=== PATIENT | female | born 1970 | race Caucasian/White ===

== ENCOUNTER 2016-10-14 19:53 | Observation (INO) | payer MEDICARE, OTHER ==
[2016-10-14] MEDS ORDERED: SODIUM CHLORIDE 0.9% 1,000 ML IV STA (20:05)
--- NOTE | 2016-10-14 20:06 | ED ---
General Adult HPI - General Chief complaint: Chest Pain Stated complaint: SOB/Chest Pain Time Seen by Provider: 10/14/16 19:59 Source: patient, family, RN notes reviewed, old records reviewed Mode of arrival: wheelchair Limitations: no limitations - History of Present Illness Initial comments: This is a 38-year-old female to the ER for evaluation. Patient presents for evaluation regarding chest pain. Left-sided chest pain with sharp chest pain. She has had this pain before and been evaluated without consequence. Denies fevers, no cough or congestion, no significant shortness of breath. Patient does have history of sarcoidosis. No history of heart disease. No recent fevers cough or congestion - Related Data Home Medications Medication Instructions Recorded Confirmed Ergocalciferol [Vitamin D2 50,000 unit PO TU 04/20/15 10/14/16 (DRISDOL)] Cyclobenzaprine [Flexeril] 10 mg PO HS PRN 12/21/15 10/14/16 Gabapentin [Neurontin] 300 mg PO BID PRN 12/21/15 10/14/16 Allergies Allergy/AdvReac Type Severity Reaction Status Date / Time meperidine HCl [From Demerol] Allergy Rash/Hives/ Verified 10/14/16 20:55 Swelling naproxen sodium [From Aleve] Allergy Rash/Hives/ Verified 10/14/16 20:55 Swelling Review of Systems ROS Statement: Those systems with pertinent positive or pertinent negative responses have been documented in the HPI. ROS Other: All systems not noted in ROS Statement are negative. Past Medical History Additional Past Medical History / Comment(s): VOICE BOX, LEFT LUNG NODULE, CHRONS, SARCODOSIS History of Any Multi-Drug Resistant Organisms: None Reported Past Surgical History: Hysterectomy, Joint Replacement, Orthopedic Surgery Additional Past Surgical History / Comment(s): LEFT LUNG NODULE REMOVAL, Past Anesthesia/Blood Transfusion Reactions: No Reported Reaction Past Psychological History: No Psychological Hx Reported Smoking Status: Never smoker Past Alcohol Use History: None Reported Past Drug Use History: None Reported General Exam Limitations: no limitations General appearance: alert, in no apparent distress Head exam: Present: atraumatic, normocephalic, normal inspection Eye exam: Present: normal appearance, PERRL, EOMI. Absent: scleral icterus, conjunctival injection, periorbital swelling ENT exam: Present: normal exam, mucous membranes moist Neck exam: Present: normal inspection. Absent: tenderness, meningismus, lymphadenopathy Respiratory exam: Present: normal lung sounds bilaterally. Absent: respiratory distress, wheezes, rales, rhonchi, stridor Cardiovascular Exam: Present: regular rate, normal rhythm, normal heart sounds. Absent: systolic murmur, diastolic murmur, rubs, gallop, clicks GI/Abdominal exam: Present: soft, normal bowel sounds. Absent: distended, tenderness, guarding, rebound, rigid Extremities exam: Present: normal inspection, full ROM, normal capillary refill. Absent: tenderness, pedal edema, joint swelling, calf tenderness Back exam: Present: normal inspection Neurological exam: Present: alert, oriented X3, CN II-XII intact Psychiatric exam: Present: normal affect, normal mood Skin exam: Present: warm, dry, intact, normal color. Absent: rash Course Vital Signs 10/14/16 10/14/16 10/14/16 19:57 20:12 21:47 Temperature 97.2 F L 97.0 F L Pulse Rate 84 86 70 Respiratory 18 18 16 Rate Blood Pressure 177/78 167/81 160/76 O2 Sat by Pulse 99 97 98 Oximetry - Reevaluation(s) Reevaluation #1: 10/14/16 22:28 No significant improvement in pain medication and pain control with pain medication EKG Findings - EKG Comments: EKG Findings:: EKG shows normal sinus rhythm rate of 73, WV 1:30, QRS 86, QTC 423 Medical Decision Making - Medical Decision Making 38 female any chest pain, nonspecific chest patient be admitted for cardiac observation, telemetry serial troponins and EKG - Lab Data Result diagrams: 10/14/16 20:20 10/14/16 20:20 Lab Results 10/14/16 10/14/16 10/14/16 Range/Units 20:20 20:20 20:20 WBC 9.6 (3.8-10.6) k/uL RBC 4.68 (3.80-5.40) m/uL Hgb 13.3 (11.4-16.0) gm/dL Hct 38.5 (34.0-46.0) % MCV 82.1 (80.0-100.0) fL MCH 28.4 (25.0-35.0) pg MCHC 34.5 (31.0-37.0) g/dL RDW 13.1 (11.5-15.5) % Plt Count 333 (150-450) k/uL Neutrophils % 64 % Lymphocytes % 27 % Monocytes % 5 % Eosinophils % 2 % Basophils % 0 % Neutrophils # 6.2 (1.3-7.7) k/uL Lymphocytes # 2.5 (1.0-4.8) k/uL Monocytes # 0.5 (0-1.0) k/uL Eosinophils # 0.2 (0-0.7) k/uL Basophils # 0.0 (0-0.2) k/uL PT (9.0-12.0) sec INR (<1.2) APTT (22.0-30.0) sec D-Dimer (<0.60) mg/L FEU Sodium 138 (137-145) mmol/L Potassium 4.0 (3.5-5.1) mmol/L Chloride 105 (98-107) mmol/L Carbon Dioxide 22 (22-30) mmol/L Anion Gap 11 mmol/L BUN 11 (7-17) mg/dL Creatinine 0.65 (0.52-1.04) mg/dL Est GFR (MDRD) Af Amer >60 (>60 ml/min/1.73 sqM) Est GFR (MDRD) Non-Af >60 (>60 ml/min/1.73 sqM) Glucose 84 (74-99) mg/dL Calcium 9.1 (8.4-10.2) mg/dL Magnesium 1.9 (1.6-2.3) mg/dL Total Bilirubin 0.6 (0.2-1.3) mg/dL AST 35 (14-36) U/L ALT 43 (9-52) U/L Alkaline Phosphatase 105 (38-126) U/L Total Creatine Kinase 32 (30-135) U/L CK-MB (CK-2) 0.3 (0.0-2.4) ng/mL CK-MB (CK-2) Rel Index 0.9 Troponin I <0.012 (0.000-0.034) ng/mL Total Protein 7.1 (6.3-8.2) g/dL Albumin 4.3 (3.5-5.0) g/dL Lipase 171 (23-300) U/L // Range/Units 20:20 WBC (3.8-10.6) k/uL RBC (3.80-5.40) m/uL Hgb (11.4-16.0) gm/dL Hct (34.0-46.0) % MCV (80.0-100.0) fL MCH (25.0-35.0) pg MCHC (31.0-37.0) g/dL RDW (11.5-15.5) % Plt Count (150-450) k/uL Neutrophils % % Lymphocytes % % Monocytes % % Eosinophils % % Basophils % % Neutrophils # (1.3-7.7) k/uL Lymphocytes # (1.0-4.8) k/uL Monocytes # (0-1.0) k/uL Eosinophils # (0-0.7) k/uL Basophils # (0-0.2) k/uL PT 10.1 (9.0-12.0) sec INR 1.0 (<1.2) APTT 25.2 (22.0-30.0) sec D-Dimer 0.32 (<0.60) mg/L FEU Sodium (137-145) mmol/L Potassium (3.5-5.1) mmol/L Chloride (98-107) mmol/L Carbon Dioxide (22-30) mmol/L Anion Gap mmol/L BUN (7-17) mg/dL Creatinine (0.52-1.04) mg/dL Est GFR (MDRD) Af Amer (>60 ml/min/1.73 sqM) Est GFR (MDRD) Non-Af (>60 ml/min/1.73 sqM) Glucose (74-99) mg/dL Calcium (8.4-10.2) mg/dL Magnesium (1.6-2.3) mg/dL Total Bilirubin (0.2-1.3) mg/dL AST (14-36) U/L ALT (9-52) U/L Alkaline Phosphatase (38-126) U/L Total Creatine Kinase (30-135) U/L CK-MB (CK-2) (0.0-2.4) ng/mL CK-MB (CK-2) Rel Index Troponin I (0.000-0.034) ng/mL Total Protein (6.3-8.2) g/dL Albumin (3.5-5.0) g/dL Lipase (23-300) U/L - Radiology Data Radiology results: report reviewed (Chest x-ray and CT chest negative for acute disease), image reviewed Critical Care Time Critical Care Time: Yes Total Critical Care Time: 31 Disposition Clinical Impression: Chest pain Disposition: ADMITTED IP TO THIS [facility] Condition: Undetermined Instructions: Chest Pain (ED) Referrals: Lamar Howard MD [Primary Care Provider] - 1-2 days
[2016-10-14] MEDS ORDERED: MORPHINE SULFATE 4 MG/ML SYRINGE IVP STA ×2 (20:11→21:10)
[2016-10-14] MEDS ORDERED: ONDANSETRON 4 MG/2 ML VIAL IVP STA (20:17)
[2016-10-14 20:29] LABS: Basophils % (A) 0 %; CH 27.5; CHCM 33.7; Eosinophils # (A) 0.2 k/uL (0-0.7); Eosinophils % (A) 2 %; HCT 38.5 % (34.0-46.0); HDW 2.53; HGB 13.3 gm/dL (11.4-16.0); Luc # (Auto) 0.15; Luc % (Auto) 2; Lymphocytes # (A) 2.5 k/uL (1.0-4.8); Lymphocytes % (A) 27 %; MCH 28.4 pg (25.0-35.0); MCHC 34.5 g/dL (31.0-37.0); MCV 82.1 fL (80.0-100.0); Monocytes # (A) 0.5 k/uL (0-1.0); Monocytes % (A) 5 %; Neutrophils # (A) 6.2 k/uL (1.3-7.7); Neutrophils % (A) 64 %; RBC 4.68 m/uL (3.80-5.40); RDW 13.1 % (11.5-15.5); WBC 9.6 k/uL (3.8-10.6); WBC (Perox) 9.75
[2016-10-14 20:42] LABS: ALT 43 U/L (9-52); AST 35 U/L (14-36); Alkaline Phosphatase 105 U/L (38-126); Anion Gap 11 mmol/L; Blood Urea Nitrogen 11 mg/dL (7-17); Calcium 9.1 mg/dL (8.4-10.2); Carbon Dioxide 22 mmol/L (22-30); Chloride 105 mmol/L (98-107); Glucose 84 mg/dL (74-99); Magnesium 1.9 mg/dL (1.6-2.3); Non-African American GFR(MDRD) >60 (>60 ml/min/1.73 sqM); Sodium 138 mmol/L (137-145); Total Bilirubin 0.6 mg/dL (0.2-1.3); Total Protein 7.1 g/dL (6.3-8.2)
[2016-10-14 20:43] LABS: Partial Thromboplastin Time 25.2 sec (22.0-30.0)
[2016-10-14 20:50] LABS: Creatine Kinase 32 U/L (30-135); Prothrombin Time 10.1 sec (9.0-12.0)
--- NOTE | 2016-10-14 20:51 | XR ---
EXAMINATION TYPE: XR chest 2V DATE OF EXAM: 10/14/2016 COMPARISON: Chest x-ray December 21, 2015 HISTORY: Chest pain and shortness of breath. TECHNIQUE: Frontal and lateral views of the chest are obtained. FINDINGS: There is no focal air space opacity, pleural effusion, or pneumothorax seen. The cardiac silhouette size is within normal limits. Metallic anchor rotator cuff surgery left humeral head is re demonstrated.. IMPRESSION: No acute cardiopulmonary process. No significant change from prior.
[2016-10-14 21:03] LABS: Creatine Kinase MB 0.3 ng/mL (0.0-2.4); Troponin I <0.012 ng/mL (0.000-0.034)
[2016-10-14] MEDS ORDERED: methylPREDNISolone SOD SUCCI 125 MG/2 ML VIAL IV STA (21:10)
[2016-10-14] MEDS ORDERED: RX INFO: IV CONTRAST WAS GIVEN 1 EACH MISC MISCELLANE PRN (21:11)
--- NOTE | 2016-10-14 22:11 | CT ---
EXAMINATION TYPE: CT angio chest DATE OF EXAM: 10/14/2016 COMPARISON: CTA chest April 26, 2015. HISTORY: Substernal chest pain that radiates to left arm with shortness of breath. CT DLP: 279.60 mGycm. Automated Exposure Control for Dose Reduction was Utilized. CONTRAST: CTA scan of the thorax is performed with IV Contrast, patient injected with 66 mL of Omnipaque 350, p ulmonary embolism protocol. MIP Images are created on CT scanner and reviewed. FINDINGS: LUNGS: The lungs are predominantly clear, there is no concerning parenchymal mass or nodule identifie d. There is minimal linear scarring in the left lower lobe redemonstrated. There is no pleural effus ion or pneumothorax seen. The tracheobronchial tree is patent. MEDIASTINUM: There is satisfactory enhancement of the pulmonary artery and its branches, there is no CT evidence for pulmonary embolism. There are no greater than 1 cm hilar or mediastinal lymph nodes. No cardiomegaly or pericardial effusion is seen. OTHER: Some multilevel spurring in the thoracic spine is present. A small splenule in splenic hilum i s redemonstrated. Cholecystectomy clips are noted on current study. IMPRESSION: No CTA evidence for pulmonary embolism. No suspicious acute pulmonary process is seen.
[2016-10-14] MEDS ORDERED: ASPIRIN 81 MG CHEW PO STA (22:26)
[2016-10-14] MEDS ORDERED: NITROGLYCERIN SL TABS 0.4 MG TAB SUBLINGUAL PRN (22:26)
[2016-10-14] MEDS ORDERED: HEPARIN SODIUM,PORCINE 5,000 UNIT/ML 1 ML VIAL IV ONE (22:26)
[2016-10-14] MEDS ORDERED: HEPARIN SODIUM,PORCINE 5,000 UNIT/ML 1 ML VIAL IV PRN (22:26)
[2016-10-14] MEDS ORDERED: HEPARIN SODIUM,PORCINE/D5W PMX 25,000 UNIT in DEXTROSE/WATER 1 500ML.BAG IV SCH (22:30)
[2016-10-14 23:35] VITALS: BMI 29.9
[2016-10-14] MEDS: MORPHINE SULFATE 4 MG/ML SYRINGE IV PRN (23:40)
[2016-10-15] MEDS: MORPHINE SULFATE 4 MG/ML SYRINGE IV PRN (02:04)
[2016-10-15 03:08] LABS: Mean Platelet Volume 6.5
[2016-10-15 03:22] LABS: Cholesterol 190 mg/dL (<200); HDL Cholesterol 72 mg/dL (40-60)
[2016-10-15 03:27] LABS: Creatine Kinase 26 U/L (30-135)
[2016-10-15 03:41] LABS: Creatine Kinase MB 0.4 ng/mL (0.0-2.4); Troponin I <0.012 ng/mL (0.000-0.034)
[2016-10-15] MEDS ORDERED: ATORVASTATIN 80 MG TAB PO SCH (09:00)
[2016-10-15] MEDS ORDERED: ASPIRIN 325 MG TAB PO SCH (09:00)
--- NOTE | 2016-10-15 09:20 | P.CRDCN ---
History of Present Illness Consult date: 10/15/16 History of present illness: This is a 46-year-old female with history of sarcoidosis who was admitted through the emergency room with complaints of chest pain and shortness of breath. Patient also has a history of intermittent palpitations. Patient had previous admissions and had an echo on the stress echo done in March 2015 which were negative for ischemia. She claims that chest pain is more so when she lays back. She also comes the chest pain increases on deep breathing. Her EKG so far are negative for ischemia. Cardiac enzymes are negative. D-dimer is within normal limits. Chest x-ray did not reveal any acute pathology. Patient is being scheduled for a surface echo and also stress echocardiogram. If the test are negative patient could be discharged home. Past Medical History Additional Past Medical History / Comment(s): VOICE BOX put in, Multiple LEFT LUNG NODULE, CHRONS, SARCODOSIS, vocal cords were paralized History of Any Multi-Drug Resistant Organisms: None Reported Past Surgical History: Hysterectomy, Joint Replacement, Orthopedic Surgery Additional Past Surgical History / Comment(s): LEFT LUNG NODULE REMOVAL, Past Anesthesia/Blood Transfusion Reactions: No Reported Reaction Smoking Status: Never smoker - Past Family History Mother Family Medical History: Diabetes Mellitus Father History Unknown: Yes Medications and Allergies Home Medications Medication Instructions Recorded Confirmed Type Ergocalciferol [Vitamin D2 50,000 unit PO TU 04/20/15 10/14/16 History (DRISDOL)] Cyclobenzaprine [Flexeril] 10 mg PO HS PRN 12/21/15 10/14/16 History Gabapentin [Neurontin] 300 mg PO BID PRN 12/21/15 10/14/16 History Allergies Allergy/AdvReac Type Severity Reaction Status Date / Time meperidine HCl [From Demerol] Allergy Rash/Hives/ Verified 10/14/16 23:20 Swelling naproxen sodium [From Aleve] Allergy Rash/Hives/ Verified 10/14/16 23:20 Swelling Physical Exam Vitals: Vital Signs Temp Pulse Pulse Resp BP BP Pulse Ox 10/15/16 08:00 97.6 F 66 18 118/64 98 10/15/16 07:57 98 10/15/16 04:00 97.8 F 69 18 128/69 97 10/15/16 00:00 18 10/14/16 23:37 97.7 F 66 18 147/86 98 10/14/16 22:51 98.3 F 18 L 66 H 156/74 98 10/14/16 21:47 70 16 160/76 98 10/14/16 20:12 97.0 F L 86 18 167/81 97 10/14/16 19:57 97.2 F L 84 18 177/78 99 Intake and Output 10/14/16 10/15/16 10/15/16 22:59 06:59 14:59 Other: Voiding Method Toilet # Voids 1 1 Weight 79.379 kg 79.3 kg GENERAL EXAM: Patient is alert and oriented and doesn't appear to be in any acute distress HEENT: Normocephalic. Normal reaction of pupils, equal size, normal range of extraocular motion. No erythema or exudates in the throat. NECK: No masses, no nuchal rigidity. CHEST: No chest wall deformity. LUNGS: Accept default HEART: S1 and S2 normal with no audible mumurs or gallops. Regular rhythm, femorals equal on both sides.. ABDOMEN: No hepatosplenomegaly, normal bowel sounds, no guarding or rigidity. SKIN: No rashes CENTRAL NERVOUS SYSTEM: No focal deficits. EXTREMITIES: No cyanosis, clubbing or edema. Results 10/15/16 02:41 10/14/16 20:20 Cardiac Enzymes 10/14/16 10/14/16 10/15/16 Range/Units 20:20 20:20 02:41 AST 35 (14-36) U/L CK-MB (CK-2) 0.3 0.4 (0.0-2.4) ng/mL Troponin I <0.012 <0.012 (0.000-0.034) ng/mL Coagulation 10/14/16 10/15/16 Range/Units 20:20 04:22 PT 10.1 (9.0-12.0) sec APTT 25.2 31.7 H (22.0-30.0) sec Lipids 10/15/16 Range/Units 02:41 Triglycerides 44 (<150) mg/dL Cholesterol 190 (<200) mg/dL HDL Cholesterol 72 H (40-60) mg/dL CBC 10/14/16 10/15/16 Range/Units 20:20 02:41 WBC 9.6 (3.8-10.6) k/uL RBC 4.68 (3.80-5.40) m/uL Hgb 13.3 (11.4-16.0) gm/dL Hct 38.5 (34.0-46.0) % Plt Count 333 290 (150-450) k/uL Comprehensive Metabolic Panel 10/14/16 Range/Units 20:20 Sodium 138 (137-145) mmol/L Potassium 4.0 (3.5-5.1) mmol/L Chloride 105 (98-107) mmol/L Carbon Dioxide 22 (22-30) mmol/L BUN 11 (7-17) mg/dL Creatinine 0.65 (0.52-1.04) mg/dL Glucose 84 (74-99) mg/dL Calcium 9.1 (8.4-10.2) mg/dL AST 35 (14-36) U/L ALT 43 (9-52) U/L Alkaline Phosphatase 105 (38-126) U/L Total Protein 7.1 (6.3-8.2) g/dL Albumin 4.3 (3.5-5.0) g/dL Current Medications Generic Name Dose Route Start Last Admin Trade Name Freq PRN Reason Stop Dose Admin Aspirin 325 mg 10/15/16 09:00 Aspirin PO DAILY [facility] Atorvastatin Calcium 80 mg 10/15/16 09:00 Lipitor PO DAILY [facility] Heparin Sodium (Porcine) 0 unit 10/14/16 22:26 Heparin IV Q6HR PRN Low PTT Protocol Heparin Sodium/Dextrose 25,000 500 mls @ 19.05 mls/hr 10/14/16 22:30 22:42 unit/ IV Solution IV 12 units/kg/hr .Q24H HENRY 19.05 mls/hr Protocol Administration 12 UNITS/KG/HR Miscellaneous Information 1 each 10/14/16 21:11 Rx Info: Iv Contrast Was Given MISCELLANE 10/16/16 21:11 DAILY PRN Per Protocol Morphine Sulfate 4 mg 10/14/16 22:26 10/15/16 02:04 Morphine Sulfate (Inj) IV 4 mg Q5M PRN Administration Chest Pain Nitroglycerin 0.4 mg 10/14/16 22:26 Nitrostat SUBLINGUAL Q5M PRN Chest Pain Intake and Output 10/14/16 10/15/16 10/15/16 22:59 06:59 14:59 Other: Voiding Method Toilet # Voids 1 1 Weight 79.379 kg 79.3 kg 10/15/16 02:41 10/14/16 20:20 EKG Interpretations (text) Sinus rhythm Assessment and Plan (1) History of sarcoidosis Status: Acute Plan: Her chest pains appear to be atypical. Cardiac enzymes and EKGs are negative. Patient is being scheduled for echo. If echocardiogram is normal, we'll proceed with stress echocardiogram. The stress echo is negative patient could be discharged home.
[2016-10-15 10:28] LABS: Creatine Kinase 24 U/L (30-135)
[2016-10-15 10:40] LABS: Creatine Kinase MB 0.3 ng/mL (0.0-2.4); Troponin I <0.012 ng/mL (0.000-0.034)
--- NOTE | 2016-10-15 15:30 | P.HPIM ---
History of Present Illness H&P Date: 10/15/16 Chief Complaint: Chest pain HISTORY AND PHYSICAL AND DISCHARGE SUMMARY: This is a 46-year-old female patient of Dr. Alvarez who is switching physicians and will be seen Dr. Howard tomorrow for her first appointment. She has a past medical history of Crohn's, sarcoidosis, vocal cords per dialysis status post repair. She gives history that she has had problems with palpitations and chest pain for a long period of time and his had a case monitor 2 episodes and a 30 day event monitor. She states it often happens when she lays down and she feels her heart racing. She then has chest pain with left arm involvement and shortness of breath. She denies any choking. She denies any lightheadedness or dizziness. She does state that her vision becomes blurry when she has chest pain. She states she had an episode where she passed out in March and broke both arms and all leg. She has followed with the neurologist and was not found to have any seizure disorder. Patient has been placed on the observation unit and cardiology consult placed. Patient underwent echocardiogram and stress echocardiogram. Patient has been seen in consultation by cardiology with normal EKG and normal cardiac enzymes. Echocardiogram revealed EF 55-60%, mild mitral regurgitation, trace tricuspid regurgitation. Stress echocardiogram was normal and patient was discharged home in stable condition. Patient has been instructed to stop caffeine intake as she does state that she drinks 2-3 24 ounce coffees per day plus a can of pop. Recommend the patient have outpatient tilt table test done. Review of Systems All systems: negative Constitutional: Denies chills, Denies fever Eyes: denies blurred vision, denies pain Ears, nose, mouth and throat: Denies headache, Denies sore throat Cardiovascular: Reports chest pain, Reports palpitations, Denies lightheadedness , Denies shortness of breath, Denies syncope Respiratory: Denies cough Gastrointestinal: Denies abdominal pain, Denies diarrhea, Denies nausea, Denies vomiting Genitourinary: Denies dysuria, Denies hematuria Musculoskeletal: Denies myalgias Integumentary: Denies pruritus, Denies rash Neurological: Denies numbness, Denies weakness Psychiatric: Denies anxiety, Denies depression Endocrine: Denies fatigue, Denies weight change Past Medical History Additional Past Medical History / Comment(s): Vocal cord paralysis after biopsy status post repair, Multiple LEFT LUNG NODULE, Crohn's disease, SARCODOSIS History of Any Multi-Drug Resistant Organisms: None Reported Past Surgical History: Hysterectomy, Joint Replacement, Orthopedic Surgery Additional Past Surgical History / Comment(s): Repair of vocal cord paralysis, right total knee arthroscopically, left rotator cuff repair, left knee open surgery, LEFT LUNG NODULE REMOVAL, Past Anesthesia/Blood Transfusion Reactions: No Reported Reaction Smoking Status: Never smoker Additional Past Alcohol Use History / Comment(s): Patient is a lifelong nonsmoker. She does use marijuana. She uses alcohol occasionally on the weekends. - Past Family History Mother Family Medical History: Diabetes Mellitus Additional Family Medical History / Comment(s): Mother is alive at age 69 with history of diabetes. Father History Unknown: Yes Additional Family Medical History / Comment(s): Patient does not have any contact with her father and does not know any of his medical history. Brother(s) Additional Family Medical History / Comment(s): Patient has 1 brother but does not know his medical history. Patient does not have any sisters. Patient has 2 sons ages 24 and 26 with no major medical problems. Medications and Allergies Home Medications Medication Instructions Recorded Confirmed Type Ergocalciferol [Vitamin D2 50,000 unit PO TU 04/20/15 10/14/16 History (LEXII)] Cyclobenzaprine [Flexeril] 10 mg PO HS PRN 12/21/15 10/14/16 History Gabapentin [Neurontin] 300 mg PO BID PRN 12/21/15 10/14/16 History Allergies Allergy/AdvReac Type Severity Reaction Status Date / Time meperidine HCl [From Demerol] Allergy Rash/Hives/ Verified 10/14/16 23:20 Swelling naproxen sodium [From Aleve] Allergy Rash/Hives/ Verified 10/14/16 23:20 Swelling Physical Exam Vitals: Vital Signs Temp Pulse Pulse Resp BP BP Pulse Ox 10/15/16 12:00 97.5 F L 67 16 120/58 98 10/15/16 08:00 97.6 F 66 18 118/64 98 10/15/16 07:57 98 10/15/16 04:00 97.8 F 69 18 128/69 97 10/15/16 00:00 18 10/14/16 23:37 97.7 F 66 18 147/86 98 10/14/16 22:51 98.3 F 18 L 66 H 156/74 98 10/14/16 21:47 70 16 160/76 98 10/14/16 20:12 97.0 F L 86 18 167/81 97 10/14/16 19:57 97.2 F L 84 18 177/78 99 Intake and Output 10/14/16 10/15/16 10/15/16 22:59 06:59 14:59 Other: Voiding Method Toilet # Voids 1 1 Weight 79.379 kg 79.3 kg Gen: This is a 46-year-old female. She is resting in bed and appears to be in no acute distress. HEENT: Head is atraumatic, normocephalic. Pupils equal, round. Sclerae is anicteric. NECK: Supple. No JVD. No lymphadenopathy. No thyromegaly. LUNGS: Clear to auscultation. No wheezes or rhonchi. No intercostal retractions. HEART: Regular rate and rhythm. No murmur. ABDOMEN: Soft. Bowel sounds are present. No masses. No tenderness. EXTREMITIES: No pedal edema. No calf tenderness. NEUROLOGICAL: Patient is awake, alert and oriented x3. Cranial nerves 2 through 12 are grossly intact. Results CBC & Chem 7: 10/15/16 02:41 10/14/16 20:20 Labs: Abnormal Lab Results - Last 24 Hours (Table) 10/15/16 10/15/16 10/15/16 Range/Units 02:41 02:41 04:22 APTT 31.7 H (22.0-30.0) sec Total Creatine Kinase 26 L (30-135) U/L LDL Cholesterol, Calc 109 H (0-99) mg/dL HDL Cholesterol 72 H (40-60) mg/dL 10/15/16 10/15/16 Range/Units 09:06 09:06 APTT 34.7 H (22.0-30.0) sec Total Creatine Kinase 24 L (30-135) U/L LDL Cholesterol, Calc (0-99) mg/dL HDL Cholesterol (40-60) mg/dL Thrombosis Risk Factor Assmnt - DVT/VTE Prophylaxis DVT/VTE Prophylaxis: Pharmacologic Prophylaxis ordered - Choose All That Apply Each Factor Represents 1 point: Age 41-60 years Thrombosis Risk Factor Assessment Total Risk Factor Score: 1 Thrombosis Risk Factor Assessment Level: Low Risk Assessment and Plan Plan: 1. Chest pain with palpitations and shortness of breath with blurry vision. Echocardiogram and stress test have been ordered and results are as above. Discussed with patient need to stop caffeine. Chest pain and palpitations may be due to autonomic dysfunction, anxiety, caffeine intake. 2. Sarcoidosis, stable. 3. Crohn's, stable. Patient placed on the observation unit. Discharge plan: Return home Impression and plan of care have been directed as dictated by the signing physician. Mellissa Reagan nurse practitioner acting as scribe for signing physician. CC: Dr Lamar Howard
[2016-10-15 16:23] VITALS: BP 118/56; PULSE 73; RESP 18; TEMP 98.3
--- NOTE | 2016-10-16 10:09 | ECHOF ---
Referral Reason: MEASUREMENTS -------- HEIGHT: 162.6 cm WEIGHT: 78.9 kg BP: 118/64 RVIDd: 2.5 cm (< 3.3) IVSd: 0.8 cm (0.6 - 1.1) LVIDd: 5.0 cm (3.9 - 5.3) LVPWd: 0.9 cm (0.6 - 1.1) IVSs: 1.4 cm LVIDs: 3.2 cm LVPWs: 1.4 cm LAESV Index (A-L): 42.82 ml/m Ao Diam: 3.5 cm (2.0 - 3.7) AV Cusp: 2.3 cm (1.5 - 2.6) LA Diam: 2.9 cm (2.7 - 3.8) MV EXCURSION: 18.872 mm (> 18.000) MV EF SLOPE: 96 mm/s (70 - 150) EPSS: 0.5 cm MV E Agapito: 0.98 m/s MV DecT: 279 ms MV A Agapito: 0.83 m/s MV E/A Ratio: 1.18 RAP: 5.00 mmHg RVSP: 22.66 mmHg FINDINGS -------- Sinus rhythm. This was a technically adequate study. Overall left ventricular systolic function is normal with, an EF between 55 - 60 %. The right ventricle is normal in size and function. LA is severely dilated >40 ml/m2 The right atrium is normal in size. The aortic valve is trileaflet, and appears structurally normal. No aortic stenosis or regurgitation. The mitral valve leaflets are mildly thickened. There is trace to mild mitral regurgitation. Trace tricuspid regurgitation present. There is no evidence of pulmonary hypertension. The right ventricular systolic pressure, as measured by Doppler, is 22.66mmHg. The pulmonic valve is normal. The aortic root size is normal. Normal inferior vena cava with normal inspiratory collapse consistent with estimated right atrial pressure of 5 mmHg. The pericardium is normal. There is no pericardial effusion. CONCLUSIONS -------- 1. Sinus rhythm. 2. The right ventricular systolic pressure, as measured by Doppler, is 22.66mmHg. 3. The pulmonic valve is normal. 4. The aortic root size is normal. 5. There is no pericardial effusion. 6. This was a technically adequate study. 7. Overall left ventricular systolic function is normal with, an EF between 55 - 60 %. 8. LA is severely dilated >40 ml/m2 9. The aortic valve is trileaflet, and appears structurally normal. No aortic stenosis or regurgitation. 10. The mitral valve leaflets are mildly thickened. 11. There is trace to mild mitral regurgitation. 12. Trace tricuspid regurgitation present. 13. There is no evidence of pulmonary hypertension. CONTROLS DESIGN ENGINEER: Nadir Murray RDCS
--- NOTE | 2016-10-17 14:04 | ECHOS ---
Referral Reason:cp MEASUREMENTS -------- HEIGHT: 163.0 cm WEIGHT: 78.9 kg BP: 137/96 WallScoring: string WallScoring: string WallScoring: string FINDINGS -------- Utilizing the standard Clarence protocol the patient was exercised for 9 minutes, 30 seconds, achieving a maximum heart rate of 161 , which is 93 % of predicted maximal heart rate. There was physiologic heart rate and blood pressure response to exercise. Max Heart Rate: 161 % of Max Predicted Heart Rate: 93 Rest Heart Rate: 61 Rest BP: 137/96 Max BP: 192/108 Mets Achieved: 11.1 The test was stopped because of fatigue. The test was stopped because the target heart rate was achieved. Sinus rhythm. In response to stress, the ECG showed no ST-T wave changes (see exercise report for details). There were normal blood pressure and heart rate responses to stress. LV size, wall thickness and systolic function are normal, with an EF of 60%. Echo images were acquired at peak stress which demonstrated appropriate augmentation of all left ventricular segments. CONCLUSIONS -------- 1. Sinus rhythm. 2. In response to stress, the ECG showed no ST-T wave changes (see exercise report for details). 3. There were normal blood pressure and heart rate responses to stress. 4. LV size, wall thickness and systolic function are normal, with an EF of 60%. 5. Echo images were acquired at peak stress which demonstrated appropriate augmentation of all left ventricular segments. 6. XXX functional exercise capacity. No ECG or 2D echocardiographic evidence of inducible ischemia to achieved workload. VEHICLE INSPECTOR: Therese Duke RDCS
--- NOTE | 2016-10-17 14:07 | EST ---
Referral Reason:cp MEASUREMENTS -------- HEIGHT: 163.0 cm WEIGHT: 78.9 kg BP: 137/96 FINDINGS -------- Utilizing the standard Clarence protocol the patient was exercised for 9 minutes, 30 seconds, achieving a maximum heart rate of 161 , which is 93 % of predicted maximal heart rate. There was physiologic heart rate and blood pressure response to exercise. Max Heart Rate: 161 % of Max Predicted Heart Rate: 93 Rest Heart Rate: 61 Rest BP: 137/96 Max BP: 192/108 Mets Achieved: 11.1 The test was stopped because of fatigue. The test was stopped because the target heart rate was achieved. Sinus rhythm. In response to stress, the ECG showed no ST-T wave changes (see exercise report for details). There were normal blood pressure and heart rate responses to stress. LV size, wall thickness and systolic function are normal, with an EF of 60%. Echo images were acquired at peak stress which demonstrated appropriate augmentation of all left ventricular segments. CONCLUSIONS -------- 1. Sinus rhythm. 2. In response to stress, the ECG showed no ST-T wave changes (see exercise report for details). 3. There were normal blood pressure and heart rate responses to stress. 4. LV size, wall thickness and systolic function are normal, with an EF of 60%. 5. Echo images were acquired at peak stress which demonstrated appropriate augmentation of all left ventricular segments. 6. XXX functional exercise capacity. No ECG or 2D echocardiographic evidence of inducible ischemia to achieved workload. ELECTRIC ORGAN ASSEMBLER AND CHECKER: Therese Duke RDCS MTDNabeel
== END 2016-10-15 16:28 | disposition home or self-care (01) ==
LOC: EC 19:53 → 3OBS 22:28
PROVIDERS: ADMIT Internal Medicine; ATTEND Internal Medicine
DX: R07.89 Other chest pain (principal); R06.02 Shortness of breath; R00.2 Palpitations; D86.9 Sarcoidosis, unspecified; K50.90 Crohn's disease, unspecified, without complications; Z88.8 Allergy status to other drugs, medicaments and biological substances; Z83.3 Family history of diabetes mellitus
CPT/HCPCS: 96375 ×4; 96376 ×5; 96361 ×4; 96365; 96366 ×2; 99291; 36415; 94760; 93005; 93017; 93306; 93350; 85379; 80061; 80053; 82550 ×2; 82553 ×2; 83690; 83735; 84484 ×2; 85025; 85049; 85610; 85730 ×2; 71020; 71275; G0378 ×2; J2270 ×2; J1644 ×2; J2930; Q9967; J2405

== ENCOUNTER 2016-10-23 19:39 | Observation (INO) | payer MEDICARE, OTHER ==
--- NOTE | 2016-10-23 19:54 | ED ---
General Adult HPI - General Stated complaint: Chest Pain Time Seen by Provider: 10/23/16 19:44 Source: RN notes reviewed, old records reviewed - History of Present Illness Initial comments: This is a 38-year-old female to the F reverse chest pain, patient is recent hospital admission for chest pain. No significant cardiac risk factors. Patient did take nitro for chest pain which did not help. Patient's pain continues here in the emergency room. She does feel mildly anxious mildly short of breath. No fevers. No cough or congestion. Again she has had a recent hospitalization where she states she did have a stress test and she believes it went well but unknown of other events. - Related Data Home Medications Medication Instructions Recorded Confirmed Ergocalciferol [Vitamin D2 50,000 unit PO TU 04/20/15 10/14/16 (DRISDOL)] Cyclobenzaprine [Flexeril] 10 mg PO HS PRN 12/21/15 10/14/16 Gabapentin [Neurontin] 300 mg PO BID PRN 12/21/15 10/14/16 Allergies Allergy/AdvReac Type Severity Reaction Status Date / Time Influenza Virus Vaccines Allergy Swelling Verified 10/23/16 20:20 meperidine HCl [From Demerol] Allergy Rash/Hives/ Verified 10/23/16 19:58 Swelling naproxen sodium [From Aleve] Allergy Rash/Hives/ Verified 10/23/16 19:58 Swelling pneumococcal vaccine Allergy Swelling Verified 10/23/16 20:20 Review of Systems ROS Statement: Those systems with pertinent positive or pertinent negative responses have been documented in the HPI. ROS Other: All systems not noted in ROS Statement are negative. Past Medical History Additional Past Medical History / Comment(s): Vocal cord paralysis after biopsy status post repair, Multiple LEFT LUNG NODULE, Crohn's disease, SARCODOSIS History of Any Multi-Drug Resistant Organisms: None Reported Past Surgical History: Hysterectomy, Joint Replacement, Orthopedic Surgery Additional Past Surgical History / Comment(s): Repair of vocal cord paralysis, right total knee arthroscopically, left rotator cuff repair, left knee open surgery, LEFT LUNG NODULE REMOVAL, Past Anesthesia/Blood Transfusion Reactions: No Reported Reaction Smoking Status: Never smoker Additional Past Alcohol Use History / Comment(s): Patient is a lifelong nonsmoker. She does use marijuana. She uses alcohol occasionally on the weekends. - Past Family History Mother Family Medical History: Diabetes Mellitus Additional Family Medical History / Comment(s): Mother is alive at age 69 with history of diabetes. Father History Unknown: Yes Additional Family Medical History / Comment(s): Patient does not have any contact with her father and does not know any of his medical history. Brother(s) Additional Family Medical History / Comment(s): Patient has 1 brother but does not know his medical history. Patient does not have any sisters. Patient has 2 sons ages 24 and 26 with no major medical problems. General Exam General appearance: alert, in no apparent distress, anxious Head exam: Present: atraumatic, normocephalic, normal inspection Eye exam: Present: normal appearance, PERRL, EOMI. Absent: scleral icterus, conjunctival injection, periorbital swelling ENT exam: Present: normal exam, mucous membranes moist Neck exam: Present: normal inspection. Absent: tenderness, meningismus, lymphadenopathy Respiratory exam: Present: normal lung sounds bilaterally. Absent: respiratory distress, wheezes, rales, rhonchi, stridor Cardiovascular Exam: Present: regular rate, normal rhythm, normal heart sounds. Absent: systolic murmur, diastolic murmur, rubs, gallop, clicks GI/Abdominal exam: Present: soft, normal bowel sounds. Absent: distended, tenderness, guarding, rebound, rigid Extremities exam: Present: normal inspection, full ROM, normal capillary refill. Absent: tenderness, pedal edema, joint swelling, calf tenderness Back exam: Present: normal inspection Neurological exam: Present: alert, oriented X3, CN II-XII intact Psychiatric exam: Present: normal affect, normal mood Skin exam: Present: warm, dry, intact, normal color. Absent: rash Course Vital Signs 10/23/16 19:40 Temperature 98.9 F Pulse Rate 67 Respiratory 18 Rate Blood Pressure 155/83 O2 Sat by Pulse 99 Oximetry - Reevaluation(s) Reevaluation #1: 10/23/16 20:24 Patient's prior ER visit and hospital stay are reviewed. Including stress test , CTA EKG Findings - EKG Comments: EKG Findings:: EKG shows normal sinus rhythm rate of 70, OR 142, QRS 76, QTC 425 Medical Decision Making - Medical Decision Making 38 female here for evaluation of chest heaviness and shortness of breath. Patient will be admitted for cardiac observation, - Radiology Data Radiology results: report reviewed (Chest x-ray negative for acute disease), image reviewed Critical Care Time Critical Care Time: Yes Total Critical Care Time: 31 Disposition Clinical Impression: Chest pain Disposition: ADMITTED IP TO THIS HOSP Condition: Fair Instructions: Chest Pain (ED) Referrals: Lamar Howard MD [Primary Care Provider] - 1-2 days
[2016-10-23] MEDS ORDERED: HEPARIN SODIUM,PORCINE 5,000 UNIT/ML 1 ML VIAL IV PRN (20:08)
[2016-10-23] MEDS ORDERED: MORPHINE SULFATE 4 MG/ML SYRINGE IV STA (20:08)
[2016-10-23] MEDS ORDERED: HEPARIN SODIUM,PORCINE 5,000 UNIT/ML 1 ML VIAL IV ONE (20:08)
[2016-10-23] MEDS ORDERED: NITROGLYCERIN SL TABS 0.4 MG TAB SUBLINGUAL PRN (20:08)
[2016-10-23] MEDS ORDERED: ASPIRIN 81 MG CHEW PO STA (20:08)
[2016-10-23] MEDS ORDERED: SODIUM CHLORIDE 0.9% 1,000 ML IV STA (20:08)
[2016-10-23] MEDS ORDERED: MORPHINE SULFATE 4 MG/ML SYRINGE IV PRN (20:08)
[2016-10-23] MEDS ORDERED: IPRATROPIUM-ALBUTEROL 3 ML NEB INHALATION PRN (20:10)
[2016-10-23] MEDS ORDERED: LORazepam 2 MG/ML SYRINGE IV PRN (20:10)
[2016-10-23] MEDS ORDERED: LORazepam 2 MG/ML SYRINGE IV STA (20:10)
[2016-10-23] MEDS ORDERED: HEPARIN SODIUM,PORCINE/D5W PMX 25,000 UNIT in DEXTROSE/WATER 1 500ML.BAG IV SCH (20:15)
[2016-10-23 20:26] LABS: Basophils % (A) 0 %; CH 28.2; CHCM 33.6; Eosinophils # (A) 0.2 k/uL (0-0.7); Eosinophils % (A) 3 %; HCT 38.7 % (34.0-46.0); HDW 2.41; HGB 12.6 gm/dL (11.4-16.0); Luc # (Auto) 0.16; Luc % (Auto) 2; Lymphocytes # (A) 2.3 k/uL (1.0-4.8); Lymphocytes % (A) 24 %; MCH 27.5 pg (25.0-35.0); MCHC 32.6 g/dL (31.0-37.0); MCV 84.3 fL (80.0-100.0); Mean Platelet Volume 7.3; Monocytes # (A) 0.6 k/uL (0-1.0); Monocytes % (A) 7 %; Neutrophils # (A) 6.2 k/uL (1.3-7.7); Neutrophils % (A) 65 %; RBC 4.59 m/uL (3.80-5.40); RDW 13.8 % (11.5-15.5); WBC 9.5 k/uL (3.8-10.6); WBC (Perox) 9.79
--- NOTE | 2016-10-23 20:30 | XR ---
EXAMINATION TYPE: XR chest 2V DATE OF EXAM: 10/23/2016 COMPARISON: 10/14/2016 HISTORY: Chest pain TECHNIQUE: Frontal and lateral views of the chest are obtained. FINDINGS: Heart and mediastinum are normal. Lungs are clear. Diaphragm is normal. There are chest le ads. Bony thorax appears normal. IMPRESSION: Normal chest. No change.
[2016-10-23 20:33] LABS: INR 0.9 (<1.2); Prothrombin Time 9.7 sec (9.0-12.0)
[2016-10-23 20:35] LABS: ALT 44 U/L (9-52); AST 37 U/L (14-36); Alkaline Phosphatase 98 U/L (38-126); Anion Gap 11 mmol/L; Blood Urea Nitrogen 14 mg/dL (7-17); Calcium 9.4 mg/dL (8.4-10.2); Carbon Dioxide 23 mmol/L (22-30); Chloride 103 mmol/L (98-107); Glucose 109 mg/dL (74-99); Magnesium 1.8 mg/dL (1.6-2.3); Non-African American GFR(MDRD) >60 (>60 ml/min/1.73 sqM); Sodium 137 mmol/L (137-145); Total Bilirubin 0.9 mg/dL (0.2-1.3)
[2016-10-23 20:44] LABS: Creatine Kinase 31 U/L (30-135)
[2016-10-23 20:58] LABS: Creatine Kinase MB 0.4 ng/mL (0.0-2.4); Troponin I <0.012 ng/mL (0.000-0.034)
[2016-10-23] MEDS: ONDANSETRON 4 MG/2 ML VIAL IVP PRN (21:54)
[2016-10-24 02:19] LABS: Mean Platelet Volume 7.1
[2016-10-24 02:49] LABS: Cholesterol 174 mg/dL (<200); Creatine Kinase 22 U/L (30-135); HDL Cholesterol 55 mg/dL (40-60)
[2016-10-24 03:02] LABS: Creatine Kinase MB 0.4 ng/mL (0.0-2.4); Troponin I <0.012 ng/mL (0.000-0.034)
[2016-10-24] MEDS: ONDANSETRON 4 MG/2 ML VIAL IVP PRN (06:24)
[2016-10-24] MEDS ORDERED: NITROGLYCERIN SL TABS 0.4 MG TAB SUBLINGUAL PRN ×2 (10:41→11:08)
[2016-10-24] MEDS ORDERED: GABAPENTIN 300 MG CAP PO PRN (10:41)
[2016-10-24] MEDS ORDERED: CYCLOBENZAPRINE 10 MG TAB PO PRN (10:41)
[2016-10-24] MEDS ORDERED: ALPRAZolam 0.5 MG TAB PO PRN (11:08)
[2016-10-24] MEDS ORDERED: SODIUM CHLORIDE 0.9% 1,000 ML in EMPTY BAG 1 BAG IV ONE (11:08)
[2016-10-24] MEDS ORDERED: ALPRAZolam 0.25 MG TAB PO PRN (11:08)
[2016-10-24] MEDS ORDERED: ATORVASTATIN 80 MG TAB PO STA (11:11)
[2016-10-24] MEDS ORDERED: ASPIRIN 325 MG TAB PO STA (11:11)
[2016-10-24] MEDS: IBUPROFEN 600 MG TAB PO SCH ×3 (11:48→20:51)
[2016-10-24] MEDS: ASPIRIN 325 MG TAB PO SCH (11:48)
--- NOTE | 2016-10-24 13:26 | P.HPIM ---
History of Present Illness H&P Date: 10/24/16 Chief Complaint: Chest pain This is a 46-year-old female patient of Dr. Howard with a past medical history of Crohn's diagnosed in 2004 not on medication, sarcoidosis diagnosed in 2010, vocal cords paralysis status post repair. She gives history that she has had problems with palpitations and chest pain for a long period of time and his had a shingle carrier 2 episodes and a 30 day event monitor. She states it often happens when she lays down and she feels her heart racing. She then has chest pain with left arm involvement and shortness of breath. She denies any choking. She denies any lightheadedness or dizziness. She does state that her vision becomes blurry when she has chest pain. She states she had an episode where she passed out in March and "broke both arms and legs." She has followed with the neurologist and was not found to have any seizure disorder. She presented in September with chest pain symptoms and was placed on the observation unit. Patient has been seen in consultation by cardiology with normal EKG and normal cardiac enzymes. Echocardiogram revealed EF 55-60%, mild mitral regurgitation, trace tricuspid regurgitation. Stress echocardiogram was normal and patient was discharged home in stable condition. Patient has been instructed to stop caffeine intake as she does state that she drinks 2-3 24 ounce coffees per day plus a can of pop. Recommend the patient have outpatient tilt table test done. Patient states she had another episode of chest pain was a little worse than last one. She states she was sitting on the porch when it happened and she went inside and laid down to get out of the sun but only got worse when she laid down. She states she went back outside but she took nitroglycerin 2 with no relief but then developed blurry vision, nausea, dizziness and states she has been nauseated ever since. She denies any chest wall tenderness in any injury to her chest wall. Since her visit in September she did follow-up with Dr. Howard and was sent to retail sales assistant, Dr. Finch. She also states her left arm and fingers were tingling. She denies any family history of coronary artery disease. Review of Systems All systems: negative Constitutional: Denies chills, Denies fever Eyes: denies blurred vision, denies pain Ears, nose, mouth and throat: Denies headache, Denies sore throat Cardiovascular: Reports as per HPI, Reports chest pain, Reports lightheadedness , Denies shortness of breath Respiratory: Denies cough Gastrointestinal: Denies abdominal pain, Denies diarrhea, Denies nausea, Denies vomiting Genitourinary: Denies dysuria, Denies hematuria Musculoskeletal: Denies myalgias Integumentary: Denies pruritus, Denies rash Neurological: Denies numbness, Denies weakness Psychiatric: Denies anxiety, Denies depression Endocrine: Denies fatigue, Denies weight change Past Medical History Past Medical History: Chest Pain / Angina Additional Past Medical History / Comment(s): Vocal cord paralysis after biopsy status post repair, Multiple LEFT LUNG NODULE, Crohn's disease, SARCODOSIS History of Any Multi-Drug Resistant Organisms: None Reported Past Surgical History: Hysterectomy, Joint Replacement, Orthopedic Surgery Additional Past Surgical History / Comment(s): Repair of vocal cord paralysis, right total knee arthroscopically, left rotator cuff repair, left knee open surgery, LEFT LUNG NODULE REMOVAL, Past Anesthesia/Blood Transfusion Reactions: No Reported Reaction Smoking Status: Never smoker - Past Family History Mother Family Medical History: Diabetes Mellitus Additional Family Medical History / Comment(s): Mother is alive at age 69 with history of diabetes. Father History Unknown: Yes Additional Family Medical History / Comment(s): Patient does not have any contact with her father and does not know any of his medical history. Brother(s) Additional Family Medical History / Comment(s): Patient has 1 brother but does not know his medical history. Patient does not have any sisters. Patient has 2 sons ages 24 and 26 with no major medical problems. Medications and Allergies Home Medications Medication Instructions Recorded Confirmed Type Ergocalciferol [Vitamin D2 50,000 unit PO 04/20/15 10/23/16 History (DRISDOL)] Cyclobenzaprine [Flexeril] 10 mg PO HS PRN 12/21/15 10/23/16 History Gabapentin [Neurontin] 300 mg PO BID PRN 12/21/15 10/23/16 History Aspirin EC [Ecotrin Low Dose] 81 mg PO DAILY 10/23/16 10/23/16 History Nitroglycerin Sl Tabs [Nitrostat] 0.4 mg SUBLINGUAL Q5M PRN 10/23/16 10/23/16 History Allergies Allergy/AdvReac Type Severity Reaction Status Date / Time Influenza Virus Vaccines Allergy Swelling Verified 10/23/16 21:44 meperidine HCl [From Demerol] Allergy Rash/Hives/ Verified 10/23/16 21:44 Swelling naproxen sodium [From Aleve] Allergy Rash/Hives/ Verified 10/23/16 21:44 Swelling pneumococcal vaccine Allergy Swelling Verified 10/23/16 21:44 Physical Exam Vitals: Vital Signs Temp Pulse Pulse Resp BP BP Pulse Ox 10/24/16 07:25 98 F 59 L 16 97/61 100 10/24/16 04:00 18 10/24/16 03:23 97.9 F 65 18 120/60 99 10/23/16 23:16 77 18 127/75 100 10/23/16 22:00 18 10/23/16 21:35 97.6 F 76 18 141/77 97 10/23/16 20:56 78 18 151/74 99 10/23/16 20:35 88 18 140/68 100 10/23/16 20:30 74 18 157/77 100 10/23/16 19:40 98.9 F 67 18 155/83 99 Intake and Output 10/23/16 10/24/16 10/24/16 22:59 06:59 14:59 Intake Total 1334.944 Balance 1334.944 Intake: IV 1020 Heparin Sodium,Porcine/ 120 D5w Pmx 25,000 unit In Dextrose/Water 1 500ml. bag @ 12 UNITS/KG/HR 17. 96 mls/hr IV .Q24H [facility] Rx #:[id number] Sodium Chloride 0.9% 1, 900 000 ml @ 100 mls/hr IV . Q10H [facility] Rx#:[id number] Intake, IV Titration 114.944 Amount Heparin Sodium,Porcine/ 114.944 D5w Pmx 25,000 unit In Dextrose/Water 1 500ml. bag @ 12 UNITS/KG/HR 17. 96 mls/hr IV .Q24H [facility] Rx #:[id number] Oral 200 Other: Voiding Method Toilet Toilet # Voids 2 Weight 82.2 kg Gen: This is a 46-year-old female. She is resting in bed and appears to be in no acute distress. HEENT: Head is atraumatic, normocephalic. Pupils equal, round. Sclerae is anicteric. NECK: Supple. No JVD. No lymphadenopathy. No thyromegaly. LUNGS: Clear to auscultation. No wheezes or rhonchi. No intercostal retractions. HEART: Regular rate and rhythm. No murmur. ABDOMEN: Soft. Bowel sounds are present. No masses. No tenderness. EXTREMITIES: No pedal edema. No calf tenderness. NEUROLOGICAL: Patient is awake, alert and oriented x3. Cranial nerves 2 through 12 are grossly intact. Results CBC & Chem 7: 10/24/16 02:04 10/23/16 20:13 Labs: Abnormal Lab Results - Last 24 Hours (Table) 10/23/16 10/24/16 10/24/16 Range/Units 20:13 02:04 02:04 APTT (22.0-30.0) sec Glucose 109 H (74-99) mg/dL AST 37 H (14-36) U/L Total Creatine Kinase 22 L (30-135) U/L LDL Cholesterol, Calc 102 H (0-99) mg/dL 10/24/16 10/24/16 Range/Units 02:04 08:50 APTT 38.5 H 61.1 H (22.0-30.0) sec Glucose (74-99) mg/dL AST (14-36) U/L Total Creatine Kinase (30-135) U/L LDL Cholesterol, Calc (0-99) mg/dL Thrombosis Risk Factor Assmnt - DVT/VTE Prophylaxis DVT/VTE Prophylaxis: Pharmacologic Prophylaxis ordered - Choose All That Apply Any of the Below Risk Factors Present?: Yes Each Factor Represents 1 point: Age 41-60 years, Obesity (BMI >25) Other Risk Factors: No Other congenital or acquired thrombophilia - If yes, enter type in comment: No Thrombosis Risk Factor Assessment Total Risk Factor Score: 2 Thrombosis Risk Factor Assessment Level: Low Risk Assessment and Plan Plan: 1. Chest pain with palpitations and shortness of breath with blurry vision. Echocardiogram and stress test recently done were normal. Patient is scheduled for heart catheterization tomorrow. Discussed with patient need to stop caffeine. 2. Sarcoidosis, stable. 3. Crohn's, stable. Patient placed on the observation unit. Discharge plan: Return home Impression and plan of care have been directed as dictated by the signing physician. Mellissa Reagan nurse practitioner acting as scribe for signing physician. CC: Dr Lamar Howard
[2016-10-25] MEDS: ASPIRIN 325 MG TAB PO SCH (05:23)
[2016-10-25] MEDS ORDERED: SODIUM CHLORIDE 0.9% 500 ML IV ONE (07:22)
[2016-10-25] MEDS ORDERED: fentaNYL (PF) 50 MCG/ML 2 ML AMP ONE (07:24)
[2016-10-25] MEDS ORDERED: MIDAZOLAM 2 MG/2 ML VIAL ONE (07:32)
[2016-10-25] MEDS ORDERED: fentaNYL (PF) 50 MCG/ML 2 ML AMP IVP ONE (07:32)
[2016-10-25] MEDS ORDERED: LIDOCAINE 2% INJ 20 MG/ML SQ ONE (07:35)
[2016-10-25] MEDS ORDERED: MIDAZOLAM 2 MG/2 ML VIAL IVP ONE (07:35)
[2016-10-25] MEDS ORDERED: IOHEXOL 350 MG/ML 100 ML BOTTLE INJ ONE (07:47)
[2016-10-25] MEDS ORDERED: RX INFO: IV CONTRAST WAS GIVEN 1 EACH MISC MISCELLANE PRN (07:54)
[2016-10-25] MEDS ORDERED: SODIUM CHLORIDE 0.9% 1,000 ML IV SCH (08:00)
--- NOTE | 2016-10-25 08:18 | CC ---
CARDIAC CATHETERIZATION REPORT INDICATION: Unstable angina. PROCEDURE NOTE: After obtaining informed consent, left heart catheterization and coronary angiogram are performed via the right femoral artery using standard Viky catheters. The patient tolerated the procedure well without any obvious immediate complications. A femoral angiogram was performed and Angio-Seal will be deployed for hemostasis. Patient received moderate conscious sedation. Total sedation time was 17 minutes. FINDINGS: 1. HEMODYNAMICS: Left ventricular end-diastolic pressure is 14 to 16 mm. There is no significant gradient across the aortic valve. 2. LEFT VENTRICULOGRAM: Left ventriculogram was not performed. 3. ANGIOGRAPHIC DATA: LEFT MAIN CORONARY ARTERY: Left main coronary artery is a normal size vessel and is free of stenosis. Divides into left anterior descending coronary artery and circumflex coronary artery. LAD and its branches and circumflex coronary artery and its branches are free of significant stenosis. Circ is a codominant system. Right coronary artery is a large dominant vessel and is free of significant stenosis. Patient has a short left main stenosis and catheter was engaging the circ more selectively. CONCLUSIONS: 1. Normal coronary arteries. 2. Patient's chest discomfort is probably noncardiac in origin and her management is going to be in the form of risk factor modification. Thank you for allowing us to participate in the care of this pleasant lady. SOURAV
[2016-10-25 08:37] VITALS: RESP 16; TEMP 97.9
[2016-10-25 11:50] VITALS: BP 104/68; PULSE 68
[2016-10-29] MEDS ORDERED: ERGOCALCIFEROL 50,000 UNIT CAP PO SCH (09:00)
--- NOTE | 2016-10-29 12:28 | DS ---
ADMISSION DIAGNOSES: 1. Atypical chest pain. 2. Anxiety. DISCHARGE DIAGNOSIS: Atypical chest pain, likely musculoskeletal in nature. PROCEDURE: Cardiac catheterization. HISTORY OF PRESENT ILLNESS: This 46-year-old female who presented to the hospital with recurrent chest pain. Patient 2 weeks ago had similar presentation , which stress test was negative. The patient insists this time that she would like cardiac component to be ruled out and Cardiology performed cardiac catheterization, which showed normal finding. The patient advised to follow up with Cardiology outpatient and prescribe Motrin 600 four times daily for her musculoskeletal pain. The patient was discharged in stable condition to follow up with her primary care physician in one week. SOURAV
== END 2016-10-25 14:16 | disposition home or self-care (01) ==
LOC: EC 19:39 → 3OBS 20:08
PROVIDERS: ADMIT Internal Medicine Geriatric Medicine; ATTEND Internal Medicine Geriatric Medicine
DX: R07.89 Other chest pain (principal); F41.9 Anxiety disorder, unspecified; K50.90 Crohn's disease, unspecified, without complications; R00.2 Palpitations; H53.8 Other visual disturbances; R42 Dizziness and giddiness; I08.1 Rheumatic disorders of both mitral and tricuspid valves; R20.2 Paresthesia of skin; D86.9 Sarcoidosis, unspecified; Z79.899 Other long term (current) drug therapy; Z88.6 Allergy status to analgesic agent; Z88.5 Allergy status to narcotic agent; Z88.7 Allergy status to serum and vaccine; Z79.82 Long term (current) use of aspirin
CPT/HCPCS: 99152; 96361 ×2; 96366 ×2; 96375 ×2; 96376 ×2; 96368; 96365; 36415; 93005; 93458; 80061; 80053; 82550 ×2; 82553 ×2; 83690; 83735; 84484 ×2; 85025; 85049 ×2; 85610; 85730 ×2; 71020; G0378 ×3; C1760; C1894; C1769; J2001; J2250; J2060; J2270 ×2; J1644 ×3; Q9967; J2405 ×2; J3010; 99291

== ENCOUNTER → 2016-11-16 | Outpatient (CLI) | payer MEDICARE, OTHER ==
--- NOTE | 2016-11-17 12:38 | PE ---
EXAMINATION TYPE: PET CT fusion skull to thigh DATE OF EXAM: 11/16/2016 COMPARISON: 10/14/2016 CTA chest Prior PET/CT: 08/11/2010. No more recent imaging is available at this loca tion. HISTORY: Left lung cancer TECHNIQUE: Following the intravenous administration of 14.3 mCi of F-18 FDG, whole body images are p erformed from the skull base to the midthigh. Images are reviewed on the computer in the coronal, ax ial, and sagittal planes. Reconstructed rotating images are created on independent workstation and r eviewed on the computer. A localization and attenuation correction CT is performed in conjunction w ith the PET scan. DLP: 14.2 mGycm SCAN: Subsequent Blood glucose: 85 mg/dL Average Mediastinum SUV: 1.5 Average Liver SUV: 2.2 FINDINGS: NECK: Suspicious uptake is not identified. There is some uptake within submental hypoglossal muscles . Uptake within the mandible appears to be related to periodontal disease THORAX: No abnormal uptake. Streak opacity at the left diaphragm is again identified. This has an SUV value of 0.6 and is likely benign, possibly atelectasis or scarring. Previous subcarinal uptake is n ot readily apparent on the current examination. There is a calcified lymph node in this region. Extre deepak subtle uptake measuring 2 may be present in the subcarinal region. PET image 67. Additionally, v sushma subtle left infrahilar uptake is not entirely excluded, PET image 66 with an SUV value 1.9. These areas previously measured SUV values of 7.6 and 4.6 respectively. ABDOMEN: No abnormal uptake PELVIS: No abnormal uptake OSSEOUS STRUCTURES: No abnormal uptake LOCALIZATION CT: The ascending thoracic aorta at the level of the main pulmonary artery is 3.2 cm. Th e main pulmonary artery at the bifurcation is 2.7 cm. Couple of small left axillary lymph nodes are p resent. COMPARISON: Findings are stable from 10/14/2016 CTA chest. Previous hypermetabolic activity within the subcarinal region in the left infrahilar region are not evident on the current examination. IMPRESSION: 1. No suspicious uptake to suggest neoplastic process. Follow-up chest CT in 3-6 months can be perfor med to confirm stability. This should be confirmed as stable over the course of 2 years. 2. Previous abnormal uptake reported in 2010 is not present on the current examination. Extremely sub tle uptake in the inflammatory range is present in these locations.
== END | disposition home or self-care (01) ==
LOC: RADPETMAIN 13:29
PROVIDERS: ATTEND Internal Medicine
DX: R91.1 Solitary pulmonary nodule (principal); R94.2 Abnormal results of pulmonary function studies
CPT/HCPCS: 78815; A9552

== ENCOUNTER → 2017-04-17 | Outpatient (CLI) | payer MEDICARE, OTHER ==
--- NOTE | 2017-04-18 15:24 | XR ---
Lumbosacral spine HISTORY: Back pain with sciatica 5 views of the lumbosacral spine No comparisons There is a dextroscoliosis centered at the mid lumbar spine. Surgical clips are present in the right upper quadrant. There is no spondylolysis or spondylolisthesis. Multilevel spondylosis is present. Lo ss of disc height present at L5-S1. Sclerosis present in the posterior elements at this level. IMPRESSION: Degenerative disc disease and facet arthropathy, mild spinal curvature.
== END | disposition home or self-care (01) ==
LOC: RADXRMAIN 16:29
PROVIDERS: ATTEND Internal Medicine
DX: M51.36 Other intervertebral disc degeneration, lumbar region (principal); M46.86 Other specified inflammatory spondylopathies, lumbar region; M43.9 Deforming dorsopathy, unspecified
CPT/HCPCS: 72110

== ENCOUNTER 2017-07-15 14:08 | Emergency (ER) | payer MEDICARE, OTHER ==
[2017-07-15] MEDS ORDERED: SODIUM CHLORIDE 0.9% 1,000 ML IV STA (14:15)
[2017-07-15 14:16] VITALS: TEMP 98
--- NOTE | 2017-07-15 14:26 | ED ---
General Adult HPI - General Chief complaint: Chest Pain Stated complaint: Chest Pain Time Seen by Provider: 07/15/17 14:15 Source: patient, EMS, RN notes reviewed, old records reviewed Mode of arrival: EMS Limitations: no limitations - History of Present Illness Initial comments: This is a 47-year-old female pain feels similar. Again patient denies any cough congestion fever, no travel history. Patient did have chest pain started last night, no recent travel history. No fevers no cough no congestion. Patient denies any recent change in medications. No shortness of breath. - Related Data Home Medications Medication Instructions Recorded Confirmed Aspirin EC [Ecotrin Low Dose] 81 mg PO DAILY 10/23/16 07/15/17 Nitroglycerin Sl Tabs [Nitrostat] 0.4 mg SUBLINGUAL Q5M PRN 10/23/16 07/15/17 Cholecalciferol (Vitamin D3) 2,000 unit PO DAILY 07/15/17 07/15/17 [Vitamin D3] Allergies Allergy/AdvReac Type Severity Reaction Status Date / Time Influenza Virus Vaccines Allergy Swelling Verified 07/15/17 14:34 meperidine HCl [From Demerol] Allergy Rash/Hives/ Verified 07/15/17 14:34 Swelling naproxen sodium [From Aleve] Allergy Rash/Hives/ Verified 07/15/17 14:34 Swelling pneumococcal vaccine Allergy Swelling Verified 07/15/17 14:34 red dye Allergy Unknown Verified 07/15/17 14:34 Review of Systems ROS Statement: Those systems with pertinent positive or pertinent negative responses have been documented in the HPI. ROS Other: All systems not noted in ROS Statement are negative. Past Medical History Past Medical History: Chest Pain / Angina Additional Past Medical History / Comment(s): Vocal cord paralysis after biopsy status post repair, Multiple LEFT LUNG NODULE, Crohn's disease, SARCODOSIS History of Any Multi-Drug Resistant Organisms: None Reported Past Surgical History: Hysterectomy, Joint Replacement, Orthopedic Surgery Additional Past Surgical History / Comment(s): Repair of vocal cord paralysis, right total knee arthroscopically, left rotator cuff repair, left knee open surgery, LEFT LUNG NODULE REMOVAL, Past Anesthesia/Blood Transfusion Reactions: No Reported Reaction Past Psychological History: No Psychological Hx Reported Smoking Status: Never smoker Past Alcohol Use History: Occasional Past Drug Use History: Marijuana - Past Family History Mother Family Medical History: Diabetes Mellitus Additional Family Medical History / Comment(s): Mother is alive at age 69 with history of diabetes. Father History Unknown: Yes Additional Family Medical History / Comment(s): Patient does not have any contact with her father and does not know any of his medical history. Brother(s) Additional Family Medical History / Comment(s): Patient has 1 brother but does not know his medical history. Patient does not have any sisters. Patient has 2 sons ages 24 and 26 with no major medical problems. General Exam Limitations: no limitations General appearance: alert, in no apparent distress Head exam: Present: atraumatic, normocephalic, normal inspection Eye exam: Present: normal appearance, PERRL, EOMI. Absent: scleral icterus, conjunctival injection, periorbital swelling ENT exam: Present: normal exam, mucous membranes moist Neck exam: Present: normal inspection. Absent: tenderness, meningismus, lymphadenopathy Respiratory exam: Present: normal lung sounds bilaterally. Absent: respiratory distress, wheezes, rales, rhonchi, stridor Cardiovascular Exam: Present: regular rate, normal rhythm, normal heart sounds. Absent: systolic murmur, diastolic murmur, rubs, gallop, clicks GI/Abdominal exam: Present: soft, normal bowel sounds. Absent: distended, tenderness, guarding, rebound, rigid Extremities exam: Present: normal inspection, full ROM, normal capillary refill. Absent: tenderness, pedal edema, joint swelling, calf tenderness Back exam: Present: normal inspection Neurological exam: Present: alert, oriented X3, CN II-XII intact Psychiatric exam: Present: normal affect, normal mood Skin exam: Present: warm, dry, intact, normal color. Absent: rash Course Vital Signs 07/15/17 07/15/17 14:13 14:33 Temperature 98 F Pulse Rate 78 72 Respiratory 16 20 Rate Blood Pressure 150/84 152/87 O2 Sat by Pulse 98 100 Oximetry - Reevaluation(s) Reevaluation #1: 07/15/17 14:25 Medical record is reviewed including recent cardiac catheterization report showing normal coronary arteries EKG Findings - EKG Comments: EKG Findings:: EKG shows sinus rhythm rate of 70, DE 144, QRS 84, QTC 434 Medical Decision Making - Medical Decision Making 47 female the ER for evaluation, positive chest pain history of chest pain history of normal heart catheterization with normal coronary arteries, normal EKG and troponin at this time. Patient to be discharged home - Lab Data Result diagrams: 07/15/17 14:18 07/15/17 14:18 Lab Results 07/15/17 07/15/17 07/15/17 Range/Units 14:18 14:18 14:18 WBC 6.2 (3.8-10.6) k/uL RBC 4.34 (3.80-5.40) m/uL Hgb 12.4 (11.4-16.0) gm/dL Hct 35.8 (34.0-46.0) % MCV 82.5 (80.0-100.0) fL MCH 28.6 (25.0-35.0) pg MCHC 34.7 (31.0-37.0) g/dL RDW 13.0 (11.5-15.5) % Plt Count 285 (150-450) k/uL Neutrophils % 67 % Lymphocytes % 23 % Monocytes % 6 % Eosinophils % 2 % Basophils % 0 % Neutrophils # 4.1 (1.3-7.7) k/uL Lymphocytes # 1.4 (1.0-4.8) k/uL Monocytes # 0.4 (0-1.0) k/uL Eosinophils # 0.1 (0-0.7) k/uL Basophils # 0.0 (0-0.2) k/uL PT (9.0-12.0) sec INR (<1.2) APTT (22.0-30.0) sec Sodium 143 (137-145) mmol/L Potassium 3.9 (3.5-5.1) mmol/L Chloride 103 (98-107) mmol/L Carbon Dioxide 28 (22-30) mmol/L Anion Gap 12 mmol/L BUN 11 (7-17) mg/dL Creatinine 0.50 L (0.52-1.04) mg/dL Est GFR (CKD-EPI)AfAm >90 (>60 ml/min/1.73 sqM) Est GFR (CKD-EPI)NonAf >90 (>60 ml/min/1.73 sqM) Glucose 89 (74-99) mg/dL Calcium 9.5 (8.4-10.2) mg/dL Magnesium 1.9 (1.6-2.3) mg/dL Total Bilirubin 0.9 (0.2-1.3) mg/dL AST 30 (14-36) U/L ALT 56 H (9-52) U/L Alkaline Phosphatase 100 (38-126) U/L Total Creatine Kinase <20 L (30-135) U/L CK-MB (CK-2) <0.2 (0.0-2.4) ng/mL CK-MB (CK-2) Rel Index Troponin I <0.012 (0.000-0.034) ng/mL Total Protein 6.7 (6.3-8.2) g/dL Albumin 4.1 (3.5-5.0) g/dL Lipase 98 (23-300) U/L 07/15/17 Range/Units 14:18 WBC (3.8-10.6) k/uL RBC (3.80-5.40) m/uL Hgb (11.4-16.0) gm/dL Hct (34.0-46.0) % MCV (80.0-100.0) fL MCH (25.0-35.0) pg MCHC (31.0-37.0) g/dL RDW (11.5-15.5) % Plt Count (150-450) k/uL Neutrophils % % Lymphocytes % % Monocytes % % Eosinophils % % Basophils % % Neutrophils # (1.3-7.7) k/uL Lymphocytes # (1.0-4.8) k/uL Monocytes # (0-1.0) k/uL Eosinophils # (0-0.7) k/uL Basophils # (0-0.2) k/uL PT 9.5 (9.0-12.0) sec INR 1.0 (<1.2) APTT 24.0 (22.0-30.0) sec Sodium (137-145) mmol/L Potassium (3.5-5.1) mmol/L Chloride (98-107) mmol/L Carbon Dioxide (22-30) mmol/L Anion Gap mmol/L BUN (7-17) mg/dL Creatinine (0.52-1.04) mg/dL Est GFR (CKD-EPI)AfAm (>60 ml/min/1.73 sqM) Est GFR (CKD-EPI)NonAf (>60 ml/min/1.73 sqM) Glucose (74-99) mg/dL Calcium (8.4-10.2) mg/dL Magnesium (1.6-2.3) mg/dL Total Bilirubin (0.2-1.3) mg/dL AST (14-36) U/L ALT (9-52) U/L Alkaline Phosphatase (38-126) U/L Total Creatine Kinase (30-135) U/L CK-MB (CK-2) (0.0-2.4) ng/mL CK-MB (CK-2) Rel Index Troponin I (0.000-0.034) ng/mL Total Protein (6.3-8.2) g/dL Albumin (3.5-5.0) g/dL Lipase (23-300) U/L - Radiology Data Radiology results: report reviewed (Chest x-rays negative for acute disease), image reviewed Disposition Clinical Impression: Chest pain, Atypical chest pain Disposition: HOME SELF-CARE Condition: Good Instructions: Chest Pain (ED) Is patient prescribed a controlled substance at d/c from ED?: No Referrals: Lamar Howard MD [Primary Care Provider] - 1-2 days
[2017-07-15 14:37] VITALS: BP 152/87; PULSE 72; RESP 20
[2017-07-15 14:41] LABS: Basophils % (A) 0 %; Eosinophils # (A) 0.1 k/uL (0-0.7); Eosinophils % (A) 2 %; HCT 35.8 % (34.0-46.0); HGB 12.4 gm/dL (11.4-16.0); Lymphocytes # (A) 1.4 k/uL (1.0-4.8); Lymphocytes % (A) 23 %; MCH 28.6 pg (25.0-35.0); MCHC 34.7 g/dL (31.0-37.0); MCV 82.5 fL (80.0-100.0); Mean Platelet Volume 6.8; Monocytes # (A) 0.4 k/uL (0-1.0); Monocytes % (A) 6 %; Neutrophils # (A) 4.1 k/uL (1.3-7.7); Neutrophils % (A) 67 %; Platelet Count 285 k/uL (150-450); RBC 4.34 m/uL (3.80-5.40); WBC 6.2 k/uL (3.8-10.6)
--- NOTE | 2017-07-15 14:53 | XR ---
EXAMINATION TYPE: XR chest 2V DATE OF EXAM: 07/15/2017 COMPARISON: 07/15/2016 TECHNIQUE: PA and lateral views submitted. HISTORY: Chest pain FINDINGS: The lungs are clear and there is no pneumothorax, pleural effusion, or focal pneumonia. Previous elmore rgery involving the left shoulder and calcific tendinosis of the right shoulder suspected. Hypertroph ic and degenerative change of the spine. Surgical clips in the abdomen. IMPRESSION: 1. No acute process.
[2017-07-15 14:55] LABS: ALT 56 U/L (9-52); AST 30 U/L (14-36); Albumin 4.1 g/dL (3.5-5.0); Alkaline Phosphatase 100 U/L (38-126); Anion Gap 12 mmol/L; Blood Urea Nitrogen 11 mg/dL (7-17); Calcium 9.5 mg/dL (8.4-10.2); Carbon Dioxide 28 mmol/L (22-30); Chloride 103 mmol/L (98-107); Glucose 89 mg/dL (74-99); Lipase 98 U/L (23-300); Magnesium 1.9 mg/dL (1.6-2.3); Potassium 3.9 mmol/L (3.5-5.1); Prothrombin Time 9.5 sec (9.0-12.0); Sodium 143 mmol/L (137-145); Total Bilirubin 0.9 mg/dL (0.2-1.3); Total Protein 6.7 g/dL (6.3-8.2)
[2017-07-15 15:12] LABS: Creatine Kinase <20 U/L (30-135)
[2017-07-15 15:25] LABS: Creatine Kinase MB <0.2 ng/mL (0.0-2.4); Troponin I <0.012 ng/mL (0.000-0.034)
== END 2017-07-15 16:12 | disposition home or self-care (01) ==
LOC: EC 14:08
DX: R07.89 Other chest pain (principal); Z79.82 Long term (current) use of aspirin; Z79.899 Other long term (current) drug therapy; Z88.5 Allergy status to narcotic agent; Z88.6 Allergy status to analgesic agent; Z88.7 Allergy status to serum and vaccine; Z91.048 Other nonmedicinal substance allergy status
CPT/HCPCS: 36415; 71046; 80053; 82550; 82553; 83690; 83735; 84484; 85025; 85610; 85730; 93005; 96360; 99285

== ENCOUNTER → 2017-08-21 | Outpatient (CLI) | payer MEDICARE, OTHER ==
[2017-08-21 10:17] LABS: Basophils % (A) 0 %; Eosinophils # (A) 0.2 k/uL (0-0.7); Eosinophils % (A) 2 %; HCT 37.7 % (34.0-46.0); HGB 12.4 gm/dL (11.4-16.0); Lymphocytes # (A) 1.8 k/uL (1.0-4.8); Lymphocytes % (A) 24 %; MCH 27.2 pg (25.0-35.0); MCV 82.6 fL (80.0-100.0); Mean Platelet Volume 6.4; Monocytes # (A) 0.5 k/uL (0-1.0); Monocytes % (A) 6 %; Neutrophils # (A) 4.9 k/uL (1.3-7.7); Neutrophils % (A) 66 %; Platelet Count 280 k/uL (150-450); RBC 4.56 m/uL (3.80-5.40); RDW 13.5 % (11.5-15.5); WBC 7.4 k/uL (3.8-10.6)
[2017-08-21 10:25] LABS: ALT 38 U/L (9-52); AST 24 U/L (14-36); Albumin 4.1 g/dL (3.5-5.0); Alkaline Phosphatase 76 U/L (38-126); Anion Gap 11 mmol/L; Blood Urea Nitrogen 12 mg/dL (7-17); Calcium 9.1 mg/dL (8.4-10.2); Carbon Dioxide 26 mmol/L (22-30); Chloride 103 mmol/L (98-107); Cholesterol 180 mg/dL (<200); Glucose 89 mg/dL (74-99); HDL Cholesterol 58 mg/dL (40-60); LDL Cholesterol,Calculated 110 mg/dL (0-99); Sodium 140 mmol/L (137-145); Total Bilirubin 0.6 mg/dL (0.2-1.3); Total Protein 6.7 g/dL (6.3-8.2); Triglycerides 58 mg/dL (<150)
== END | disposition home or self-care (01) ==
LOC: LABWHC1 09:17
DX: Z00.00 Encounter for general adult medical examination without abnormal findings (principal)
CPT/HCPCS: 36415; 80053; 80061; 82306; 84443; 85025

== ENCOUNTER → 2018-08-31 | Outpatient (CLI) | payer MEDICARE, OTHER ==
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
== END | disposition home or self-care (01) ==
LOC: RADMRIMAIN 20:31
PROVIDERS: ATTEND Internal Medicine
DX: G31.9 Degenerative disease of nervous system, unspecified (principal); R90.89 Other abnormal findings on diagnostic imaging of central nervous system; G43.001 Migraine without aura, not intractable, with status migrainosus
CPT/HCPCS: 70553; A9585

== ENCOUNTER 2019-10-12 09:44 | Emergency (ER) | payer MEDICARE, OTHER ==
[2019-10-12 09:50] VITALS: PULSE 60
--- NOTE | 2019-10-12 10:24 | ED ---
General Adult HPI - General Chief complaint: Shortness of Breath Stated complaint: SOB,headach, sore throat Time Seen by Provider: 10/12/19 10:02 Source: patient Mode of arrival: ambulatory Limitations: no limitations - History of Present Illness Initial comments: 49-year-old female presenting today for chief complaint of cough congestion dyspnea on exertion, sore throat and headache. Patient states the past 2 days she has had cough congestion decreased taste and appetite. She states that she feels short of breath when walking more than usual. Patient states she does have history of sarcoidosis and recently finished a Medrol Dosepak she denies chronic steroid use patient denies any chest pain or pain with deep inspiration denies any leg swelling denies any difficulty lying flat sleeping at night. Patient states she does have a sore throat and a mild headache and body aches. She denies any severe headaches had an onset of headache weakness sensation deficits speech or visual changes. Patient denies any neck stiffness or back pain. Patient has no additional complaints. Patient admits to a known exposure to a + covid patient 2.5 weeks ago and 3 days ago. Patient mother has similar symptoms. Patient concerned that she has covid. Patient appears well on arrival no acute distress. - Related Data Home Medications Medication Instructions Recorded Confirmed Aspirin EC [Ecotrin Low Dose] 81 mg PO DAILY 10/23/16 10/12/19 Nitroglycerin Sl Tabs [Nitrostat] 0.4 mg SUBLINGUAL Q5M PRN 10/23/16 10/12/19 Albuterol Sulfate [Ventolin HFA] 1 - 2 puff INHALATION RT-Q6H PRN 10/12/19 10/12/19 Amitriptyline HCl [Elavil] 25 mg PO HS 10/12/19 10/12/19 Carvedilol [Coreg] 12.5 mg PO BID 10/12/19 10/12/19 Dicyclomine [Bentyl] 10 mg PO QID PRN 10/12/19 10/12/19 Omeprazole 20 mg PO DAILY 10/12/19 10/12/19 Oxybutynin Chloride [Ditropan] 5 mg PO DAILY 10/12/19 10/12/19 Previous Rx's Medication Instructions Recorded Azithromycin [Zithromax Z-pack] 0 mg PO DIRECTED #6 tab 10/12/19 Allergies Allergy/AdvReac Type Severity Reaction Status Date / Time Influenza Virus Vaccines Allergy Swelling Verified 10/12/19 10:39 meperidine HCl [From Demerol] Allergy Rash/Hives/ Verified 10/12/19 10:39 Swelling naproxen sodium [From Aleve] Allergy Rash/Hives/ Verified 10/12/19 10:39 Swelling pneumococcal vaccine Allergy Swelling Verified 10/12/19 10:39 red dye Allergy Unknown Verified 10/12/19 10:39 Review of Systems ROS Statement: Those systems with pertinent positive or pertinent negative responses have been documented in the HPI. ROS Other: All systems not noted in ROS Statement are negative. Past Medical History Past Medical History: Chest Pain / Angina Additional Past Medical History / Comment(s): Vocal cord paralysis after biopsy status post repair, Multiple LEFT LUNG NODULE, Crohn's disease, SARCODOSIS History of Any Multi-Drug Resistant Organisms: None Reported Past Surgical History: Hysterectomy, Joint Replacement, Orthopedic Surgery Additional Past Surgical History / Comment(s): Repair of vocal cord paralysis, right total knee arthroscopically, left rotator cuff repair, left knee open surgery, LEFT LUNG NODULE REMOVAL, Past Anesthesia/Blood Transfusion Reactions: No Reported Reaction Past Psychological History: No Psychological Hx Reported Smoking Status: Never smoker Past Alcohol Use History: Occasional Past Drug Use History: Marijuana - Past Family History Mother Family Medical History: Diabetes Mellitus Additional Family Medical History / Comment(s): Mother is alive at age 69 with history of diabetes. Father History Unknown: Yes Additional Family Medical History / Comment(s): Patient does not have any contact with her father and does not know any of his medical history. Brother(s) Additional Family Medical History / Comment(s): Patient has 1 brother but does not know his medical history. Patient does not have any sisters. Patient has 2 sons ages 24 and 26 with no major medical problems. General Exam - General Exam Comments Initial Comments: General: The patient is awake and alert, in no distress, and does not appear acutely ill. Eye: Pupils are equal, round and reactive to light, extra-ocular movements are intact. No nystagmus. There is normal conjunctiva bilaterally. No signs of icterus. Ears, nose, mouth and throat: There are moist mucous membranes and no oral lesions. Neck: The neck is supple, there is no tenderness or JVD. Cardiovascular: There is a regular rate and rhythm. No murmur, rub or gallop is appreciated. Respiratory: Lungs are clear to auscultation, respirations are non-labored, breath sounds are equal. No wheezes, stridor, rales, or rhonchi. Gastrointestinal: Soft, non-distended, non-tender abdomen without masses or organomegaly noted. There is no rebound or guarding present. Musculoskeletal: Normal ROM, no tenderness. Strength 5/5. Sensation intact. Pulses equal bilaterally 2+. Neurological: A&O x 3. CN II-XII intact grossly, There are no obvious motor or sensory deficits. Coordination appears grossly intact. Speech is normal. Skin: Skin is warm and dry and no rashes or lesions are noted. no calf pain no LE edema or swelling. Psychiatric: Cooperative, appropriate mood & affect, normal judgment. Limitations: no limitations Course Vital Signs 10/12/19 10/12/19 10/12/19 09:46 10:14 10:44 Temperature 98.1 F 97.6 F Pulse Rate 60 60 Respiratory 16 20 14 Rate Blood Pressure 125/73 119/64 O2 Sat by Pulse 99 98 Oximetry Medical Decision Making - Medical Decision Making Lungs clear. CXR clear. Obvious URI symptoms. Covid exposure. VS within acceptable limits. No hypoxia. No signs of respiratory distress. Patient will be discharged with azithromycin and PCP f/u. Patient agreeable to care plan aware of return for worsening SOB. patient discharged appearing well after discussing case with Dr. Valenzuela who is agreeable to thsi care plan. Disposition Clinical Impression: URI (upper respiratory infection) Disposition: HOME SELF-CARE Condition: Good Instructions (If sedation given, give patient instructions): Acute Bronchitis (ED) Additional Instructions: Please use medication as discussed. Please follow-up with family doctor in the next 2 days. Please return to emergency room if the symptoms increase or worsen or for any other concerns. Prescriptions: Azithromycin [Zithromax Z-pack] 0 mg PO DIRECTED #6 tab Is patient prescribed a controlled substance at d/c from ED?: No Referrals: Hung Amaro MD [Primary Care Provider] - 1-2 days Time of Disposition: 10:42
--- NOTE | 2019-10-12 10:40 | XR ---
EXAMINATION TYPE: XR chest 2V DATE OF EXAM: 10/12/2019 COMPARISON: Chest radiograph 07/15/2017 HISTORY: Cough, shortness of breath, COVID-19 exposure TECHNIQUE: Frontal and lateral views of the chest are obtained. FINDINGS: Cardiac loop recorder overlying the heart. There is no focal air space opacity, pleural ef fusion, or pneumothorax seen. 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 The cardiac silhouette size is within normal limits. Surgical screw of the left humeral head. The osseous structures are intact. IMPRESSION: No acute cardiopulmonary process.
[2019-10-12 10:51] VITALS: BP 119/64; RESP 14; TEMP 97.6
== END 2019-10-12 10:44 | disposition home or self-care (01) ==
LOC: EC 09:44
DX: J06.9 Acute upper respiratory infection, unspecified (principal); Z20.828 Contact with and (suspected) exposure to other viral communicable diseases; Z79.82 Long term (current) use of aspirin; Z79.02 Long term (current) use of antithrombotics/antiplatelets; Z79.899 Other long term (current) drug therapy; Z88.7 Allergy status to serum and vaccine; Z88.5 Allergy status to narcotic agent; Z88.6 Allergy status to analgesic agent; Z91.048 Other nonmedicinal substance allergy status
CPT/HCPCS: 71046; 99285; U0003

== ENCOUNTER 2019-10-13 13:15 | Emergency (ER) | payer MEDICARE, OTHER ==
[2019-10-13 13:29] VITALS: BP 121/83; PULSE 61; RESP 16; TEMP 97.8
[2019-10-13] MEDS ORDERED: ONDANSETRON ODT 4 MG TAB PO STA (14:09)
[2019-10-13] MEDS ORDERED: ACETAMINOPHEN TAB 500 MG TAB PO STA (14:09)
[2019-10-13] MEDS ORDERED: DIPHENOX-ATROP STARTER PACK 8 TAB BTL PO STA (14:09)
[2019-10-13] MEDS ORDERED: ONDANSETRON 4 MG ODT STARTER PACK 2 TAB BTL PO STA (14:13)
--- NOTE | 2019-10-13 14:13 | ED ---
General Adult HPI - General Chief complaint: Recheck/Abnormal Lab/Rx Stated complaint: Headache Time Seen by Provider: 10/13/19 13:15 Source: patient, RN notes reviewed, old records reviewed Mode of arrival: ambulatory Limitations: no limitations - History of Present Illness Initial comments: This a 49-year-old female who presents emergency department stating that she was here yesterday for some diarrhea and runny nose per patient states this morning she started getting a slight headache which she considers mild. Patient states she also had some nausea earlier vomited times one. Patient states she still little bit nauseous currently and she says the diarrhea has calmed down today but she still had 3 bouts of our today. Patient denies eating dehydrated. She states she's been able to tolerate some fluids. Patient denies chest pain difficulty breathing or shortness of breath. Patient denies any abdominal pain. Patient denies any dysuria hematuria urinary frequency. - Related Data Home Medications Medication Instructions Recorded Confirmed Aspirin EC [Ecotrin Low Dose] 81 mg PO DAILY 10/23/16 10/12/19 Nitroglycerin Sl Tabs [Nitrostat] 0.4 mg SUBLINGUAL Q5M PRN 10/23/16 10/12/19 Albuterol Sulfate [Ventolin HFA] 1 - 2 puff INHALATION RT-Q6H PRN 10/12/19 10/12/19 Amitriptyline HCl [Elavil] 25 mg PO HS 10/12/19 10/12/19 Carvedilol [Coreg] 12.5 mg PO BID 10/12/19 10/12/19 Dicyclomine [Bentyl] 10 mg PO QID PRN 10/12/19 10/12/19 Omeprazole 20 mg PO DAILY 10/12/19 10/12/19 Oxybutynin Chloride [Ditropan] 5 mg PO DAILY 10/12/19 10/12/19 Previous Rx's Medication Instructions Recorded Azithromycin [Zithromax Z-pack] 0 mg PO DIRECTED #6 tab 10/12/19 Allergies Allergy/AdvReac Type Severity Reaction Status Date / Time Influenza Virus Vaccines Allergy Swelling Verified 10/12/19 10:39 meperidine HCl [From Demerol] Allergy Rash/Hives/ Verified 10/12/19 10:39 Swelling naproxen sodium [From Aleve] Allergy Rash/Hives/ Verified 10/12/19 10:39 Swelling pneumococcal vaccine Allergy Swelling Verified 10/12/19 10:39 red dye Allergy Unknown Verified 10/12/19 10:39 Review of Systems ROS Statement: Those systems with pertinent positive or pertinent negative responses have been documented in the HPI. ROS Other: All systems not noted in ROS Statement are negative. Past Medical History Past Medical History: Chest Pain / Angina Additional Past Medical History / Comment(s): Vocal cord paralysis after biopsy status post repair, Multiple LEFT LUNG NODULE, Crohn's disease, SARCODOSIS History of Any Multi-Drug Resistant Organisms: None Reported Past Surgical History: Hysterectomy, Joint Replacement, Orthopedic Surgery Additional Past Surgical History / Comment(s): Repair of vocal cord paralysis, right total knee arthroscopically, left rotator cuff repair, left knee open surgery, LEFT LUNG NODULE REMOVAL, Past Anesthesia/Blood Transfusion Reactions: No Reported Reaction Past Psychological History: No Psychological Hx Reported Smoking Status: Never smoker Past Alcohol Use History: Occasional Past Drug Use History: Marijuana - Past Family History Mother Family Medical History: Diabetes Mellitus Additional Family Medical History / Comment(s): Mother is alive at age 69 with history of diabetes. Father History Unknown: Yes Additional Family Medical History / Comment(s): Patient does not have any contact with her father and does not know any of his medical history. Brother(s) Additional Family Medical History / Comment(s): Patient has 1 brother but does not know his medical history. Patient does not have any sisters. Patient has 2 sons ages 24 and 26 with no major medical problems. General Exam - General Exam Comments Initial Comments: GENERAL: Patient is well-developed and well-nourished. Patient is nontoxic and well- hydrated and is in mild distress. ENT: Neck is soft and supple. No significant lymphadenopathy is noted. Oropharynx is clear. Moist mucous membranes. Neck has full range of motion without eliciting any pain. EYES: The sclera were anicteric and conjunctiva were pink and moist. Extraocular movements were intact and pupils were equal round and reactive to light. Eyelids were unremarkable. PULMONARY: Unlabored respirations. Good breath sounds bilaterally. No audible rales rhonchi or wheezing was noted. CARDIOVASCULAR: There is a regular rate and rhythm without any murmurs gallops or rubs. ABDOMEN: Soft and nontender with normal bowel sounds. SKIN: Skin is clear with no lesions or rashes and otherwise unremarkable. NEUROLOGIC: Patient is alert and oriented x3. Cranial nerves II through XII are grossly intact. Motor and sensory are also intact. Normal speech, volume and content. Symmetrical smile. MUSCULOSKELETAL: Normal extremities with adequate strength and full range of motion. LYMPHATICS: No significant lymphadenopathy is noted PSYCHIATRIC: Normal psychiatric evaluation. Limitations: no limitations Course Vital Signs 10/13/19 13:27 Temperature 97.8 F Pulse Rate 61 Respiratory 16 Rate Blood Pressure 121/83 O2 Sat by Pulse 100 Oximetry Disposition Clinical Impression: Acute vomiting Disposition: HOME SELF-CARE Instructions (If sedation given, give patient instructions): Acute Nausea and Vomiting (ED) Is patient prescribed a controlled substance at d/c from ED?: No Referrals: Hung Amaro MD [Primary Care Provider] - 1-2 days Time of Disposition: 19:20
== END 2019-10-13 14:38 | disposition home or self-care (01) ==
LOC: EC 13:15
DX: R11.2 Nausea with vomiting, unspecified (principal); R51 Headache; Z96.9 Presence of functional implant, unspecified; Z79.82 Long term (current) use of aspirin; Z79.899 Other long term (current) drug therapy; Z88.7 Allergy status to serum and vaccine; Z88.5 Allergy status to narcotic agent; Z88.6 Allergy status to analgesic agent; Z91.048 Other nonmedicinal substance allergy status
CPT/HCPCS: 99284; S0119

== ENCOUNTER → 2019-10-21 | Outpatient (CLI) | payer MEDICARE, OTHER ==
[2019-10-21 15:39] LABS: Total Eosinophil Count 30 #EOS/uL (150-300)
[2019-10-21 19:09] LABS: T4, Free (Free Thyroxine) 1.2 ng/dL (0.80-1.80)
[2019-10-21 19:56] LABS: Erythrocyte Sedimentation Rate 6 mm/Hr (0-30)
[2019-10-22 07:21] LABS: Anti-Smith Ab Interp NEGATIVE (NEGATIVE); DNA Double-Stranded NEGATIVE (NEGATIVE)
== END | disposition home or self-care (01) ==
LOC: LABWHC1 14:15
PROVIDERS: ATTEND Internal Medicine Critical Care Medicine
DX: R06.00 Dyspnea, unspecified (principal)
CPT/HCPCS: 36415; 82164; 82550; 82785; 84439; 84443; 85008; 85652; 86038; 86225; 86235; 86431

== ENCOUNTER 2019-11-22 15:24 | Observation (INO) | payer MEDICARE, OTHER ==
[2019-11-22] MEDS ORDERED: ASPIRIN 81 MG PO STA (15:51)
[2019-11-22] MEDS ORDERED: NITROGLYCERIN SL TABS 0.4 MG TAB SUBLINGUAL STA ×3 (15:51)
--- NOTE | 2019-11-22 15:53 | ED ---
General Adult HPI - General Chief complaint: Chest Pain Stated complaint: chest pain Time Seen by Provider: 11/22/19 15:35 Source: patient, RN notes reviewed Mode of arrival: ambulatory Limitations: no limitations - History of Present Illness Initial comments: Patient is a pleasant 49-year-old female presenting to the emergency Department with complaints of chest discomfort. Onset of symptoms was early this morning. Symptoms have progressively worsened since that time. Patient does have history of previous chest discomfort however not as long lasting or severe. Patient states discomfort feels like pressure or tightness with some radiation towards the left arm and back. No diaphoresis. Patient does have mild nausea and dyspnea. Symptoms do not worsen with position changes or exertion. - Related Data Home Medications Medication Instructions Recorded Confirmed Aspirin EC [Ecotrin Low Dose] 81 mg PO DAILY 10/23/16 10/12/19 Nitroglycerin Sl Tabs [Nitrostat] 0.4 mg SUBLINGUAL Q5M PRN 10/23/16 10/12/19 Albuterol Sulfate [Ventolin HFA] 1 - 2 puff INHALATION RT-Q6H PRN 10/12/19 10/12/19 Amitriptyline HCl [Elavil] 25 mg PO HS 10/12/19 10/12/19 Carvedilol [Coreg] 12.5 mg PO BID 10/12/19 10/12/19 Dicyclomine [Bentyl] 10 mg PO QID PRN 10/12/19 10/12/19 Omeprazole 20 mg PO DAILY 10/12/19 10/12/19 Oxybutynin Chloride [Ditropan] 5 mg PO DAILY 10/12/19 10/12/19 Previous Rx's Medication Instructions Recorded Azithromycin [Zithromax Z-pack] 0 mg PO DIRECTED #6 tab 10/12/19 Allergies Allergy/AdvReac Type Severity Reaction Status Date / Time Influenza Virus Vaccines Allergy Swelling Verified 10/12/19 10:39 meperidine HCl [From Demerol] Allergy Rash/Hives/ Verified 10/12/19 10:39 Swelling naproxen sodium [From Aleve] Allergy Rash/Hives/ Verified 10/12/19 10:39 Swelling pneumococcal vaccine Allergy Swelling Verified 10/12/19 10:39 red dye Allergy Unknown Verified 10/12/19 10:39 Review of Systems ROS Statement: Those systems with pertinent positive or pertinent negative responses have been documented in the HPI. ROS Other: All systems not noted in ROS Statement are negative. Constitutional: Denies: fever Eyes: Denies: eye pain ENT: Denies: ear pain Respiratory: Denies: cough Cardiovascular: Reports: chest pain Endocrine: Denies: fatigue Gastrointestinal: Reports: nausea. Denies: as per HPI Genitourinary: Denies: dysuria Musculoskeletal: Denies: back pain Skin: Denies: rash Neurological: Denies: weakness Past Medical History Past Medical History: Chest Pain / Angina Additional Past Medical History / Comment(s): Vocal cord paralysis after biopsy status post repair, Multiple LEFT LUNG NODULE, Crohn's disease, SARCODOSIS History of Any Multi-Drug Resistant Organisms: None Reported Past Surgical History: Hysterectomy, Joint Replacement, Orthopedic Surgery Additional Past Surgical History / Comment(s): Repair of vocal cord paralysis, right total knee arthroscopically, left rotator cuff repair, left knee open surgery, LEFT LUNG NODULE REMOVAL, Past Anesthesia/Blood Transfusion Reactions: No Reported Reaction Past Psychological History: No Psychological Hx Reported Smoking Status: Never smoker Past Alcohol Use History: Occasional Past Drug Use History: Marijuana - Past Family History Mother Family Medical History: Diabetes Mellitus Additional Family Medical History / Comment(s): Mother is alive at age 69 with history of diabetes. Father History Unknown: Yes Additional Family Medical History / Comment(s): Patient does not have any contact with her father and does not know any of his medical history. Brother(s) Additional Family Medical History / Comment(s): Patient has 1 brother but does not know his medical history. Patient does not have any sisters. Patient has 2 sons ages 24 and 26 with no major medical problems. General Exam Limitations: no limitations General appearance: alert, in no apparent distress Head exam: Present: normocephalic Eye exam: Present: normal appearance Neck exam: Present: normal inspection Respiratory exam: Present: normal lung sounds bilaterally. Absent: chest wall tenderness Cardiovascular Exam: Present: regular rate, normal rhythm Expanded Peripheral pulses: 2+: Radial (R), Radial (L), Dorsalis Pedis (R), Dorsalis Pedis (L) GI/Abdominal exam: Present: soft. Absent: distended, tenderness Extremities exam: Present: normal inspection. Absent: pedal edema, calf tenderness Back exam: Present: normal inspection Neurological exam: Present: alert Psychiatric exam: Present: normal affect, normal mood Skin exam: Present: normal color Course Vital Signs 11/22/19 11/22/19 11/22/19 15:25 15:39 16:02 Temperature 97.9 F Pulse Rate 75 76 Pulse Rate [ 73 Subacute Nurse ] Respiratory 16 16 Rate Blood Pressure 134/86 118/84 O2 Sat by Pulse 98 98 Oximetry 11/22/19 16:25 Temperature Pulse Rate 64 Pulse Rate [ Subacute Nurse ] Respiratory 16 Rate Blood Pressure 127/81 O2 Sat by Pulse 99 Oximetry EKG Findings - EKG Comments: EKG Findings:: Normal sinus rhythm 61. ME 144. QRS 84. QT 406. QTc 408. Normal axis. Normal QRS. No acute ST change. Medical Decision Making - Medical Decision Making Patient reevaluated and improved following 3 nitroglycerin. Discomfort has improved to 5/10. Patient updated on results and plan. Case was discussed in detail with Dr. Sebastian, covering for Dr. Amaro, who will admit. - Lab Data Result diagrams: 11/22/19 15:54 11/22/19 15:54 Lab Results 11/22/19 11/22/19 11/22/19 Range/Units 15:54 15:54 15:54 WBC 10.0 (3.8-10.6) k/uL RBC 4.73 (3.80-5.40) m/uL Hgb 13.0 (11.4-16.0) gm/dL Hct 40.0 (34.0-46.0) % MCV 84.5 (80.0-100.0) fL MCH 27.4 (25.0-35.0) pg MCHC 32.4 (31.0-37.0) g/dL RDW 14.0 (11.5-15.5) % Plt Count 247 (150-450) k/uL Neutrophils % 80 % Lymphocytes % 14 % Monocytes % 4 % Eosinophils % 1 % Basophils % 0 % Neutrophils # 8.0 H (1.3-7.7) k/uL Lymphocytes # 1.4 (1.0-4.8) k/uL Monocytes # 0.4 (0-1.0) k/uL Eosinophils # 0.1 (0-0.7) k/uL Basophils # 0.0 (0-0.2) k/uL PT 9.5 (9.0-12.0) sec INR 0.9 (<1.2) APTT 22.7 (22.0-30.0) sec D-Dimer <0.17 (<0.60) mg/L FEU Sodium 136 L (137-145) mmol/L Potassium 4.6 (3.5-5.1) mmol/L Chloride 104 (98-107) mmol/L Carbon Dioxide 25 (22-30) mmol/L Anion Gap 7 mmol/L BUN 13 (7-17) mg/dL Creatinine 0.50 L (0.52-1.04) mg/dL Est GFR (CKD-EPI)AfAm >90 (>60 ml/min/1.73 sqM) Est GFR (CKD-EPI)NonAf >90 (>60 ml/min/1.73 sqM) Glucose 98 (74-99) mg/dL Calcium 9.6 (8.4-10.2) mg/dL Magnesium 2.0 (1.6-2.3) mg/dL Total Bilirubin 0.8 (0.2-1.3) mg/dL AST 27 (14-36) U/L ALT 35 H (4-34) U/L Alkaline Phosphatase 74 (38-126) U/L Troponin I (0.000-0.034) ng/mL Total Protein 6.9 (6.3-8.2) g/dL Albumin 4.4 (3.5-5.0) g/dL 11/22/19 Range/Units 15:54 WBC (3.8-10.6) k/uL RBC (3.80-5.40) m/uL Hgb (11.4-16.0) gm/dL Hct (34.0-46.0) % MCV (80.0-100.0) fL MCH (25.0-35.0) pg MCHC (31.0-37.0) g/dL RDW (11.5-15.5) % Plt Count (150-450) k/uL Neutrophils % % Lymphocytes % % Monocytes % % Eosinophils % % Basophils % % Neutrophils # (1.3-7.7) k/uL Lymphocytes # (1.0-4.8) k/uL Monocytes # (0-1.0) k/uL Eosinophils # (0-0.7) k/uL Basophils # (0-0.2) k/uL PT (9.0-12.0) sec INR (<1.2) APTT (22.0-30.0) sec D-Dimer (<0.60) mg/L FEU Sodium (137-145) mmol/L Potassium (3.5-5.1) mmol/L Chloride (98-107) mmol/L Carbon Dioxide (22-30) mmol/L Anion Gap mmol/L BUN (7-17) mg/dL Creatinine (0.52-1.04) mg/dL Est GFR (CKD-EPI)AfAm (>60 ml/min/1.73 sqM) Est GFR (CKD-EPI)NonAf (>60 ml/min/1.73 sqM) Glucose (74-99) mg/dL Calcium (8.4-10.2) mg/dL Magnesium (1.6-2.3) mg/dL Total Bilirubin (0.2-1.3) mg/dL AST (14-36) U/L ALT (4-34) U/L Alkaline Phosphatase (38-126) U/L Troponin I <0.012 (0.000-0.034) ng/mL Total Protein (6.3-8.2) g/dL Albumin (3.5-5.0) g/dL - Radiology Data Radiology results: image reviewed (Chest x-ray shows no acute process) Disposition Clinical Impression: Chest pain, History of sarcoidosis Disposition: ADMITTED IP TO THIS [facility] Is patient prescribed a controlled substance at d/c from ED?: No Referrals: Hung Amaro MD [Primary Care Provider] - 1-2 days Decision Time: 16:40
[2019-11-22 16:14] LABS: ALT 35 U/L (4-34); AST 27 U/L (14-36); African American GFR (CKD) >90 (>60 ml/min/1.73 sqM); Albumin 4.4 g/dL (3.5-5.0); Alkaline Phosphatase 74 U/L (38-126); Anion Gap 7 mmol/L; Blood Urea Nitrogen 13 mg/dL (7-17); Calcium 9.6 mg/dL (8.4-10.2); Carbon Dioxide 25 mmol/L (22-30); Chloride 104 mmol/L (98-107); Glucose 98 mg/dL (74-99); Non-African American GFR(CKD) >90 (>60 ml/min/1.73 sqM); Potassium 4.6 mmol/L (3.5-5.1); Sodium 136 mmol/L (137-145); Total Bilirubin 0.8 mg/dL (0.2-1.3); Total Protein 6.9 g/dL (6.3-8.2)
[2019-11-22 16:23] LABS: Basophils % (A) 0 %; Eosinophils # (A) 0.1 k/uL (0-0.7); Eosinophils % (A) 1 %; Lymphocytes # (A) 1.4 k/uL (1.0-4.8); Lymphocytes % (A) 14 %; MCH 27.4 pg (25.0-35.0); MCHC 32.4 g/dL (31.0-37.0); MCV 84.5 fL (80.0-100.0); Mean Platelet Volume 6.8; Monocytes # (A) 0.4 k/uL (0-1.0); Monocytes % (A) 4 %; Neutrophils % (A) 80 %; Platelet Count 247 k/uL (150-450); RBC 4.73 m/uL (3.80-5.40)
[2019-11-22 16:29] LABS: D-Dimer <0.17 mg/L FEU (<0.60); INR 0.9 (<1.2); Partial Thromboplastin Time 22.7 sec (22.0-30.0); Prothrombin Time 9.5 sec (9.0-12.0)
--- NOTE | 2019-11-22 16:35 | XR ---
EXAMINATION TYPE: XR chest 2V DATE OF EXAM: 11/22/2019 COMPARISON: Prior chest x-ray 10/12/2019 and 10/14/2019 HISTORY: Chest pain TECHNIQUE: Frontal and lateral views of the chest are obtained. FINDINGS: The aorta is dense. Postop change noted to the proximal left humerus. Loop recorder is pres ent superimposed over the heart. There are overlying cardiac leads. Surgical clips are present in the right upper quadrant. There is no focal air space opacity, pleural effusion, or pneumothorax seen. The cardiac silhouette size is within normal limits. The osseous structures are intact. IMPRESSION: No acute cardiopulmonary process.
[2019-11-22] MEDS ORDERED: NITROGLYCERIN SL TABS 0.4 MG TAB SUBLINGUAL PRN (16:41)
[2019-11-22] MEDS: NITROGLYCERIN OINT 1 INCH/GM PACKET TOPICAL SCH (18:46)
[2019-11-22] MEDS: carvediloL 12.5 MG TAB PO SCH (18:46)
[2019-11-22] MEDS: prednisoLONE ACETATE 1% OPHTH DROPS 5 ML BTL BOTH EYES SCH (20:53)
[2019-11-22] MEDS ORDERED: AMITRIPTYLINE HCL 25 MG TAB PO SCH (21:00)
[2019-11-23] MEDS: NITROGLYCERIN OINT 1 INCH/GM PACKET TOPICAL SCH ×3 (00:48→11:13)
[2019-11-23 06:07] LABS: Cholesterol 232 mg/dL (<200); HDL Cholesterol 64 mg/dL (40-60); LDL Cholesterol,Calculated 149 mg/dL (0-99); Triglycerides 93 mg/dL (<150)
[2019-11-23] MEDS ORDERED: PANTOPRAZOLE 40 MG TABLET PO SCH (07:30)
[2019-11-23 08:43] VITALS: BP 122/83; PULSE 64; RESP 16; TEMP 97.6
[2019-11-23] MEDS: prednisoLONE ACETATE 1% OPHTH DROPS 5 ML BTL BOTH EYES SCH (08:46)
[2019-11-23] MEDS ORDERED: OXYBUTYNIN CHLORIDE 5 MG TAB PO SCH (09:00)
[2019-11-23] MEDS ORDERED: ASPIRIN 81 MG PO SCH (09:00)
[2019-11-23] MEDS ORDERED: ASPIRIN 325 MG TAB PO SCH (09:00)
[2019-11-23] MEDS ORDERED: ACETAMINOPHEN TAB 325 MG TAB PO PRN (10:35)
[2019-11-23] MEDS: carvediloL 12.5 MG TAB PO SCH (10:42)
--- NOTE | 2019-11-23 13:07 | P.CRDCN ---
History of Present Illness History of present illness: HISTORY OF PRESENTING ILLNESS This is a pleasant 49-year-old female past medical history significant for sarcoidosis, hypertension and frequent episodes of chest pain of unclear et iology. She follows in the office with a marketing graphics specialist at [facility]. We have been asked to see in consultation for chest pain. She states she woke up yesterday morning after having slept in a small to midsize bed with her granddaughter with a discomfort in the left precordial region described as a squeezing sensation. She states it felt like somebody was playing pressure from her back to her front on the left side. At times it would radiate to the left shoulder and was associated with mild nausea. The symptoms persisted significantly through the day and were getting increasingly worse. She took 2 nitroglycerin at home and achieved no relief of her chest discomfort prompting her to come to the hospital. On arrival she received 3 nitroglycerin and ultimately her chest pain did subside. She did develop a headache. She is seen and examined sitting up in bed in no acute distress. She has had no further symptoms of chest discomfort since arriving at the hospital. She is scheduled to undergo a cardiac PET scan in [place] per her primary marketing graphics specialist to assess for the possibility of sarcoidosis of the heart. She has a loop recorder in place secondary to frequent episodes of syncope. According to the patient there has been no cardiac cause found for her syncope. She underwent a cardiac catheterization in 2017 that revealed normal coronary arteries. Accor ding to the patient she just had another repeat catheterization in the spring time that again was unremarkable. The exact report is not available at this time. DIAGNOSTICS EKG reveals sinus mechanism with no acute ST or T wave abnormalities noted. Chest xray negative for an acute cardiopulmonary process. Laboratory reviewed, CBC unremarkable, d-dimer 0.17, sodium 136, potassium 4.6, creatinine 0.5, cardiac enzymes negative 3, LDL 149 and HDL 64. Current cardiac medications include aspirin 81 mg daily, Coreg 12.5 mg twice a day. REVIEW OF SYSTEMS At the time of my exam: CONSTITUTIONAL: Denies fever or chills. CARDIOVASCULAR: Denies chest pain, shortness of breath, orthopnea, PND or palpi tations. RESPIRATORY: Denies cough. GASTROINTESTINAL: Denies abdominal pain, diarrhea, constipation, nausea or vomiting. MUSCULOSKELETAL: Denies myalgias. NEUROLOGIC: Denies numbness, tingling or weakness. ENDOCRINE: Denies fatigue, weight change, polydipsia or polyurina. GENITOURINARY: Denies burning, hematuria or urgency with micturation. HEMATOLOGIC: Denies history of anemia or bleeding. PHYSICAL EXAMINATION Blood pressure 122/83 heart rate 64 afebrile and maintaining oxygen saturation on room air. CONSTITUTIONAL: No apparent distress. HEENT: Head is normocephalic. Pupils are equal, round. Sclerae anicteric. Mucous membranes of the mouth are moist. No JVD. No carotid bruit. CHEST EXAMINATION: Lungs are clear to auscultation. No chest wall tenderness is noted on palpation or with deep breathing. HEART EXAMINATION: Regular rate and rhythm. S1, S2 heard. No murmurs, gallops or rub. ABDOMEN: Soft, nontender. Positive bowel sounds. EXTREMITIES: 2+ peripheral pulses, no lower extremity edema and no calf tenderness. NEUROLOGIC EXAMINATION: Patient is awake, alert and oriented x3. ASSESSMENT Chest pain, atypical for angina Hypertension Sarcoidosis PLAN An acute coronary event has been ruled out. Normal coronary arteries on cardiac catheterization in 2017 and according to the patient and repeat cath earlier this year was again normal. The cause for her frequent chest pains is unclear. Consider the possibility of esophageal spasm. Also a consideration is miscrovascular ischemia. Advised her to follow up with her marketing graphics specialist and have her cardiac PET scan as scheduled. No further inpatient work-up. Thank you kindly for this consultation. Nurse Practitioner note has been reviewed, I agree with a documented findings and plan of care. Patient was seen and examined. Past Medical History Past Medical History: Chest Pain / Angina, Hypertension, Respiratory Disorder Additional Past Medical History / Comment(s): Vocal cord paralysis after biopsy status post repair, Multiple LEFT LUNG NODULE, Crohn's disease, SARCODOSIS History of Any Multi-Drug Resistant Organisms: None Reported Past Surgical History: Adenoidectomy, Cholecystectomy, Heart Catheterization, Hysterectomy, Joint Replacement, Orthopedic Surgery, Tonsillectomy Additional Past Surgical History / Comment(s): Repair of vocal cord paralysis, right total knee arthroscopically, left rotator cuff repair, left knee open surgery, LEFT LUNG NODULE REMOVAL, Loop recorder implanted 3 years ago. Past Anesthesia/Blood Transfusion Reactions: No Reported Reaction Past Psychological History: No Psychological Hx Reported Smoking Status: Never smoker Past Alcohol Use History: Occasional Additional Past Alcohol Use History / Comment(s): Patient is a lifelong nonsmoker. previous marijuana use She uses alcohol occasionally on the weekends. Past Drug Use History: Marijuana - Past Family History Mother Family Medical History: Diabetes Mellitus Additional Family Medical History / Comment(s): Mother is alive, at 71, recently had cardiac surgery (95% occlusion) with history of diabetes. Father History Unknown: Yes Additional Family Medical History / Comment(s): Patient does not have any contact with her father and does not know any of his medical history. Brother(s) Additional Family Medical History / Comment(s): Patient has 1 brother but does not know his medical history. Patient does not have any sisters. Patient has 2 sons no major medical problems. Medications and Allergies Home Medications Medication Instructions Recorded Confirmed Type Aspirin EC [Ecotrin Low Dose] 81 mg PO DAILY 10/23/16 11/22/19 History Nitroglycerin Sl Tabs [Nitrostat] 0.4 mg SUBLINGUAL Q5M PRN 10/23/16 11/22/19 History Amitriptyline HCl [Elavil] 25 mg PO HS 10/12/19 11/22/19 History Carvedilol [Coreg] 12.5 mg PO BID 10/12/19 11/22/19 History Oxybutynin Chloride [Ditropan] 5 mg PO DAILY 10/12/19 11/22/19 History RX: Omeprazole 20 mg PO DAILY 10/12/19 11/22/19 History Prednisolone Acetate/Pf 1 drop BOTH EYES TID 11/22/19 11/22/19 History [Prednisolone Acet 1% Eye Drop] RX: predniSONE 10 mg PO HS 11/22/19 11/22/19 History RX: predniSONE 20 mg PO DAILY 11/22/19 11/22/19 History Allergies Allergy/AdvReac Type Severity Reaction Status Date / Time Influenza Virus Vaccines Allergy Swelling Verified 11/22/19 17:05 meperidine HCl [From Demerol] Allergy Rash/Hives/ Verified 11/22/19 17:05 Swelling naproxen sodium [From Aleve] Allergy Rash/Hives/ Verified 11/22/19 17:05 Swelling pneumococcal vaccine Allergy Swelling Verified 11/22/19 17:05 red dye Allergy Unknown Verified 11/22/19 17:05 Physical Exam Vitals: Vital Signs Temp Pulse Pulse Pulse Resp BP BP 11/23/19 08:36 97.6 F 64 16 122/83 11/23/19 07:25 11/23/19 02:25 97.4 F L 56 L 18 91/56 11/23/19 00:29 109/67 11/22/19 20:47 97.5 F L 67 18 112/72 11/22/19 16:59 69 16 127/81 11/22/19 16:25 64 16 127/81 11/22/19 16:02 76 16 118/84 11/22/19 15:39 73 11/22/19 15:25 97.9 F 75 16 134/86 Pulse Ox 11/23/19 08:36 96 11/23/19 07:25 98 11/23/19 02:25 98 11/23/19 00:29 11/22/19 20:47 97 11/22/19 16:59 99 11/22/19 16:25 99 11/22/19 16:02 98 11/22/19 15:39 11/22/19 15:25 98 Intake and Output 11/22/19 11/23/19 11/23/19 22:59 06:59 14:59 Other: Voiding Method Toilet Toilet Toilet # Voids 1 1 Weight 86.183 kg Results 11/22/19 15:54 11/22/19 15:54 Cardiac Enzymes 11/22/19 11/22/19 11/22/19 Range/Units 15:54 15:54 18:48 AST 27 (14-36) U/L Troponin I <0.012 <0.012 (0.000-0.034) ng/mL 11/22/19 Range/Units 22:06 AST (14-36) U/L Troponin I <0.012 (0.000-0.034) ng/mL Coagulation 11/22/19 Range/Units 15:54 PT 9.5 (9.0-12.0) sec APTT 22.7 (22.0-30.0) sec Lipids 11/23/19 Range/Units 05:39 Triglycerides 93 (<150) mg/dL Cholesterol 232 H (<200) mg/dL HDL Cholesterol 64 H (40-60) mg/dL CBC 11/22/19 Range/Units 15:54 WBC 10.0 (3.8-10.6) k/uL RBC 4.73 (3.80-5.40) m/uL Hgb 13.0 (11.4-16.0) gm/dL Hct 40.0 (34.0-46.0) % Plt Count 247 (150-450) k/uL Comprehensive Metabolic Panel 11/22/19 Range/Units 15:54 Sodium 136 L (137-145) mmol/L Potassium 4.6 (3.5-5.1) mmol/L Chloride 104 (98-107) mmol/L Carbon Dioxide 25 (22-30) mmol/L BUN 13 (7-17) mg/dL Creatinine 0.50 L (0.52-1.04) mg/dL Glucose 98 (74-99) mg/dL Calcium 9.6 (8.4-10.2) mg/dL AST 27 (14-36) U/L ALT 35 H (4-34) U/L Alkaline Phosphatase 74 (38-126) U/L Total Protein 6.9 (6.3-8.2) g/dL Albumin 4.4 (3.5-5.0) g/dL Current Medications Generic Name Dose Route Start Last Admin Trade Name Freq PRN Reason Stop Dose Admin Acetaminophen 650 mg 11/23/19 10:35 11/23/19 10:42 Tylenol Tab PO 650 mg Q6HR PRN Administration Fever and/ or Pain Amitriptyline HCl 25 mg 11/22/19 21:00 11/22/19 20:53 Elavil PO 25 mg HS HENRY Administration Aspirin 81 mg 11/23/19 09:00 11/23/19 10:42 Aspirin PO 81 mg DAILY HENRY Administration Carvedilol 12.5 mg 11/22/19 18:00 11/23/19 10:42 Coreg PO 12.5 mg BID-W/MEALS HENRY Administration Nitroglycerin 0.4 mg 11/22/19 16:41 Nitrostat SUBLINGUAL Q5M PRN Chest Pain Nitroglycerin 1 inch 11/22/19 18:00 11/23/19 11:13 Nitro-Bid Oint TOPICAL Not Given Q6HR [facility] Oxybutynin Chloride 5 mg 11/23/19 09:00 11/23/19 10:42 Ditropan PO 5 mg DAILY HENRY Administration Pantoprazole Sodium 40 mg 11/23/19 07:30 11/23/19 10:42 Protonix PO 40 mg [id number] HENRY Administration Prednisolone Acetate 1 drops 11/22/19 22:00 11/23/19 08:46 Pred Forte 1% BOTH EYES 1 drops TID HENRY Administration Prednisone 10 mg 11/24/19 09:00 PO DAILY [facility] Sodium Chloride 10 ml 11/22/19 21:00 11/23/19 10:43 Saline Flush IV 10 ml BID [facility]ENRY Administration Intake and Output 11/22/19 11/23/19 11/23/19 22:59 06:59 14:59 Other: Voiding Method Toilet Toilet Toilet # Voids 1 1 Weight 86.183 kg 11/22/19 15:54 11/22/19 15:54
--- NOTE | 2019-11-23 14:07 | P.HPIM ---
History of Present Illness H&P Date: 11/23/19 Chief Complaint: Chest discomfort HISTORY AND PHYSICAL AND DISCHARGE SUMMARY: HISTORY OF PRESENT ILLNESS This is a 49-year-old female patient of Dr. Amaro with past medical history of sarcoidosis with lung involvement, vocal cord paralysis status post repair, Crohn's disease, overactive bladder, hypertension. Patient presented to [facility] emergency center due to chest discomfort that sta rted yesterday morning and progressively worsened until she decided to come in the hospital. Discomfort was a pressure tightness with radiation towards the left arm and back. No diaphoresis. Mild nausea and dyspnea. No syncopal episode, no edema. Approximately 3 years ago, patient was worked up for syncopal episodes which she states she would pass out for a few seconds or more. She had a loop recorder placed at the time but has had no recent syncope episodes. Last one was in January 2019. She states she has had chest pains in the past and these significant improved since she was started on Coreg but lately she's been having at least one episode per week. Patient gives history that she had heart catheterization done at [facility] in May or June of this year which was reported normal. Patient states that she is also being worked up for cardiac sarcoidosis. Patient did have a negative stress echocardiogram done in 2017. Patient is found to be afebrile, heart rate 75, blood pressure 134/86, pulse ox 98% on room air. EKG is a normal sinus rhythm with no acute ST changes. CBC unremarkable. Electrolytes and renal function unremarkable. ALT 35. Troponins have been negative on 3 draws. Triglycerides 93, cholesterol 232, LDL 139, HDL 64. Patient received 3 nitroglycerin and chest discomfort improved. Patient has been placed on the observation unit and consult with cardiology requested. Patient was evaluated by cardiology. An acute coronary syndrome was ruled out. Patient was cleared for discharge with recommendations to follow up with her card iologist for cardiac PET scan is scheduled. REVIEW OF SYSTEMS At the time of evaluation Constitutional: No fever, no chills, no night sweats. No weight change. No weakness, fatigue or lethargy. No daytime sleepiness. EENT: No headache. No blurred vision or double vision, no loss of vision. No loss of Hearing, no ringing in the ears, no dizziness. No nasal drainage or congestion. No epistaxis. No sore throat. Lungs: No shortness of breath, cough, no sputum production. No wheezing. Cardiovascular: No chest pain, no lower extremity edema. No palpitations. No p aroxysmal nocturnal dyspnea. No orthopnea. No lightheadedness or dizziness. No syncopal episodes. Abdominal: No abdominal pain. No nausea, vomiting. No diarrhea. No constipation. No bloody or tarry stools.. No loss of appetite. Genitourinary: No dysuria, increased frequency, urgency. No urinary retention. Musculoskeletal: No myalgias. No muscle weakness, no gait dysfunction, no frequent falls. No back pain. No neck pain. Integumentary: No wounds, no lesions. No rash or pruritus. No unusual bruising. No change in hair or nails. Neurologic: No aphasia. No facial droop. No change in mentation. No head injury. No headache. No paralysis. No paresthesia. Psychiatric: No depression. No anxiety. No mood swings. Endocrine: No abnormal blood sugars. No weight change. No excessive sweating or thirst. No cold intolerance. SOCIAL HISTORY Patient is a lifelong nonsmoker. She does use marijuana. She uses alcohol occasionally on the weekends. FAMILY HISTORY Mother is alive at age 72 with history of diabetes. Patient does not have any contact with her father and does not know his medical history. Patient has one brother and does not know his medical history. She does not have any sisters. Patient has 2 sons with no major medical problems. PHYSICAL EXAMINATION Gen: This is a 49-year-old female. HEENT: Head is atraumatic, normocephalic. Pupils equal, round. Sclerae is anicteric. NECK: Supple. No JVD. No lymphadenopathy. No thyromegaly. LUNGS: Clear to auscultation. No wheezes or rhonchi. No intercostal retractions. HEART: Regular rate and rhythm. No murmur. ABDOMEN: Soft. Bowel sounds are present. No masses. No tenderness. EXTREMITIES: No pedal edema. No calf tenderness. NEUROLOGICAL: Patient is awake, alert and oriented x3. Cranial nerves 2 through 12 are grossly intact. ASSESSMENT AND PLAN 1. Chest discomfort with negative troponins. Cardiology consult appreciated. Acute coronary syndrome ruled out. 2. Hypertension. Continue Coreg 12.5 mg twice daily. 3. Gastroesophageal reflux disease. Continue omeprazole 20 mg daily. 4. History of sarcoidosis, stable. Continue prednisone at the reported dose of 10 mg daily. 5. History of vocal cord paralysis status post repair. 6. Crohn's disease. 7. Overactive bladder. Continue oxybutynin. Patient placed on the observation unit. Discharge plan: Home Impression and plan of care have been directed as dictated by the signing physician. Mellissa Reagan nurse practitioner acting as scribe for signing physician. Past Medical History Past Medical History: Chest Pain / Angina, Hypertension, Respiratory Disorder Additional Past Medical History / Comment(s): Vocal cord paralysis after biopsy status post repair, Multiple LEFT LUNG NODULE, Crohn's disease, SARCODOSIS History of Any Multi-Drug Resistant Organisms: None Reported Past Surgical History: Adenoidectomy, Cholecystectomy, Heart Catheterization, Hysterectomy, Joint Replacement, Orthopedic Surgery, Tonsillectomy Additional Past Surgical History / Comment(s): Repair of vocal cord paralysis, right total knee arthroscopically, left rotator cuff repair, left knee open surg sushma, LEFT LUNG NODULE REMOVAL, Loop recorder implanted 3 years ago. Past Anesthesia/Blood Transfusion Reactions: No Reported Reaction Past Psychological History: No Psychological Hx Reported Smoking Status: Never smoker Past Alcohol Use History: Occasional Additional Past Alcohol Use History / Comment(s): Patient is a lifelong nonsmoker. previous marijuana use She uses alcohol occasionally on the weekends. Past Drug Use History: Marijuana - Past Family History Mother Family Medical History: Diabetes Mellitus Additional Family Medical History / Comment(s): Mother is alive, at 71, recently had cardiac surgery (95% occlusion) with history of diabetes. Father History Unknown: Yes Additional Family Medical History / Comment(s): Patient does not have any contact with her father and does not know any of his medical history. Brother(s) Additional Family Medical History / Comment(s): Patient has 1 brother but does not know his medical history. Patient does not have any sisters. Patient has 2 sons no major medical problems. Medications and Allergies Home Medications Medication Instructions Recorded Confirmed Type Aspirin EC [Ecotrin Low Dose] 81 mg PO DAILY 10/23/16 11/22/19 History Nitroglycerin Sl Tabs [Nitrostat] 0.4 mg SUBLINGUAL Q5M PRN 10/23/16 11/22/19 History Amitriptyline HCl [Elavil] 25 mg PO HS 07/21/20 08/31/20 History Carvedilol [Coreg] 12.5 mg PO BID 10/12/19 11/22/19 History Omeprazole 20 mg PO DAILY 10/12/19 11/22/19 History Oxybutynin Chloride [Ditropan] 5 mg PO DAILY 10/12/19 11/22/19 History Prednisolone Acetate/Pf 1 drop BOTH EYES TID 11/22/19 11/22/19 History [Prednisolone Acet 1% Eye Drop] predniSONE 10 mg PO DAILY #0 11/23/19 11/22/19 Rx Allergies Allergy/AdvReac Type Severity Reaction Status Date / Time Influenza Virus Vaccines Allergy Swelling Verified 11/22/19 17:05 meperidine HCl [From Demerol] Allergy Rash/Hives/ Verified 11/22/19 17:05 Swelling naproxen sodium [From Aleve] Allergy Rash/Hives/ Verified 11/22/19 17:05 Swelling pneumococcal vaccine Allergy Swelling Verified 11/22/19 17:05 red dye Allergy Unknown Verified 11/22/19 17:05 Physical Exam Vitals: Vital Signs Temp Pulse Pulse Pulse Resp BP BP 11/23/19 08:36 97.6 F 64 16 122/83 11/23/19 07:25 11/23/19 02:25 97.4 F L 56 L 18 91/56 11/23/19 00:29 109/67 11/22/19 20:47 97.5 F L 67 18 112/72 11/22/19 16:59 69 16 127/81 11/22/19 16:25 64 16 127/81 11/22/19 16:02 76 16 118/84 11/22/19 15:39 73 11/22/19 15:25 97.9 F 75 16 134/86 Pulse Ox 11/23/19 08:36 96 11/23/19 07:25 98 11/23/19 02:25 98 11/23/19 00:29 11/22/19 20:47 97 11/22/19 16:59 99 11/22/19 16:25 99 11/22/19 16:02 98 11/22/19 15:39 11/22/19 15:25 98 Intake and Output 11/22/19 11/23/19 11/23/19 22:59 06:59 14:59 Other: Voiding Method Toilet Toilet Toilet # Voids 1 1 Weight 86.183 kg Results CBC & Chem 7: 11/22/19 15:54 11/22/19 15:54 Labs: Abnormal Lab Results - Last 24 Hours (Table) 11/22/19 11/22/19 11/23/19 Range/Units 15:54 15:54 05:39 Neutrophils # 8.0 H (1.3-7.7) k/uL Sodium 136 L (137-145) mmol/L Creatinine 0.50 L (0.52-1.04) mg/dL ALT 35 H (4-34) U/L Cholesterol 232 H (<200) mg/dL LDL Cholesterol, Calc 149 H (0-99) mg/dL HDL Cholesterol 64 H (40-60) mg/dL Thrombosis Risk Factor Assmnt - Choose All That Apply Any of the Below Risk Factors Present?: Yes Each Factor Represents 1 point: Age 41-60 years Other Risk Factors: No Other congenital or acquired thrombophilia - If yes, enter type in comment: No Thrombosis Risk Factor Assessment Total Risk Factor Score: 1 Thrombosis Risk Factor Assessment Level: Low Risk
[2019-11-24] MEDS ORDERED: predniSONE 10 MG TAB PO SCH (09:00)
== END 2019-11-23 13:14 | disposition home or self-care (01) ==
LOC: EC 15:24 → 1SOBS 16:41
PROVIDERS: ADMIT Internal Medicine; ATTEND Internal Medicine
DX: R07.89 Other chest pain (principal); D86.0 Sarcoidosis of lung; I10 Essential (primary) hypertension; R11.0 Nausea; R51 Headache; Z79.82 Long term (current) use of aspirin; Z79.899 Other long term (current) drug therapy; K50.90 Crohn's disease, unspecified, without complications; N32.81 Overactive bladder; R06.00 Dyspnea, unspecified; F12.90 Cannabis use, unspecified, uncomplicated; Z83.3 Family history of diabetes mellitus; K21.9 Gastro-esophageal reflux disease without esophagitis
CPT/HCPCS: 99285; 36415; 94760; 93005 ×2; 85379; 80061; 80053; 83735; 84484; 85025; 85610; 85730; 71046; G0378 ×2

== ENCOUNTER → 2019-11-24 | Outpatient (CLI) | payer MEDICARE, OTHER ==
--- NOTE | 2019-11-25 07:36 | CT ---
EXAMINATION TYPE: CT chest w con DATE OF EXAM: 11/24/2019 COMPARISON: CTA 10/14/2016 HISTORY: Dyspnea CT DLP: 393.10 mGycm, Automated exposure control for dose reduction was used. CONTRAST: Performed injected with 100 mL of Isovue 300. TECHNIQUE: Axial images were obtained at 5 mm thick sections. Reconstructed images are reviewed on [employer] computer in the coronal plane. FINDINGS: Portion of the thyroid visualized is normal. There is some pneumonitis change in the posterior superior segment left lower lobe. Series 4 image 22 . This was present previously and is slightly less dense. No enlarged mediastinal or hilar adenopathy is evident. There may be some calcification within subc arinal nodes. The ascending aorta diameter at the level of the main pulmonary artery is 3.4 cm. The main pulmonary artery diameter at the bifurcation is 2.[address] sections are obtained through the upper abdomen. Abdomen is essentially unremarkable. Gall bladder is surgically absent. IMPRESSIONS: 1. Stable mild pneumonitis change posterior left upper lobe
== END | disposition home or self-care (01) ==
LOC: RADCTMAIN 18:39
PROVIDERS: ATTEND Internal Medicine Critical Care Medicine
DX: J18.1 Lobar pneumonia, unspecified organism (principal)
CPT/HCPCS: 71260; Q9967

== ENCOUNTER → 2019-11-24 | Outpatient (CLI) | payer MEDICARE, OTHER ==
[2019-11-24 13:04] LABS: Basophils % (A) 0 %; Eosinophils # (A) 0.1 k/uL (0-0.7); Eosinophils % (A) 1 %; HGB 13.4 gm/dL (11.4-16.0); Lymphocytes # (A) 1.1 k/uL (1.0-4.8); Lymphocytes % (A) 10 %; MCH 27.8 pg (25.0-35.0); MCHC 32.6 g/dL (31.0-37.0); MCV 85.3 fL (80.0-100.0); Mean Platelet Volume 6.8; Monocytes # (A) 0.5 k/uL (0-1.0); Monocytes % (A) 4 %; Neutrophils # (A) 9.5 k/uL (1.3-7.7); Neutrophils % (A) 85 %; Platelet Count 234 k/uL (150-450); RDW 13.6 % (11.5-15.5); WBC 11.2 k/uL (3.8-10.6)
[2019-11-24 13:19] LABS: ALT 30 U/L (4-34); AST 32 U/L (14-36); African American GFR (CKD) >90 (>60 ml/min/1.73 sqM); Albumin 4.3 g/dL (3.5-5.0); Alkaline Phosphatase 69 U/L (38-126); Anion Gap 8 mmol/L; Bilirubin, Delta 0.2 mg/dL (0.0-0.2); Bilirubin,Unconjugated 0.5 mg/dL (0.0-1.1); Blood Urea Nitrogen 18 mg/dL (7-17); C Reactive Protein 9.3 mg/L (<10.0); Calcium 9.5 mg/dL (8.4-10.2); Carbon Dioxide 28 mmol/L (22-30); Chloride 102 mmol/L (98-107); Glucose 91 mg/dL (74-99); Non-African American GFR(CKD) >90 (>60 ml/min/1.73 sqM); Potassium 4.7 mmol/L (3.5-5.1); Sodium 138 mmol/L (137-145); Total Bilirubin 0.7 mg/dL (0.2-1.3); Total Protein 6.8 g/dL (6.3-8.2)
[2019-11-24 13:53] LABS: Erythrocyte Sedimentation Rate 8 mm/hr (0-20)
[2019-11-25 12:16] LABS: Vitamin D, 1, 25-Dihydroxy 26 pg/mL (20 - 79)
== END | disposition home or self-care (01) ==
LOC: LABWHC1 11:20
DX: D86.0 Sarcoidosis of lung (principal)
CPT/HCPCS: 80048; 80076; 82164; 82306; 82652; 85025; 85652; 86140

== ENCOUNTER 2019-12-18 12:07 | Emergency (ER) | payer MEDICARE, OTHER ==
[2019-12-18 12:19] VITALS: PULSE 59; RESP 18; TEMP 97.6
--- NOTE | 2019-12-18 13:04 | ED ---
URI HPI - General Chief Complaint: Upper Respiratory Infection Stated Complaint: Sore Throat Time Seen by Provider: 12/18/19 12:42 Source: patient, RN notes reviewed, old records reviewed Mode of arrival: ambulatory Limitations: no limitations - History of Present Illness Initial Comments: This is a 49-year-old female DF for evaluation multiple complaints. Patient does have recent diagnosis of sarcoidosis, patient currently with sore throat bodyaches muscle aches pains cough and congestion. Patient thinks he may or may not have episodic fevers seen both by her family doctor at the emergency department has been tested for covert and strep throat both negative. Patient states she still presents with persistent shortness of breath today she has had an outpatient CAT scan which she thinks may have show pneumonia has received no treatment. MD Complaint: fever, cough, sore throat, nasal congestion -: days(s) Severity: moderate Severity scale (1-10): 4 Quality: sharp Consistency: constant Improves With: nothing Worsens With: nothing Context: sick contacts, new medications Associated Symptoms: fever, myalgias, sore throat Treatments Prior to Arrival: none - Related Data Home Medications Medication Instructions Recorded Confirmed Aspirin EC [Ecotrin Low Dose] 81 mg PO DAILY 10/23/16 11/22/19 Nitroglycerin Sl Tabs [Nitrostat] 0.4 mg SUBLINGUAL Q5M PRN 10/23/16 11/22/19 Amitriptyline HCl [Elavil] 25 mg PO HS 10/12/19 11/22/19 Carvedilol [Coreg] 12.5 mg PO BID 10/12/19 11/22/19 Omeprazole 20 mg PO DAILY 10/12/19 11/22/19 Oxybutynin Chloride [Ditropan] 5 mg PO DAILY 10/12/19 11/22/19 Prednisolone Acetate/Pf 1 drop BOTH EYES TID 11/22/19 11/22/19 [Prednisolone Acet 1% Eye Drop] Previous Rx's Medication Instructions Recorded predniSONE 10 mg PO DAILY #0 11/23/19 Allergies Allergy/AdvReac Type Severity Reaction Status Date / Time Influenza Virus Vaccines Allergy Swelling Verified 12/18/19 12:14 meperidine HCl [From Demerol] Allergy Rash/Hives/ Verified 12/18/19 12:14 Swelling naproxen sodium [From Aleve] Allergy Rash/Hives/ Verified 12/18/19 12:14 Swelling pneumococcal vaccine Allergy Swelling Verified 12/18/19 12:14 red dye Allergy Unknown Verified 12/18/19 12:14 Review of Systems ROS Statement: Those systems with pertinent positive or pertinent negative responses have been documented in the HPI. ROS Other: All systems not noted in ROS Statement are negative. Past Medical History Past Medical History: Chest Pain / Angina, Hypertension, Respiratory Disorder Additional Past Medical History / Comment(s): Vocal cord paralysis after biopsy status post repair, Multiple LEFT LUNG NODULE, Crohn's disease, SARCODOSIS History of Any Multi-Drug Resistant Organisms: None Reported Past Surgical History: Adenoidectomy, Cholecystectomy, Heart Catheterization, Hysterectomy, Joint Replacement, Orthopedic Surgery, Tonsillectomy Additional Past Surgical History / Comment(s): Repair of vocal cord paralysis, right total knee arthroscopically, left rotator cuff repair, left knee open surgery, LEFT LUNG NODULE REMOVAL, Loop recorder implanted 3 years ago. Past Anesthesia/Blood Transfusion Reactions: No Reported Reaction Past Psychological History: No Psychological Hx Reported Smoking Status: Never smoker Past Alcohol Use History: Occasional Past Drug Use History: Marijuana - Past Family History Mother Family Medical History: Diabetes Mellitus Additional Family Medical History / Comment(s): Mother is alive, at 71, recently had cardiac surgery (95% occlusion) with history of diabetes. Father History Unknown: Yes Additional Family Medical History / Comment(s): Patient does not have any contact with her father and does not know any of his medical history. Brother(s) Additional Family Medical History / Comment(s): Patient has 1 brother but does not know his medical history. Patient does not have any sisters. Patient has 2 sons no major medical problems. General Exam Limitations: no limitations General appearance: alert, in no apparent distress Head exam: Present: atraumatic, normocephalic, normal inspection Eye exam: Present: normal appearance, PERRL, EOMI. Absent: scleral icterus, conjunctival injection, periorbital swelling ENT exam: Present: normal exam, mucous membranes moist Neck exam: Present: normal inspection. Absent: tenderness, meningismus, lymphadenopathy Respiratory exam: Present: normal lung sounds bilaterally. Absent: respiratory distress, wheezes, rales, rhonchi, stridor Cardiovascular Exam: Present: regular rate, normal rhythm, normal heart sounds. Absent: systolic murmur, diastolic murmur, rubs, gallop, clicks GI/Abdominal exam: Present: soft, normal bowel sounds. Absent: distended, tenderness, guarding, rebound, rigid Extremities exam: Present: normal inspection, full ROM, normal capillary refill. Absent: tenderness, pedal edema, joint swelling, calf tenderness Back exam: Present: normal inspection Neurological exam: Present: alert, oriented X3, CN II-XII intact Psychiatric exam: Present: normal affect, normal mood Skin exam: Present: warm, dry, intact, normal color. Absent: rash Course Vital Signs 12/18/19 12:14 Temperature 97.6 F Pulse Rate 59 L Respiratory 18 Rate Blood Pressure 121/74 O2 Sat by Pulse 96 Oximetry - Reevaluation(s) Reevaluation #1: 12/18/19 13:43 Medical records reviewed 12/18/19 13:43 Computed tomography scan is reviewed showing pneumonia persistent Reevaluation #2: 12/18/19 15:05 Patient remains in no acute distress here in the ER Reevaluation #3: 12/18/19 15:05 Spoke patient regarding findings, questions are answered Reevaluation #4: 12/18/19 15:05 Patient feels good for discharge Medical Decision Making - Medical Decision Making 49 female to the ER for multiple nonspecific symptoms symptoms. Sore throat bodyaches. Patient feels well and can be discharged home - Lab Data Result diagrams: 12/18/19 13:33 12/18/19 13:33 Lab Results 12/18/19 12/18/19 12/18/19 Range/Units 13:33 13:33 13:33 WBC 7.0 (3.8-10.6) k/uL RBC 4.87 (3.80-5.40) m/uL Hgb 14.0 (11.4-16.0) gm/dL Hct 40.7 (34.0-46.0) % MCV 83.5 (80.0-100.0) fL MCH 28.6 (25.0-35.0) pg MCHC 34.3 (31.0-37.0) g/dL RDW 13.7 (11.5-15.5) % Plt Count 316 (150-450) k/uL Neutrophils % 65 % Lymphocytes % 25 % Monocytes % 7 % Eosinophils % 1 % Basophils % 0 % Neutrophils # 4.5 (1.3-7.7) k/uL Lymphocytes # 1.8 (1.0-4.8) k/uL Monocytes # 0.5 (0-1.0) k/uL Eosinophils # 0.1 (0-0.7) k/uL Basophils # 0.0 (0-0.2) k/uL PT 9.6 (9.0-12.0) sec INR 0.9 (<1.2) APTT 25.7 (22.0-30.0) sec Sodium 137 (137-145) mmol/L Potassium 4.2 (3.5-5.1) mmol/L Chloride 103 (98-107) mmol/L Carbon Dioxide 28 (22-30) mmol/L Anion Gap 6 mmol/L BUN 13 (7-17) mg/dL Creatinine 0.62 (0.52-1.04) mg/dL Est GFR (CKD-EPI)AfAm >90 (>60 ml/min/1.73 sqM) Est GFR (CKD-EPI)NonAf >90 (>60 ml/min/1.73 sqM) Glucose 91 (74-99) mg/dL Plasma Lactic Acid Zach (0.7-2.0) mmol/L Calcium 9.7 (8.4-10.2) mg/dL Magnesium 2.0 (1.6-2.3) mg/dL Total Bilirubin 0.9 (0.2-1.3) mg/dL AST 39 H (14-36) U/L ALT 56 H (4-34) U/L Alkaline Phosphatase 145 H (38-126) U/L Lactate Dehydrogenase 421 (313-618) U/L C-Reactive Protein 5.3 (<10.0) mg/L Total Protein 7.2 (6.3-8.2) g/dL Albumin 4.4 (3.5-5.0) g/dL Influenza Type A RNA (Not Detectd) Influenza Type B (PCR) (Not Detectd) 12/18/19 12/18/19 Range/Units 13:33 13:34 WBC (3.8-10.6) k/uL RBC (3.80-5.40) m/uL Hgb (11.4-16.0) gm/dL Hct (34.0-46.0) % MCV (80.0-100.0) fL MCH (25.0-35.0) pg MCHC (31.0-37.0) g/dL RDW (11.5-15.5) % Plt Count (150-450) k/uL Neutrophils % % Lymphocytes % % Monocytes % % Eosinophils % % Basophils % % Neutrophils # (1.3-7.7) k/uL Lymphocytes # (1.0-4.8) k/uL Monocytes # (0-1.0) k/uL Eosinophils # (0-0.7) k/uL Basophils # (0-0.2) k/uL PT (9.0-12.0) sec INR (<1.2) APTT (22.0-30.0) sec Sodium (137-145) mmol/L Potassium (3.5-5.1) mmol/L Chloride (98-107) mmol/L Carbon Dioxide (22-30) mmol/L Anion Gap mmol/L BUN (7-17) mg/dL Creatinine (0.52-1.04) mg/dL Est GFR (CKD-EPI)AfAm (>60 ml/min/1.73 sqM) Est GFR (CKD-EPI)NonAf (>60 ml/min/1.73 sqM) Glucose (74-99) mg/dL Plasma Lactic Acid Zach 0.7 (0.7-2.0) mmol/L Calcium (8.4-10.2) mg/dL Magnesium (1.6-2.3) mg/dL Total Bilirubin (0.2-1.3) mg/dL AST (14-36) U/L ALT (4-34) U/L Alkaline Phosphatase (38-126) U/L Lactate Dehydrogenase (313-618) U/L C-Reactive Protein (<10.0) mg/L Total Protein (6.3-8.2) g/dL Albumin (3.5-5.0) g/dL Influenza Type A RNA Not Detected (Not Detectd) Influenza Type B (PCR) Not Detected (Not Detectd) - EKG Data -: EKG Interpreted by Me (EKG is sinus bradycardia 58 VT 148 QRS 84 QTc 424) - Radiology Data Radiology results: report reviewed (Chest x-rays negative for acute disease), image reviewed Disposition Clinical Impression: Acute upper respiratory infection Disposition: HOME SELF-CARE Condition: Good Instructions (If sedation given, give patient instructions): Upper Respiratory Infection (ED) Is patient prescribed a controlled substance at d/c from ED?: No Referrals: Hung Amaro MD [Primary Care Provider] - 1-2 days
[2019-12-18 13:52] LABS: Basophils % (A) 0 %; Eosinophils # (A) 0.1 k/uL (0-0.7); Eosinophils % (A) 1 %; HCT 40.7 % (34.0-46.0); Lymphocytes # (A) 1.8 k/uL (1.0-4.8); Lymphocytes % (A) 25 %; MCH 28.6 pg (25.0-35.0); MCHC 34.3 g/dL (31.0-37.0); MCV 83.5 fL (80.0-100.0); Mean Platelet Volume 6.9; Monocytes # (A) 0.5 k/uL (0-1.0); Monocytes % (A) 7 %; Neutrophils # (A) 4.5 k/uL (1.3-7.7); Neutrophils % (A) 65 %; Platelet Count 316 k/uL (150-450); RBC 4.87 m/uL (3.80-5.40); RDW 13.7 % (11.5-15.5)
[2019-12-18 14:03] LABS: INR 0.9 (<1.2); Partial Thromboplastin Time 25.7 sec (22.0-30.0); Prothrombin Time 9.6 sec (9.0-12.0)
[2019-12-18 14:07] LABS: ALT 56 U/L (4-34); AST 39 U/L (14-36); African American GFR (CKD) >90 (>60 ml/min/1.73 sqM); Albumin 4.4 g/dL (3.5-5.0); Alkaline Phosphatase 145 U/L (38-126); Anion Gap 6 mmol/L; Blood Urea Nitrogen 13 mg/dL (7-17); C Reactive Protein 5.3 mg/L (<10.0); Calcium 9.7 mg/dL (8.4-10.2); Carbon Dioxide 28 mmol/L (22-30); Chloride 103 mmol/L (98-107); Glucose 91 mg/dL (74-99); LDH 421 U/L (313-618); Non-African American GFR(CKD) >90 (>60 ml/min/1.73 sqM); Potassium 4.2 mmol/L (3.5-5.1); Sodium 137 mmol/L (137-145); Total Bilirubin 0.9 mg/dL (0.2-1.3); Total Protein 7.2 g/dL (6.3-8.2)
--- NOTE | 2019-12-18 14:20 | XR ---
EXAMINATION TYPE: XR chest 1V portable DATE OF EXAM: 12/18/2019 COMPARISON: 11/22/2019 HISTORY: Chest pain TECHNIQUE: Single view FINDINGS: Heart and mediastinum are normal. Lungs are clear. Diaphragm is normal. Bony thorax is inta ct. IMPRESSION: Normal chest. No change.
[2019-12-18 15:12] VITALS: BP 123/68
[2019-12-18 17:28] LABS: Ferritin 88.3 ng/mL (10.0-291.0)
== END 2019-12-18 15:18 | disposition home or self-care (01) ==
LOC: EC 12:07
DX: J06.9 Acute upper respiratory infection, unspecified (principal); I10 Essential (primary) hypertension; I20.9 Angina pectoris, unspecified; K50.90 Crohn's disease, unspecified, without complications; Z79.82 Long term (current) use of aspirin; Z79.899 Other long term (current) drug therapy; Z88.7 Allergy status to serum and vaccine; Z88.5 Allergy status to narcotic agent; Z88.6 Allergy status to analgesic agent; Z96.60 Presence of unspecified orthopedic joint implant
CPT/HCPCS: 36415; 71045; 80053; 82728; 83605; 83615; 83735; 85025; 85610; 85730; 86140; 87040; 87502; 93005; 99284

== ENCOUNTER 2020-07-03 06:28 | Day surgery (SDC) | payer MEDICARE, OTHER ==
[2020-06-27 14:44] VITALS: BMI 31.9
[~2020-07-03 06:28] MED LIST: SODIUM CHLORIDE 0.9% 1,000 ML IV SCH
[2020-07-03 07:03] VITALS: RESP 16; TEMP 99.2
[2020-07-03 07:17] LABS: Basophils % (A) 0 %; Eosinophils # (A) 0.3 k/uL (0-0.7); Eosinophils % (A) 3 %; HCT 35.4 % (34.0-46.0); HGB 12.1 gm/dL (11.4-16.0); Lymphocytes # (A) 2.6 k/uL (1.0-4.8); Lymphocytes % (A) 25 %; MCH 27.6 pg (25.0-35.0); MCHC 34.1 g/dL (31.0-37.0); MCV 80.8 fL (80.0-100.0); Mean Platelet Volume 6.4; Monocytes # (A) 0.7 k/uL (0-1.0); Monocytes % (A) 7 %; Neutrophils # (A) 6.5 k/uL (1.3-7.7); Neutrophils % (A) 63 %; Platelet Count 331 k/uL (150-450); RBC 4.38 m/uL (3.80-5.40); RDW 13.6 % (11.5-15.5); WBC 10.2 k/uL (3.8-10.6)
[2020-07-03] MEDS ORDERED: MIDAZOLAM 2 MG/2 ML VIAL IVP ONE (07:45)
[2020-07-03] MEDS ORDERED: fentaNYL (PF) 50 MCG/ML 2 ML AMP IVP ONE (07:45)
[2020-07-03] MEDS ORDERED: LIDOCAINE 1% INJ 10MG/ML (20 ML MDV) SQ ONE (07:46)
[2020-07-03] MEDS ORDERED: ACETAMINOPHEN TAB 325 MG TAB PO PRN (08:08)
--- NOTE | 2020-07-03 08:12 | P.PCN ---
Date of Procedure: 07/03/20 Preoperative Diagnosis: History of loop recorder insertion Postoperative Diagnosis: Successful removal of loop recorder Procedure(s) Performed: Loop recorder removal Description of Procedure: This patient is brought in as an outpatient for the procedure. She was prepped and draped in the usual fashion. She was given IV Versed 1 mg and 50 g of fentanyl. The skin over the existing device was infiltrated with lidocaine. A linear incision was made over the medial end of the device. This is deepened until the device was exposed. The device is released from the tissue adhesions with blunt dissection and was removed from the pocket without any difficulty. The incision was closed with 2 stray silk sutures. Final impression: #1. Successful removal of loop recorder. Plan: Patient will monitor for the next 2 hours. If stable, she'll be discharged home. Follow-up in the office in one week. Patient will keep the dressing dry until seen in the office
[2020-07-03 08:43] VITALS: BP 146/68; PULSE 63
== END 2020-07-03 08:55 | disposition home or self-care (01) ==
LOC: CATHEP 06:28
PROVIDERS: ATTEND Internal Medicine Cardiovascular Disease
DX: Z45.09 Encounter for adjustment and management of other cardiac device (principal); R55 Syncope and collapse; R00.2 Palpitations; D86.0 Sarcoidosis of lung; I10 Essential (primary) hypertension; Z79.899 Other long term (current) drug therapy; Z79.82 Long term (current) use of aspirin
CPT/HCPCS: 33286; 85025; J2250; J0690; J2001; J3010

== ENCOUNTER 2020-11-24 12:05 | Emergency (ER) | payer MEDICARE, OTHER ==
[2020-11-24] MEDS ORDERED: ONDANSETRON 4 MG/2 ML VIAL IVP STA (13:29)
[2020-11-24] MEDS ORDERED: SODIUM CHLORIDE 0.9% 500 ML 500 ML IV STA (13:29)
--- NOTE | 2020-11-24 13:39 | ED ---
General Adult HPI - General Chief complaint: Chest Pain Stated complaint: COVID+, Chest Pain Time Seen by Provider: 11/24/20 13:06 Source: patient Mode of arrival: wheelchair Limitations: no limitations - History of Present Illness Initial comments: Patient is a 50-year-old female with history of sarcoidosis, chronic chest pain, presenting to emergency Department with complaints of chest tightness, increasing shortness of breath over the past few days. Patient tested positive for covid 2 days ago. She is not vaccinated. She states her symptoms started about 4-5 days ago with an earache and a sore throat and started developing a cough. She states her cough is dry, nonproductive. She does have chronic chest pain, she's been evaluated multiple times by cardiology, has had a loop recorder for 3 years, without any significant findings. She states this tightness feels a little bit different, hurts worse when she coughs. She also has history of sarcoidosis so typically has a little bit of shortness of breath this feels like it is getting worse. She came in for evaluation to make sure she is "stable." She admits to some mild fevers a couple days ago but none today. She denies any abdominal pain, some mild nausea but no diarrhea. She denies any dysuria. She has no further complaints at this time. Her vital signs are stable upon a rrival. - Related Data Home Medications Medication Instructions Recorded Confirmed Aspirin EC [Ecotrin Low Dose] 81 mg PO DAILY 10/23/16 11/24/20 Carvedilol [Coreg] 12.5 mg PO BID 10/12/19 11/24/20 Oxybutynin Chloride [Ditropan] 5 mg PO DAILY 10/12/19 11/24/20 Isosorbide Mononitrate [Isosorbide 30 mg PO DAILY 06/27/20 11/24/20 Mononitrate ER] Albuterol Inhaler [Ventolin Hfa 1 puff INHALATION RT-Q6H PRN 11/24/20 11/24/20 Inhaler] Amitriptyline HCl [Elavil] 50 mg PO HS 11/24/20 11/24/20 Amoxic-Pot Clav 500-125 mg 1 tab PO Q12HR 11/24/20 11/24/20 [Augmentin 500-125 mg] Fluticasone/Vilanterol [Breo 1 puff INHALATION RT-DAILY 11/24/20 11/24/20 Ellipta 200-25 Mcg Inhaler] predniSONE [Deltasone] 20 mg PO DAILY 11/24/20 11/24/20 Allergies Allergy/AdvReac Type Severity Reaction Status Date / Time meperidine HCl [From Demerol] Allergy Rash/Hives/ Verified 11/24/20 14:48 Swelling naproxen sodium [From Aleve] Allergy Rash/Hives/ Verified 11/24/20 14:48 Swelling pneumococcal vaccine Allergy Swelling Verified 11/24/20 14:48 red dye AdvReac Unknown Verified 11/24/20 14:48 Review of Systems ROS Statement: Those systems with pertinent positive or pertinent negative responses have been documented in the HPI. ROS Other: All systems not noted in ROS Statement are negative. Past Medical History Past Medical History: Chest Pain / Angina, Hypertension, Osteoarthritis (OA), Respiratory Disorder, Syncope Additional Past Medical History / Comment(s): hx. of Vocal cord paralysis after biopsy, left lung nodules related to SARCOIDOSIS, SOB w/exertion, see Dr. Melendez H & P History of Any Multi-Drug Resistant Organisms: None Reported Past Surgical History: Adenoidectomy, Cholecystectomy, Heart Catheterization, Hysterectomy, Joint Replacement, Orthopedic Surgery, Tonsillectomy Additional Past Surgical History / Comment(s): Repair of vocal cord paralysis, right knee arthroscopy, left rotator cuff repair, left knee replaced, LEFT LUNG NODULE REMOVAL, Loop recorder implanted 3 years ago, right knee replaced May 2020, had right knee manipulation 06-26-20 @[facility] Past Anesthesia/Blood Transfusion Reactions: Postoperative Nausea & Vomiting (PONV) Past Psychological History: No Psychological Hx Reported Smoking Status: Never smoker Past Alcohol Use History: Occasional Past Drug Use History: None Reported - Past Family History Mother Family Medical History: Diabetes Mellitus Additional Family Medical History / Comment(s): Mother is alive, at 71, recently had cardiac surgery (95% occlusion) with history of diabetes. Father History Unknown: Yes Additional Family Medical History / Comment(s): Patient does not have any contact with her father and does not know any of his medical history. Brother(s) Additional Family Medical History / Comment(s): Patient has 1 brother but does not know his medical history. Patient does not have any sisters. Patient has 2 sons no major medical problems. General Exam - General Exam Comments Initial Comments: GENERAL: Patient is well-developed and well-nourished. Patient is nontoxic and in no acute distress. HEAD: Atraumatic, normocephalic. EYES: Pupils equal round and reactive to light, extraocular movements intact, sclera anicteric, conjunctiva are normal. Eyelids were unremarkable. ENT: TMs normal, nares patent, oropharynx clear without exudates. Moist mucous membranes. NECK: Normal range of motion, supple without lymphadenopathy or JVD. LUNGS: Unlabored respirations. Breath sounds clear to auscultation bilaterally and equal. No wheezes rales or rhonchi. HEART: Regular rate and rhythm without murmurs, rubs or gallops. ABDOMEN: Soft, nontender, normoactive bowel sounds. No guarding, no rebound. No masses appreciated. : Deferred MUSCULOSKELETAL: Normal extremities with adequate strength and normal range of motion, no pitting or edema. No clubbing or cyanosis. NEUROLOGICAL: Patient is alert and oriented x 3. Motor and sensory are also intact. Cranial nerves II through XII grossly intact. Symmetrical smile. Normal speech, normal gait. PSYCH: Normal mood, normal affect. SKIN: Warm, Dry, normal turgor, no rashes or lesions noted. Limitations: no limitations Course Vital Signs 11/24/20 11/24/20 11/24/20 12:19 14:46 15:25 Temperature 97.9 F 98.7 F 98 F Pulse Rate 68 64 78 Respiratory 16 20 20 Rate Blood Pressure 100/66 125/81 125/74 O2 Sat by Pulse 97 98 98 Oximetry EKG Findings - EKG Comments: EKG Findings:: Normal sinus rhythm, normal ECG, similar to previous on 12/18/2019. Ventricular rate 60, DC interval 146, QT 418. Medical Decision Making - Medical Decision Making Patient is a 50-year-old female with history of sarcoidosis, chronic chest pain, presenting with some mild shortness of breath and chest tightness over the past 2 days. She tested positive for covid 2 days ago. She is not vaccinated from Covid. She is complaining of a mild headache, sore throat as well as some mild nausea. Her vital signs are stable upon arrival, EKG shows normal sinus rhythm, no acute process. Patient's labs are unremarkable, troponin is negative, BNP is 100. Chest x-ray shows no acute abnormality. Patient did meet critiria for monoclonal antibodies. She did receive these, no adverse side effects. Patient was already prescribed steroids and inhaler by her doctor, she will continue with these. I recommended increasing her fluid intake. She is stable for discharge and she is in agreement with this plan and care. Return parameters were discussed with her and she verbalized understanding. Case discussed with Dr. Lawrence. - Lab Data Result diagrams: 11/24/20 13:49 11/24/20 13:49 Lab Results 11/24/20 11/24/20 11/24/20 Range/Units 13:49 13:49 13:49 WBC 8.1 (3.8-10.6) k/uL RBC 4.94 (3.80-5.40) m/uL Hgb 13.4 (11.4-16.0) gm/dL Hct 40.4 (34.0-46.0) % MCV 81.8 (80.0-100.0) fL MCH 27.1 (25.0-35.0) pg MCHC 33.1 (31.0-37.0) g/dL RDW 14.0 (11.5-15.5) % Plt Count 313 (150-450) k/uL MPV 6.7 Neutrophils % 87 % Lymphocytes % 9 % Monocytes % 2 % Eosinophils % 1 % Basophils % 0 % Neutrophils # 7.1 (1.3-7.7) k/uL Lymphocytes # 0.7 L (1.0-4.8) k/uL Monocytes # 0.1 (0-1.0) k/uL Eosinophils # 0.1 (0-0.7) k/uL Basophils # 0.0 (0-0.2) k/uL PT 9.4 (9.0-12.0) sec INR 0.9 (<1.2) APTT 24.4 (22.0-30.0) sec Sodium 138 (137-145) mmol/L Potassium 4.5 (3.5-5.1) mmol/L Chloride 104 (98-107) mmol/L Carbon Dioxide 25 (22-30) mmol/L Anion Gap 9 mmol/L BUN 10 (7-17) mg/dL Creatinine 0.57 (0.52-1.04) mg/dL Est GFR (CKD-EPI)AfAm >90 (>60 ml/min/1.73 sqM) Est GFR (CKD-EPI)NonAf >90 (>60 ml/min/1.73 sqM) Glucose 123 H (74-99) mg/dL Calcium 9.8 (8.4-10.2) mg/dL Magnesium 2.0 (1.6-2.3) mg/dL Total Bilirubin 0.7 (0.2-1.3) mg/dL AST 45 H (14-36) U/L ALT 47 H (4-34) U/L Alkaline Phosphatase 168 H (38-126) U/L Troponin I (0.000-0.034) ng/mL NT-Pro-B Natriuret Pep pg/mL Total Protein 7.5 (6.3-8.2) g/dL Albumin 4.7 (3.5-5.0) g/dL 11/24/20 11/24/20 Range/Units 13:49 13:49 WBC (3.8-10.6) k/uL RBC (3.80-5.40) m/uL Hgb (11.4-16.0) gm/dL Hct (34.0-46.0) % MCV (80.0-100.0) fL MCH (25.0-35.0) pg MCHC (31.0-37.0) g/dL RDW (11.5-15.5) % Plt Count (150-450) k/uL MPV Neutrophils % % Lymphocytes % % Monocytes % % Eosinophils % % Basophils % % Neutrophils # (1.3-7.7) k/uL Lymphocytes # (1.0-4.8) k/uL Monocytes # (0-1.0) k/uL Eosinophils # (0-0.7) k/uL Basophils # (0-0.2) k/uL PT (9.0-12.0) sec INR (<1.2) APTT (22.0-30.0) sec Sodium (137-145) mmol/L Potassium (3.5-5.1) mmol/L Chloride (98-107) mmol/L Carbon Dioxide (22-30) mmol/L Anion Gap mmol/L BUN (7-17) mg/dL Creatinine (0.52-1.04) mg/dL Est GFR (CKD-EPI)AfAm (>60 ml/min/1.73 sqM) Est GFR (CKD-EPI)NonAf (>60 ml/min/1.73 sqM) Glucose (74-99) mg/dL Calcium (8.4-10.2) mg/dL Magnesium (1.6-2.3) mg/dL Total Bilirubin (0.2-1.3) mg/dL AST (14-36) U/L ALT (4-34) U/L Alkaline Phosphatase (38-126) U/L Troponin I <0.012 (0.000-0.034) ng/mL NT-Pro-B Natriuret Pep 111 pg/mL Total Protein (6.3-8.2) g/dL Albumin (3.5-5.0) g/dL Disposition Clinical Impression: COVID-19, Cough Disposition: HOME SELF-CARE Condition: Stable Instructions (If sedation given, give patient instructions): Coronavirus Disease 2019 (COVID-19) Additional Instructions: Please return to the Emergency Department if symptoms worsen or any other concerns. Continue with regard to prescribed medications, increase your fluid intake. Please follow up with your primary care. Is patient prescribed a controlled substance at d/c from ED?: No Referrals: Nish Baez MD [Primary Care Provider] - 1-2 days Time of Disposition: 16:27
[2020-11-24 13:59] LABS: Basophils % (A) 0 %; Eosinophils # (A) 0.1 k/uL (0-0.7); Eosinophils % (A) 1 %; HCT 40.4 % (34.0-46.0); HGB 13.4 gm/dL (11.4-16.0); Lymphocytes # (A) 0.7 k/uL (1.0-4.8); Lymphocytes % (A) 9 %; MCH 27.1 pg (25.0-35.0); MCHC 33.1 g/dL (31.0-37.0); MCV 81.8 fL (80.0-100.0); Mean Platelet Volume 6.7; Monocytes # (A) 0.1 k/uL (0-1.0); Monocytes % (A) 2 %; Neutrophils # (A) 7.1 k/uL (1.3-7.7); Neutrophils % (A) 87 %; Platelet Count 313 k/uL (150-450); RBC 4.94 m/uL (3.80-5.40); WBC 8.1 k/uL (3.8-10.6)
[2020-11-24] MEDS ORDERED: SODIUM CHLORIDE 0.9% 50 ML IVPB ONE (14:00)
[2020-11-24 14:08] LABS: INR 0.9 (<1.2); Partial Thromboplastin Time 24.4 sec (22.0-30.0); Prothrombin Time 9.4 sec (9.0-12.0)
[2020-11-24 14:09] LABS: Potassium 4.5 mmol/L (3.5-5.1); Sodium 138 mmol/L (137-145)
[2020-11-24 14:10] LABS: ALT 47 U/L (4-34); AST 45 U/L (14-36); African American GFR (CKD) >90 (>60 ml/min/1.73 sqM); Albumin 4.7 g/dL (3.5-5.0); Alkaline Phosphatase 168 U/L (38-126); Anion Gap 9 mmol/L; Blood Urea Nitrogen 10 mg/dL (7-17); Calcium 9.8 mg/dL (8.4-10.2); Carbon Dioxide 25 mmol/L (22-30); Chloride 104 mmol/L (98-107); Glucose 123 mg/dL (74-99); Non-African American GFR(CKD) >90 (>60 ml/min/1.73 sqM); Total Bilirubin 0.7 mg/dL (0.2-1.3); Total Protein 7.5 g/dL (6.3-8.2)
[2020-11-24] MEDS ORDERED: CASIRIVIMAB (REGN10933) (EUA) 600 MG, IMDEVIMAB (REGN10987) (EUA) 600 MG in SODIUM CHLO... IVPB ONE (14:15)
--- NOTE | 2020-11-24 15:00 | XR ---
EXAMINATION TYPE: XR chest 1V portable DATE OF EXAM: 11/24/2020 COMPARISON: Chest x-ray 12/18/2019, 07/11/2020 HISTORY: Chest pain, Covid positive TECHNIQUE: Single frontal view of the chest is obtained. FINDINGS: There is no focal air space opacity, pleural effusion, or pneumothorax seen. The cardiac silhouette size is within normal limits. This is rotated. There are overlying leads. The osseous str uctures are intact. IMPRESSION: No acute process.
[2020-11-24] MEDS ORDERED: MORPHINE SULFATE 2 MG/ML SYRINGE IVP ONE (15:26)
[2020-11-24 16:49] VITALS: BP 122/79; PULSE 64; RESP 18; TEMP 98.7
== END 2020-11-24 16:49 | disposition home or self-care (01) ==
LOC: EC 12:05
DX: U07.1 COVID-19 (principal); R05 Cough; I10 Essential (primary) hypertension; M19.90 Unspecified osteoarthritis, unspecified site; D86.9 Sarcoidosis, unspecified; Z79.82 Long term (current) use of aspirin; Z88.5 Allergy status to narcotic agent; Z88.7 Allergy status to serum and vaccine; Z90.89 Acquired absence of other organs; Z90.49 Acquired absence of other specified parts of digestive tract; Z90.710 Acquired absence of both cervix and uterus; Z88.6 Allergy status to analgesic agent
CPT/HCPCS: 99285; 96365; 96375 ×2; 36415; 93005; 83880; 80053; 83735; 84484; 85025; 85610; 85730; 71045; J2405; J2270; Q0243

== ENCOUNTER → 2020-12-12 | Outpatient (CLI) | payer MEDICARE, OTHER ==
--- NOTE | 2020-12-12 16:28 | US ---
EXAMINATION TYPE: US pelvis complete transvag DATE OF EXAM: 12/12/2020 COMPARISON: NONE CLINICAL HISTORY: R10.2 PELVIC PAIN. RT ovarian cyst. History of hysterectomy. TECHNIQUE: Transvaginal (TV) and Transabdominal (TA) . Transabdominal sonographic images of the pel vis were acquired. Transvaginal sonographic images were medically necessary to better assess the fol lowing anatomy: Ovaries Date of LMP: N/A EXAM MEASUREMENTS: Uterus: Surgically absent cm Endometrial Stripe: Surgically absent cm Right Ovary: 2.9x1.4x1.0 cm Left Ovary: 1.8x1.0x1.6 cm Echogenic well circumscribed area in the vertex region or vaginal cuff measuring 0.7x0.6x1.0cm. This is remote for a echogenic hematoma. Likewise, old abscess formation the unlikely. 1. Uterus: N/A 2. Endometrium: N/A 3. Right Ovary: wnl 4. Left Ovary: wnl 5. Bilateral Adnexa: wnl 6. Posterior cul-de-sac: wnl IMPRESSION: 1. Echogenic circumscribed area within distal vaginal cuff of uncertain etiology. Consider additional workup with CT or MRI.
== END | disposition home or self-care (01) ==
LOC: RADUSWWP 15:00
PROVIDERS: ATTEND Obstetrics & Gynecology
DX: R10.2 Pelvic and perineal pain (principal); Z90.710 Acquired absence of both cervix and uterus
CPT/HCPCS: 76830; 76856

== ENCOUNTER 2020-12-31 13:16 | Emergency (ER) | payer MEDICARE, OTHER ==
[2020-12-31] MEDS ORDERED: ACETAMINOPHEN TAB 325 MG TAB PO STA (15:31)
--- NOTE | 2020-12-31 15:32 | XR ---
EXAMINATION TYPE: XR shoulder complete RT DATE OF EXAM: 12/31/2020 COMPARISON: NONE HISTORY: Shoulder pain TECHNIQUE: 3 views FINDINGS: I see no fracture nor dislocation. Glenohumeral joint is intact. AC joint is intact. IMPRESSION: Negative right shoulder exam. No fracture.
[2020-12-31 15:34] VITALS: BP 131/84; PULSE 74; RESP 16; TEMP 97.9
--- NOTE | 2020-12-31 15:46 | ED ---
Extremity Problem HPI - General Stated complaint: Dislocated Right Shoulder Time Seen by Provider: 12/31/20 15:22 Source: patient, RN notes reviewed Limitations: no limitations - History of Present Illness Initial comments: Patient is a 50-year-old female that presents to emergency department complaining of right shoulder pain. She notes that she was trying to lift a coffin for halloween she felt something pop and then intense pain in that she fell to her knees. She denied taking anything for pain prior to arrival. She noted that movement makes the pain worse. She does have tenderness over the superior aspect of her shoulder. She denied any alleviating factors other than keeping her arm close to her body. She was otherwise well-appearing in no apparent distress. She denied any chest pain shortness of breath headache nausea vomiting diarrhea constipation fever fatigue chills. - Related Data Home Medications Medication Instructions Recorded Confirmed Aspirin EC [Ecotrin Low Dose] 81 mg PO DAILY 10/23/16 11/24/20 Carvedilol [Coreg] 12.5 mg PO BID 10/12/19 11/24/20 Oxybutynin Chloride [Ditropan] 5 mg PO DAILY 10/12/19 11/24/20 Isosorbide Mononitrate [Isosorbide 30 mg PO DAILY 06/27/20 11/24/20 Mononitrate ER] Albuterol Inhaler [Ventolin Hfa 1 puff INHALATION RT-Q6H PRN 11/24/20 11/24/20 Inhaler] Amitriptyline HCl [Elavil] 50 mg PO HS 11/24/20 11/24/20 Amoxic-Pot Clav 500-125 mg 1 tab PO Q12HR 11/24/20 11/24/20 [Augmentin 500-125 mg] Fluticasone/Vilanterol [Breo 1 puff INHALATION RT-DAILY 11/24/20 11/24/20 Ellipta 200-25 Mcg Inhaler] predniSONE [Deltasone] 20 mg PO DAILY 11/24/20 11/24/20 Allergies Allergy/AdvReac Type Severity Reaction Status Date / Time meperidine HCl [From Demerol] Allergy Rash/Hives/ Verified 11/24/20 14:48 Swelling naproxen sodium [From Aleve] Allergy Rash/Hives/ Verified 11/24/20 14:48 Swelling pneumococcal vaccine Allergy Swelling Verified 11/24/20 14:48 red dye AdvReac Unknown Verified 11/24/20 14:48 Review of Systems ROS Statement: Those systems with pertinent positive or pertinent negative responses have been documented in the HPI. ROS Other: All systems not noted in ROS Statement are negative. Past Medical History Past Medical History: Chest Pain / Angina, Hypertension, Osteoarthritis (OA), Respiratory Disorder, Syncope Additional Past Medical History / Comment(s): hx. of Vocal cord paralysis after biopsy, left lung nodules related to SARCOIDOSIS, SOB w/exertion, see Dr. Melendez H & P History of Any Multi-Drug Resistant Organisms: None Reported Past Surgical History: Adenoidectomy, Cholecystectomy, Heart Catheterization, Hysterectomy, Joint Replacement, Orthopedic Surgery, Tonsillectomy Additional Past Surgical History / Comment(s): Repair of vocal cord paralysis, right knee arthroscopy, left rotator cuff repair, left knee replaced, LEFT LUNG NODULE REMOVAL, Loop recorder implanted 3 years ago, right knee replaced May 2020, had right knee manipulation 06-26-20 @[facility] Past Anesthesia/Blood Transfusion Reactions: Postoperative Nausea & Vomiting (PONV) Past Psychological History: No Psychological Hx Reported Smoking Status: Never smoker Past Alcohol Use History: Occasional Past Drug Use History: None Reported - Past Family History Mother Family Medical History: Diabetes Mellitus Additional Family Medical History / Comment(s): Mother is alive, at 71, recently had cardiac surgery (95% occlusion) with history of diabetes. Father History Unknown: Yes Additional Family Medical History / Comment(s): Patient does not have any contact with her father and does not know any of his medical history. Brother(s) Additional Family Medical History / Comment(s): Patient has 1 brother but does not know his medical history. Patient does not have any sisters. Patient has 2 sons no major medical problems. General Exam General appearance: alert, in no apparent distress Head exam: Present: atraumatic, normocephalic, normal inspection Eye exam: Present: normal appearance, PERRL, EOMI. Absent: scleral icterus, conjunctival injection, periorbital swelling Neck exam: Present: normal inspection Respiratory exam: Present: normal lung sounds bilaterally. Absent: respiratory distress, wheezes, rales, rhonchi, stridor Cardiovascular Exam: Present: regular rate, normal rhythm, normal heart sounds. Absent: systolic murmur, diastolic murmur, rubs, gallop, clicks Extremities exam: Present: normal inspection, normal capillary refill. Absent: full ROM (Decreased right shoulder range of motion secondary to pain.), tenderness, pedal edema, joint swelling, calf tenderness Neurological exam: Present: alert, oriented X3 Psychiatric exam: Present: normal affect, normal mood Skin exam: Present: warm, dry, intact, normal color. Absent: rash Medical Decision Making - Medical Decision Making 50-year-old female complaining of right shoulder pain after lifting a halloween decoration. X-ray of the right shoulder, 650 mg of Tylenol ordered. X-ray negative for any acute fractures or dislocations. Patient most likely has a muscle strain possible rotator cuff injury. Case discussed with Dr. Olsen, patient discharge home with follow-up to orthopedics as needed. - Radiology Data Radiology results: report reviewed, image reviewed Right shoulder x-ray: Negative right shoulder exam. Disposition Clinical Impression: Right shoulder pain Disposition: HOME SELF-CARE Condition: Stable Instructions (If sedation given, give patient instructions): Shoulder Sprain (ED) Additional Instructions: Please return to the Emergency Department if symptoms worsen or any other concerns. Follow-up with orthopedics as possible. Take Tylenol Motrin as needed for pain. Leave sling on throughout the day. Is patient prescribed a controlled substance at d/c from ED?: No Referrals: Nish Baez MD [Primary Care Provider] - 1-2 days Fuentes Awad MD [Medical Doctor] - 1-2 days Time of Disposition: 15:47
== END 2020-12-31 15:56 | disposition home or self-care (01) ==
LOC: EC 13:16
DX: M25.511 Pain in right shoulder (principal); I10 Essential (primary) hypertension; D86.9 Sarcoidosis, unspecified; M19.90 Unspecified osteoarthritis, unspecified site; Z79.52 Long term (current) use of systemic steroids; Z79.82 Long term (current) use of aspirin; Z88.5 Allergy status to narcotic agent; Z88.6 Allergy status to analgesic agent; Z90.49 Acquired absence of other specified parts of digestive tract
CPT/HCPCS: 99283

== ENCOUNTER 2021-01-26 12:12 | Observation (INO) | payer MEDICARE, OTHER ==
[2021-01-26] MEDS ORDERED: NITROGLYCERIN OINT 1 INCH/GM PACKET TOPICAL STA (12:48)
[2021-01-26] MEDS ORDERED: ASPIRIN 81 MG PO STA (12:48)
--- NOTE | 2021-01-26 13:06 | ED ---
General Adult HPI - General Chief complaint: Chest Pain Stated complaint: Chest Pain Time Seen by Provider: 01/26/21 12:30 Source: patient, RN notes reviewed, old records reviewed Mode of arrival: wheelchair Limitations: no limitations - History of Present Illness Initial comments: This is a 50-year-old female presents emergency Department complaining of chest pain. Patient states the pain radiates into her left arm. Patient states she's also mildly short of breath per patient states the pain started last night. Patient denies any diaphoretic episodes. Patient denies any nausea. Patient states she has a past medical history significant for sarcoidosis and high blood pressure. Patient denies any smoking. Patient states she does have strong family history of heart disease. Patient denies abdominal pain patient denies nausea vomiting diarrhea. Patient denies any swelling to the legs or calf tenderness. Patient denies any episodes of near syncope or lightheadedness. - Related Data Home Medications Medication Instructions Recorded Confirmed Aspirin EC [Ecotrin Low Dose] 81 mg PO DAILY 10/23/16 11/24/20 Carvedilol [Coreg] 12.5 mg PO BID 10/12/19 11/24/20 Oxybutynin Chloride [Ditropan] 5 mg PO DAILY 10/12/19 11/24/20 Isosorbide Mononitrate [Isosorbide 30 mg PO DAILY 06/27/20 11/24/20 Mononitrate ER] Albuterol Inhaler [Ventolin Hfa 1 puff INHALATION RT-Q6H PRN 11/24/20 11/24/20 Inhaler] Amitriptyline HCl [Elavil] 50 mg PO HS 11/24/20 11/24/20 Amoxic-Pot Clav 500-125 mg 1 tab PO Q12HR 11/24/20 11/24/20 [Augmentin 500-125 mg] Fluticasone/Vilanterol [Breo 1 puff INHALATION RT-DAILY 11/24/20 11/24/20 Ellipta 200-25 Mcg Inhaler] predniSONE [Deltasone] 20 mg PO DAILY 11/24/20 11/24/20 Allergies Allergy/AdvReac Type Severity Reaction Status Date / Time meperidine HCl [From Demerol] Allergy Rash/Hives/ Verified 01/26/21 12:29 Swelling naproxen sodium [From Aleve] Allergy Rash/Hives/ Verified 01/26/21 12:29 Swelling pneumococcal vaccine Allergy Swelling Verified 01/26/21 12:29 red dye AdvReac Unknown Verified 01/26/21 12:29 Review of Systems ROS Statement: Those systems with pertinent positive or pertinent negative responses have been documented in the HPI. ROS Other: All systems not noted in ROS Statement are negative. Past Medical History Past Medical History: Chest Pain / Angina, Hypertension, Osteoarthritis (OA), Respiratory Disorder, Syncope Additional Past Medical History / Comment(s): hx. of Vocal cord paralysis after biopsy, left lung nodules related to SARCOIDOSIS, SOB w/exertion, see Dr. Melendez H & P History of Any Multi-Drug Resistant Organisms: None Reported Past Surgical History: Adenoidectomy, Cholecystectomy, Heart Catheterization, Hysterectomy, Joint Replacement, Orthopedic Surgery, Tonsillectomy Additional Past Surgical History / Comment(s): Repair of vocal cord paralysis, right knee arthroscopy, left rotator cuff repair, left knee replaced, LEFT LUNG NODULE REMOVAL, Loop recorder implanted 3 years ago, right knee replaced May 2020, had right knee manipulation 06-26-20 @[facility] Past Anesthesia/Blood Transfusion Reactions: Postoperative Nausea & Vomiting (PONV) Past Psychological History: No Psychological Hx Reported Smoking Status: Never smoker Past Alcohol Use History: Occasional Past Drug Use History: None Reported - Past Family History Mother Family Medical History: Diabetes Mellitus Additional Family Medical History / Comment(s): Mother is alive, at 71, recently had cardiac surgery (95% occlusion) with history of diabetes. Father History Unknown: Yes Additional Family Medical History / Comment(s): Patient does not have any contact with her father and does not know any of his medical history. Brother(s) Additional Family Medical History / Comment(s): Patient has 1 brother but does not know his medical history. Patient does not have any sisters. Patient has 2 sons no major medical problems. General Exam - General Exam Comments Initial Comments: GENERAL: Patient is well-developed and well-nourished. Patient is nontoxic and well- hydrated and is in no acute distress. ENT: Neck is soft and supple. No significant lymphadenopathy is noted. Oropharynx is clear. Moist mucous membranes. Neck has full range of motion without eliciting any pain. There is no thyroid enlargement and no masses were felt. EYES: The sclera were anicteric and conjunctiva were pink and moist. Extraocular movements were intact and pupils were equal round and reactive to light. Ey elids were unremarkable. PULMONARY: Unlabored respirations. Good breath sounds bilaterally. No audible rales rhonchi or wheezing was noted. CARDIOVASCULAR: There is a regular rate and rhythm without any murmurs gallops or rubs. Femoral pulses are equal bilaterally ABDOMEN: Soft and nontender with normal bowel sounds. No palpable organomegaly was noted. There is no palpable pulsatile mass. SKIN: Skin is clear with no lesions or rashes and otherwise unremarkable. NEUROLOGIC: Patient is alert and oriented x3. Cranial nerves II through XII are grossly intact. Motor and sensory are also intact. Normal speech, volume and content. Symmetrical smile. Cerebellar exam grossly intact. MUSCULOSKELETAL: Normal extremities with adequate strength and full range of motion. No lower extremity swelling or edema. No calf tenderness. LYMPHATICS: No significant lymphadenopathy is noted PSYCHIATRIC: Normal psychiatric evaluation. Normal interpersonal interactions appears functionally intact in deals appropriately with others. No signs of depression. No signs of anxiety. No delusions. No hallucinations. Limitations: no limitations Course Vital Signs 01/26/21 12:29 Temperature 97.4 F L Pulse Rate 78 Respiratory 18 Rate Blood Pressure 137/88 O2 Sat by Pulse 96 Oximetry Medical Decision Making - Medical Decision Making EKG shows normal sinus rhythm at 77 bpm FL interval is on a 38 QRS is 82 QT interval 390 QTC is 441. Patient's EKG shows no ST segment elevation or depression. Chest x-ray showed no acute abnormality. I spoke with Dr. Ramon he agreed to admit the patient admitted the patient wrote admitting orders. - Lab Data Result diagrams: 01/26/21 12:53 01/26/21 12:53 Lab Results 01/26/21 01/26/21 01/26/21 Range/Units 12:53 12:53 12:53 WBC 5.9 (3.8-10.6) k/uL RBC 4.89 (3.80-5.40) m/uL Hgb 13.3 (11.4-16.0) gm/dL Hct 39.7 (34.0-46.0) % MCV 81.1 (80.0-100.0) fL MCH 27.2 (25.0-35.0) pg MCHC 33.5 (31.0-37.0) g/dL RDW 13.5 (11.5-15.5) % Plt Count 290 (150-450) k/uL MPV 7.1 Neutrophils % 59 % Lymphocytes % 23 % Monocytes % 11 % Eosinophils % 3 % Basophils % 0 % Neutrophils # 3.5 (1.3-7.7) k/uL Lymphocytes # 1.4 (1.0-4.8) k/uL Monocytes # 0.6 (0-1.0) k/uL Eosinophils # 0.2 (0-0.7) k/uL Basophils # 0.0 (0-0.2) k/uL PT 9.6 (9.0-12.0) sec INR 0.9 (<1.2) APTT 22.4 (22.0-30.0) sec Sodium 138 (137-145) mmol/L Potassium 4.4 (3.5-5.1) mmol/L Chloride 105 (98-107) mmol/L Carbon Dioxide 22 (22-30) mmol/L Anion Gap 11 mmol/L BUN 14 (7-17) mg/dL Creatinine 0.74 (0.52-1.04) mg/dL Est GFR (CKD-EPI)AfAm >90 (>60 ml/min/1.73 sqM) Est GFR (CKD-EPI)NonAf >90 (>60 ml/min/1.73 sqM) Glucose 97 (74-99) mg/dL Calcium 10.0 (8.4-10.2) mg/dL Magnesium 1.8 (1.6-2.3) mg/dL Total Bilirubin 0.9 (0.2-1.3) mg/dL AST 48 H (14-36) U/L ALT 58 H (4-34) U/L Alkaline Phosphatase 133 H (38-126) U/L Troponin I (0.000-0.034) ng/mL Total Protein 7.4 (6.3-8.2) g/dL Albumin 4.7 (3.5-5.0) g/dL Coronavirus (PCR) (Not Detectd) 01/26/21 01/26/21 Range/Units 12:53 12:54 WBC (3.8-10.6) k/uL RBC (3.80-5.40) m/uL Hgb (11.4-16.0) gm/dL Hct (34.0-46.0) % MCV (80.0-100.0) fL MCH (25.0-35.0) pg MCHC (31.0-37.0) g/dL RDW (11.5-15.5) % Plt Count (150-450) k/uL MPV Neutrophils % % Lymphocytes % % Monocytes % % Eosinophils % % Basophils % % Neutrophils # (1.3-7.7) k/uL Lymphocytes # (1.0-4.8) k/uL Monocytes # (0-1.0) k/uL Eosinophils # (0-0.7) k/uL Basophils # (0-0.2) k/uL PT (9.0-12.0) sec INR (<1.2) APTT (22.0-30.0) sec Sodium (137-145) mmol/L Potassium (3.5-5.1) mmol/L Chloride (98-107) mmol/L Carbon Dioxide (22-30) mmol/L Anion Gap mmol/L BUN (7-17) mg/dL Creatinine (0.52-1.04) mg/dL Est GFR (CKD-EPI)AfAm (>60 ml/min/1.73 sqM) Est GFR (CKD-EPI)NonAf (>60 ml/min/1.73 sqM) Glucose (74-99) mg/dL Calcium (8.4-10.2) mg/dL Magnesium (1.6-2.3) mg/dL Total Bilirubin (0.2-1.3) mg/dL AST (14-36) U/L ALT (4-34) U/L Alkaline Phosphatase (38-126) U/L Troponin I <0.012 (0.000-0.034) ng/mL Total Protein (6.3-8.2) g/dL Albumin (3.5-5.0) g/dL Coronavirus (PCR) Not Detected (Not Detectd) Disposition Clinical Impression: Chest pain Disposition: ADMITTED IP TO THIS [facility] Referrals: Nish Baez MD [Primary Care Provider] - 1-2 days Time of Disposition: 14:17
--- NOTE | 2021-01-26 13:09 | XR ---
EXAMINATION TYPE: XR chest 2V DATE OF EXAM: 01/26/2021 COMPARISON: 11/24/2020 INDICATION: Chest pain TECHNIQUE: Frontal and lateral views of the chest are obtained. FINDINGS: The heart size is normal. The pulmonary vasculature is normal. The lungs are clear. IMPRESSION: 1. No acute pulmonary process.
[2021-01-26 13:16] LABS: Basophils % (A) 0 %; Eosinophils # (A) 0.2 k/uL (0-0.7); Eosinophils % (A) 3 %; HCT 39.7 % (34.0-46.0); HGB 13.3 gm/dL (11.4-16.0); Lymphocytes # (A) 1.4 k/uL (1.0-4.8); Lymphocytes % (A) 23 %; MCH 27.2 pg (25.0-35.0); MCHC 33.5 g/dL (31.0-37.0); MCV 81.1 fL (80.0-100.0); Mean Platelet Volume 7.1; Monocytes # (A) 0.6 k/uL (0-1.0); Monocytes % (A) 11 %; Neutrophils # (A) 3.5 k/uL (1.3-7.7); Neutrophils % (A) 59 %; Platelet Count 290 k/uL (150-450); RBC 4.89 m/uL (3.80-5.40); RDW 13.5 % (11.5-15.5); WBC 5.9 k/uL (3.8-10.6)
[2021-01-26 13:20] LABS: ALT 58 U/L (4-34); AST 48 U/L (14-36); African American GFR (CKD) >90 (>60 ml/min/1.73 sqM); Albumin 4.7 g/dL (3.5-5.0); Alkaline Phosphatase 133 U/L (38-126); Anion Gap 11 mmol/L; Blood Urea Nitrogen 14 mg/dL (7-17); Carbon Dioxide 22 mmol/L (22-30); Chloride 105 mmol/L (98-107); Glucose 97 mg/dL (74-99); Magnesium 1.8 mg/dL (1.6-2.3); Non-African American GFR(CKD) >90 (>60 ml/min/1.73 sqM); Potassium 4.4 mmol/L (3.5-5.1); Sodium 138 mmol/L (137-145); Total Bilirubin 0.9 mg/dL (0.2-1.3); Total Protein 7.4 g/dL (6.3-8.2)
[2021-01-26 13:27] LABS: INR 0.9 (<1.2); Partial Thromboplastin Time 22.4 sec (22.0-30.0); Prothrombin Time 9.6 sec (9.0-12.0)
[2021-01-26] MEDS ORDERED: NITROGLYCERIN SL TABS 0.4 MG TAB SUBLINGUAL PRN (14:24)
[2021-01-26] MEDS ORDERED: ALBUTEROL NEBULIZED 2.5 MG/3 ML INHALATION PRN (15:47)
[2021-01-26] MEDS: carvediloL 12.5 MG TAB PO SCH (16:38)
[2021-01-26] MEDS ORDERED: NITROGLYCERIN OINT 1 INCH/GM PACKET TOPICAL SCH (18:00)
[2021-01-26] MEDS: SULFAMETHOX-TMP 800-160MG 1 EACH TAB PO SCH (20:07)
[2021-01-26] MEDS: DICLOFENAC SODIUM 75 MG PO SCH (20:22)
[2021-01-26] MEDS ORDERED: AMITRIPTYLINE HCL 50 MG TAB PO SCH (21:00)
--- NOTE | 2021-01-26 23:05 | P.HPIM ---
History of Present Illness H&P Date: 01/26/21 Chief Complaint: Recurrent history of chest pain, hypertension, hyperlipidemia undercurrent HISTORY OF PRESENT ILLNESS 50-year-old female one of Dr. Levin patient with past medical history of hypertension, hyperlipidemia, severe osteoarthritis, previous history of syncope with history of vocal cord paralysis after biopsy who is also known to have left sided lung nodular related sarcoidosis. Patient has been seeing cardiology on regular basis had history of recurrent arrhythmia had loop recorder monitor was removed few month ago. Patient has s een multiple time with recurrent chest pain had 2 heart catheter in the past both are negative last one was over a year old. Patient presented today to [facility] with worsening chest pain from last night her pulse rate was quite but had the time her blood pressure was significantly high at the time she was seen in the emergency room. Was started on mild anxiety management also patient has been seen in ENT for left sided mastoid saliva gland infection was started on Bactrim DS which patient is not feeding well medication this point. Her recurrent chest pain continued to be midsternal radiating toward the left upper side along with mild nausea and cold sweat. With the risk factor the current presentation patient was admitted to the hospital will be seen cardiology nothing by mouth after midnight prepare for stress test and echo. REVIEW OF SYSTEMS Constitutional: No fever, no chills, no night sweats. No weight change. No weakness, fatigue or lethargy. No daytime sleepiness. EENT: No headache. No blurred vision or double vision, no loss of vision. No loss of Hearing, no ringing in the ears, no dizziness. No nasal drainage or congestion. No epistaxis. No sore throat. Lungs: No shortness of breath, cough, no sputum production. No wheezing. Recurrent chest pain and angina. Cardiovascular: Positive chest pain, no lower extremity edema. No palpitations. Positive paroxysmal nocturnal dyspnea. No orthopnea. No lightheadedness or dizziness. No syncopal episodes. Abdominal: No abdominal pain. No nausea, vomiting. No diarrhea. No co nstipation. No bloody or tarry stools.. No loss of appetite. Genitourinary: No dysuria, increased frequency, urgency. No urinary retention. Musculoskeletal: Generalized myalgia and arthralgia. Integumentary: No wounds, no lesions. No rash or pruritus. No unusual bruising. No change in hair or nails. Neurologic: No aphasia. No facial droop. No change in mentation. No head injury. No headache. No paralysis. No paresthesia. Psychiatric: No depression. No anxiety. No mood swings. Endocrine: No abnormal blood sugars. No weight change. No excessive sweating or thirst. No cold intolerance. SOCIAL HISTORY Patient does not smoke, she drinks echo socially, she is had 2 children, FAMILY HISTORY She had 2 children both are living and well, 2 brothers with no major medical problem. Her mother is in 73 had CAD post CABG. Father is 70 with no major medical problem. PHYSICAL EXAMINATION Gen: This is a 50-year-old in no acute respiratory distress. HEENT: Head is atraumatic, normocephalic. Pupils equal, round. Sclerae is anicteric. NECK: Supple. No JVD. No lymphadenopathy. No thyromegaly. LUNGS: Clear to auscultation. No wheezes or rhonchi. No intercostal retractions. HEART: Regular rate and rhythm. No murmur. ABDOMEN: Soft. Bowel sounds are present. No masses. No tenderness. EXTREMITIES: No pedal edema. No calf tenderness. NEUROLOGICAL: Patient is awake, alert and oriented x3. Cranial nerves 2 through 12 are grossly intact. ASSESSMENT AND PLAN 1 recurrent chest pain and angina: Patient also had mild palpitation with significant risk factor, patient be admitted to the hospital continue heparin drip along with nitro consult cardiology CK with troponin 3 be done watch for any worsening symptoms patient will require eventually to go for stress test and echo. 2 history of hypertension: Remain on Coreg 12.5 mg twice a day. 3 atherosclerotic heart disease: Remain on Coreg diuretics and statin. 4 history of sarcoidosis: Not in any active treatment currently patient is doing well still seen pulmonary. 5 reactive airway/asthma: Remain on rescue inhaler on as-needed basis. 6 recurrent left-sided saliva gland infection: Has been on Bactrim DS recently. 7 chronic neuropathy: Has been on amitriptyline 50 mg at bedtime. 8 recurrent arrhythmia: Post loop recorder monitor which was taking out recently. 9 severe osteoarthritis: Patient to continue diclofenac cream along with ibuprofen and Motrin on an as-needed basis. 10 DVT prophylaxis: Patient will be on heparin subcutaneous. 11 GI prophylaxis: Patient be on pantoprazole. 12. COVID-19 testing. Patient will be admitted to the hospital for a minimum of 2 night stay. Past Medical History Past Medical History: Chest Pain / Angina, Hypertension, Osteoarthritis (OA), Respiratory Disorder, Syncope Additional Past Medical History / Comment(s): hx. of Vocal cord paralysis after lung biopsy, dr. 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 per pt she had covid x2, (last infection 11/2020) History of Any Multi-Drug Resistant Organisms: None Reported Past Surgical History: Adenoidectomy, Cholecystectomy, Heart Catheterization, Hysterectomy, Joint Replacement, Orthopedic Surgery, Tonsillectomy Additional Past Surgical History / Comment(s): Repair of vocal cord paralysis, right knee arthroscopy, left rotator cuff repair, left knee replaced, LEFT LUNG NODULE REMOVAL, Loop recorder with removal, right knee replaced May 2020, had right knee manipulation 06-26-20 @ [facility]. Past Anesthesia/Blood Transfusion Reactions: Postoperative Nausea & Vomiting (PONV) Past Psychological History: No Psychological Hx Reported Smoking Status: Never smoker Past Alcohol Use History: Occasional Additional Past Alcohol Use History / Comment(s): Patient is a lifelong nonsmoker. previous marijuana use She uses alcohol occasionally on the weekends. Past Drug Use History: None Reported Additional Drug Use History / Comment(s): occasional use - Past Family History Mother Family Medical History: Diabetes Mellitus Additional Family Medical History / Comment(s): Mother is alive, at 71, recently had cardiac surgery (95% occlusion) with history of diabetes. Father History Unknown: Yes Additional Family Medical History / Comment(s): Patient does not have any contact with her father and does not know any of his medical history. Brother(s) Additional Family Medical History / Comment(s): Patient has 1 brother but does not know his medical history. Patient does not have any sisters. Patient has 2 sons no major medical problems. Medications and Allergies Home Medications Medication Instructions Recorded Confirmed Type Carvedilol [Coreg] 12.5 mg PO BID 10/12/19 01/26/21 History Oxybutynin Chloride [Ditropan] 5 mg PO DAILY 10/12/19 01/26/21 History Isosorbide Mononitrate [Isosorbide 30 mg PO DAILY 06/27/20 01/26/21 History Mononitrate ER] Albuterol Inhaler [Ventolin Hfa 2 puff INHALATION RT-Q6H PRN 11/24/20 01/26/21 History Inhaler] Amitriptyline HCl [Elavil] 50 mg PO HS 11/24/20 01/26/21 History Fluticasone/Vilanterol [Breo 1 puff INHALATION RT-DAILY 11/24/20 01/26/21 History Ellipta 200-25 Mcg Inhaler] Diclofenac Sodium [Voltaren] 75 mg PO BID 01/26/21 01/26/21 History Sulfamethox-Tmp 800-160Mg [Bactrim 1 tab PO Q12HR 01/26/21 01/26/21 History DS 800-160 mg] Vitamin C/Biotin [Hair, Skin and 1 tab PO DAILY 01/26/21 01/26/21 History Nails Chew] Allergies Allergy/AdvReac Type Severity Reaction Status Date / Time meperidine HCl [From Demerol] Allergy Rash/Hives/ Verified 01/26/21 14:50 Swelling naproxen sodium [From Aleve] Allergy Rash/Hives/ Verified 01/26/21 14:50 Swelling pneumococcal vaccine Allergy Swelling Verified 01/26/21 14:50 red dye AdvReac Unknown Verified 01/26/21 14:50 Physical Exam Vitals: Vital Signs Temp Pulse Pulse Resp BP BP Pulse Ox 01/26/21 15:50 16 01/26/21 15:35 97.7 F 72 16 161/93 100 01/26/21 14:45 97.8 F 64 18 144/88 98 01/26/21 12:29 97.4 F L 78 18 137/88 96 Intake and Output 01/26/21 01/26/21 01/26/21 06:59 14:59 22:59 Other: Voiding Method Toilet Weight 86.636 kg 86.636 kg Results CBC & Chem 7: 01/26/21 12:53 01/26/21 12:53 Labs: Abnormal Lab Results - Last 24 Hours (Table) 01/26/21 Range/Units 12:53 AST 48 H (14-36) U/L ALT 58 H (4-34) U/L Alkaline Phosphatase 133 H (38-126) U/L Thrombosis Risk Factor Assmnt - Choose All That Apply Any of the Below Risk Factors Present?: Yes Each Factor Represents 1 point: Age 41-60 years, Obesity (BMI >25) Other Risk Factors: No Other congenital or acquired thrombophilia - If yes, enter type in comment: No Thrombosis Risk Factor Assessment Total Risk Factor Score: 2 Thrombosis Risk Factor Assessment Level: Low Risk
[2021-01-27 02:55] VITALS: TEMP 97.6
[2021-01-27] MEDS ORDERED: SYMBICORT 160-4.5 MCG INHALER INHALATION SCH (08:00)
[2021-01-27 08:51] VITALS: BP 122/80; PULSE 71; RESP 16
[2021-01-27] MEDS ORDERED: ASPIRIN 325 MG TAB PO SCH (09:00)
[2021-01-27] MEDS ORDERED: OXYBUTYNIN CHLORIDE 5 MG TAB PO SCH (09:00)
[2021-01-27] MEDS ORDERED: NON FORMULARY DRUG (Vitamin C/Biotin [Hair, Skin And Nails Chew] 1 EACH Tablet) PO SCH (09:00)
[2021-01-27] MEDS ORDERED: ISOSORBIDE MONONITRATE ER 30 MG TAB.ER.24H PO SCH (09:00)
[2021-01-27 10:09] LABS: Chol/HDL Ratio 3.98 Ratio; LDL Cholesterol,Calculated 123.6 mg/dL (0.0-131.0); VLDL Calculation 25.4 mg/dL (5.00-40.00)
--- NOTE | 2021-01-27 10:36 | P.CRDCN ---
History of Present Illness History of present illness: HISTORY OF PRESENTING ILLNESS This is a pleasant 50-year-old with past medical history significant for sarcoidosis, hypertension, hyperlipidemia, normal coronary arteries by heart catheterization and anxiety who presents secondary to episode of chest pain. Patient normally follows in the office with Dr Humphrey. She has a history of recurrent chest pains and has had workup including heart catheterization from 2017 as well as apparently had a a more recent heart catheterization approximate ly a year ago however not and [facility] medical records. She has been treated for possible microvascular disease with Imdur at home. She states she had an episode of chest pressure and shortness breath which was ongoing for approximately a day and not necessarily associated with any exertion. She s tates this persisted until she came to the emergency department and was given nitroglycerin patch with gradual resolution. EKG shows no ischemic changes and troponins negative 3. Patient currently states today she feels well without any chest pain or shortness breath and has been walking around the halls. REVIEW OF SYSTEMS At the time of my exam: CONSTITUTIONAL: Denies fever or chills. CARDIOVASCULAR: +chest pain, +shortness of breath, no orthopnea, PND or palpitations. RESPIRATORY: Denies cough. GASTROINTESTINAL: Denies abdominal pain, diarrhea, constipation, nausea or vomiting. MUSCULOSKELETAL: Denies myalgias. NEUROLOGIC: Denies numbness, tingling or weakness. ENDOCRINE: Denies fatigue, weight change, polydipsia or polyurina. GENITOURINARY: Denies burning, hematuria or urgency with micturation. HEMATOLOGIC: Denies history of anemia or bleeding. PHYSICAL EXAMINATION Vital signs reviewed. CONSTITUTIONAL: No apparent distress. HEENT: Head is normocephalic. Pupils are equal, round. Sclerae anicteric. Mucous membranes of the mouth are moist. No JVD. No carotid bruit. CHEST EXAMINATION: Lungs are clear to auscultation. No chest wall tenderness is noted on palpation or with deep breathing. HEART EXAMINATION: Regular rate and rhythm. S1, S2 heard. No murmurs, gallops or rub. ABDOMEN: Soft, nontender. Positive bowel sounds. EXTREMITIES: 2+ peripheral pulses, no lower extremity edema and no calf tenderness. NEUROLOGIC EXAMINATION: Patient is awake, alert and oriented x3. ASSESSMENT 1. Atypical chest pain however believes there is some resolution with nitroglycerin however this was fairly gradual. may be related to anxiety. 2. Recurrent episodes of chest pain in the past, has been attempted on Imdur for possible microvascular dysfunction 3. Sarcoidosis 4. Hyperlipidemia PLAN Patient's chest pain overall appears fairly atypical and had been lasting for approximately 1 day. She does believe there was some resolution with nitro however this appeared to be fairly gradual. May also be component of anxiety as she states she was arguing with her son. Workup has been unrevealing with normal troponins and no ischemic changes on EKG with normal heart cathet erization recently. Do not suspect acute coronary syndrome. Continue with home Imdur and add as needed nitroglycerin. No further workup from an inpatient standpoint and patient appears stable for discharge with outpatient follow-up with Dr. Humphrey in 1 week. Past Medical History Past Medical History: Chest Pain / Angina, Hypertension, Osteoarthritis (OA), Respiratory Disorder, Syncope Additional Past Medical History / Comment(s): hx. of Vocal cord paralysis after lung biopsy, dr. 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 per pt she had covid x2, (last infection 11/2020) History of Any Multi-Drug Resistant Organisms: None Reported Past Surgical History: Adenoidectomy, Cholecystectomy, Heart Catheterization, Hysterectomy, Joint Replacement, Orthopedic Surgery, Tonsillectomy Additional Past Surgical History / Comment(s): Repair of vocal cord paralysis, right knee arthroscopy, left rotator cuff repair, left knee replaced, LEFT LUNG NODULE REMOVAL, Loop recorder with removal, right knee replaced May 2020, had right knee manipulation 06-26-20 @ [facility]. Past Anesthesia/Blood Transfusion Reactions: Postoperative Nausea & Vomiting (PONV) Past Psychological History: No Psychological Hx Reported Smoking Status: Never smoker Past Alcohol Use History: Occasional Additional Past Alcohol Use History / Comment(s): Patient is a lifelong nonsmoker. previous marijuana use She uses alcohol occasionally on the weekends. Past Drug Use History: None Reported Additional Drug Use History / Comment(s): occasional use - Past Family History Mother Family Medical History: Diabetes Mellitus Additional Family Medical History / Comment(s): Mother is alive, at 71, recently had cardiac surgery (95% occlusion) with history of diabetes. Father History Unknown: Yes Additional Family Medical History / Comment(s): Patient does not have any contact with her father and does not know any of his medical history. Brother(s) Additional Family Medical History / Comment(s): Patient has 1 brother but does not know his medical history. Patient does not have any sisters. Patient has 2 sons no major medical problems. Medications and Allergies Home Medications Medication Instructions Recorded Confirmed Type Carvedilol [Coreg] 12.5 mg PO BID 10/12/19 01/26/21 History Oxybutynin Chloride [Ditropan] 5 mg PO DAILY 10/12/19 01/26/21 History Isosorbide Mononitrate [Isosorbide 30 mg PO DAILY 06/27/20 01/26/21 History Mononitrate ER] Albuterol Inhaler [Ventolin Hfa 2 puff INHALATION RT-Q6H PRN 11/24/20 01/26/21 History Inhaler] Amitriptyline HCl [Elavil] 50 mg PO HS 11/24/20 01/26/21 History Fluticasone/Vilanterol [Breo 1 puff INHALATION RT-DAILY 11/24/20 01/26/21 History Ellipta 200-25 Mcg Inhaler] Diclofenac Sodium [Voltaren] 75 mg PO BID 01/26/21 01/26/21 History Sulfamethox-Tmp 800-160Mg [Bactrim 1 tab PO Q12HR 01/26/21 01/26/21 History DS 800-160 mg] Vitamin C/Biotin [Hair, Skin and 1 tab PO DAILY 01/26/21 01/26/21 History Nails Chew] Allergies Allergy/AdvReac Type Severity Reaction Status Date / Time meperidine HCl [From Demerol] Allergy Rash/Hives/ Verified 01/26/21 14:50 Swelling naproxen sodium [From Aleve] Allergy Rash/Hives/ Verified 01/26/21 14:50 Swelling pneumococcal vaccine Allergy Swelling Verified 01/26/21 14:50 red dye AdvReac Unknown Verified 01/26/21 14:50 Physical Exam Vitals: Vital Signs Temp Pulse Pulse Resp BP BP Pulse Ox 01/27/21 08:00 16 01/27/21 07:00 97.6 F 71 16 122/80 96 01/27/21 02:09 97.6 F 61 20 131/82 98 01/26/21 19:24 65 11/05/21 19:03 98.1 F 65 16 130/84 96 01/26/21 15:50 16 01/26/21 15:35 97.7 F 72 16 161/93 100 01/26/21 14:45 97.8 F 64 18 144/88 98 01/26/21 12:29 97.4 F L 78 18 137/88 96 Intake and Output 01/26/21 01/27/21 01/27/21 22:59 06:59 14:59 Intake Total 300 0 Output Total 0 0 Balance 300 0 Intake: Oral 300 0 Output: Emesis 0 0 Other: Voiding Method Toilet Weight 86.636 kg Results 01/26/21 12:53 01/26/21 12:53 Cardiac Enzymes 01/26/21 01/26/21 01/26/21 Range/Units 12:53 12:53 17:02 AST 48 H (14-36) U/L Troponin I <0.012 <0.012 (0.000-0.034) ng/mL 01/26/21 Range/Units 21:22 AST (14-36) U/L Troponin I <0.012 (0.000-0.034) ng/mL Coagulation 01/26/21 Range/Units 12:53 PT 9.6 (9.0-12.0) sec APTT 22.4 (22.0-30.0) sec Lipids 01/27/21 Range/Units 06:07 Triglycerides 127.00 (0.00-149.00) mg/dL Cholesterol 199.00 (0.00-200.00) mg/dL HDL Cholesterol 50.00 (40.00-60.00) mg/dL Cholesterol/HDL Ratio 3.98 Ratio CBC 01/26/21 Range/Units 12:53 WBC 5.9 (3.8-10.6) k/uL RBC 4.89 (3.80-5.40) m/uL Hgb 13.3 (11.4-16.0) gm/dL Hct 39.7 (34.0-46.0) % Plt Count 290 (150-450) k/uL Comprehensive Metabolic Panel 01/26/21 Range/Units 12:53 Sodium 138 (137-145) mmol/L Potassium 4.4 (3.5-5.1) mmol/L Chloride 105 (98-107) mmol/L Carbon Dioxide 22 (22-30) mmol/L BUN 14 (7-17) mg/dL Creatinine 0.74 (0.52-1.04) mg/dL Glucose 97 (74-99) mg/dL Calcium 10.0 (8.4-10.2) mg/dL AST 48 H (14-36) U/L ALT 58 H (4-34) U/L Alkaline Phosphatase 133 H (38-126) U/L Total Protein 7.4 (6.3-8.2) g/dL Albumin 4.7 (3.5-5.0) g/dL Current Medications Generic Name Dose Route Start Last Admin Trade Name Freq PRN Reason Stop Dose Admin Albuterol Sulfate 2.5 mg 01/26/21 15:47 Albuterol Nebulized 2.5 Mg/3 Ml INHALATION RT-Q6H PRN Shortness Of Breath Amitriptyline HCl 50 mg 01/26/21 21:00 01/26/21 20:07 Amitriptyline Hcl 50 Mg Tab PO 50 mg HS HENRY Administration Aspirin 325 mg 01/27/21 09:00 Aspirin 325 Mg Tab PO DAILY [facility] Budesonide/Formoterol Fumarate 2 puff 01/27/21 08:00 01/27/21 08:25 Symbicort 160-4.5 Mcg Inhaler INHALATION 2 puff RT-BID HENRY Administration Carvedilol 12.5 mg 01/26/21 17:30 01/26/21 16:38 Carvedilol 12.5 Mg Tab PO 12.5 mg BID-W/MEALS [facility] Administration Isosorbide Mononitrate 30 mg 01/27/21 09:00 Isosorbide Mononitrate Er 30 Mg Tab.Er.24h PO DAILY [facility] Nitroglycerin 0.4 mg 01/26/21 14:24 Nitroglycerin Sl Tabs 0.4 Mg Tab SUBLINGUAL Q5M PRN Chest Pain Patient's Own Med ( 75 mg 01/26/21 21:00 01/26/21 20:22 Diclofenac Sodium 75 PO 75 mg Mg Tablet) BID-W/MEALS HENRY Administration Oxybutynin Chloride 5 mg 01/27/21 09:00 Oxybutynin Chloride 5 Mg Tab PO DAILY [facility] Trimethoprim/Sulfamethoxazole 1 each 01/26/21 21:00 01/26/21 20:07 Sulfamethox-Tmp 800-160mg 1 Each Tab PO 02/02/21 23:00 1 each Q12HR HENRY Administration Intake and Output 01/26/21 01/27/21 01/27/21 22:59 06:59 14:59 Intake Total 300 0 Output Total 0 0 Balance 300 0 Intake: Oral 300 0 Output: Emesis 0 0 Other: Voiding Method Toilet Weight 86.636 kg 01/26/21 12:53 01/26/21 12:53
[2021-01-27] MEDS: SULFAMETHOX-TMP 800-160MG 1 EACH TAB PO SCH (10:51)
[2021-01-27] MEDS: DICLOFENAC SODIUM 75 MG PO SCH (10:52)
[2021-01-27] MEDS: carvediloL 12.5 MG TAB PO SCH (10:52)
== END 2021-01-27 11:20 | disposition home or self-care (01) ==
LOC: EC 12:12 → 6NMEDSUR 14:26
PROVIDERS: ADMIT Internal Medicine Geriatric Medicine; ATTEND Internal Medicine Geriatric Medicine
DX: R07.89 Other chest pain (principal); D86.9 Sarcoidosis, unspecified; K11.20 Sialoadenitis, unspecified; I25.119 Atherosclerotic heart disease of native coronary artery with unspecified angina pectoris; I49.9 Cardiac arrhythmia, unspecified; F41.9 Anxiety disorder, unspecified; I10 Essential (primary) hypertension; E78.5 Hyperlipidemia, unspecified; J45.909 Unspecified asthma, uncomplicated; G62.9 Polyneuropathy, unspecified; M19.90 Unspecified osteoarthritis, unspecified site; J38.00 Paralysis of vocal cords and larynx, unspecified; E66.9 Obesity, unspecified; Z68.32 Body mass index [BMI] 32.0-32.9, adult; Z20.822 Contact with and (suspected) exposure to COVID-19; Z79.82 Long term (current) use of aspirin; Z79.51 Long term (current) use of inhaled steroids; Z79.52 Long term (current) use of systemic steroids; Z79.899 Other long term (current) drug therapy; Z88.6 Allergy status to analgesic agent; Z88.5 Allergy status to narcotic agent; Z88.7 Allergy status to serum and vaccine; Z91.048 Other nonmedicinal substance allergy status; Z90.49 Acquired absence of other specified parts of digestive tract; Z90.710 Acquired absence of both cervix and uterus; Z96.653 Presence of artificial knee joint, bilateral; Z98.890 Other specified postprocedural states; Z82.49 Family history of ischemic heart disease and other diseases of the circulatory system; Z83.3 Family history of diabetes mellitus
CPT/HCPCS: 99285; 36415; 94640; 93005; 80061; 80053; 83735; 84484; 85025; 85610; 85730; 87635; 71046; G0378 ×2

== ENCOUNTER 2021-02-15 14:12 | Emergency (ER) | payer MEDICARE, OTHER ==
--- NOTE | 2021-02-15 15:30 | XR ---
EXAMINATION TYPE: XR chest 2V DATE OF EXAM: 02/15/2021 COMPARISON: Chest x-ray January 26, 2021 HISTORY: Cough and fever. TECHNIQUE: Frontal and lateral views of the chest are obtained. FINDINGS: There is no suspicious new focal air space opacity, pleural effusion, or pneumothorax seen . The cardiac silhouette size is stable and within normal limits. The osseous structures are intac t. IMPRESSION: No new acute pulmonary process.
[2021-02-15] MEDS ORDERED: AMOXIC-POT CLAV 875MG STARTER PACK 2 TAB BTL PO STA (15:33)
--- NOTE | 2021-02-15 15:33 | ED ---
URI HPI - General Chief Complaint: Upper Respiratory Infection Stated Complaint: Fever,Headache,Abd Pain Time Seen by Provider: 02/15/21 14:25 Source: patient, RN notes reviewed Mode of arrival: ambulatory Limitations: no limitations - History of Present Illness Initial Comments: This a 50-year-old female presents emergency Department chief complaint of upper respiratory infection. Patient states she's been sick last days with sinus congestion, fever or chills bodyaches and cough. Patient states she is chronic cough secondary to sarcoidosis. Patient denies any chest pain no increasing shortness of breath no nausea vomiting diarrhea constipation patient offers no other complaints. - Related Data Home Medications Medication Instructions Recorded Confirmed Carvedilol [Coreg] 12.5 mg PO BID 10/12/19 01/26/21 Oxybutynin Chloride [Ditropan] 5 mg PO DAILY 10/12/19 01/26/21 Isosorbide Mononitrate [Isosorbide 30 mg PO DAILY 06/27/20 01/26/21 Mononitrate ER] Albuterol Inhaler [Ventolin Hfa 2 puff INHALATION RT-Q6H PRN 11/24/20 01/26/21 Inhaler] Amitriptyline HCl [Elavil] 50 mg PO HS 11/24/20 01/26/21 Fluticasone/Vilanterol [Breo 1 puff INHALATION RT-DAILY 11/24/20 01/26/21 Ellipta 200-25 Mcg Inhaler] Diclofenac Sodium [Voltaren] 75 mg PO BID 01/26/21 01/26/21 Sulfamethox-Tmp 800-160Mg [Bactrim 1 tab PO Q12HR 01/26/21 01/26/21 DS 800-160 mg] Vitamin C/Biotin [Hair, Skin and 1 tab PO DAILY 01/26/21 01/26/21 Nails Chew] Previous Rx's Medication Instructions Recorded Aspirin 81 mg PO DAILY tab 01/27/21 Amoxicillin/Potassium Clav 1 tab PO Q12HR #20 tab 02/15/21 [Augmentin 875-125 Tablet] Allergies Allergy/AdvReac Type Severity Reaction Status Date / Time meperidine HCl [From Demerol] Allergy Rash/Hives/ Verified 02/15/21 14:21 Swelling naproxen sodium [From Aleve] Allergy Rash/Hives/ Verified 02/15/21 14:21 Swelling pneumococcal vaccine Allergy Swelling Verified 02/15/21 14:21 red dye AdvReac Unknown Verified 02/15/21 14:21 Review of Systems ROS Statement: Those systems with pertinent positive or pertinent negative responses have been documented in the HPI. ROS Other: All systems not noted in ROS Statement are negative. Past Medical History Past Medical History: Chest Pain / Angina, Hypertension, Osteoarthritis (OA), Respiratory Disorder, Syncope Additional Past Medical History / Comment(s): hx. of Vocal cord paralysis after lung biopsy, dr. 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 per pt she had covid x2, (last infection 11/2020) History of Any Multi-Drug Resistant Organisms: None Reported Past Surgical History: Adenoidectomy, Cholecystectomy, Heart Catheterization, Hysterectomy, Joint Replacement, Orthopedic Surgery, Tonsillectomy Additional Past Surgical History / Comment(s): Repair of vocal cord paralysis, right knee arthroscopy, left rotator cuff repair, left knee replaced, LEFT LUNG NODULE REMOVAL, Loop recorder with removal, right knee replaced May 2020, had right knee manipulation 06-26-20 @ [facility]. Past Anesthesia/Blood Transfusion Reactions: Postoperative Nausea & Vomiting (PONV) Past Psychological History: No Psychological Hx Reported Smoking Status: Never smoker Past Alcohol Use History: Occasional Past Drug Use History: None Reported - Past Family History Mother Family Medical History: Diabetes Mellitus Additional Family Medical History / Comment(s): Mother is alive, at 71, recently had cardiac surgery (95% occlusion) with history of diabetes. Father History Unknown: Yes Additional Family Medical History / Comment(s): Patient does not have any contact with her father and does not know any of his medical history. Brother(s) Additional Family Medical History / Comment(s): Patient has 1 brother but does not know his medical history. Patient does not have any sisters. Patient has 2 sons no major medical problems. General Exam Limitations: no limitations General appearance: alert, in no apparent distress Head exam: Present: atraumatic, normocephalic, normal inspection Eye exam: Present: normal appearance, PERRL, EOMI. Absent: scleral icterus, conjunctival injection, periorbital swelling ENT exam: Present: mucous membranes moist, TM's normal bilaterally, other (Right frontal sinus, maxillary sinus tenderness). Absent: normal oropharynx (Post nasal drainage) Neck exam: Present: normal inspection. Absent: tenderness, meningismus, lymphadenopathy Respiratory exam: Present: normal lung sounds bilaterally. Absent: respiratory distress, wheezes, rales, rhonchi, stridor Cardiovascular Exam: Present: regular rate, normal rhythm, normal heart sounds. Absent: systolic murmur, diastolic murmur, rubs, gallop, clicks Course Vital Signs 02/15/21 14:19 Temperature 97.6 F Pulse Rate 78 Respiratory 19 Rate Blood Pressure 134/84 O2 Sat by Pulse 97 Oximetry Medical Decision Making - Medical Decision Making Patient has a negative COVID-19 test. X-rays unremarkable. Patient treated for acute sinusitis, breast reduction return parameters were discussed. - Lab Data Lab Results 02/15/21 Range/Units 14:22 Coronavirus (PCR) Not Detected (Not Detectd) Disposition Clinical Impression: Acute upper respiratory infection Disposition: HOME SELF-CARE Condition: Stable Instructions (If sedation given, give patient instructions): Upper Respiratory Infection (ED) Additional Instructions: Please return to the Emergency Department if symptoms worsen or any other concerns. Prescriptions: Amoxicillin/Potassium Clav [Augmentin 875-125 Tablet] 1 tab PO Q12HR #20 tab Is patient prescribed a controlled substance at d/c from ED?: No Referrals: Nish Baez MD [Primary Care Provider] - 1-2 days Time of Disposition: 15:32
[2021-02-15 16:33] VITALS: BP 136/77; PULSE 72; RESP 16; TEMP 98
== END 2021-02-15 16:32 | disposition home or self-care (01) ==
LOC: EC 14:12
DX: J06.9 Acute upper respiratory infection, unspecified (principal); I10 Essential (primary) hypertension; M19.90 Unspecified osteoarthritis, unspecified site; Z79.82 Long term (current) use of aspirin; Z72.89 Other problems related to lifestyle
CPT/HCPCS: 71046; 87635; 99283

== ENCOUNTER 2021-04-10 10:27 | Emergency (ER) | payer MEDICARE, OTHER ==
[2021-04-10 10:39] VITALS: RESP 18
[2021-04-10] MEDS ORDERED: IBUPROFEN 800 MG TAB PO STA (11:30)
--- NOTE | 2021-04-10 11:34 | ED ---
General Adult HPI - General Chief complaint: Headache Stated complaint: Covid symptoms Time Seen by Provider: 04/10/21 11:24 Source: patient, RN notes reviewed, old records reviewed Mode of arrival: ambulatory Limitations: no limitations - History of Present Illness Initial comments: Well-appearing 51-year-old female presents to the emergency room with 1 day of headache, fever, chills with sore throat and sinus congestion. Patient states that she was exposed to coronavirus and her mom recently passed a couple of weeks ago from Covid. Patient states that she had a fever of 105 yesterday and she took Mucinex and Tylenol with some relief. She states that she has had Covid twice last year most recent November 2020 and received antibodies. She d enies any nausea vomiting or diarrhea. No difficulty in breathing or chest pain -: days(s) (1) Location: head Severity scale (1-10): 8 Quality: aching Consistency: constant Improves with: none Worsens with: none Associated Symptoms: fever/chills, headaches Treatments Prior to Arrival: other (Tylenol and Mucinex) - Related Data Home Medications Medication Instructions Recorded Confirmed Carvedilol [Coreg] 12.5 mg PO BID 10/12/19 04/10/21 Isosorbide Mononitrate [Isosorbide 30 mg PO DAILY 06/27/20 04/10/21 Mononitrate ER] Albuterol Inhaler [Ventolin Hfa 2 puff INHALATION RT-Q6H PRN 11/24/20 04/10/21 Inhaler] Amitriptyline HCl [Elavil] 50 mg PO HS 11/24/20 04/10/21 Fluticasone/Vilanterol [Breo 1 puff INHALATION RT-DAILY 11/24/20 04/10/21 Ellipta 200-25 Mcg Inhaler] Diclofenac Sodium [Voltaren] 75 mg PO BID 01/26/21 04/10/21 Vitamin C/Biotin [Hair, Skin and 1 tab PO DAILY 01/26/21 04/10/21 Nails Chew] Aspirin EC [Ecotrin Low Dose] 81 mg PO DAILY 04/10/21 04/10/21 Chlorthalidone [Hygroton] 25 mg PO DAILY 04/10/21 04/10/21 Oxybutynin Xl [Ditropan XL] 5 mg PO DAILY 04/10/21 04/10/21 Previous Rx's Medication Instructions Recorded Amoxicillin/Potassium Clav 1 tab PO Q12HR #20 tab 02/15/21 [Augmentin 875-125 Tablet] Allergies Allergy/AdvReac Type Severity Reaction Status Date / Time meperidine HCl [From Demerol] Allergy Rash/Hives/ Verified 04/10/21 12:17 Swelling naproxen sodium [From Aleve] Allergy Rash/Hives/ Verified 04/10/21 12:17 Swelling pneumococcal vaccine Allergy Swelling Verified 04/10/21 12:17 red dye AdvReac Unknown Verified 04/10/21 12:17 Review of Systems ROS Statement: Those systems with pertinent positive or pertinent negative responses have been documented in the HPI. ROS Other: All systems not noted in ROS Statement are negative. Past Medical History Past Medical History: Chest Pain / Angina, Hypertension, Osteoarthritis (OA), Respiratory Disorder, Syncope Additional Past Medical History / Comment(s): hx. of Vocal cord paralysis after lung biopsy, dr. 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 per pt she had covid x2, (last infection 11/2020) History of Any Multi-Drug Resistant Organisms: None Reported Past Surgical History: Adenoidectomy, Cholecystectomy, Heart Catheterization, Hysterectomy, Joint Replacement, Orthopedic Surgery, Tonsillectomy Additional Past Surgical History / Comment(s): Repair of vocal cord paralysis, right knee arthroscopy, left rotator cuff repair, left knee replaced, LEFT LUNG NODULE REMOVAL, Loop recorder with removal, right knee replaced May 2020, had right knee manipulation 06-26-20 @ [facility]. Past Anesthesia/Blood Transfusion Reactions: Postoperative Nausea & Vomiting (PONV) Past Psychological History: No Psychological Hx Reported Smoking Status: Never smoker Past Alcohol Use History: Occasional Past Drug Use History: None Reported - Past Family History Mother Family Medical History: Diabetes Mellitus Additional Family Medical History / Comment(s): Mother is alive, at 71, recently had cardiac surgery (95% occlusion) with history of diabetes. Father History Unknown: Yes Additional Family Medical History / Comment(s): Patient does not have any contact with her father and does not know any of his medical history. Brother(s) Additional Family Medical History / Comment(s): Patient has 1 brother but does not know his medical history. Patient does not have any sisters. Patient has 2 sons no major medical problems. General Exam Limitations: no limitations General appearance: alert, in no apparent distress Head exam: Present: atraumatic, normocephalic, normal inspection Eye exam: Present: normal appearance, EOMI. Absent: scleral icterus, conjunctival injection, periorbital swelling ENT exam: Present: normal exam, normal oropharynx, mucous membranes moist Neck exam: Present: normal inspection. Absent: tenderness, meningismus, lymphadenopathy Respiratory exam: Present: normal lung sounds bilaterally. Absent: respiratory distress, wheezes, rales, rhonchi, stridor, chest wall tenderness, accessory muscle use Cardiovascular Exam: Present: regular rate, normal rhythm, normal heart sounds. Absent: systolic murmur, diastolic murmur, rubs, gallop, clicks GI/Abdominal exam: Present: soft, normal bowel sounds. Absent: distended, tenderness, guarding, rebound, rigid Extremities exam: Present: full ROM, normal capillary refill. Absent: tenderness, pedal edema Back exam: Present: normal inspection. Absent: tenderness, CVA tenderness (R), CVA tenderness (L), rash noted Neurological exam: Present: alert, oriented X3 Psychiatric exam: Present: normal affect, normal mood Skin exam: Present: warm, dry, normal color. Absent: rash, cyanosis, diaphoretic, petechiae, pallor Course Vital Signs 04/10/21 04/10/21 04/10/21 10:34 12:15 14:15 Temperature 97.8 F 97.7 F Pulse Rate 76 75 76 Respiratory 18 18 18 Rate Blood Pressure 123/78 135/76 121/86 O2 Sat by Pulse 96 97 95 Oximetry Medical Decision Making - Medical Decision Making Patient presents with congestion and fever that started yesterday. She does have a history of sarcoidosis and takes Breo daily inhaler. She has had Covid twice last year her most recent diagnosis was November 2020 and received monoclonal antibodies infusion at that time. She was exposed this month to her mother who passed March 24. Patient did test positive for coronavirus again today. She was agreeable to receiving monoclonal antibodies and tolerated the infusion without difficulty. Oxygen saturation is 96% on room air. Patient is afebrile. Attending is Dr. Lawrence - Lab Data Lab Results 04/10/21 Range/Units 11:02 Coronavirus (PCR) Detected A (Not Detectd) Disposition Clinical Impression: COVID-19 Disposition: HOME SELF-CARE Condition: Good Instructions (If sedation given, give patient instructions): Coronavirus Disease 2019 (COVID-19) Additional Instructions: Self quarantine for 10 days from symptom onset. Tylenol and/or Motrin as needed for body aches or fevers. Follow-up with the primary care doctor. Return to the emergency room with any new or concerning symptoms including chest pain or difficulty breathing. Is patient prescribed a controlled substance at d/c from ED?: No Referrals: Nish Baez MD [Primary Care Provider] - 1-2 days
[2021-04-10] MEDS ORDERED: SODIUM CHLORIDE 0.9% 50 ML IVPB ONE (12:00)
[2021-04-10] MEDS ORDERED: BAMLANIVIMAB (EUA) 700 MG, ETESEVIMAB (EUA) 1,400 MG in SODIUM CHLORIDE 0.9% 100 ML IVPB ONE (12:30)
[2021-04-10 14:32] VITALS: BP 121/86; PULSE 76; TEMP 97.7
== END 2021-04-10 14:15 | disposition home or self-care (01) ==
LOC: EC 10:27
DX: U07.1 COVID-19 (principal); I10 Essential (primary) hypertension; M19.90 Unspecified osteoarthritis, unspecified site; Z79.51 Long term (current) use of inhaled steroids; Z79.82 Long term (current) use of aspirin; Z79.899 Other long term (current) drug therapy
CPT/HCPCS: 87635; 99284; J3490

== ENCOUNTER 2021-06-16 22:22 | Emergency (ER) | payer MEDICARE, OTHER ==
[2021-06-16 22:29] VITALS: TEMP 97.7
[2021-06-16 23:08] LABS: Basophils % (A) 0 %; Eosinophils # (A) 0.2 k/uL (0-0.7); Eosinophils % (A) 2 %; HCT 37.5 % (34.0-46.0); HGB 12.8 gm/dL (11.4-16.0); Lymphocytes # (A) 2.3 k/uL (1.0-4.8); Lymphocytes % (A) 21 %; MCH 27.8 pg (25.0-35.0); MCHC 34.3 g/dL (31.0-37.0); MCV 81.1 fL (80.0-100.0); Mean Platelet Volume 6.9; Monocytes # (A) 0.9 k/uL (0-1.0); Monocytes % (A) 9 %; Neutrophils % (A) 65 %; Platelet Count 483 k/uL (150-450); RBC 4.62 m/uL (3.80-5.40); RDW 13.4 % (11.5-15.5); WBC 10.8 k/uL (3.8-10.6)
[2021-06-16 23:28] LABS: ALT 104 U/L (4-34); AST 81 U/L (14-36); African American GFR (CKD) >90 (>60 ml/min/1.73 sqM); Albumin 4.4 g/dL (3.5-5.0); Alkaline Phosphatase 194 U/L (38-126); Anion Gap 11 mmol/L; Blood Urea Nitrogen 15 mg/dL (7-17); Calcium 9.5 mg/dL (8.4-10.2); Carbon Dioxide 29 mmol/L (22-30); Chloride 98 mmol/L (98-107); Glucose 107 mg/dL (74-99); Magnesium 1.8 mg/dL (1.6-2.3); Non-African American GFR(CKD) >90 (>60 ml/min/1.73 sqM); Potassium 3.2 mmol/L (3.5-5.1); Sodium 138 mmol/L (137-145); Total Bilirubin 0.7 mg/dL (0.2-1.3); Total Protein 7.8 g/dL (6.3-8.2)
[2021-06-16 23:29] LABS: INR 0.9 (<1.2); Partial Thromboplastin Time 24.7 sec (22.0-30.0); Prothrombin Time 9.7 sec (9.0-12.0)
--- NOTE | 2021-06-16 23:31 | XR ---
EXAMINATION TYPE: XR chest 2V DATE OF EXAM: 06/16/2021 COMPARISON: 02/15/2021 HISTORY: Chest pain TECHNIQUE: FINDINGS: Heart and mediastinum are normal. Lungs are clear. Diaphragm is normal. Bony thorax is inta ct. IMPRESSION: Normal chest. No change
[2021-06-16] MEDS ORDERED: POTASSIUM CHLORIDE ER 20 MEQ TAB.ER PO STA (23:44)
[2021-06-16] MEDS ORDERED: POTASSIUM BICARBONATE/CIT AC 20 MEQ TABLET.EFF PO ONE (23:44)
--- NOTE | 2021-06-16 23:44 | ED ---
Recheck HPI - General Chief Complaint: Extremity Problem,Nontraumatic Stated Complaint: Bi-lateral Leg Swelling, Painful Throbbing Time Seen by Provider: 06/16/21 23:00 Source: patient, RN notes reviewed, old records reviewed Mode of arrival: ambulatory Limitations: no limitations - History of Present Illness Initial Comments: This is a 51-year-old female to the ER today for evaluation. Patient presents today for evaluation of pain left leg pain left leg swelling both legs swelling. Patient states she does have history of low potassium coming in for evaluation of left leg pain today. No nausea no vomiting no shortness of breath no other complaints. No trauma to left leg just swelling MD Complaint: other (Left lower extremity pain and swelling) -: days(s) Returns Today for: persistent/worsening pain related to initial visit, other (Slight swelling) Symptoms Since Prior Visit: worsening pain, worsening swelling Associated Symptoms: none Treatments Prior to Arrival: other medications - Related Data Home Medications Medication Instructions Recorded Confirmed Carvedilol [Coreg] 12.5 mg PO BID 10/12/19 04/10/21 Isosorbide Mononitrate [Isosorbide 30 mg PO DAILY 06/27/20 04/10/21 Mononitrate ER] Albuterol Inhaler [Ventolin Hfa 2 puff INHALATION RT-Q6H PRN 11/24/20 04/10/21 Inhaler] Amitriptyline HCl [Elavil] 50 mg PO HS 11/24/20 04/10/21 Fluticasone/Vilanterol [Breo 1 puff INHALATION RT-DAILY 11/24/20 04/10/21 Ellipta 200-25 Mcg Inhaler] Diclofenac Sodium [Voltaren] 75 mg PO BID 01/26/21 04/10/21 Vitamin C/Biotin [Hair, Skin and 1 tab PO DAILY 01/26/21 04/10/21 Nails Chew] Aspirin EC [Ecotrin Low Dose] 81 mg PO DAILY 04/10/21 04/10/21 Chlorthalidone [Hygroton] 25 mg PO DAILY 04/10/21 04/10/21 Oxybutynin Xl [Ditropan XL] 5 mg PO DAILY 04/10/21 04/10/21 Previous Rx's Medication Instructions Recorded Amoxicillin/Potassium Clav 1 tab PO Q12HR #20 tab 02/15/21 [Augmentin 875-125 Tablet] Allergies Allergy/AdvReac Type Severity Reaction Status Date / Time meperidine HCl [From Demerol] Allergy Rash/Hives/ Verified 06/16/21 22:29 Swelling naproxen sodium [From Aleve] Allergy Rash/Hives/ Verified 06/16/21 22:29 Swelling pneumococcal vaccine Allergy Swelling Verified 06/16/21 22:29 red dye AdvReac Unknown Verified 06/16/21 22:29 Review of Systems ROS Statement: Those systems with pertinent positive or pertinent negative responses have been documented in the HPI. ROS Other: All systems not noted in ROS Statement are negative. Past Medical History Past Medical History: Chest Pain / Angina, Hypertension, Osteoarthritis (OA), Respiratory Disorder, Syncope Additional Past Medical History / Comment(s): hx. of Vocal cord paralysis after lung biopsy, dr. 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 per pt she had covid x2, (last infection 11/2020) History of Any Multi-Drug Resistant Organisms: None Reported Past Surgical History: Adenoidectomy, Cholecystectomy, Heart Catheterization, Hysterectomy, Joint Replacement, Orthopedic Surgery, Tonsillectomy Additional Past Surgical History / Comment(s): Repair of vocal cord paralysis, right knee arthroscopy, left rotator cuff repair, left knee replaced, LEFT LUNG NODULE REMOVAL, Loop recorder with removal, right knee replaced May 2020, had right knee manipulation 06-26-20 @ [facility]. Past Anesthesia/Blood Transfusion Reactions: Postoperative Nausea & Vomiting (PONV) Past Psychological History: No Psychological Hx Reported Smoking Status: Never smoker Past Alcohol Use History: Occasional Past Drug Use History: Marijuana - Past Family History Mother Family Medical History: Diabetes Mellitus Additional Family Medical History / Comment(s): Mother is alive, at 71, recently had cardiac surgery (95% occlusion) with history of diabetes. Father History Unknown: Yes Additional Family Medical History / Comment(s): Patient does not have any contact with her father and does not know any of his medical history. Brother(s) Additional Family Medical History / Comment(s): Patient has 1 brother but does not know his medical history. Patient does not have any sisters. Patient has 2 sons no major medical problems. General Exam Limitations: no limitations General appearance: alert, in no apparent distress Head exam: Present: atraumatic, normocephalic, normal inspection Eye exam: Present: normal appearance, PERRL, EOMI. Absent: scleral icterus, conjunctival injection, periorbital swelling ENT exam: Present: normal exam, mucous membranes moist Neck exam: Present: normal inspection. Absent: tenderness, meningismus, lymphadenopathy Respiratory exam: Present: normal lung sounds bilaterally. Absent: respiratory distress, wheezes, rales, rhonchi, stridor Cardiovascular Exam: Present: regular rate, normal rhythm, normal heart sounds. Absent: systolic murmur, diastolic murmur, rubs, gallop, clicks GI/Abdominal exam: Present: soft, normal bowel sounds. Absent: distended, tenderness, guarding, rebound, rigid Extremities exam: Present: full ROM, calf tenderness, other (Significant left lower extremity swelling and edema). Absent: tenderness, pedal edema, joint swelling Back exam: Present: normal inspection Neurological exam: Present: alert, oriented X3, CN II-XII intact Psychiatric exam: Present: normal affect, normal mood Skin exam: Present: warm, dry, intact, normal color. Absent: rash Course Vital Signs 06/16/21 06/17/21 22:25 00:00 Temperature 97.7 F Pulse Rate 89 88 Respiratory 24 20 Rate Blood Pressure 134/72 126/78 O2 Sat by Pulse 99 99 Oximetry - Reevaluation(s) Reevaluation #1: 06/17/21 00:52 Medical record is reviewed Reevaluation #2: 06/17/21 00:52 Patient is informed results and questions answered Reevaluation #3: 06/17/21 00:52 Patient's pain is improved Medical Decision Making - Medical Decision Making 51 female to the emergency department for evaluation. Patient has significant left left lower extremity pain and swelling. Edema. Ultrasound negative for DVT here in the urgency department - Lab Data Result diagrams: 06/16/21 23:03 06/16/21 23:03 Lab Results 06/16/21 06/16/21 06/16/21 Range/Units 23:03 23:03 23:03 WBC 10.8 H (3.8-10.6) k/uL RBC 4.62 (3.80-5.40) m/uL Hgb 12.8 (11.4-16.0) gm/dL Hct 37.5 (34.0-46.0) % MCV 81.1 (80.0-100.0) fL MCH 27.8 (25.0-35.0) pg MCHC 34.3 (31.0-37.0) g/dL RDW 13.4 (11.5-15.5) % Plt Count 483 H (150-450) k/uL MPV 6.9 Neutrophils % 65 % Lymphocytes % 21 % Monocytes % 9 % Eosinophils % 2 % Basophils % 0 % Neutrophils # 7.0 (1.3-7.7) k/uL Lymphocytes # 2.3 (1.0-4.8) k/uL Monocytes # 0.9 (0-1.0) k/uL Eosinophils # 0.2 (0-0.7) k/uL Basophils # 0.0 (0-0.2) k/uL PT 9.7 (9.0-12.0) sec INR 0.9 (<1.2) APTT 24.7 (22.0-30.0) sec Sodium 138 (137-145) mmol/L Potassium 3.2 L (3.5-5.1) mmol/L Chloride 98 (98-107) mmol/L Carbon Dioxide 29 (22-30) mmol/L Anion Gap 11 mmol/L BUN 15 (7-17) mg/dL Creatinine 0.66 (0.52-1.04) mg/dL Est GFR (CKD-EPI)AfAm >90 (>60 ml/min/1.73 sqM) Est GFR (CKD-EPI)NonAf >90 (>60 ml/min/1.73 sqM) Glucose 107 H (74-99) mg/dL Calcium 9.5 (8.4-10.2) mg/dL Magnesium 1.8 (1.6-2.3) mg/dL Total Bilirubin 0.7 (0.2-1.3) mg/dL AST 81 H (14-36) U/L ALT 104 H (4-34) U/L Alkaline Phosphatase 194 H (38-126) U/L Troponin I (0.000-0.034) ng/mL NT-Pro-B Natriuret Pep pg/mL Total Protein 7.8 (6.3-8.2) g/dL Albumin 4.4 (3.5-5.0) g/dL 06/16/21 06/16/21 Range/Units 23:03 23:03 WBC (3.8-10.6) k/uL RBC (3.80-5.40) m/uL Hgb (11.4-16.0) gm/dL Hct (34.0-46.0) % MCV (80.0-100.0) fL MCH (25.0-35.0) pg MCHC (31.0-37.0) g/dL RDW (11.5-15.5) % Plt Count (150-450) k/uL MPV Neutrophils % % Lymphocytes % % Monocytes % % Eosinophils % % Basophils % % Neutrophils # (1.3-7.7) k/uL Lymphocytes # (1.0-4.8) k/uL Monocytes # (0-1.0) k/uL Eosinophils # (0-0.7) k/uL Basophils # (0-0.2) k/uL PT (9.0-12.0) sec INR (<1.2) APTT (22.0-30.0) sec Sodium (137-145) mmol/L Potassium (3.5-5.1) mmol/L Chloride (98-107) mmol/L Carbon Dioxide (22-30) mmol/L Anion Gap mmol/L BUN (7-17) mg/dL Creatinine (0.52-1.04) mg/dL Est GFR (CKD-EPI)AfAm (>60 ml/min/1.73 sqM) Est GFR (CKD-EPI)NonAf (>60 ml/min/1.73 sqM) Glucose (74-99) mg/dL Calcium (8.4-10.2) mg/dL Magnesium (1.6-2.3) mg/dL Total Bilirubin (0.2-1.3) mg/dL AST (14-36) U/L ALT (4-34) U/L Alkaline Phosphatase (38-126) U/L Troponin I <0.012 (0.000-0.034) ng/mL NT-Pro-B Natriuret Pep 61 pg/mL Total Protein (6.3-8.2) g/dL Albumin (3.5-5.0) g/dL - Radiology Data Radiology results: report reviewed (Ultrasound left lower extremity is negative for significant acute disease), image reviewed Disposition Clinical Impression: Deep vein thrombosis (DVT) of lower extremity, Edema of left lower extremity Disposition: HOME SELF-CARE Condition: Good Instructions (If sedation given, give patient instructions): Leg Edema (ED) Is patient prescribed a controlled substance at d/c from ED?: No Referrals: Nish Baez MD [Primary Care Provider] - 1-2 days
[2021-06-17] MEDS ORDERED: FUROSEMIDE 10 MG/ML 4 ML VIAL IV STA (00:08)
[2021-06-17] MEDS ORDERED: MORPHINE SULFATE 4 MG/ML SYRINGE IVP STA (00:08)
[2021-06-17 00:30] VITALS: BP 126/78; PULSE 88; RESP 20
--- NOTE | 2021-06-17 00:43 | US ---
EXAMINATION TYPE: US venous doppler duplex LE LT DATE OF EXAM: 06/17/2021 12:29 AM COMPARISON: NONE CLINICAL HISTORY: pain. Left leg pain SIDE PERFORMED: Left TECHNIQUE: The lower extremity deep venous system is examined utilizing real time linear array sonog madeleine with graded compression, doppler sonography and color-flow sonography. VESSELS IMAGED: Common Femoral Vein Deep Femoral Vein Greater Saphenous Vein * Femoral Vein Popliteal Vein Small Saphenous Vein * Proximal Calf Veins (* superficial vessels) Left Leg: Negative for DVT IMPRESSION: Duplex venous sonogram left leg. History pain. Comparison none. FINDINGS: Left leg is scanned and there is normal flow and compressibility from the common femoral vein to the popliteal vein. There is normal augmentation. IMPRESSION: Negative left leg duplex venous sonogram.
[2021-06-17] MEDS ORDERED: FUROSEMIDE 20 MG TAB PO STA (01:06)
[2021-06-17] MEDS ORDERED: FUROSEMIDE 40 MG TAB PO STA (01:06)
== END 2021-06-17 01:20 | disposition home or self-care (01) ==
LOC: EC 22:22
DX: I82.402 Acute embolism and thrombosis of unspecified deep veins of left lower extremity (principal); I10 Essential (primary) hypertension; Z88.5 Allergy status to narcotic agent; Z88.6 Allergy status to analgesic agent; Z91.041 Radiographic dye allergy status; Z88.7 Allergy status to serum and vaccine
CPT/HCPCS: 36415; 71046; 80053; 83735; 83880; 84484; 85025; 85610; 85730; 96374; 96375; 99284

== ENCOUNTER 2021-06-19 20:55 | Observation (INO) | payer MEDICARE, OTHER ==
[2021-06-19 21:49] LABS: Basophils # (A) 0.1 k/uL (0-0.2); Basophils % (A) 1 %; Eosinophils # (A) 0.2 k/uL (0-0.7); Eosinophils % (A) 2 %; HCT 39.4 % (34.0-46.0); HGB 13.1 gm/dL (11.4-16.0); Lymphocytes # (A) 2.3 k/uL (1.0-4.8); Lymphocytes % (A) 16 %; MCH 26.9 pg (25.0-35.0); MCHC 33.2 g/dL (31.0-37.0); MCV 80.9 fL (80.0-100.0); Mean Platelet Volume 6.8; Monocytes # (A) 1.1 k/uL (0-1.0); Monocytes % (A) 7 %; Neutrophils # (A) 10.8 k/uL (1.3-7.7); Neutrophils % (A) 74 %; Platelet Count 451 k/uL (150-450); RBC 4.87 m/uL (3.80-5.40); RDW 12.8 % (11.5-15.5); WBC 14.7 k/uL (3.8-10.6)
[2021-06-19 22:03] LABS: ALT 82 U/L (4-34); AST 57 U/L (14-36); African American GFR (CKD) >90 (>60 ml/min/1.73 sqM); Albumin 4.7 g/dL (3.5-5.0); Alkaline Phosphatase 195 U/L (38-126); Anion Gap 14 mmol/L; Blood Urea Nitrogen 21 mg/dL (7-17); Calcium 9.5 mg/dL (8.4-10.2); Carbon Dioxide 31 mmol/L (22-30); Chloride 90 mmol/L (98-107); Glucose 140 mg/dL (74-99); Magnesium 1.8 mg/dL (1.6-2.3); Non-African American GFR(CKD) 87 (>60 ml/min/1.73 sqM); Sodium 135 mmol/L (137-145); Total Bilirubin 1.4 mg/dL (0.2-1.3); Total Protein 8.5 g/dL (6.3-8.2)
[2021-06-19 22:22] LABS: Potassium 2.5 mmol/L (3.5-5.1)
[2021-06-19] MEDS ORDERED: Potassium Replacement Protocol 1 EACH MISC MISCELLANE PRN (23:14)
--- NOTE | 2021-06-19 23:17 | ED ---
Recheck HPI - General Chief Complaint: Recheck/Abnormal Lab/Rx Stated Complaint: Irregular labs Time Seen by Provider: 06/19/21 22:52 Source: patient, RN notes reviewed Mode of arrival: ambulatory Limitations: no limitations - History of Present Illness Initial Comments: Patient was sent in by her regular physician for potassium at 2.5. Patient was seen here on Friday for peripheral edema. Patient was prescribed Lasix and now has worsening hypokalemia. Patient states her potassium was also low on Friday. She was sent home with potassium supplementation. Patient states she is feeling a bit rundown otherwise no chest pain or shortness of breath. No muscle spasm. Mild weakness. No headache, no fever or chills, no changes in vision or hearing, no sore throat or difficulty with speech, no neck pain, no chest pain or shortness of breath, no abdominal pain, no nausea or vomiting, no changes in urination or bowel move ments, no numbness or tingling, no skin rashes or lesions. - Related Data Home Medications Medication Instructions Recorded Confirmed Carvedilol [Coreg] 12.5 mg PO BID 10/12/19 04/10/21 Isosorbide Mononitrate [Isosorbide 30 mg PO DAILY 06/27/20 04/10/21 Mononitrate ER] Albuterol Inhaler [Ventolin Hfa 2 puff INHALATION RT-Q6H PRN 11/24/20 04/10/21 Inhaler] Amitriptyline HCl [Elavil] 50 mg PO HS 11/24/20 04/10/21 Fluticasone/Vilanterol [Breo 1 puff INHALATION RT-DAILY 11/24/20 04/10/21 Ellipta 200-25 Mcg Inhaler] Diclofenac Sodium [Voltaren] 75 mg PO BID 01/26/21 04/10/21 Vitamin C/Biotin [Hair, Skin and 1 tab PO DAILY 01/26/21 04/10/21 Nails Chew] Aspirin EC [Ecotrin Low Dose] 81 mg PO DAILY 04/10/21 04/10/21 Chlorthalidone [Hygroton] 25 mg PO DAILY 04/10/21 04/10/21 Oxybutynin Xl [Ditropan XL] 5 mg PO DAILY 04/10/21 04/10/21 Previous Rx's Medication Instructions Recorded Amoxicillin/Potassium Clav 1 tab PO Q12HR #20 tab 02/15/21 [Augmentin 875-125 Tablet] Allergies Allergy/AdvReac Type Severity Reaction Status Date / Time meperidine HCl [From Demerol] Allergy Rash/Hives/ Verified 06/19/21 21:02 Swelling naproxen sodium [From Aleve] Allergy Rash/Hives/ Verified 06/19/21 21:02 Swelling red dye AdvReac Unknown Verified 06/19/21 21:02 Review of Systems ROS Statement: Those systems with pertinent positive or pertinent negative responses have been documented in the HPI. ROS Other: All systems not noted in ROS Statement are negative. Past Medical History Past Medical History: Chest Pain / Angina, Hypertension, Osteoarthritis (OA), Respiratory Disorder, Syncope Additional Past Medical History / Comment(s): hx. of Vocal cord paralysis after lung biopsy, dr. 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 per pt she had covid x2, (last infection 11/2020) History of Any Multi-Drug Resistant Organisms: None Reported Past Surgical History: Adenoidectomy, Cholecystectomy, Heart Catheterization, Hysterectomy, Joint Replacement, Orthopedic Surgery, Tonsillectomy Additional Past Surgical History / Comment(s): Repair of vocal cord paralysis, right knee arthroscopy, left rotator cuff repair, left knee replaced, LEFT LUNG NODULE REMOVAL, Loop recorder with removal, right knee replaced May 2020, had right knee manipulation 06-26-20 @ [facility]. Past Anesthesia/Blood Transfusion Reactions: Postoperative Nausea & Vomiting (PONV) Past Psychological History: No Psychological Hx Reported Smoking Status: Never smoker Past Alcohol Use History: Occasional Past Drug Use History: Marijuana - Past Family History Mother Family Medical History: Diabetes Mellitus Additional Family Medical History / Comment(s): Mother is alive, at 71, recently had cardiac surgery (95% occlusion) with history of diabetes. Father History Unknown: Yes Additional Family Medical History / Comment(s): Patient does not have any contact with her father and does not know any of his medical history. Brother(s) Additional Family Medical History / Comment(s): Patient has 1 brother but does not know his medical history. Patient does not have any sisters. Patient has 2 sons no major medical problems. General Exam Limitations: no limitations General appearance: alert, in no apparent distress Head exam: Present: atraumatic, normocephalic, normal inspection Eye exam: Present: normal appearance, PERRL, EOMI. Absent: scleral icterus, conjunctival injection, periorbital swelling ENT exam: Present: normal exam, mucous membranes moist Neck exam: Present: normal inspection. Absent: tenderness, meningismus, lymphadenopathy Respiratory exam: Present: normal lung sounds bilaterally. Absent: respiratory distress, wheezes, rales, rhonchi, stridor Cardiovascular Exam: Present: regular rate, normal rhythm, normal heart sounds. Absent: systolic murmur, diastolic murmur, rubs, gallop, clicks GI/Abdominal exam: Present: soft, normal bowel sounds. Absent: distended, t enderness, guarding, rebound, rigid Extremities exam: Present: normal inspection, full ROM, normal capillary refill. Absent: tenderness, pedal edema, joint swelling, calf tenderness Back exam: Present: normal inspection Neurological exam: Present: alert, oriented X3, CN II-XII intact Psychiatric exam: Present: normal affect, normal mood Skin exam: Present: warm, dry, intact, normal color. Absent: rash Course Vital Signs 06/19/21 21:00 Temperature 97 F L Pulse Rate 97 Respiratory 18 Rate Blood Pressure 123/84 O2 Sat by Pulse 97 Oximetry - Consultations Consultation #1: Case discussed in detail with Dr. Ramon who agrees to admit the patient for observation and potassium replacement. Medical Decision Making - Medical Decision Making Patient will be admitted for observation and potassium replacement. Potassium replacement protocol initiated. Case discussed with the admitting internal medicine physician who agrees to obstipation for replacement. Patient is hemodynamically stable at this time. - Lab Data Result diagrams: 06/19/21 21:42 06/19/21 21:42 Lab Results 06/19/21 06/19/21 06/19/21 Range/Units 21:42 21:42 23:15 WBC 14.7 H (3.8-10.6) k/uL RBC 4.87 (3.80-5.40) m/uL Hgb 13.1 (11.4-16.0) gm/dL Hct 39.4 (34.0-46.0) % MCV 80.9 (80.0-100.0) fL MCH 26.9 (25.0-35.0) pg MCHC 33.2 (31.0-37.0) g/dL RDW 12.8 (11.5-15.5) % Plt Count 451 H (150-450) k/uL MPV 6.8 Neutrophils % 74 % Lymphocytes % 16 % Monocytes % 7 % Eosinophils % 2 % Basophils % 1 % Neutrophils # 10.8 H (1.3-7.7) k/uL Lymphocytes # 2.3 (1.0-4.8) k/uL Monocytes # 1.1 H (0-1.0) k/uL Eosinophils # 0.2 (0-0.7) k/uL Basophils # 0.1 (0-0.2) k/uL Sodium 135 L (137-145) mmol/L Potassium 2.5 L* (3.5-5.1) mmol/L Chloride 90 L (98-107) mmol/L Carbon Dioxide 31 H (22-30) mmol/L Anion Gap 14 mmol/L BUN 21 H (7-17) mg/dL Creatinine 0.79 (0.52-1.04) mg/dL Est GFR (CKD-EPI)AfAm >90 (>60 ml/min/1.73 sqM) Est GFR (CKD-EPI)NonAf 87 (>60 ml/min/1.73 sqM) Glucose 140 H (74-99) mg/dL Calcium 9.5 (8.4-10.2) mg/dL Magnesium 1.8 1.9 (1.6-2.3) mg/dL Total Bilirubin 1.4 H (0.2-1.3) mg/dL AST 57 H (14-36) U/L ALT 82 H (4-34) U/L Alkaline Phosphatase 195 H (38-126) U/L Troponin I (0.000-0.034) ng/mL Total Protein 8.5 H (6.3-8.2) g/dL Albumin 4.7 (3.5-5.0) g/dL Urine Color Urine Appearance (Clear) Urine pH (5.0-8.0) Ur Specific [place] (1.001-1.035) Urine Protein (Negative) Urine Glucose (UA) (Negative) Urine Ketones (Negative) Urine Blood (Negative) Urine Nitrite (Negative) Urine Bilirubin (Negative) Urine Urobilinogen (<2.0) mg/dL Ur Leukocyte Esterase (Negative) Urine RBC (0-5) /hpf Urine WBC (0-5) /hpf Ur Squamous Epith Cells (0-4) /hpf Urine Mucus (None) /hpf 06/19/21 06/19/21 Range/Units 23:15 23:15 WBC (3.8-10.6) k/uL RBC (3.80-5.40) m/uL Hgb (11.4-16.0) gm/dL Hct (34.0-46.0) % MCV (80.0-100.0) fL MCH (25.0-35.0) pg MCHC (31.0-37.0) g/dL RDW (11.5-15.5) % Plt Count (150-450) k/uL MPV Neutrophils % % Lymphocytes % % Monocytes % % Eosinophils % % Basophils % % Neutrophils # (1.3-7.7) k/uL Lymphocytes # (1.0-4.8) k/uL Monocytes # (0-1.0) k/uL Eosinophils # (0-0.7) k/uL Basophils # (0-0.2) k/uL Sodium (137-145) mmol/L Potassium (3.5-5.1) mmol/L Chloride (98-107) mmol/L Carbon Dioxide (22-30) mmol/L Anion Gap mmol/L BUN (7-17) mg/dL Creatinine (0.52-1.04) mg/dL Est GFR (CKD-EPI)AfAm (>60 ml/min/1.73 sqM) Est GFR (CKD-EPI)NonAf (>60 ml/min/1.73 sqM) Glucose (74-99) mg/dL Calcium (8.4-10.2) mg/dL Magnesium (1.6-2.3) mg/dL Total Bilirubin (0.2-1.3) mg/dL AST (14-36) U/L ALT (4-34) U/L Alkaline Phosphatase (38-126) U/L Troponin I <0.012 (0.000-0.034) ng/mL Total Protein (6.3-8.2) g/dL Albumin (3.5-5.0) g/dL Urine Color Yellow Urine Appearance Cloudy H (Clear) Urine pH 6.5 (5.0-8.0) Ur Specific [place] 1.023 (1.001-1.035) Urine Protein Trace H (Negative) Urine Glucose (UA) Negative (Negative) Urine Ketones Negative (Negative) Urine Blood Negative (Negative) Urine Nitrite Negative (Negative) Urine Bilirubin Negative (Negative) Urine Urobilinogen 2.0 (<2.0) mg/dL Ur Leukocyte Esterase Negative (Negative) Urine RBC <1 (0-5) /hpf Urine WBC 3 (0-5) /hpf Ur Squamous Epith Cells 17 H (0-4) /hpf Urine Mucus Rare H (None) /hpf - EKG Data EKG Comments: EKG interpreted by the ED attending physician reveals sinus rhythm with nonspecific ST-T wave abnormalities, no evidence of ST elevation. Normal axis. Normal intervals. Normal QRS morphology otherwise Disposition Clinical Impression: Hypokalemia Disposition: ADMITTED IP TO THIS HOSP Condition: Stable Time of Disposition: 23:17
[2021-06-19] MEDS ORDERED: MAGNESIUM SULFATE-D5W PMX 1 GM in DEXTROSE/WATER 1 100ML.BAG IVPB ONE (23:23)
[2021-06-19] MEDS ORDERED: ACETAMINOPHEN TAB 325 MG TAB PO PRN (23:24)
[2021-06-19] MEDS ORDERED: NALOXONE 0.4 MG/ML 1 ML VIAL IV PRN (23:24)
[2021-06-19] MEDS ORDERED: ACETAMINOPHEN TAB 500 MG TAB PO PRN (23:26)
[2021-06-19 23:41] LABS: Appearance,Urine Cloudy (Clear); Bilirubin,Urine Negative (Negative); Blood,Urine Negative (Negative); Color,Urine Yellow; Glucose,Urine (UA) Negative (Negative); Ketones,Urine Negative (Negative); Leukocyte Esterase,Urine Negative (Negative); Mucus,Urine Rare /hpf; Nitrite,Urine Negative (Negative); PH, Urine 6.5 (5.0-8.0); Protein,Urine Trace (Negative); RBC,Urine <1 /hpf (0-5); Specific Gravity,Urine 1.023 (1.001-1.035); Squamous Epithelial Cell,Urine 17 /hpf (0-4); WBC,Urine 3 /hpf (0-5)
--- NOTE | 2021-06-19 23:45 | XR ---
EXAMINATION TYPE: XR chest 1V portable DATE OF EXAM: 06/19/2021 COMPARISON: NONE HISTORY: Chest pain TECHNIQUE: FINDINGS: Heart and mediastinum are normal. Lungs are clear. Diaphragm is normal. Bony thorax is inta ct. IMPRESSION: Normal chest. No change.
[2021-06-19] MEDS: POTASSIUM CHLORIDE 20 MEQ in WATER FOR INJECTION 1 100ML.BAG IVPB SCH (23:49)
[2021-06-19] MEDS: POTASSIUM CHLORIDE ER 20 MEQ TAB.ER PO SCH (23:56)
[2021-06-20] MEDS ORDERED: PROMETHAZINE 25 MG TAB PO PRN
[2021-06-20] MEDS: POTASSIUM CHLORIDE ER 20 MEQ TAB.ER PO SCH ×4 (02:09→20:32)
[2021-06-20] MEDS: POTASSIUM CHLORIDE 20 MEQ in WATER FOR INJECTION 1 100ML.BAG IVPB SCH ×3 (02:09→07:13)
[2021-06-20 04:49] LABS: African American GFR (CKD) >90 (>60 ml/min/1.73 sqM); Anion Gap 8 mmol/L; Blood Urea Nitrogen 18 mg/dL (7-17); Calcium 8.6 mg/dL (8.4-10.2); Carbon Dioxide 32 mmol/L (22-30); Chloride 94 mmol/L (98-107); Glucose 120 mg/dL (74-99); Non-African American GFR(CKD) >90 (>60 ml/min/1.73 sqM); Potassium 2.9 mmol/L (3.5-5.1); Sodium 134 mmol/L (137-145)
[2021-06-20] MEDS: ENOXAPARIN 40 MG/0.4 ML SYRINGE SQ SCH (07:15)
--- NOTE | 2021-06-20 11:31 | P.HPIM ---
History of Present Illness H&P Date: 06/20/21 HISTORY OF PRESENT ILLNESS 51-year-old female patient of Kenneth Saunders NP with past medical history of hypertension, hyperlipidemia, severe osteoarthritis, previous history of syncope with history of vocal cord paralysis after biopsy who is also known to have left sided lung nodular related sarcoidosis. Her last hospitalization was in January 2021 at which time she was treated for chest pain with palpitations, seen by cardiology and discharged home with plan to follow up with Dr. Humphrey in the office. Patient was seen on 06/16 in the emergency center due to left leg pain and bilateral lower extremity swelling, ultrasound of lower extremities negative for DVT, potassium 3.2 which was replaced. Patient was discharged home. Patient had a repeat potassium of 2.5 and PCP office. She denies any recent medication changes. She states that she has been on chlorthalidone for a long period of time. She'll potassium 2.5 and repeat this morning 2.9. Sodium 134, chloride 94, CO2 32, BUN 18 and creatinine 0.64. Troponin negative. Liver function tests are elevated with total bilirubin 1.5, AST 57, ALT 82, alkaline phosphatase 195. Magnesium 1.9 and 2.0. Urinalysis negative for infection. She is status post 1 g of magnesium sulfate, total of 140 mEq of potassium. Repeat potassium will be ordered for this afternoon and again tomorrow morning. Patient will be started on magnesium oxide, chlorthalidone will be discontinued and patient started on losartan 25 mg with parameters. Continue cardiac monitoring. REVIEW OF SYSTEMS Constitutional: No fever, no chills, no night sweats. No weight change. No weakness, fatigue or lethargy. No daytime sleepiness. EENT: No headache. No blurred vision or double vision, no loss of vision. No loss of Hearing, no ringing in the ears, no dizziness. No nasal drainage or congestion. No epistaxis. No sore throat. Lungs: No shortness of breath, cough, no sputum production. No wheezing. Recurrent chest pain and angina. Cardiovascular: Positive chest pain, no lower extremity edema. No palpitations. Positive paroxysmal nocturnal dyspnea. No orthopnea. No lightheadedness or di zziness. No syncopal episodes. Abdominal: No abdominal pain. No nausea, vomiting. No diarrhea. No constipation. No bloody or tarry stools.. No loss of appetite. Genitourinary: No dysuria, increased frequency, urgency. No urinary retention. Musculoskeletal: Generalized myalgia and arthralgia. Integumentary: No wounds, no lesions. No rash or pruritus. No unusual bruising. No change in hair or nails. Neurologic: No aphasia. No facial droop. No change in mentation. No head injury. No headache. No paralysis. No paresthesia. Psychiatric: No depression. No anxiety. No mood swings. Endocrine: No abnormal blood sugars. No weight change. No excessive sweating or thirst. No cold intolerance. SOCIAL HISTORY Patient does not smoke, she drinks echo socially, she is had 2 children, FAMILY HISTORY She had 2 children both are living and well, 2 brothers with no major medical problem. Her mother is in 73 had CAD post CABG. Father is 70 with no major medical problem. PHYSICAL EXAMINATION Gen: This is a 51-year-old resting in bed in no acute respiratory distress. HEENT: Head is atraumatic, normocephalic. Pupils equal, round. Sclerae is anicteric. NECK: Supple. No JVD. No lymphadenopathy. No thyromegaly. LUNGS: Clear to auscultation. No wheezes or rhonchi. No intercostal retractions. HEART: Regular rate and rhythm. No murmur. ABDOMEN: Soft. Bowel sounds are present. No masses. No tenderness. EXTREMITIES: No pedal edema. No calf tenderness. NEUROLOGICAL: Patient is awake, alert and oriented x3. Cranial nerves 2 through 12 are grossly intact. ASSESSMENT AND PLAN 1 severe persistent hypokalemia of unclear etiology, possibly related to chlorthalidone which will be discontinued. Repeat potassium this afternoon and in the morning and replace as indicated, start patient on magnesium oxide 400 mg daily.. 2 history of hypertension: Remain on Coreg 12.5 mg twice a day. 3 atherosclerotic heart disease: Remain on Coreg andImdur. 4 history of sarcoidosis: Not in any active treatment currently patient is doing well still seen pulmonary. 5 reactive airway/ mild intermittent asthma: Remain on rescue inhaler on as- needed basis. 6 severe osteoarthritis, generalized. 7 chronic neuropathy: Has been on amitriptyline 50 mg at bedtime. 8 recurrent arrhythmia: Post loop recorder monitorin the past. 9 severe osteoarthritis: Patient to continue diclofenac cream along with ibuprofen and Motrin on an as-needed basis. 10 DVT prophylaxis: Patient will be o Lovenox subcutaneous. 11 GI prophylaxis: Patient be on pantoprazole. 12. COVID-19 testing. Patient will be admitted to the hospital for a minimum of 2 night stay. Impression and plan of care have been directed as dictated by the signing physician. Mellissa Reagan nurse practitioner acting as scribe for signing physician. Past Medical History Past Medical History: Chest Pain / Angina, Hypertension, Osteoarthritis (OA), Respiratory Disorder, Syncope Additional Past Medical History / Comment(s): hx. of Vocal cord paralysis after lung biopsy, dr. 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 per pt she had covid x2, (last infection 11/2020) History of Any Multi-Drug Resistant Organisms: None Reported Past Surgical History: Adenoidectomy, Cholecystectomy, Heart Catheterization, Hysterectomy, Joint Replacement, Orthopedic Surgery, Tonsillectomy Additional Past Surgical History / Comment(s): Repair of vocal cord paralysis, right knee arthroscopy, left rotator cuff repair, left knee replaced, LEFT LUNG NODULE REMOVAL, Loop recorder with removal, right knee replaced May 2020, had right knee manipulation 06-26-20 @ [facility]. Past Anesthesia/Blood Transfusion Reactions: Postoperative Nausea & Vomiting (PONV) Past Psychological History: No Psychological Hx Reported Smoking Status: Never smoker Past Alcohol Use History: Occasional Additional Past Alcohol Use History / Comment(s): Patient is a lifelong nonsmoker. previous marijuana use She uses alcohol occasionally on the weekends. Past Drug Use History: Marijuana Additional Drug Use History / Comment(s): occasional use - Past Family History Mother Family Medical History: Diabetes Mellitus Additional Family Medical History / Comment(s): Mother is alive, at 71, recently had cardiac surgery (95% occlusion) with history of diabetes. Father History Unknown: Yes Additional Family Medical History / Comment(s): Patient does not have any contact with her father and does not know any of his medical history. Brother(s) Additional Family Medical History / Comment(s): Patient has 1 brother but does not know his medical history. Patient does not have any sisters. Patient has 2 sons no major medical problems. Medications and Allergies Home Medications Medication Instructions Recorded Confirmed Type Carvedilol [Coreg] 12.5 mg PO BID 10/12/19 06/20/21 History Isosorbide Mononitrate [Isosorbide 30 mg PO DAILY 06/27/20 06/20/21 History Mononitrate ER] Amitriptyline HCl [Elavil] 50 mg PO HS 11/24/20 06/20/21 History Chlorthalidone [Hygroton] 25 mg PO DAILY 04/10/21 06/20/21 History Oxybutynin Xl [Ditropan XL] 5 mg PO DAILY 04/10/21 06/20/21 History Omeprazole [PriLOSEC] 20 mg PO BID 06/20/21 06/20/21 History Allergies Allergy/AdvReac Type Severity Reaction Status Date / Time meperidine HCl [From Demerol] Allergy Rash/Hives/ Verified 06/20/21 07:35 Swelling naproxen sodium [From Aleve] Allergy Rash/Hives/ Verified 06/20/21 07:35 Swelling red dye AdvReac migraines Verified 06/20/21 07:35 Physical Exam Vitals: Vital Signs Temp Pulse Pulse Resp BP BP Pulse Ox 06/20/21 07:00 98.6 F 77 16 106/70 99 06/20/21 05:41 74 16 112/62 06/20/21 05:07 77 18 06/20/21 03:00 82 18 06/20/21 02:05 91 18 127/88 98 06/19/21 21:00 97 F L 97 18 123/84 97 Intake and Output 06/19/21 06/20/21 06/20/21 22:59 06:59 14:59 Other: # Voids 2 Weight 88.451 kg 88.451 kg Results CBC & Chem 7: 06/19/21 21:42 06/20/21 04:21 Labs: Abnormal Lab Results - Last 24 Hours (Table) 06/19/21 06/19/21 06/19/21 Range/Units 21:42 21:42 23:15 WBC 14.7 H (3.8-10.6) k/uL Plt Count 451 H (150-450) k/uL Neutrophils # 10.8 H (1.3-7.7) k/uL Monocytes # 1.1 H (0-1.0) k/uL Sodium 135 L (137-145) mmol/L Potassium 2.5 L* (3.5-5.1) mmol/L Chloride 90 L (98-107) mmol/L Carbon Dioxide 31 H (22-30) mmol/L BUN 21 H (7-17) mg/dL Glucose 140 H (74-99) mg/dL Total Bilirubin 1.4 H (0.2-1.3) mg/dL AST 57 H (14-36) U/L ALT 82 H (4-34) U/L Alkaline Phosphatase 195 H (38-126) U/L Total Protein 8.5 H (6.3-8.2) g/dL Urine Appearance Cloudy H (Clear) Urine Protein Trace H (Negative) Ur Squamous Epith Cells 17 H (0-4) /hpf Urine Mucus Rare H (None) /hpf 06/20/ Range/Units 04:21 WBC (3.8-10.6) k/uL Plt Count (150-450) k/uL Neutrophils # (1.3-7.7) k/uL Monocytes # (0-1.0) k/uL Sodium 134 L (137-145) mmol/L Potassium 2.9 L (3.5-5.1) mmol/L Chloride 94 L (98-107) mmol/L Carbon Dioxide 32 H (22-30) mmol/L BUN 18 H (7-17) mg/dL Glucose 120 H (74-99) mg/dL Total Bilirubin (0.2-1.3) mg/dL AST (14-36) U/L ALT (4-34) U/L Alkaline Phosphatase (38-126) U/L Total Protein (6.3-8.2) g/dL Urine Appearance (Clear) Urine Protein (Negative) Ur Squamous Epith Cells (0-4) /hpf Urine Mucus (None) /hpf
[2021-06-20] MEDS ORDERED: Potassium Replacement Protocol 1 EACH MISC MISCELLANE PRN (16:17)
[2021-06-20] MEDS: carvediloL 12.5 MG TAB PO SCH (17:52)
[2021-06-20] MEDS ORDERED: AMITRIPTYLINE HCL 50 MG TAB PO SCH (21:00)
[2021-06-20] MEDS ORDERED: NON FORMULARY DRUG (Omeprazole 20 MG Capsule.Dr) PO SCH (21:00)
[2021-06-21 07:26] VITALS: BP 110/60; PULSE 70; RESP 17; TEMP 97.4
[2021-06-21] MEDS ORDERED: PANTOPRAZOLE 40 MG TABLET PO SCH (07:30)
[2021-06-21] MEDS: carvediloL 12.5 MG TAB PO SCH (07:37)
--- NOTE | 2021-06-21 08:40 | P.DS ---
Providers Date of admission: 06/20/21 11:27 Expected date of discharge: 06/21/21 Attending physician: Aroldo Ramon Primary care physician: Nish Stringer [facility] Course: HISTORY OF PRESENT ILLNESS 51-year-old female patient of Kenneth Saunders NP with past medical history of hypertension, hyperlipidemia, severe osteoarthritis, previous history of syncope with history of vocal cord paralysis after biopsy who is also known to have left sided lung nodular related sarcoidosis. Her last hospitalization was in January 2021 at which time she was treated for chest pain with palpitations, seen by cardiology and discharged home with plan to follow up with Dr. Humphrey in the office. Patient was seen on 06/16 in the emergency center due to left leg pain and bilateral lower extremity swelling, ultrasound of lower extremities negative for DVT, potassium 3.2 which was replaced. Patient was discharged home. Patient had a repeat potassium of 2.5 and PCP office. She denies any recent medication changes. She states that she has been on chlorthalidone for a long period of time. She'll potassium 2.5 and repeat this morning 2.9. Sodium 134, chloride 94, CO2 32, BUN 18 and creatinine 0.64. Troponin negative. Liver function tests are elevated with total bilirubin 1.5, AST 57, ALT 82, alkaline phosphatase 195. Magnesium 1.9 and 2.0. Urinalysis negative for infection. She is status post 1 g of magnesium sulfate, total of 140 mEq of potassium. Repeat potassium will be ordered for this afternoon and again tomorrow morning. Patient will be started on magnesium oxide, chlorthalidone will be discontinued and patient started on losartan 25 mg with parameters. Continue cardiac monitoring. 06/21: Repeat potassium yesterday evening was 3.4 and received additional 40 mEq of potassium. Repeat potassium at 10 PM was 3.6 and this morning 3.5. Patient has been instructed to stay off chlorthalidone. Blood pressure has been on the lower side systolic 106 and no blood pressure medication will be started to r eplace chlorthalidone. Patient will be discharged on potassium 10 mEq daily for 1 week and continue on magnesium supplement for 1 month have a recheck in office of PCP within the week. Patient has some mild calf discomfort, no cramping. Patient will be discharged today in stable condition. DISCHARGE DIAGNOSES 1 severe persistent hypokalemia of unclear etiology, possibly related to chlorthalidone which will be discontinued. 2 history of hypertension 3 atherosclerotic heart disease 4 history of sarcoidosis: Not in any active treatment 5 reactive airway/ mild intermittent asthma 6 severe osteoarthritis, generalized. 7 chronic neuropathy 8 recurrent arrhythmia: Post loop recorder monitor in the past. 9 severe osteoarthritis: Patient to continue diclofenac cream along with ibuprofen and Motrin on an as-needed basis. DISCHARGE PLAN Home Greater than 35 minutes was utilized and coordinating patient's discharge. Impression and plan of care have been directed as dictated by the signing physician. Mellissa Reagan nurse practitioner acting as scribe for signing physician. Patient Condition at Discharge: Good Plan - Discharge Summary New Discharge Prescriptions: New Potassium Chloride ER [K-Dur 10] 10 meq PO DAILY #7 tab Magnesium Oxide [Mag-Ox] 400 mg PO DAILY #30 tab Continue Carvedilol [Coreg] 12.5 mg PO BID Isosorbide Mononitrate [Isosorbide Mononitrate ER] 30 mg PO DAILY Amitriptyline HCl [Elavil] 50 mg PO HS Oxybutynin Xl [Ditropan XL] 5 mg PO DAILY Omeprazole [PriLOSEC] 20 mg PO BID Discontinued Chlorthalidone [Hygroton] 25 mg PO DAILY Discharge Medication List Carvedilol [Coreg] 12.5 mg PO BID 10/12/19 [History] Isosorbide Mononitrate [Isosorbide Mononitrate ER] 30 mg PO DAILY 06/27/20 [History] Amitriptyline HCl [Elavil] 50 mg PO HS 11/24/20 [History] Oxybutynin Xl [Ditropan XL] 5 mg PO DAILY 04/10/21 [History] Omeprazole [PriLOSEC] 20 mg PO BID 06/20/21 [History] Magnesium Oxide [Mag-Ox] 400 mg PO DAILY #30 tab 06/21/21 [Rx] Potassium Chloride ER [K-Dur 10] 10 meq PO DAILY #7 tab 06/21/21 [Rx] Follow up Appointment(s)/Referral(s): Annie Saunders NPC [Nurse Practitioner] - 06/25/21 11:00 am Discharge Disposition: HOME SELF-CARE
[2021-06-21] MEDS ORDERED: ISOSORBIDE MONONITRATE ER 30 MG TAB.ER.24H PO SCH (09:00)
[2021-06-21] MEDS ORDERED: MAGNESIUM OXIDE 400 MG TAB PO SCH (09:00)
[2021-06-21] MEDS ORDERED: LOSARTAN 25 MG TAB PO SCH (09:00)
[2021-06-21] MEDS ORDERED: OXYBUTYNIN XL 5 MG TAB.ER.24 PO SCH (09:00)
[2021-06-21] MEDS: ENOXAPARIN 40 MG/0.4 ML SYRINGE SQ SCH (10:02)
== END 2021-06-21 12:49 | disposition home or self-care (01) ==
LOC: EC 20:55 → 6NMEDSUR 23:46 → 4SSUR 06-20 04:23 → OBSVTOIN 06-20 11:27 → INTOOBSV 06-20 11:27 → UNDODISIN 06-21 12:49
PROVIDERS: ADMIT Internal Medicine Geriatric Medicine; ATTEND Internal Medicine Geriatric Medicine
DX: E87.6 Hypokalemia (principal); I10 Essential (primary) hypertension; I49.9 Cardiac arrhythmia, unspecified; D86.0 Sarcoidosis of lung; K11.20 Sialoadenitis, unspecified; J45.20 Mild intermittent asthma, uncomplicated; M15.9 Polyosteoarthritis, unspecified; J38.00 Paralysis of vocal cords and larynx, unspecified; I25.10 Atherosclerotic heart disease of native coronary artery without angina pectoris; E78.5 Hyperlipidemia, unspecified; G62.9 Polyneuropathy, unspecified; Z79.82 Long term (current) use of aspirin; Z79.51 Long term (current) use of inhaled steroids; Z79.899 Other long term (current) drug therapy; Z88.5 Allergy status to narcotic agent; Z88.6 Allergy status to analgesic agent; Z91.048 Other nonmedicinal substance allergy status; Z86.16 Personal history of COVID-19; Z90.49 Acquired absence of other specified parts of digestive tract; Z90.710 Acquired absence of both cervix and uterus; Z96.653 Presence of artificial knee joint, bilateral; Z98.890 Other specified postprocedural states; Z83.3 Family history of diabetes mellitus; Z82.49 Family history of ischemic heart disease and other diseases of the circulatory system
CPT/HCPCS: 96368; 96365; 96366; 99285; 36415; 93005; 83880; 80053; 80048; 83735 ×2; 84132 ×2; 84484; 85025; 81001; 71045; G0378 ×3; J3480 ×2; J1650; J3475

== ENCOUNTER 2021-09-02 11:05 | Emergency (ER) | payer MEDICARE, OTHER ==
[2021-09-02 11:17] VITALS: RESP 16
--- NOTE | 2021-09-02 12:08 | US ---
EXAMINATION TYPE: US venous doppler duplex LE LT DATE OF EXAM: 09/02/2021 11:58 AM COMPARISON: NONE CLINICAL HISTORY: pain, swelling. Pain and swelling in left leg since May. No hx of DVT. SIDE PERFORMED: Left TECHNIQUE: The lower extremity deep venous system is examined utilizing real time linear array sonog madeleine with graded compression, doppler sonography and color-flow sonography. VESSELS IMAGED: Common Femoral Vein Deep Femoral Vein Greater Saphenous Vein * Femoral Vein Popliteal Vein Small Saphenous Vein * Proximal Calf Veins (* superficial vessels) Left Leg: Negative for DVT The deep venous system of the left lower extremity from the proximal calf veins to the common femoral vein is patent and compressible with augmentable flow throughout. IMPRESSION: No evidence of left lower extremity DVT within the imaged portions of the left lower extr emity deep venous system as described above.
--- NOTE | 2021-09-02 12:26 | ED ---
Extremity Problem HPI - General Chief complaint: Extremity Problem,Nontraumatic Stated complaint: Lt leg pain/swelling Time Seen by Provider: 09/02/21 11:21 Source: patient, RN notes reviewed Mode of arrival: wheelchair Limitations: no limitations - History of Present Illness Initial comments: 51-year-old female presents emergency Department with chief left leg pain, swelling. Patient states she woke up to that she's had 7she does see Dr. Humphrey in which they discussed possible arterial issues patient denies any discoloration states that this very swollen. She states that she wears a compression stocking the swelling starts above it. No paresthesias no back pain no radiculopathy symptoms no abdominal pain no other complaints. Denies any weakness. - Related Data Home Medications Medication Instructions Recorded Confirmed Carvedilol [Coreg] 12.5 mg PO BID 10/12/19 06/20/21 Isosorbide Mononitrate [Isosorbide 30 mg PO DAILY 06/27/20 06/20/21 Mononitrate ER] Amitriptyline HCl [Elavil] 50 mg PO HS 11/24/20 06/20/21 Oxybutynin Xl [Ditropan XL] 5 mg PO DAILY 04/10/21 06/20/21 Omeprazole [PriLOSEC] 20 mg PO BID 06/20/21 06/20/21 Previous Rx's Medication Instructions Recorded Magnesium Oxide [Mag-Ox] 400 mg PO DAILY #30 tab 06/21/21 Potassium Chloride ER [K-Dur 10] 10 meq PO DAILY #7 tab 06/21/21 Allergies Allergy/AdvReac Type Severity Reaction Status Date / Time meperidine HCl [From Demerol] Allergy Rash/Hives/ Verified 09/02/21 11:15 Swelling naproxen sodium [From Aleve] Allergy Rash/Hives/ Verified 09/02/21 11:15 Swelling red dye AdvReac migraines Verified 09/02/21 11:15 Review of Systems ROS Statement: Those systems with pertinent positive or pertinent negative responses have been documented in the HPI. ROS Other: All systems not noted in ROS Statement are negative. Past Medical History Past Medical History: Chest Pain / Angina, Hypertension, Osteoarthritis (OA), Respiratory Disorder, Syncope Additional Past Medical History / Comment(s): hx. of Vocal cord paralysis after lung biopsy, dr. 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 per pt she had covid x2, (last infection 11/2020) History of Any Multi-Drug Resistant Organisms: None Reported Past Surgical History: Adenoidectomy, Cholecystectomy, Heart Catheterization, Hysterectomy, Joint Replacement, Orthopedic Surgery, Tonsillectomy Additional Past Surgical History / Comment(s): Repair of vocal cord paralysis, right knee arthroscopy, left rotator cuff repair, left knee replaced, LEFT LUNG NODULE REMOVAL, Loop recorder with removal, right knee replaced May 2020, had right knee manipulation 06-26-20 @ [facility]. Past Anesthesia/Blood Transfusion Reactions: Postoperative Nausea & Vomiting (PONV) Past Psychological History: No Psychological Hx Reported Smoking Status: Never smoker Past Alcohol Use History: Occasional Past Drug Use History: Marijuana - Past Family History Mother Family Medical History: Diabetes Mellitus Additional Family Medical History / Comment(s): Mother is alive, at 71, recently had cardiac surgery (95% occlusion) with history of diabetes. Father History Unknown: Yes Additional Family Medical History / Comment(s): Patient does not have any contact with her father and does not know any of his medical history. Brother(s) Additional Family Medical History / Comment(s): Patient has 1 brother but does not know his medical history. Patient does not have any sisters. Patient has 2 sons no major medical problems. General Exam Limitations: no limitations General appearance: alert, in no apparent distress Head exam: Present: atraumatic, normocephalic, normal inspection Eye exam: Present: normal appearance, PERRL, EOMI. Absent: scleral icterus, conjunctival injection, periorbital swelling ENT exam: Present: normal exam, normal oropharynx, mucous membranes moist Neck exam: Present: normal inspection, full ROM. Absent: tenderness, meningismus, lymphadenopathy Respiratory exam: Present: normal lung sounds bilaterally. Absent: respiratory distress, wheezes, rales, rhonchi, stridor Cardiovascular Exam: Present: regular rate, normal rhythm, normal heart sounds. Absent: systolic murmur, diastolic murmur, rubs, gallop, clicks GI/Abdominal exam: Present: soft, normal bowel sounds. Absent: distended, tenderness, guarding, rebound, rigid Extremities exam: Present: other (Mild swelling the left leg neurovascular intact pedal pulses are equal bilaterally there is no discoloration) Skin exam: Present: warm, dry, intact, normal color. Absent: rash Course Vital Signs 09/02/21 11:15 Temperature 98.1 F Pulse Rate 80 Respiratory 16 Rate Blood Pressure 133/78 O2 Sat by Pulse 98 Oximetry Medical Decision Making - Medical Decision Making ultrasound is negative for acute DVT. Patient symptoms wax and wane having recurrent issue. She is advised to wear her stocking is thigh-high. Dr. Humphrey return for any worsening change in symptoms. Disposition Clinical Impression: Left leg swelling Disposition: HOME SELF-CARE Condition: Stable Instructions (If sedation given, give patient instructions): Leg Edema (ED) Additional Instructions: Please return to the Emergency Department if symptoms worsen or any other concerns. Is patient prescribed a controlled substance at d/c from ED?: No Referrals: Annie Saunders NPC [Primary Care Provider] - 1-2 days Jose Humphrey MD [STAFF PHYSICIAN] - 1-2 days Time of Disposition: 12:25
[2021-09-02 12:48] VITALS: BP 134/78; PULSE 78; TEMP 98.2
== END 2021-09-02 12:47 | disposition home or self-care (01) ==
LOC: EC 11:05
DX: M79.605 Pain in left leg (principal); M79.89 Other specified soft tissue disorders; I10 Essential (primary) hypertension; M19.90 Unspecified osteoarthritis, unspecified site; Z88.8 Allergy status to other drugs, medicaments and biological substances; Z91.041 Radiographic dye allergy status; Z79.899 Other long term (current) drug therapy
CPT/HCPCS: 99283

== ENCOUNTER → 2021-09-12 | Outpatient (CLI) | payer MEDICARE, OTHER ==
[2021-09-12 18:11] LABS: HCT 37.6 % (37.2-46.3); HGB 11.6 g/dL (12.0-15.0); MCH 25.6 pg (27.0-32.0); MCHC 30.9 g/dL (32.0-37.0); MCV 82.8 fL (80.0-97.0); Mean Platelet Volume 9.5 fL (9.5-12.2); NRBC Per 100 WBC 0 /100 WBCS (0.0-0.0); Platelet Count 339 X 10*3/uL (140-440); RBC 4.54 X 10*6/uL (4.10-5.20); RDW 13.4 % (11.5-14.5); WBC 5.89 X 10*3/uL (4.50-10.00)
[2021-09-12 18:17] LABS: African American GFR (CKD) 114.6 (60.0-200.0); Anion Gap 10.6 mmol/L (10.00-18.00); Blood Urea Nitrogen 14.3 mg/dL (9.0-27.0); Carbon Dioxide 25.4 mmol/L (20.0-27.5); Non-African American GFR(CKD) 98.9 (60.0-200.0); Potassium 4.3 mmol/L (3.5-5.5)
== END | disposition home or self-care (01) ==
LOC: LABPAT 12:15
PROVIDERS: ATTEND Internal Medicine Interventional Cardiology
DX: Z01.812 Encounter for preprocedural laboratory examination (principal); R60.0 Localized edema
CPT/HCPCS: 36415; 80051; 82565; 84520; 85027

== ENCOUNTER 2021-09-26 10:22 | Day surgery (SDC) | payer MEDICARE, OTHER ==
[2021-09-20 11:05] VITALS: BMI 34.3
[~2021-09-26 10:22] MED LIST changes: +ALPRAZolam 0.25 MG TAB PO PRN; +ASPIRIN 325 MG TAB PO PRN; +HEPARIN SODIUM,PORCINE 10,000 UNIT in SODIUM CHLORIDE 0.9% 1,000 ML IRRIGATION PRN; +HEPARIN SODIUM,PORCINE 2,500 UNIT in SODIUM CHLORIDE 0.9% 250 ML IRRIGATION PRN; -SODIUM CHLORIDE 0.9% 1,000 ML IV SCH; +SODIUM CHLORIDE 0.9% 1,000 ML in EMPTY BAG 1 BAG IV ONE; +ZOLPIDEM 5 MG TAB PO PRN
[2021-09-26] MEDS ORDERED: SODIUM CHLORIDE 0.9% 1,000 ML IV ONE (11:19)
[2021-09-26] MEDS ORDERED: fentaNYL (PF) 50 MCG/ML 2 ML AMP ONE ×2 (11:43→12:28)
[2021-09-26] MEDS: fentaNYL (PF) 50 MCG/ML 2 ML AMP IV ONE ×4 (11:57→12:48)
[2021-09-26] MEDS ORDERED: MIDAZOLAM 2 MG/2 ML VIAL IV ONE (11:57)
[2021-09-26] MEDS: LIDOCAINE 1% INJ 10MG/ML (30 ML VIAL-PF) SQ ONE ×2 (11:57→12:02)
[2021-09-26] MEDS: MIDAZOLAM 2 MG/2 ML VIAL IV ONE ×2 (12:01→12:27)
[2021-09-26] MEDS ORDERED: HEPARIN SODIUM 1,000 UN/ML (10ML VL) ONE (12:03)
[2021-09-26] MEDS: HEPARIN SODIUM 1,000 UN/ML (10ML VL) IV ONE ×2 (12:06→12:35)
[2021-09-26] MEDS ORDERED: CLOPIDOGREL 75 MG TAB ONE (12:45)
[2021-09-26] MEDS ORDERED: CLOPIDOGREL 75 MG TAB PO ONE (12:49)
[2021-09-26] MEDS ORDERED: IOPAMIDOL-370 100ML BTL INJ ONE (12:49)
[2021-09-26] MEDS ORDERED: SODIUM CHLORIDE 0.9% 1,000 ML in EMPTY BAG 1 BAG IV SCH (13:00)
[2021-09-26] MEDS ORDERED: NALOXONE 0.4 MG/ML 1 ML VIAL IVP PRN (13:00)
[2021-09-26] MEDS ORDERED: ONDANSETRON 4 MG/2 ML VIAL ONE (13:01)
[2021-09-26] MEDS ORDERED: ONDANSETRON 4 MG/2 ML VIAL IVP ONE (13:03)
[2021-09-26 15:43] LABS: Basophils # (A) 0.1 k/uL (0-0.2); Basophils % (A) 1 %; Eosinophils # (A) 0.2 k/uL (0-0.7); Eosinophils % (A) 3 %; HCT 36.8 % (34.0-46.0); HGB 12.2 gm/dL (11.4-16.0); Lymphocytes # (A) 1.9 k/uL (1.0-4.8); Lymphocytes % (A) 27 %; MCH 27.1 pg (25.0-35.0); MCV 82.3 fL (80.0-100.0); Monocytes # (A) 0.5 k/uL (0-1.0); Monocytes % (A) 7 %; Neutrophils # (A) 4.2 k/uL (1.3-7.7); Neutrophils % (A) 61 %; Platelet Count 248 k/uL (150-450); RBC 4.48 m/uL (3.80-5.40); RDW 13.8 % (11.5-15.5)
[2021-09-26 15:52] LABS: African American GFR (CKD) >90 (>60 ml/min/1.73 sqM); Anion Gap 9 mmol/L; Blood Urea Nitrogen 15 mg/dL (7-17); Calcium 8.9 mg/dL (8.4-10.2); Carbon Dioxide 26 mmol/L (22-30); Chloride 102 mmol/L (98-107); Glucose 105 mg/dL (74-99); Non-African American GFR(CKD) >90 (>60 ml/min/1.73 sqM); Sodium 137 mmol/L (137-145)
[2021-09-26] MEDS: HYDROcodone/APAP 5-325MG 1 EACH TAB PO PRN ×2 (15:55→22:22)
[2021-09-27 02:22] VITALS: RESP 18
[2021-09-27] MEDS: HYDROcodone/APAP 5-325MG 1 EACH TAB PO PRN (07:08)
[2021-09-27 07:30] VITALS: BP 131/84; TEMP 97.4
--- NOTE | 2021-09-27 09:24 | P.PCN ---
Date of Procedure: 09/26/21 Operative Findings: Percutaneous venous intervention Performing physician Jose Humphrey MD Procedure performed #1 intravascular ultrasound of the IVC well as as bilateral common iliac veins and external iliac veins #2 successful stenting of the bilateral common iliac veins and external iliac veins using 12 mm x 120 mm self-expandable stent with an excellent angiographic results #3 and angiogram of the IVC as well as bilateral common iliac veins and external iliac veins #4 ultrasound guidance access of the right and left common femoral vein. Indication This is a 51-year-old female patient who continues to have left lower extremities edema. DVT was ruled out. Heart failure, systolic and diastolic, was also ruled out. In the light of that MayTurner was suspected. The patient was brought today for an angiogram as well as intravascular ultrasound and possible intervention Approach Right and left common femoral veins Complication None Level of sedation Moderate sedation length of 53 minutes Procedure description After obtaining an informed consent the patient was brought to the cardiac manager cardiac cath. The right and left common femoral veins were cannulated using micropuncture technique under ultrasound guidance, subsequently a place 8-Greenlandic sheath at the right and left common femoral veins. Anticoagulation was initiated using heparin with continuous ACT monitoring. I did after that and angiogram of the right and left common and external iliac veins as well as IVC Subsequently I did advanced an 035 wire to the inferior vena cava bilaterally. Then I did intravascular ultrasound of the IVC as well as bilateral common and external iliac veins. After that I did intervene on the right and left common and external iliac veins. Measurements Right common iliac vein, an area stenosis of 0% Right external iliac vein and area stenosis was 35% Left common iliac vein and area stenosis was 65% Left external iliac vein and area stenosis was 44% An intervention Initially I did balloon angioplasty of the right and left common and external iliac veins using 12 mm x 40 mm balloon. The balloon was inflated under its nominal pressure. Subsequently I deployed simultaneously 12 mm x 120 mm self- expandable stent where the stent were positioned initially under fluoroscopy guidance and deployed under fluoroscopy guidance Subsequently intravascular ultrasound was performed and showed good opposition of the stents bilaterally. Final angiogram was also performed. Postprocedure management Removing the sheath from the right and left common femoral veins Standard groin care Dual antiplatelet therapy
--- NOTE | 2021-09-27 09:26 | P.DS ---
Providers Attending physician: Jose Humphrey Primary care physician: Nish Stringer [facility] Course: The patient is a 51-year-old female patient who was experiencing persistent left lower extremity edema. DVT was ruled out. Heart failure/cardiomyopathy was ruled out as well. 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 For that reason she was brought yesterday and underwent intravascular ultrasound of the IVC as well as bilateral common and external iliac veins. 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 She underwent successful kissing stents. She was seen this morning. She is asymptomatic. She is hemodynamically stable. Soft and nontender and without any bruises. The patient is going to be discharged home and I'll follow-up with her in a week. Plan - Discharge Summary Discharge Rx Participant: No New Discharge Prescriptions: No Action carvediloL [Coreg] 12.5 mg PO BID Amitriptyline HCl [Elavil] 50 mg PO HS Oxybutynin Xl [Ditropan XL] 5 mg PO DAILY Aspirin 81 mg PO ONCE Potassium Chloride ER [K-Dur 10] 10 meq PO DAILY #7 tab Magnesium Oxide [Mag-Ox] 400 mg PO DAILY #30 tab Discharge Medication List carvediloL [Coreg] 12.5 mg PO BID 10/12/19 [History] Amitriptyline HCl [Elavil] 50 mg PO HS 11/24/20 [History] Oxybutynin Xl [Ditropan XL] 5 mg PO DAILY 04/10/21 [History] Magnesium Oxide [Mag-Ox] 400 mg PO DAILY #30 tab 06/21/21 [Rx] Potassium Chloride ER [K-Dur 10] 10 meq PO DAILY #7 tab 06/21/21 [Rx] Aspirin 81 mg PO ONCE 09/26/21 [History] Follow up Appointment(s)/Referral(s): Jose Humphrey MD [STAFF PHYSICIAN] - 10/05/21 10:30 am
[2021-09-27 09:32] VITALS: PULSE 62
--- NOTE | 2021-09-27 12:56 | IR ---
Fluoroscopy HISTORY: Swelling in legs 8.9 minutes fluoroscopy time supplied to the referring clinician. 383 intraoperative C-arm images do cument the procedure. See dictated report from cardiology.
== END 2021-09-27 11:20 | disposition home or self-care (01) ==
LOC: CATHCVL 10:22 → 6NMEDSUR 12:58 → CATHCVL 09-27 11:20
PROVIDERS: ATTEND Internal Medicine Interventional Cardiology
DX: I87.1 Compression of vein (principal); I10 Essential (primary) hypertension; D86.0 Sarcoidosis of lung; Z88.6 Allergy status to analgesic agent; Z88.5 Allergy status to narcotic agent; Z79.899 Other long term (current) drug therapy; Z79.82 Long term (current) use of aspirin
CPT/HCPCS: 37238; 37239; 37252; 37253; 80048; 85025; 87635; C1894 ×2; C1769 ×4; C1753; C1725; C1760; C1876; J2250; J2405; J2001; J3010; J1644; Q9967

== ENCOUNTER 2022-01-31 18:44 | Observation (INO) | payer MEDICARE, OTHER ==
[2022-01-31] MEDS ORDERED: ASPIRIN 81 MG PO STA (19:22)
--- NOTE | 2022-01-31 19:25 | ED ---
Chest Pain HPI - General Chief Complaint: Chest Pain Stated Complaint: Chest pain Time Seen by Provider: 01/31/22 19:16 Source: patient, RN notes reviewed Mode of arrival: ambulatory Limitations: no limitations - History of Present Illness Initial Comments: This is a pleasant 51-year-old female with history of sarcoidosis and previous chest pains. Patient also has a history of hypertension. She presents to the emergency department stating that she has had intermittent chest pain since yesterday. She describes a sharp pain to her left anterior chest which is unrelated to activity or exertion. No alleviating or exacerbating factors. Patient states it comes for about 10 minutes at a time then will resolve. Patient states this happened about 5 times per hour. No real associated symptoms. Patient does have chronic shortness of breath which she relates to sarcoidosis. Patient recently had an appointment with her health care manager. Patient has had no recent cardiology testing. Positive family history of heart disease in her mother who had coronary artery bypass grafting at age 73. No headache, no fever or chills, no changes in vision or hearing, no sore throat or difficulty with speech, no neck pain,no abdominal pain, no nausea or vomiting, no changes in urination or bowel movements, no numbness or tingling, no extremity pain, no skin rashes or lesions. Past medical, surgical, social, and family history reviewed. - Related Data Home Medications Medication Instructions Recorded Confirmed carvediloL [Coreg] 12.5 mg PO BID 10/12/19 01/31/22 Amitriptyline HCl [Elavil] 50 mg PO HS 11/24/20 01/31/22 Oxybutynin Xl [Ditropan XL] 5 mg PO DAILY 04/10/21 01/31/22 Furosemide [Lasix] 20 mg PO DAILY 01/31/22 01/31/22 Ibuprofen [Motrin] 600 mg PO Q8HR PRN 01/31/22 01/31/22 Ondansetron Odt [Zofran Odt] 4 mg PO Q12HR PRN 01/31/22 01/31/22 Previous Rx's Medication Instructions Recorded Magnesium Oxide [Mag-Ox] 400 mg PO DAILY #30 tab 06/21/21 Clopidogrel [Plavix] 75 mg PO DAILY #90 tablet 09/27/21 Allergies Allergy/AdvReac Type Severity Reaction Status Date / Time meperidine HCl [From Demerol] Allergy Rash/Hives/ Verified 01/31/22 21:22 Swelling naproxen sodium [From Aleve] Allergy Rash/Hives/ Verified 01/31/22 21:22 Swelling red dye AdvReac migraines Verified 01/31/22 21:22 Review of Systems ROS Statement: Those systems with pertinent positive or pertinent negative responses have been documented in the HPI. ROS Other: All systems not noted in ROS Statement are negative. EKG Findings - EKG Comments: EKG Findings:: EKG done at 1916. ED attending physician reveals sinus rhythm with a rate of 75. Intervals are normal. Normal axis. QS morphology. Non specific T-wave abnormality according computerized situation. When compared to the previous study from 06/19/2021 there are no definitive acute changes however the patient does have very minimal change and T-wave morphology. Patient does have a minimal T-wave inversion in aVL which is seen on the previous study. Past Medical History Past Medical History: Chest Pain / Angina, Hypertension, Osteoarthritis (OA), Respiratory Disorder, Syncope Additional Past Medical History / Comment(s): hx. of Vocal cord paralysis after lung biopsy, dr. 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 per pt she had covid x2, (last infection 11/2020) History of Any Multi-Drug Resistant Organisms: None Reported Past Surgical History: Adenoidectomy, Cholecystectomy, Heart Catheterization, Hysterectomy, Joint Replacement, Orthopedic Surgery, Tonsillectomy Additional Past Surgical History / Comment(s): Repair of vocal cord paralysis, right knee arthroscopy, left rotator cuff repair, left knee replaced, LEFT LUNG NODULE REMOVAL, Loop recorder with removal, right knee replaced May 2020, had right knee manipulation 06-26-20 @ [facility]. Past Anesthesia/Blood Transfusion Reactions: Postoperative Nausea & Vomiting (PONV) Past Psychological History: No Psychological Hx Reported Smoking Status: Never smoker Past Alcohol Use History: None Reported Past Drug Use History: None Reported - Past Family History Mother Family Medical History: Diabetes Mellitus Additional Family Medical History / Comment(s): Mother is alive, at 71, recently had cardiac surgery (95% occlusion) with history of diabetes. Father History Unknown: Yes Additional Family Medical History / Comment(s): Patient does not have any contact with her father and does not know any of his medical history. Brother(s) Additional Family Medical History / Comment(s): Patient has 1 brother but does not know his medical history. Patient does not have any sisters. Patient has 2 sons no major medical problems. General Exam Limitations: no limitations General appearance: alert, in no apparent distress Head exam: Present: atraumatic, normocephalic, normal inspection Eye exam: Present: normal appearance, PERRL, EOMI. Absent: scleral icterus, conjunctival injection, periorbital swelling ENT exam: Present: normal exam, mucous membranes moist Neck exam: Present: normal inspection. Absent: tenderness, meningismus, lymphadenopathy Respiratory exam: Present: normal lung sounds bilaterally. Absent: respiratory distress, wheezes, rales, rhonchi, stridor Cardiovascular Exam: Present: regular rate, normal rhythm, normal heart sounds. Absent: systolic murmur, diastolic murmur, rubs, gallop, clicks GI/Abdominal exam: Present: soft, normal bowel sounds. Absent: distended, tenderness, guarding, rebound, rigid Extremities exam: Present: normal inspection, full ROM, normal capillary refill. Absent: tenderness, pedal edema, joint swelling, calf tenderness Back exam: Present: normal inspection Neurological exam: Present: alert, oriented X3, CN II-XII intact Psychiatric exam: Present: normal affect, normal mood Skin exam: Present: warm, dry, intact, normal color. Absent: rash Course Vital Signs 01/31/22 01/31/22 19:04 20:52 Temperature 98.4 F Pulse Rate 78 68 Respiratory 20 16 Rate Blood Pressure 127/82 127/76 O2 Sat by Pulse 100 98 Oximetry - Reevaluation(s) Reevaluation #1: 01/31/22 20:56 Medical record is reviewed Patient essentially unchanged. Hemodynamically stable. Troponin is negative. Call be placed to admit the patient for observation and repeat troponins. Cardiology consultation. Patient is informed of results and questions answered Patient in no distress Reevaluation #2: 01/31/22 21:42 All findings discussed with the patient. Observation discussed. Case discussed with the physician from [facility]. Cardiology consultation placed. Chest Pain MDM - [facility] Patient will be admitted for atypical chest pain. Troponin negative. D-dimer negative. Patient informed. I did interpret the x-rays myself. No acute changes. Concur with radiology interpretation. The case was discussed in detail with ED attending physician. Presentation, findings, treatment plan discussed in detail. Supervising physician is Dr. Contreras Disposition Clinical Impression: Atypical chest pain, Acute electrocardiogram changes Disposition: ADMITTED IP TO THIS [facility] Condition: Stable Is patient prescribed a controlled substance at d/c from ED?: No Referrals: Nish Baez MD [Primary Care Provider] - 1-2 days Time of Disposition: 20:56 Decision to Admit Reason: Admit from EC Decision Time: 20:56
--- NOTE | 2022-01-31 20:20 | XR ---
EXAMINATION: XR chest 2V: 01/31/2022 7:49 PM CLINICAL INDICATION: Chest Pain TECHNIQUE: Departmental protocol COMPARISON: 06/19/2021 AP upright portable FINDINGS: The lungs are clear. The pleural spaces are negative. The cardiac silhouette is not enlarged. The remainder of the mediastinal silhouette is unremarkable. The skeletal structures and soft tissues are negative for acute findings. IMPRESSION: No acute process.
[2022-01-31 20:23] LABS: Basophils # (A) 0.1 k/uL (0-0.2); Basophils % (A) 1 %; Eosinophils # (A) 0.2 k/uL (0-0.7); Eosinophils % (A) 2 %; HCT 42.6 % (34.0-46.0); HGB 14.7 gm/dL (11.4-16.0); Lymphocytes % (A) 20 %; MCHC 34.5 g/dL (31.0-37.0); Mean Platelet Volume 7.5; Monocytes # (A) 0.4 k/uL (0-1.0); Monocytes % (A) 4 %; Neutrophils # (A) 7.1 k/uL (1.3-7.7); Neutrophils % (A) 71 %; Platelet Count 299 k/uL (150-450); RBC 5.26 m/uL (3.80-5.40); RDW 13.3 % (11.5-15.5)
[2022-01-31 20:35] LABS: ALT 47 U/L (4-34); AST 44 U/L (14-36); African American GFR (CKD) >90 (>60 ml/min/1.73 sqM); Albumin 5.1 g/dL (3.5-5.0); Alkaline Phosphatase 139 U/L (38-126); Anion Gap 12 mmol/L; Blood Urea Nitrogen 20 mg/dL (7-17); Calcium 9.9 mg/dL (8.4-10.2); Carbon Dioxide 26 mmol/L (22-30); Chloride 101 mmol/L (98-107); Glucose 94 mg/dL (74-99); Magnesium 1.9 mg/dL (1.6-2.3); Non-African American GFR(CKD) >90 (>60 ml/min/1.73 sqM); Potassium 4.3 mmol/L (3.5-5.1); Sodium 139 mmol/L (137-145); Total Bilirubin 0.9 mg/dL (0.2-1.3); Total Protein 8.1 g/dL (6.3-8.2)
[2022-01-31 20:38] LABS: INR 0.9 (<1.2); Partial Thromboplastin Time 25.5 sec (22.0-30.0)
[2022-01-31] MEDS ORDERED: NALOXONE 0.4 MG/ML 1 ML VIAL IV PRN (21:39)
[2022-01-31] MEDS ORDERED: MORPHINE SULFATE 4 MG/ML SYRINGE IV PRN (21:39)
[2022-01-31] MEDS ORDERED: ONDANSETRON 4 MG/2 ML VIAL IVP PRN (21:39)
[2022-01-31] MEDS ORDERED: ACETAMINOPHEN TAB 325 MG TAB PO PRN (21:39)
[2022-01-31] MEDS: HEPARIN SODIUM,PORCINE/PF 5,000 UNIT/0.5 ML SYRINGE SQ SCH (23:51)
[2022-02-01 02:36] VITALS: RESP 16
[2022-02-01] MEDS ORDERED: ATORVASTATIN 80 MG TAB PO SCH (03:23)
--- NOTE | 2022-02-01 03:24 | P.HPIM ---
History of Present Illness H&P Date: 01/31/22 The patient is a 51-year-old female with a PMH of sarcoidosis who presents to the emergency room with complaints of chest discomfort. The patient reports that she has been experiencing intermittent left-sided and substernal chest discomfort for the last 1-2 days. Reports that it is sharp and aching in nature, nonexertional, with associated shortness of breath, nausea, diaphoresis. Reports that it is nonradiating, occurring a few times in our, lasting for 1-2 minutes at a time. Reports not having any episodes after arrival at the emergency room. At time of interview, stated that she felt back at her baseline. Chest x-ray in the emergency room was unremarkable. EKG revealed si nus rhythm with T-wave inversion in inferior leads 3 and aVF. Laboratory evaluation was remarkable for troponin of less than 0.012. Review of systems: Pertinent positives and negatives as discussed in HPI, a complete review of systems was performed and all other systems are negative. Physical examination: General: non toxic, no distress, appears at stated age, obese Derm: no unusual rashes/lesions, warm Head: atraumatic, normocephalic, symmetric Eyes: EOMI, no lid lag, anicteric sclera, pupils equal round reactive to light ENT: Nose and ears atraumatic Neck: No cervical lymphadenopathy, trachea midline, supple Mouth: no lip lesion, mucus membranes moist Cardiovascular: S1S2 reg, no murmur, positive dorsalis pedis pulse bilateral, no edema Lungs: CTA bilateral, no rhonchi, no rales, no accessory muscle use Abdominal: soft, nontender to palpation, no guarding Ext: muscle strength 5 out of 5 in all 4 extremities grossly, no gross muscle atrophy, no contractures, Neuro: CN II-XI grossly intact, no gross focal neuro deficits Psych: Alert, oriented, appropriate affect Assessment/plan Chest pain, rule out ACS -Cardiology consulted -Cardiac monitoring -Trend troponin -Continue aspirin, statin Chronic conditions: Sarcoidosis -Continue home meds DVT prophylaxis -Heparin subcu The patient is admitted with an anticipated less than 2 midnight stay for evaluation of chest pain. CODE STATUS: Full Code Discussed with: Patient Anticipated discharge date: in am Anticipated discharge place: Home Past Medical History Past Medical History: Chest Pain / Angina, Hypertension, Osteoarthritis (OA), Respiratory Disorder, Syncope Additional Past Medical History / Comment(s): hx. of Vocal cord paralysis after lung biopsy, dr. sawant put a voice box on vocal cords, left lung nodules related to SARCOIDOSIS, SOB w/exertion, salivary gland infection. per pt she had covid x2, (last infection 11/2020) History of Any Multi-Drug Resistant Organisms: None Reported Past Surgical History: Adenoidectomy, Cholecystectomy, Heart Catheterization, Hysterectomy, Joint Replacement, Orthopedic Surgery, Tonsillectomy Additional Past Surgical History / Comment(s): Repair of vocal cord paralysis, left rotator cuff repair, bilateral knee replaced, LEFT LUNG NODULE REMOVAL, Loop recorder with removal, right knee replaced May 2020, had right knee manipulation 06-26-20 @ [facility]. bilateral leg stents placed in september 26/2022 Past Anesthesia/Blood Transfusion Reactions: Postoperative Nausea & Vomiting (PONV) Past Psychological History: No Psychological Hx Reported Smoking Status: Never smoker Past Alcohol Use History: None Reported Additional Past Alcohol Use History / Comment(s): Patient is a lifelong nonsm oker. previous marijuana use She uses alcohol occasionally on the weekends. Past Drug Use History: Marijuana Additional Drug Use History / Comment(s): occasional use - Past Family History Mother Family Medical History: Diabetes Mellitus Additional Family Medical History / Comment(s): Mother is alive, at 71, recently had cardiac surgery (95% occlusion) with history of diabetes. Father History Unknown: Yes Additional Family Medical History / Comment(s): Patient does not have any contact with her father and does not know any of his medical history. Brother(s) Additional Family Medical History / Comment(s): Patient has 1 brother but does not know his medical history. Patient does not have any sisters. Patient has 2 sons no major medical problems. Medications and Allergies Home Medications Medication Instructions Recorded Confirmed Type carvediloL [Coreg] 12.5 mg PO BID 10/12/19 01/31/22 History Amitriptyline HCl [Elavil] 50 mg PO HS 11/24/20 01/31/22 History Oxybutynin Xl [Ditropan XL] 5 mg PO DAILY 04/10/21 01/31/22 History Magnesium Oxide [Mag-Ox] 400 mg PO DAILY #30 tab 06/21/21 01/31/22 Rx Clopidogrel [Plavix] 75 mg PO DAILY #90 tablet 09/27/21 01/31/22 Rx Furosemide [Lasix] 20 mg PO DAILY 01/31/22 01/31/22 History Ibuprofen [Motrin] 600 mg PO Q8HR PRN 01/31/22 01/31/22 History Ondansetron Odt [Zofran Odt] 4 mg PO Q12HR PRN 01/31/22 01/31/22 History Allergies Allergy/AdvReac Type Severity Reaction Status Date / Time meperidine HCl [From Demerol] Allergy Rash/Hives/ Verified 01/31/22 21:22 Swelling naproxen sodium [From Aleve] Allergy Rash/Hives/ Verified 01/31/22 21:22 Swelling red dye AdvReac migraines Verified 01/31/22 21:22 Physical Exam Vitals: Vital Signs Temp Pulse Pulse Resp BP BP Pulse Ox 01/31/22 23:13 98.2 F 73 17 112/73 97 01/31/22 22:16 86 16 124/84 97 01/31/22 20:52 68 16 127/76 98 01/31/22 19:30 85 01/31/22 19:04 98.4 F 78 20 127/82 100 Intake and Output 01/31/22 01/31/22 02/01/22 14:59 22:59 06:59 Other: Weight 94.801 kg 94.801 kg Results CBC & Chem 7: 01/31/22 19:26 01/31/22 19:26 Labs: Abnormal Lab Results - Last 24 Hours (Table) 01/31/22 Range/Units 19:26 BUN 20 H (7-17) mg/dL AST 44 H (14-36) U/L ALT 47 H (4-34) U/L Alkaline Phosphatase 139 H (38-126) U/L Albumin 5.1 H (3.5-5.0) g/dL Thrombosis Risk Factor Assmnt - Choose All That Apply Any of the Below Risk Factors Present?: Yes Each Factor Represents 1 point: Age 41-60 years, Obesity (BMI >25) Other Risk Factors: No Other congenital or acquired thrombophilia - If yes, enter type in comment: No Thrombosis Risk Factor Assessment Total Risk Factor Score: 2 Thrombosis Risk Factor Assessment Level: Low Risk
[2022-02-01 05:33] LABS: Basophils % (A) 0 %; Eosinophils # (A) 0.1 k/uL (0-0.7); Eosinophils % (A) 2 %; HCT 39.2 % (34.0-46.0); HGB 13.1 gm/dL (11.4-16.0); Lymphocytes # (A) 1.9 k/uL (1.0-4.8); Lymphocytes % (A) 24 %; MCH 27.4 pg (25.0-35.0); MCHC 33.3 g/dL (31.0-37.0); Mean Platelet Volume 7.3; Monocytes # (A) 0.6 k/uL (0-1.0); Monocytes % (A) 7 %; Neutrophils # (A) 5.1 k/uL (1.3-7.7); Neutrophils % (A) 64 %; Platelet Count 290 k/uL (150-450); RBC 4.78 m/uL (3.80-5.40); WBC 7.9 k/uL (3.8-10.6)
[2022-02-01 05:45] LABS: African American GFR (CKD) >90 (>60 ml/min/1.73 sqM); Anion Gap 8 mmol/L; Blood Urea Nitrogen 23 mg/dL (7-17); Calcium 9.1 mg/dL (8.4-10.2); Carbon Dioxide 27 mmol/L (22-30); Chloride 102 mmol/L (98-107); Glucose 99 mg/dL (74-99); Magnesium 1.9 mg/dL (1.6-2.3); Non-African American GFR(CKD) >90 (>60 ml/min/1.73 sqM); Potassium 3.9 mmol/L (3.5-5.1); Sodium 137 mmol/L (137-145)
[2022-02-01 07:36] VITALS: BP 119/80; PULSE 56; TEMP 97.6
[2022-02-01] MEDS ORDERED: FUROSEMIDE 20 MG TAB PO SCH (09:00)
[2022-02-01] MEDS ORDERED: MAGNESIUM OXIDE 400 MG TAB PO SCH (09:00)
[2022-02-01] MEDS ORDERED: OXYBUTYNIN XL 5 MG TAB.ER.24 PO SCH (09:00)
[2022-02-01] MEDS ORDERED: CLOPIDOGREL 75 MG TAB PO SCH (09:00)
[2022-02-01] MEDS ORDERED: carvediloL 12.5 MG TAB PO SCH (09:00)
--- NOTE | 2022-02-01 09:27 | P.CRDCN ---
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 Patient follows in the office with Dr. Humphrey. We have been asked to see the patient in consultation for chest pain. Patient examined at the bedside. Patient was seen in the office by Dr. Franco on 01/30/2020. She states after she went home she started having chest pain that is worse than usual. She states she woke up yesterday having r eally bad chest discomfort. She describes it as a pressure type sensation. She states that she just tried to lay down and rest. * EKG reveals sinus mechanism with TWI in inferior leads, similiar to previous EKG * Chest xray negative for acute process * Laboratory data: WBC 7.9. Hemoglobin 13.1. Platelet count 290. D-dimer 0.36. Sodium 137. Potassium 3.9. BUN 23. Creatinine 0.66. Troponin negative 3. * Current home cardiac medications include Lasix 20 mg daily, Plavix 75 mg daily, carvedilol 12.5 mg twice a day * Most recent echocardiogram obtained in June 2021 revealed normal ejection fraction, mild LVH, mild MR, and aortic sclerosis * Cardiac catheterization history: October 2019 revealing normal coronary arteries REVIEW OF SYSTEMS: At the time of my exam: CONSTITUTIONAL: Denies fever or chills. HEENT: Denies blurred vision, vision changes, or eye pain. Denies hemoptysis CARDIOVASCULAR: Denies chest pain. Denies orthopnea. Denies PND. Denies p alpitations RESPIRATORY: Denies shortness of breath. GASTROINTESTINAL: Denies abdominal pain. Denies nausea or vomiting. HEMATOLOGIC: Denies bleeding disorders. GENITOURINARY: Denies any blood in urine. SKIN: Denies pruitis. Denies rash. PHYSICAL EXAM: VITAL SIGNS: Reviewed. GENERAL: Well-developed in no acute distress. HEENT: Head is normocephalic. Pupils are equal, round. Sclerae anicteric. Mucous membranes of the mouth are moist. Neck supple. No JVD or thyromegaly LUNGS: Respirations even and unlabored. Lungs essentially clear to auscultation bilaterally. HEART: Regular rate and rhythm. S1 and S2 heard. ABDOMEN: Soft. Nondistended. Nontender. EXTREMITIES: Normal range of motion. No clubbing or cyanosis. Peripheral pulses intact. No lower extremity edema NEUROLOGIC: Awake and alert. Oriented x 3. 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 Franco, patient may be discharged home today from a cardiac standpoint and follow up on an outpatient basis Nurse practitioner note has been reviewed by physician. Signing provider agrees with the documented findings, assessment, and plan of care. Past Medical History Past Medical History: Chest Pain / Angina, Hypertension, Osteoarthritis (OA), Respiratory Disorder, Syncope Additional Past Medical History / Comment(s): hx. of Vocal cord paralysis after lung biopsy, dr. sawant put a voice box on vocal cords, left lung nodules related to SARCOIDOSIS, SOB w/exertion, salivary gland infection. per pt she had covid x2, (last infection 11/2020) History of Any Multi-Drug Resistant Organisms: None Reported Past Surgical History: Adenoidectomy, Cholecystectomy, Heart Catheterization, Hysterectomy, Joint Replacement, Orthopedic Surgery, Tonsillectomy Additional Past Surgical History / Comment(s): Repair of vocal cord paralysis, left rotator cuff repair, bilateral knee replaced, LEFT LUNG NODULE REMOVAL, Loop recorder with removal, right knee replaced May 2020, had right knee manipulation 06-26-20 @ [facility]. bilateral leg stents placed in september 26/2022 Past Anesthesia/Blood Transfusion Reactions: Postoperative Nausea & Vomiting (P ONV) Past Psychological History: No Psychological Hx Reported Smoking Status: Never smoker Past Alcohol Use History: None Reported Additional Past Alcohol Use History / Comment(s): Patient is a lifelong nonsmoker. previous marijuana use She uses alcohol occasionally on the weekends. Past Drug Use History: Marijuana Additional Drug Use History / Comment(s): occasional use - Past Family History Mother Family Medical History: Diabetes Mellitus Additional Family Medical History / Comment(s): Mother is alive, at 71, recently had cardiac surgery (95% occlusion) with history of diabetes. Father History Unknown: Yes Additional Family Medical History / Comment(s): Patient does not have any contact with her father and does not know any of his medical history. Brother(s) Additional Family Medical History / Comment(s): Patient has 1 brother but does not know his medical history. Patient does not have any sisters. Patient has 2 sons no major medical problems. Medications and Allergies Home Medications Medication Instructions Recorded Confirmed Type carvediloL [Coreg] 12.5 mg PO BID 10/12/19 01/31/22 History Amitriptyline HCl [Elavil] 50 mg PO HS 11/24/20 01/31/22 History Oxybutynin Xl [Ditropan XL] 5 mg PO DAILY 04/10/21 01/31/22 History Magnesium Oxide [Mag-Ox] 400 mg PO DAILY #30 tab 06/21/21 01/31/22 Rx Clopidogrel [Plavix] 75 mg PO DAILY #90 tablet 09/27/21 01/31/22 Rx Furosemide [Lasix] 20 mg PO DAILY 01/31/22 01/31/22 History Ibuprofen [Motrin] 600 mg PO Q8HR PRN 01/31/22 01/31/22 History Ondansetron Odt [Zofran ODT] 4 mg PO Q12HR PRN 01/31/22 01/31/22 History predniSONE 0 mg PO DIRECTED #42 tab 02/01/22 Rx Allergies Allergy/AdvReac Type Severity Reaction Status Date / Time meperidine HCl [From Demerol] Allergy Rash/Hives/ Verified 01/31/22 21:22 Swelling naproxen sodium [From Aleve] Allergy Rash/Hives/ Verified 01/31/22 21:22 Swelling red dye AdvReac migraines Verified 01/31/22 21:22 Physical Exam Vitals: Vital Signs Temp Pulse Pulse Resp BP BP Pulse Ox 02/01/22 07:35 97.6 F 56 L 16 119/80 98 02/01/22 02:14 97.5 F L 68 16 111/60 97 01/31/22 23:13 98.2 F 73 17 112/73 97 01/31/22 22:16 86 16 124/84 97 01/31/22 20:52 68 16 127/76 98 01/31/22 19:30 85 01/31/22 19:04 98.4 F 78 20 127/82 100 Intake and Output 01/31/22 02/01/22 02/01/22 22:59 06:59 14:59 Other: # Voids 1 Weight 94.801 kg 94.801 kg Results 02/01/22 05:17 02/01/22 05:17 Cardiac Enzymes 01/31/22 01/31/22 01/31/22 Range/Units 19:26 19:26 22:37 AST 44 H (14-36) U/L Troponin I <0.012 <0.012 (0.000-0.034) ng/mL 02/01/22 Range/Units 01:00 AST (14-36) U/L Troponin I <0.012 (0.000-0.034) ng/mL Coagulation 01/31/22 Range/Units 19:26 PT 10.0 (9.0-12.0) sec APTT 25.5 (22.0-30.0) sec CBC 01/31/22 02/01/22 Range/Units 19:26 05:17 WBC 10.0 7.9 (3.8-10.6) k/uL RBC 5.26 4.78 (3.80-5.40) m/uL Hgb 14.7 13.1 (11.4-16.0) gm/dL Hct 42.6 39.2 (34.0-46.0) % Plt Count 299 290 (150-450) k/uL Comprehensive Metabolic Panel 01/31/22 02/01/22 Range/Units 19:26 05:17 Sodium 139 137 (137-145) mmol/L Potassium 4.3 3.9 (3.5-5.1) mmol/L Chloride 101 102 (98-107) mmol/L Carbon Dioxide 26 27 (22-30) mmol/L BUN 20 H 23 H (7-17) mg/dL Creatinine 0.66 0.66 (0.52-1.04) mg/dL Glucose 94 99 (74-99) mg/dL Calcium 9.9 9.1 (8.4-10.2) mg/dL AST 44 H (14-36) U/L ALT 47 H (4-34) U/L Alkaline Phosphatase 139 H (38-126) U/L Total Protein 8.1 (6.3-8.2) g/dL Albumin 5.1 H (3.5-5.0) g/dL Current Medications Generic Name Dose Route Start Last Admin Trade Name Freq PRN Reason Stop Dose Admin Acetaminophen 650 mg 01/31/22 21:39 Acetaminophen Tab 325 Mg Tab PO Q6HR PRN Mild Pain or Fever > 100.5 Amitriptyline HCl 50 mg 02/01/22 21:00 Amitriptyline Hcl 50 Mg Tab PO HS [facility] Atorvastatin Calcium 80 mg 02/01/22 03:23 02/01/22 04:22 Atorvastatin 80 Mg Tab PO 80 mg HS [facility] Administration Carvedilol 12.5 mg 02/01/22 09:00 Carvedilol 12.5 Mg Tab PO BID-W/MEALS [facility] Clopidogrel Bisulfate 75 mg 02/01/22 09:00 Clopidogrel 75 Mg Tab PO DAILY [facility] Furosemide 20 mg 02/01/22 09:00 Furosemide 20 Mg Tab PO DAILY [facility] Heparin Sodium (Porcine) 5,000 unit 02/01/22 00:00 01/31/22 23:51 Heparin Sodium,Porcine/Pf 5,000 Unit/0.5 Ml Syringe SQ 5,000 unit Q8HR [facility] Administration Magnesium Oxide 400 mg 02/01/22 09:00 Magnesium Oxide 400 Mg Tab PO DAILY [facility] Morphine Sulfate 4 mg 01/31/22 21:39 Morphine Sulfate 4 Mg/Ml Syringe IV Q4HR PRN Severe Pain (Scale 7 to 10) Naloxone HCl 0.2 mg 01/31/22 21:39 Naloxone 0.4 Mg/Ml 1 Ml Vial IV Q2M PRN Opioid Reversal Ondansetron HCl 4 mg 01/31/22 21:39 Ondansetron 4 Mg/2 Ml Vial IVP Q8HR PRN Nausea And Vomiting Oxybutynin Chloride 5 mg 02/01/22 09:00 Oxybutynin Xl 5 Mg Tab.Er.24 PO DAILY [facility] Intake and Output 01/31/22 02/01/22 02/01/22 22:59 06:59 14:59 Other: # Voids 1 Weight 94.801 kg 94.801 kg 02/01/22 05:17 02/01/22 05:17
[2022-02-01] MEDS: HEPARIN SODIUM,PORCINE/PF 5,000 UNIT/0.5 ML SYRINGE SQ SCH (09:34)
--- NOTE | 2022-02-01 15:19 | P.DS ---
Providers Date of admission: 01/31/22 22:10 Expected date of discharge: 02/01/22 Attending physician: Tyra Pollack MD Consults: 01/31/22 21:39 Consult Physician Urgent Consulting Provider: Jose Humphrey Consult Reason/Comments: Atypical chest pain, nonspecific ECG changes Do you want consulting provider notified?: Yes, Notify in am Primary care physician: Nish Baez Hospital Course: Discharge Diagnosis: Chest pain, acute coronary syndrome ruled out Sarcoidosis, possible extrapulmonary manifestations Hypertension History of syncope Hospital Course: Patient is a 51-year-old female with known sarcoidosis, hypertension, and prior syncopal episodes who presented to the emergency department with complaints of chest pain. In the ER she underwent an extensive evaluation. Chest x-ray was unremarkable. EKG showed nonspecific T-wave changes, and troponin on arrival was negative. Patinet was placed in chest pain observation. Remainder for troponins were negative. She was seen by cardiology and cleared for discharge. Of note patient reports that her chest pain started after weaning steroids for a facial lesion. She reports that she has been dealing with a lesion on the left side of her jaw for the last several months. She seen multiple ENTs tried courses of antibiotics and treatment for salivary gland stone without success. She was then treated with steroids and had some resolution of this left sided face nodule. We discussed that this could possibly be an extrapulmonary manifestation of her sarcoidosis. I have suggested that she treat with a prolonged steroid taper and follow with Dr. Robledo. Patient is in agreement. Follow-up: Slow prednisone taper, Dr. Humphrey in 1 week, Dr. Robledo in 1 week Patient seen and examined at bedside. Still having some chest pressure and fullness. No other complaints currently. Hirsch speak about her left-sided facial lesion as noted above Vital signs reviewed and stable. General: nontoxic, no distress, appears at stated age Derm: warm, dry Head: atraumatic, normocephalic, symmetric Eyes: EOMI, no lid lag, anicteric sclera Mouth: no lip lesion, mucus membranes moist, small palpable nudule left sub mandibular space Cardiovascular: S1S2 reg, no murmur, positive posterior tibial pulse bilateral, Lungs: CTA bilateral, no rhonchi, no rales , no accessory muscle use Abdominal: soft, nontender to palpation, no guarding, no appreciable organomegaly Ext: no gross muscle atrophy, no edema, no contractures Neuro: CN II-XI grossly intact, no focal neuro deficits Psych: Alert, oriented, appropriate affect A total of 35 minutes of time were spent preparing this complex discharge summary. Patient was discharged on 02/01/22. Patient Condition at Discharge: Stable Plan - Discharge Summary Discharge Rx Participant: No New Discharge Prescriptions: New predniSONE 0 mg PO DIRECTED #42 tab Continue carvediloL [Coreg] 12.5 mg PO BID Amitriptyline HCl [Elavil] 50 mg PO HS Oxybutynin Xl [Ditropan XL] 5 mg PO DAILY Ondansetron Odt [Zofran ODT] 4 mg PO Q12HR PRN PRN Reason: Nausea Ibuprofen [Motrin] 600 mg PO Q8HR PRN PRN Reason: Pain Furosemide [Lasix] 20 mg PO DAILY Magnesium Oxide [Mag-Ox] 400 mg PO DAILY #30 tab Clopidogrel [Plavix] 75 mg PO DAILY #90 tablet Discharge Medication List carvediloL [Coreg] 12.5 mg PO BID 10/12/19 [History] Amitriptyline HCl [Elavil] 50 mg PO HS 11/24/20 [History] Oxybutynin Xl [Ditropan XL] 5 mg PO DAILY 04/10/21 [History] Magnesium Oxide [Mag-Ox] 400 mg PO DAILY #30 tab 06/21/21 [Rx] Clopidogrel [Plavix] 75 mg PO DAILY #90 tablet 09/27/21 [Rx] Furosemide [Lasix] 20 mg PO DAILY 01/31/22 [History] Ibuprofen [Motrin] 600 mg PO Q8HR PRN 01/31/22 [History] Ondansetron Odt [Zofran ODT] 4 mg PO Q12HR PRN 01/31/22 [History] predniSONE 0 mg PO DIRECTED #42 tab 02/01/22 [Rx] Follow up Appointment(s)/Referral(s): Jose Humphrey MD [STAFF PHYSICIAN] - 02/12/22 5:00 pm (Appointment will be at the [facility] location.) Nish Baez MD [Primary Care Provider] - 1-2 days (PLEASE CALL AND SCHEDULE APPOINTMENT.) Derek Robledo MD [STAFF PHYSICIAN] - 02/22/22 9:30 am (You are on the office cancellation list, if an earlier appointment becomes available, the office will notify you.) Patient Instructions/Handouts: Prednisone (By mouth), Sarcoidosis (DC), Noncardiac Chest Pain (DC) Activity/Diet/Wound Care/Special Instructions: Activity: as tolerated Diet: heart healthy Discharge Disposition: HOME SELF-CARE
[2022-02-01] MEDS ORDERED: AMITRIPTYLINE HCL 50 MG TAB PO SCH (21:00)
== END 2022-02-01 10:59 | disposition home or self-care (01) ==
LOC: EC 18:44 → 6NMEDSUR 22:10
PROVIDERS: ADMIT Internal Medicine; ATTEND Internal Medicine
DX: R07.89 Other chest pain (principal); D86.0 Sarcoidosis of lung; I10 Essential (primary) hypertension; R55 Syncope and collapse; F12.90 Cannabis use, unspecified, uncomplicated; Q96.9 Turner's syndrome, unspecified; Z82.49 Family history of ischemic heart disease and other diseases of the circulatory system; Z79.899 Other long term (current) drug therapy; Z79.02 Long term (current) use of antithrombotics/antiplatelets; Z86.16 Personal history of COVID-19; Z90.49 Acquired absence of other specified parts of digestive tract; Z96.653 Presence of artificial knee joint, bilateral; Z90.710 Acquired absence of both cervix and uterus; Z83.3 Family history of diabetes mellitus
CPT/HCPCS: 96372 ×2; 99285; 36415; 93005; 85379; 83880; 80053; 80048; 83735 ×2; 84484 ×2; 85025 ×2; 85610; 85730; 71046; G0378 ×2; J1644 ×2

== ENCOUNTER → 2022-02-20 | Outpatient (CLI) | payer MEDICARE, OTHER ==
[2022-02-21 02:12] LABS: African American GFR (CKD) 107.9 (60.0-200.0); Anion Gap 10.7 mmol/L (10.00-18.00); Blood Urea Nitrogen 18.4 mg/dL (9.0-27.0); Calcium 10.1 mg/dL (8.7-10.3); Carbon Dioxide 30.9 mmol/L (20.0-27.5); Non-African American GFR(CKD) 93.1 (60.0-200.0); Potassium 4.4 mmol/L (3.5-5.5)
== END | disposition home or self-care (01) ==
LOC: LABWHC1 16:01
PROVIDERS: ATTEND Internal Medicine Interventional Cardiology
DX: N18.9 Chronic kidney disease, unspecified (principal)
CPT/HCPCS: 36415; 80048

== ENCOUNTER 2022-09-17 21:39 | Emergency (ER) | payer MEDICARE, OTHER ==
[2022-09-17 21:51] VITALS: TEMP 98.4
[2022-09-18] MEDS ORDERED: METOCLOPRAMIDE 5 MG/ML 2 ML VIAL IVP STA (00:05)
[2022-09-18] MEDS ORDERED: KETOROLAC 15 MG/ML 1 ML VIAL IVP STA (00:05)
[2022-09-18] MEDS ORDERED: DEXAMETHASONE SOD PHOSPHATE 10 MG/ML 1 ML VIAL IVP STA (00:05)
[2022-09-18] MEDS ORDERED: diphenhydrAMINE 50 MG/ML 1 ML VIAL IVP STA (00:05)
[2022-09-18] MEDS ORDERED: SODIUM CHLORIDE 0.9% 1,000 ML IV STA (00:05)
--- NOTE | 2022-09-18 00:38 | ED ---
Headache HPI - General Chief Complaint: Headache Stated Complaint: dizziness Time Seen by Provider: 09/17/22 23:53 Source: patient, RN notes reviewed Mode of arrival: wheelchair Limitations: no limitations - History of Present Illness Initial Comments: This is a 52-year-old female who presents to the emergency department for a headache. States that this started 2 days ago. Describes this as a tightness in the neck with a pressure and throbbing sensation to most of her head. She would not describe this as the worst headache of her life. She does have associated nausea and photophobia. Notes a history of migraines and states that this feels similar. She is taking ibuprofen and Tylenol with no relief in symptoms. Denies any fevers, chills, sore throat, cough, dyspnea, chest pain, palpitations, abdominal pain, vomiting, diarrhea, or back pain. MD Complaint: headache - Related Data Home Medications Medication Instructions Recorded Confirmed carvediloL [Coreg] 12.5 mg PO BID 10/12/19 05/08/22 Amitriptyline HCl [Elavil] 50 mg PO HS 11/24/20 05/08/22 Oxybutynin Xl [Ditropan XL] 5 mg PO DAILY 04/10/21 05/08/22 Furosemide [Lasix] 20 mg PO DAILY 01/31/22 05/08/22 Previous Rx's Medication Instructions Recorded Clopidogrel [Plavix] 75 mg PO DAILY #90 tablet 09/27/21 Famotidine [Pepcid] 20 mg PO BID #14 tablet 05/09/22 Ketorolac [Toradol] 10 mg PO Q6HR PRN #12 tab 09/18/22 Allergies Allergy/AdvReac Type Severity Reaction Status Date / Time meperidine HCl [From Demerol] Allergy Rash/Hives/ Verified 05/08/22 18:55 Swelling naproxen sodium [From Aleve] Allergy Rash/Hives/ Verified 05/08/22 18:55 Swelling red dye AdvReac migraines Verified 05/08/22 18:55 Review of Systems ROS Statement: Those systems with pertinent positive or pertinent negative responses have been documented in the HPI. ROS Other: All systems not noted in ROS Statement are negative. Past Medical History Past Medical History: Chest Pain / Angina, Hypertension, Osteoarthritis (OA), Respiratory Disorder, Syncope Additional Past Medical History / Comment(s): hx. of Vocal cord paralysis after lung biopsy, dr. sawant put a voice box on vocal cords, left lung nodules related to SARCOIDOSIS, SOB w/exertion, salivary gland infection. per pt she had covid x2, (last infection 11/2020) History of Any Multi-Drug Resistant Organisms: None Reported Past Surgical History: Adenoidectomy, Cholecystectomy, Heart Catheterization, Hysterectomy, Joint Replacement, Orthopedic Surgery, Tonsillectomy Additional Past Surgical History / Comment(s): Repair of vocal cord paralysis, left rotator cuff repair, bilateral knee replaced, LEFT LUNG NODULE REMOVAL, Loop recorder with removal, right knee replaced May 2020, had right knee manipulation 06-26-20 @ [facility]. bilateral leg stents placed in september 26/2022 Past Anesthesia/Blood Transfusion Reactions: Postoperative Nausea & Vomiting (PONV) Past Psychological History: No Psychological Hx Reported Smoking Status: Never smoker Past Alcohol Use History: None Reported Past Drug Use History: Marijuana - Past Family History Mother Family Medical History: Diabetes Mellitus Additional Family Medical History / Comment(s): Mother is alive, at 71, recently had cardiac surgery (95% occlusion) with history of diabetes. Father History Unknown: Yes Additional Family Medical History / Comment(s): Patient does not have any contact with her father and does not know any of his medical history. Brother(s) Additional Family Medical History / Comment(s): Patient has 1 brother but does not know his medical history. Patient does not have any sisters. Patient has 2 sons no major medical problems. General Exam Limitations: no limitations General appearance: alert, in no apparent distress Head exam: Present: atraumatic, normocephalic, normal inspection Eye exam: Present: normal appearance, PERRL, EOMI. Absent: scleral icterus, conjunctival injection, periorbital swelling Pupils: Present: normal accommodation Respiratory exam: Present: normal lung sounds bilaterally. Absent: respiratory distress, wheezes, rales, rhonchi, stridor Cardiovascular Exam: Present: regular rate, normal rhythm, normal heart sounds. Absent: systolic murmur, diastolic murmur, rubs, gallop, clicks Neurological exam: Present: alert, oriented X3, CN II-XII intact Psychiatric exam: Present: normal affect, normal mood Skin exam: Present: warm, dry, intact, normal color. Absent: rash Course Vital Signs 09/17/22 09/18/22 09/18/22 21:49 02:42 03:38 Temperature 98.4 F Pulse Rate 81 77 Respiratory 20 18 18 Rate Blood Pressure 135/92 105/58 132/80 O2 Sat by Pulse 96 97 Oximetry Medical Decision Making - Medical Decision Making This is a 52-year-old female who presents to the emergency department for a headache. Was pt. sent in by a medical professional or institution? @ -No Did you speak to anyone other than the patient for history? @ -No Did you review nursing and triage notes? @ -Yes, and I agree, it is accurate with regards to the patient's symptoms. Were old charts reviewed? @ -No Differential Diagnosis? @ -Differential Headache: Migraine, tension, cluster, carbon monoxide, central venous thrombosis, pension karma temporal arteritis, acute closure glaucoma, intercranial hemorrhage, mastoiditis, sinusitis, head injury, this is not meant to be an all-inclusive list. EKG interpreted by me (3pts min.)? @ -Not obtained X-rays interpreted by me (1pt min.)? @ -Not obtained CT interpreted by me (1pt min.)? @ -Not obtained U/S interpreted by me (1pt. min.)? @ -Not obtained What testing was considered but not performed? (CT, X-rays, U/S, labs)? Why? @ -None What meds were considered but not given? Why? @ -None Did you discuss the management of the patient with other professionals? @ -No Did you reconcile home meds? @ -No Was smoking cessation discussed for >3mins.? @ -No Was critical care preformed (if so, how long)? @ -No Were there social determinants of health that impacted care today? How? (Homelessness, low income, unemployed, alcoholism, drug addiction, transportation, low edu. Level, literacy, decrease access to med. care, [facility], rehab)? @ -No Was there de-escalation of care discussed even if they declined? (Discuss DNR or withdrawal of care, Hospice)? @ -No What co-morbidities impacted this encounter? (DM, HTN, Smoking, COPD, CAD, Cancer, CVA, Hep., AIDS, mental health diagnosis, sleep apnea, morbid obesity)? @ -Migraines Was patient admitted / discharged? @ -Discharged. Lab work obtained revealing elevated liver enzymes, which is a chronic finding for the patient. She was given a migraine cocktail consisting of Toradol, Decadron, Benadryl, and Reglan, with resolution of symptoms. Patient was found to be resting comfortably and felt stable for discharge home. Prescription for Toradol provided with dosing instructions reviewed for any additional headaches. Otherwise advised follow-up with her primary care provider. Undiagnosed new problem with uncertain prognosis? @ -None Drug Therapy requiring intensive monitoring for toxicity (Heparin, Nitro, Insulin, Cardizem)? @ -None Were any procedures done? @ -None Diagnosis/symptom? @ -Headache Acute, or Chronic, or Acute on Chronic? @ -Acute Uncomplicated (without systemic symptoms) or Complicated (systemic symptoms)? @ -Uncomplicated Side effects of treatment? @ -None Exacerbation, Progression, or Severe Exacerbation] @ -Not applicable Poses a threat to life or bodily function? @ -No Return precautions reviewed in depth, the patient is instructed to return to the emergency department with any new, worsening, or concerning symptoms. Patient verbalized understanding. This case was discussed in detail with the attending ED physician, Dr. Dobbs. Presentation, findings, and treatment plan discussed in detail as well. - Lab Data Result diagrams: 09/18/22 00:32 09/18/22 00:32 Lab Results 09/18/22 09/18/22 Range/Units 00:32 00:32 WBC 8.0 (3.8-10.6) k/uL RBC 4.84 (3.80-5.40) m/uL Hgb 13.0 (11.4-16.0) gm/dL Hct 39.1 (34.0-46.0) % MCV 80.8 (80.0-100.0) fL MCH 26.8 (25.0-35.0) pg MCHC 33.2 (31.0-37.0) g/dL RDW 13.4 (11.5-15.5) % Plt Count 260 (150-450) k/uL MPV 6.9 Neutrophils % 70 % Lymphocytes % 16 % Monocytes % 11 % Eosinophils % 1 % Basophils % 0 % Neutrophils # 5.6 (1.3-7.7) k/uL Lymphocytes # 1.3 (1.0-4.8) k/uL Monocytes # 0.9 (0-1.0) k/uL Eosinophils # 0.1 (0-0.7) k/uL Basophils # 0.0 (0-0.2) k/uL Sodium 135 L (137-145) mmol/L Potassium 3.6 (3.5-5.1) mmol/L Chloride 101 (98-107) mmol/L Carbon Dioxide 23 (22-30) mmol/L Anion Gap 11 mmol/L BUN 9 (7-17) mg/dL Creatinine 0.60 (0.52-1.04) mg/dL Est GFR (CKD-EPI)AfAm >90 (>60 ml/min/1.73 sqM) Est GFR (CKD-EPI)NonAf >90 (>60 ml/min/1.73 sqM) Glucose 109 H (74-99) mg/dL Calcium 9.1 (8.4-10.2) mg/dL Total Bilirubin 0.9 (0.2-1.3) mg/dL AST 81 H (14-36) U/L ALT 118 H (4-34) U/L Alkaline Phosphatase 222 H (38-126) U/L C-Reactive Protein 2.4 H (<1.0) mg/dL Total Protein 7.5 (6.3-8.2) g/dL Albumin 4.3 (3.5-5.0) g/dL Disposition Clinical Impression: Headache Disposition: HOME SELF-CARE Instructions (If sedation given, give patient instructions): Acute Headache (ED) Additional Instructions: Return to the emergency department with any new, worsening, or concerning symptoms. You can try taking the Toradol up to every 6 hours as needed if the pain returns. Do not take this with any other [id number] anti- inflammatories such as ibuprofen. You may take it with Tylenol. Follow up with your primary care provider in 1-2 days. Prescriptions: Ketorolac [Toradol] 10 mg PO Q6HR PRN #12 tab PRN Reason: Pain Is patient prescribed a controlled substance at d/c from ED?: No Referrals: Nish Baez MD [REFERRING] - 1-2 days
[2022-09-18 00:42] LABS: Basophils % (A) 0 %; Eosinophils # (A) 0.1 k/uL (0-0.7); Eosinophils % (A) 1 %; HCT 39.1 % (34.0-46.0); Lymphocytes # (A) 1.3 k/uL (1.0-4.8); Lymphocytes % (A) 16 %; MCH 26.8 pg (25.0-35.0); MCHC 33.2 g/dL (31.0-37.0); MCV 80.8 fL (80.0-100.0); Mean Platelet Volume 6.9; Monocytes # (A) 0.9 k/uL (0-1.0); Monocytes % (A) 11 %; Neutrophils # (A) 5.6 k/uL (1.3-7.7); Neutrophils % (A) 70 %; Platelet Count 260 k/uL (150-450); RBC 4.84 m/uL (3.80-5.40); RDW 13.4 % (11.5-15.5)
[2022-09-18 00:49] LABS: ALT 118 U/L (4-34); AST 81 U/L (14-36); African American GFR (CKD) >90 (>60 ml/min/1.73 sqM); Albumin 4.3 g/dL (3.5-5.0); Alkaline Phosphatase 222 U/L (38-126); Anion Gap 11 mmol/L; Blood Urea Nitrogen 9 mg/dL (7-17); C Reactive Protein 2.4 mg/dL (<1.0); Calcium 9.1 mg/dL (8.4-10.2); Carbon Dioxide 23 mmol/L (22-30); Chloride 101 mmol/L (98-107); Glucose 109 mg/dL (74-99); Non-African American GFR(CKD) >90 (>60 ml/min/1.73 sqM); Potassium 3.6 mmol/L (3.5-5.1); Sodium 135 mmol/L (137-145); Total Bilirubin 0.9 mg/dL (0.2-1.3); Total Protein 7.5 g/dL (6.3-8.2)
[2022-09-18] MEDS ORDERED: ACETAMINOPHEN TAB 325 MG TAB PO STA (01:21)
[2022-09-18] MEDS ORDERED: MORPHINE SULFATE 2 MG/ML SYRINGE IVP STA (01:21)
[2022-09-18 02:43] VITALS: RESP 18
[2022-09-18] MEDS ORDERED: ONDANSETRON 4 MG ODT STARTER PACK 2 TAB BTL PO STA (03:21)
[2022-09-18] MEDS ORDERED: ACET/COD 300 MG/30 MG STARTER PACK 6 TAB BTL PO STA (03:21)
[2022-09-18 03:39] VITALS: BP 132/80; PULSE 77
== END 2022-09-18 03:53 | disposition home or self-care (01) ==
LOC: EC 21:39
DX: R51.9 Headache, unspecified (principal); R74.01 Elevation of levels of liver transaminase levels; I10 Essential (primary) hypertension; F12.90 Cannabis use, unspecified, uncomplicated; Z86.16 Personal history of COVID-19; Z90.49 Acquired absence of other specified parts of digestive tract; Z79.899 Other long term (current) drug therapy; Z88.5 Allergy status to narcotic agent; Z88.6 Allergy status to analgesic agent
CPT/HCPCS: 36415; 80053; 85025; 86140; 99284; 96374; 96375 ×4; 96361 ×3; J1200; J1100; J2765; J1885; S0119

== ENCOUNTER 2022-10-30 10:13 | Emergency (ER) | payer MEDICARE, OTHER ==
[2022-10-30] MEDS ORDERED: SODIUM CHLORIDE 0.9% 2,000 ML IV STA (10:56)
[2022-10-30] MEDS ORDERED: HYDROmorphone 0.5 MG/0.5 ML SYRINGE IVP STA ×2 (10:56→13:36)
[2022-10-30] MEDS ORDERED: ONDANSETRON 4 MG/2 ML VIAL IVP STA (10:56)
--- NOTE | 2022-10-30 11:01 | ED ---
Abdominal Pain HPI - General Chief Complaint: Abdominal Pain Stated Complaint: R Side Pain, Sent by PCP Time Seen by Provider: 10/30/22 10:41 Source: patient, RN notes reviewed Mode of arrival: ambulatory Limitations: no limitations - History of Present Illness Initial Comments: 52-year-old female sent emergency Department chief complaint right flank pain. Patient states this started earlier this morning. Patient went to her PCPs office to advise come emergency department for her discomfort. She does have a history kidney stones feels very similar. She denies any dysuria no hematuria denies any localized abdominal pain states that she has right flank pain wrapping around this minutes slight nausea without vomiting no diarrhea no constipation or fevers or chills she states she went to PCPs office that she had some abnormal bruising of her leg. She denies any pain associated with the bruising. - Related Data Home Medications Medication Instructions Recorded Confirmed carvediloL [Coreg] 12.5 mg PO BID 10/12/19 10/30/22 Amitriptyline HCl [Elavil] 50 mg PO HS 11/24/20 10/30/22 Oxybutynin Xl [Ditropan XL] 5 mg PO DAILY 04/10/21 10/30/22 Furosemide [Lasix] 20 mg PO DAILY 01/31/22 10/30/22 Cyclobenzaprine [Flexeril] 10 mg PO BID PRN 10/30/22 10/30/22 Omeprazole 20 mg PO BID 10/30/22 10/30/22 Ondansetron Odt [Zofran Odt] 4 mg PO Q12HR PRN 10/30/22 10/30/22 Previous Rx's Medication Instructions Recorded Clopidogrel [Plavix] 75 mg PO DAILY #90 tablet 09/27/21 Allergies Allergy/AdvReac Type Severity Reaction Status Date / Time meperidine HCl [From Demerol] Allergy Rash/Hives/ Verified 10/30/22 11:34 Swelling naproxen sodium [From Aleve] Allergy Rash/Hives/ Verified 10/30/22 11:34 Swelling red dye AdvReac migraines Verified 10/30/22 11:34 Review of Systems ROS Statement: Those systems with pertinent positive or pertinent negative responses have been documented in the HPI. ROS Other: All systems not noted in ROS Statement are negative. Past Medical History Past Medical History: Chest Pain / Angina, Hypertension, Osteoarthritis (OA), Respiratory Disorder, Syncope Additional Past Medical History / Comment(s): hx. of Vocal cord paralysis after lung biopsy, dr. sawant put a voice box on vocal cords, left lung nodules related to SARCOIDOSIS, SOB w/exertion, salivary gland infection. per pt she had covid x2, (last infection 11/2020) History of Any Multi-Drug Resistant Organisms: None Reported Past Surgical History: Adenoidectomy, Cholecystectomy, Heart Catheterization, Hysterectomy, Joint Replacement, Orthopedic Surgery, Tonsillectomy Additional Past Surgical History / Comment(s): Repair of vocal cord paralysis, left rotator cuff repair, bilateral knee replaced, LEFT LUNG NODULE REMOVAL, Loop recorder with removal, right knee replaced May 2020, had right knee man ipulation 06-26-20 @ [facility]. bilateral leg stents placed in september 26/2022 Past Anesthesia/Blood Transfusion Reactions: Postoperative Nausea & Vomiting (PONV) Past Psychological History: No Psychological Hx Reported Smoking Status: Never smoker Past Alcohol Use History: None Reported Past Drug Use History: Marijuana - Past Family History Mother Family Medical History: Diabetes Mellitus Additional Family Medical History / Comment(s): Mother is alive, at 71, recently had cardiac surgery (95% occlusion) with history of diabetes. Father History Unknown: Yes Additional Family Medical History / Comment(s): Patient does not have any conta ct with her father and does not know any of his medical history. Brother(s) Additional Family Medical History / Comment(s): Patient has 1 brother but does not know his medical history. Patient does not have any sisters. Patient has 2 sons no major medical problems. General Exam Limitations: no limitations General appearance: alert, in no apparent distress Head exam: Present: atraumatic, normocephalic, normal inspection Eye exam: Present: normal appearance, PERRL, EOMI. Absent: scleral icterus, conjunctival injection, periorbital swelling ENT exam: Present: normal exam, normal oropharynx, mucous membranes moist Neck exam: Present: normal inspection, full ROM. Absent: tenderness, meningismus, lymphadenopathy Respiratory exam: Present: normal lung sounds bilaterally. Absent: respiratory distress, wheezes, rales, rhonchi, stridor Cardiovascular Exam: Present: regular rate, normal rhythm, normal heart sounds. Absent: systolic murmur, diastolic murmur, rubs, gallop, clicks GI/Abdominal exam: Present: soft, normal bowel sounds. Absent: distended, tenderness, guarding, rebound, rigid Back exam: Present: CVA tenderness (R). Absent: CVA tenderness (L) Neurological exam: Present: alert Course Vital Signs 10/30/22 10/30/22 10/30/22 10:31 12:29 14:00 Temperature 97.7 F Pulse Rate 80 79 90 Respiratory 18 20 19 Rate Blood Pressure 130/87 145/81 140/74 O2 Sat by Pulse 99 100 98 Oximetry Medical Decision Making - Medical Decision Making Was pt. sent in by a medical professional or institution (, PA, SUPERVISOR COIL WINDING, urgent care, hospital, or jail...) When possible be specific @ -PCP Did you speak to anyone other than the patient for history (EMS, parent, family, police, friend...)? What history was obtained from this source @ -No Did you review nursing and triage notes (agree or disagree)? Why? @ -I reviewed and agree with nursing and triage notes Were old charts reviewed (outside hosp., previous admission, EMS record, old EKG, old radiological studies, urgent care reports/EKG's, jail records)? Report findings @ -No old charts were reviewed Differential Diagnosis (chest pain, altered mental status, abdominal pain women, abdominal pain men, vaginal bleeding, weakness, fever, dyspnea, syncope, headache, dizziness, GI bleed, back pain, seizure, CVA, palpatations, mental health, musculoskeletal)? @ -Differential Abdominal Pain Women: Appendicitis, Cholecystitis, diverticulosis, ischemic bowel, pancreatitis, hepatitis, UTI, gastroenteritis, AAA, incarcerated hernia, bowel obstruction, constipation, inflammatory bowel, hepatitis, peptic ulcer disease, splenic infarction, perforated viscus, vulvitis, ovarian torsion, PID, kidney stone, placenta abruption, this is not meant to be an all-inclusive listble] EKG interpreted by me (3pts min.). @ -None X-rays interpreted by me (1pt min.). @ -X-ray KUB showing nonspecific bowel gas pattern CT interpreted by me (1pt min.). @ -None done U/S interpreted by me (1pt. min.). @ -None done What testing was considered but not performed or refused? (CT, X-rays, U/S, labs)? Why? @ -Considered CT though patient's pain is improved with a history of stones What meds were considered but not given or refused? Why? @ -None Did you discuss the management of the patient with other professionals (professionals i.e. , PA, SUPERVISOR CO[employer] WINDING, lab, RT, psych nurse, social services assistant, checker loader, teacher, aviation tactical readiness officer, disease case manager rn)? Give summary @ -No Was smoking cessation discussed for >3mins.? @ -No Was critical care preformed (if so, how long)? @ -No Were there social determinants of health that impacted care today? How? (Homelessness, low income, unemployed, alcoholism, drug addiction, transportation, low edu. Level, literacy, decrease access to med. care, half-way, rehab)? @ -No Was there de-escalation of care discussed even if they declined (Discuss DNR or withdrawal of care, Hospice)? DNR status @ -No What co-morbidities impacted this encounter? (DM, HTN, Smoking, COPD, CAD, Cancer, CVA, ARF, Chemo, Hep., AIDS, mental health diagnosis, sleep apnea, morbid obesity)? @ -None Was patient admitted / discharged? Hospital course, mention meds given and route, prescriptions, significant lab abnormalities, going to OR and other per tinent info. @ -Discharge patient pain improved after x-rays unremarkable. Patient states it feels like her prior kidney stone patient has no abnormal labs or urinalysis. Patient is discharged in stable condition return parameters were discussed. Undiagnosed new problem with uncertain prognosis? @ -No Drug Therapy requiring intensive monitoring for toxicity (Heparin, Nitro, Insulin, Cardizem)? @ -[No] Were any procedures done? @ -[No] Diagnosis/symptom? @ -[Flank pain] Acute, or Chronic, or Acute on Chronic? @ -[Acute] Uncomplicated (without systemic symptoms) or Complicated (systemic symptoms)? @ -[Uncomplicated] Side effects of treatment? @ -[No] Exacerbation, Progression, or Severe Exacerbation? @ -[No] Poses a threat to life or bodily function? How? (Chest pain, [place], [place], pneumonia, PE, COPD, DKA, ARF, appy, cholecystitis, CVA, Diverticulitis, Homicidal, Suicidal, threat to staff... and all critical care pts) @ -[No] - Lab Data Result diagrams: 10/30/22 11:07 10/30/22 11:07 Lab Results 10/30/22 10/30/22 10/30/22 Range/Units 11:07 11:07 11:07 WBC 11.1 H (3.8-10.6) k/uL RBC 4.61 (3.80-5.40) m/uL Hgb 12.4 (11.4-16.0) gm/dL Hct 36.6 (34.0-46.0) % MCV 79.4 L (80.0-100.0) fL MCH 27.0 (25.0-35.0) pg MCHC 34.0 (31.0-37.0) g/dL RDW 13.3 (11.5-15.5) % Plt Count 303 (150-450) k/uL MPV 7.2 Neutrophils % 73 % Lymphocytes % 15 % Monocytes % 8 % Eosinophils % 2 % Basophils % 0 % Neutrophils # 8.1 H (1.3-7.7) k/uL Lymphocytes # 1.7 (1.0-4.8) k/uL Monocytes # 0.9 (0-1.0) k/uL Eosinophils # 0.2 (0-0.7) k/uL Basophils # 0.0 (0-0.2) k/uL PT 9.9 (9.0-12.0) sec INR 0.9 (<1.2) APTT 25.2 (22.0-30.0) sec Sodium (137-145) mmol/L Potassium (3.5-5.1) mmol/L Chloride (98-107) mmol/L Carbon Dioxide (22-30) mmol/L Anion Gap mmol/L BUN (7-17) mg/dL Creatinine (0.52-1.04) mg/dL Est GFR (CKD-EPI)AfAm (>60 ml/min/1.73 sqM) Est GFR (CKD-EPI)NonAf (>60 ml/min/1.73 sqM) Glucose (74-99) mg/dL Calcium (8.4-10.2) mg/dL Total Bilirubin (0.2-1.3) mg/dL AST (14-36) U/L ALT (4-34) U/L Alkaline Phosphatase (38-126) U/L Total Protein (6.3-8.2) g/dL Albumin (3.5-5.0) g/dL Lipase (23-300) U/L Urine Color Yellow Urine Appearance Clear (Clear) Urine pH 6.0 (5.0-8.0) Ur Specific [place] 1.016 (1.001-1.035) Urine Protein Negative (Negative) Urine Glucose (UA) Negative (Negative) Urine Ketones Negative (Negative) Urine Blood Negative (Negative) Urine Nitrite Negative (Negative) Urine Bilirubin Negative (Negative) Urine Urobilinogen <2.0 (<2.0) mg/dL Ur Leukocyte Esterase Negative (Negative) 10/30/22 Range/Units 11:07 WBC (3.8-10.6) k/uL RBC (3.80-5.40) m/uL Hgb (11.4-16.0) gm/dL Hct (34.0-46.0) % MCV (80.0-100.0) fL MCH (25.0-35.0) pg MCHC (31.0-37.0) g/dL RDW (11.5-15.5) % Plt Count (150-450) k/uL MPV Neutrophils % % Lymphocytes % % Monocytes % % Eosinophils % % Basophils % % Neutrophils # (1.3-7.7) k/uL Lymphocytes # (1.0-4.8) k/uL Monocytes # (0-1.0) k/uL Eosinophils # (0-0.7) k/uL Basophils # (0-0.2) k/uL PT (9.0-12.0) sec INR (<1.2) APTT (22.0-30.0) sec Sodium 137 (137-145) mmol/L Potassium 3.3 L (3.5-5.1) mmol/L Chloride 100 (98-107) mmol/L Carbon Dioxide 27 (22-30) mmol/L Anion Gap 10 mmol/L BUN 13 (7-17) mg/dL Creatinine 0.59 (0.52-1.04) mg/dL Est GFR (CKD-EPI)AfAm >90 (>60 ml/min/1.73 sqM) Est GFR (CKD-EPI)NonAf >90 (>60 ml/min/1.73 sqM) Glucose 93 (74-99) mg/dL Calcium 9.2 (8.4-10.2) mg/dL Total Bilirubin 1.0 (0.2-1.3) mg/dL AST 54 H (14-36) U/L ALT 44 H (4-34) U/L Alkaline Phosphatase 148 H (38-126) U/L Total Protein 7.0 (6.3-8.2) g/dL Albumin 4.0 (3.5-5.0) g/dL Lipase 64 (23-300) U/L Urine Color Urine Appearance (Clear) Urine pH (5.0-8.0) Ur Specific [place] (1.001-1.035) Urine Protein (Negative) Urine Glucose (UA) (Negative) Urine Ketones (Negative) Urine Blood (Negative) Urine Nitrite (Negative) Urine Bilirubin (Negative) Urine Urobilinogen (<2.0) mg/dL Ur Leukocyte Esterase (Negative) Disposition Clinical Impression: Flank pain Disposition: HOME SELF-CARE Condition: Stable Instructions (If sedation given, give patient instructions): Flank Pain (ED) Additional Instructions: Please return to the Emergency Department if symptoms worsen or any other concerns. Is patient prescribed a controlled substance at d/c from ED?: No Referrals: Annie Saunders NPC [Family Provider] - 1-2 days Time of Disposition: 14:48
[2022-10-30 11:43] LABS: Basophils % (A) 0 %; Eosinophils # (A) 0.2 k/uL (0-0.7); Eosinophils % (A) 2 %; HCT 36.6 % (34.0-46.0); HGB 12.4 gm/dL (11.4-16.0); Lymphocytes # (A) 1.7 k/uL (1.0-4.8); Lymphocytes % (A) 15 %; MCV 79.4 fL (80.0-100.0); Mean Platelet Volume 7.2; Monocytes # (A) 0.9 k/uL (0-1.0); Monocytes % (A) 8 %; Neutrophils # (A) 8.1 k/uL (1.3-7.7); Neutrophils % (A) 73 %; Platelet Count 303 k/uL (150-450); RBC 4.61 m/uL (3.80-5.40); RDW 13.3 % (11.5-15.5); WBC 11.1 k/uL (3.8-10.6)
[2022-10-30 11:52] LABS: INR 0.9 (<1.2); Partial Thromboplastin Time 25.2 sec (22.0-30.0); Prothrombin Time 9.9 sec (9.0-12.0)
--- NOTE | 2022-10-30 11:59 | XR ---
EXAMINATION TYPE: XR KUB DATE OF EXAM: 10/30/2022 11:55 AM CLINICAL HISTORY: Abdominal pain TECHNIQUE: Upright KUB image of the abdomen is obtained with 2 radiographs. COMPARISON: None. FINDINGS: Scattered gas is seen in non-distended small bowel loops. Gas and fecal material is seen in non-distended colon. No pneumoperitoneum. The lung bases are clear and the osseous structures are in tact. Cholecystectomy clips right upper quadrant. Biiliac stent graft identified. IMPRESSION: Overall nonobstructive bowel gas pattern.
[2022-10-30 12:33] LABS: ALT 44 U/L (4-34); AST 54 U/L (14-36); African American GFR (CKD) >90 (>60 ml/min/1.73 sqM); Alkaline Phosphatase 148 U/L (38-126); Anion Gap 10 mmol/L; Blood Urea Nitrogen 13 mg/dL (7-17); Calcium 9.2 mg/dL (8.4-10.2); Carbon Dioxide 27 mmol/L (22-30); Chloride 100 mmol/L (98-107); Glucose 93 mg/dL (74-99); Lipase 64 U/L (23-300); Non-African American GFR(CKD) >90 (>60 ml/min/1.73 sqM); Potassium 3.3 mmol/L (3.5-5.1); Sodium 137 mmol/L (137-145)
[2022-10-30] MEDS ORDERED: KETOROLAC 15 MG/ML 1 ML VIAL IVP STA (13:38)
[2022-10-30 13:58] LABS: Appearance,Urine Clear (Clear); Bilirubin,Urine Negative (Negative); Blood,Urine Negative (Negative); Color,Urine Yellow; Glucose,Urine (UA) Negative (Negative); Ketones,Urine Negative (Negative); Leukocyte Esterase,Urine Negative (Negative); Nitrite,Urine Negative (Negative); Protein,Urine Negative (Negative); Specific Gravity,Urine 1.016 (1.001-1.035); Urobilinogen,Urine <2.0 mg/dL (<2.0)
[2022-10-30] MEDS ORDERED: ACET/COD 300 MG/30 MG STARTER PACK 6 TAB BTL PO STA (14:47)
[2022-10-30 15:28] VITALS: BP 111/75; PULSE 70; RESP 18; TEMP 97.3
== END 2022-10-30 15:32 | disposition home or self-care (01) ==
LOC: EC 10:13
DX: R10.9 Unspecified abdominal pain (principal); I10 Essential (primary) hypertension; M19.90 Unspecified osteoarthritis, unspecified site; Z79.899 Other long term (current) drug therapy; Z86.16 Personal history of COVID-19; Z88.5 Allergy status to narcotic agent; Z88.6 Allergy status to analgesic agent; Z90.49 Acquired absence of other specified parts of digestive tract
CPT/HCPCS: 36415; 80053; 83690; 85025; 85610; 85730; 81003; 74018; 99284; 96374; 96375 ×2; 96376; J2405; J1885; J1170

== ENCOUNTER 2023-02-25 17:55 | Emergency (ER) | payer MEDICARE, OTHER ==
--- NOTE | 2023-02-25 18:27 | ED ---
Chest Pain HPI - General Chief Complaint: Chest Pain Stated Complaint: Chest Pain,Headache Time Seen by Provider: 02/25/23 18:24 Source: patient Mode of arrival: wheelchair Limitations: no limitations - History of Present Illness MD Complaint: chest pain Onset/Timin -: hour(s) Onset: during rest Pain Location: substernal Pain Radiation: none Severity: moderate Quality: aching Consistency: now resolved Improves With: nothing Worsens With: nothing Treatments Prior to Arrival: none - Related Data Home Medications Medication Instructions Recorded Confirmed carvediloL [Coreg] 12.5 mg PO BID 10/12/19 02/25/23 Amitriptyline HCl [Elavil] 50 mg PO HS 11/24/20 02/25/23 Oxybutynin Xl [Ditropan XL] 5 mg PO DAILY 04/10/21 02/25/23 Furosemide [Lasix] 20 mg PO DAILY 01/31/22 02/25/23 Previous Rx's Medication Instructions Recorded Clopidogrel [Plavix] 75 mg PO DAILY #90 tablet 09/27/21 traMADol HCl [Ultram] 50 mg PO Q6H PRN #12 tab 02/25/23 Allergies Allergy/AdvReac Type Severity Reaction Status Date / Time meperidine HCl [From Demerol] Allergy Rash/Hives/ Verified 02/25/23 19:16 Swelling naproxen sodium [From Aleve] Allergy Rash/Hives/ Verified 02/25/23 19:16 Swelling red dye AdvReac migraines Verified 02/25/23 19:16 Review of Systems ROS Statement: Those systems with pertinent positive or pertinent negative responses have been documented in the HPI. ROS Other: All systems not noted in ROS Statement are negative. Constitutional: Denies: fever, chills Respiratory: Denies: cough, dyspnea Cardiovascular: Reports: chest pain. Denies: palpitations, orthopnea, edema, syncope Gastrointestinal: Denies: abdominal pain, nausea, vomiting, diarrhea Genitourinary: Reports: frequency. Denies: dysuria, hematuria Musculoskeletal: Denies: back pain Skin: Denies: rash Neurological: Denies: headache, weakness, numbness EKG Findings - EKG Results: EKG: interpreted by ERMD, sinus rhythm (Rate 68 bpm), normal axis, normal QRS, normal ST/T, no acute changes Past Medical History Past Medical History: Coronary Artery Disease (CAD), Chest Pain / Angina, Hypertension, Osteoarthritis (OA), Respiratory Disorder, Syncope Additional Past Medical History / Comment(s): hx. of Vocal cord paralysis after lung biopsy, dr. sawant put a voice box on vocal cords, left lung nodules related to SARCOIDOSIS, SOB w/exertion, salivary gland infection. per pt she had covid x2, (last infection 11/2020) History of Any Multi-Drug Resistant Organisms: None Reported Past Surgical History: Adenoidectomy, Cholecystectomy, Heart Catheterization, Hysterectomy, Joint Replacement, Orthopedic Surgery, Tonsillectomy Additional Past Surgical History / Comment(s): Repair of vocal cord paralysis, left rotator cuff repair, bilateral knee replaced, LEFT LUNG NODULE REMOVAL, Loop recorder with removal, right knee replaced May 2020, had right knee manipulation 06-26-20 @ [facility]. bilateral leg stents placed in september 26/2022, Past Anesthesia/Blood Transfusion Reactions: Postoperative Nausea & Vomiting (PONV) Past Psychological History: No Psychological Hx Reported Smoking Status: Never smoker Past Alcohol Use History: None Reported Past Drug Use History: Marijuana - Past Family History Mother Family Medical History: Diabetes Mellitus Additional Family Medical History / Comment(s): Mother is alive, at 71, recently had cardiac surgery (95% occlusion) with history of diabetes. Father History Unknown: Yes Additional Family Medical History / Comment(s): Patient does not have any contact with her father and does not know any of his medical history. Brother(s) Additional Family Medical History / Comment(s): Patient has 1 brother but does not know his medical history. Patient does not have any sisters. Patient has 2 sons no major medical problems. General Exam Limitations: no limitations General appearance: alert, in no apparent distress Head exam: Present: atraumatic, normocephalic Eye exam: Present: normal appearance. Absent: scleral icterus, conjunctival injection Neck exam: Present: normal inspection Respiratory exam: Present: normal lung sounds bilaterally. Absent: respiratory distress, wheezes, rales, rhonchi, stridor Cardiovascular Exam: Present: regular rate, normal rhythm, normal heart sounds. Absent: systolic murmur, diastolic murmur, rubs, gallop GI/Abdominal exam: Present: soft. Absent: distended, tenderness, guarding, rebound, rigid, mass Extremities exam: Present: normal inspection, normal capillary refill. Absent: pedal edema, calf tenderness Back exam: Present: normal inspection. Absent: CVA tenderness (R), CVA tenderness (L) Neurological exam: Present: alert Skin exam: Present: warm, dry, intact, normal color. Absent: rash Course Vital Signs 02/25/23 02/25/23 02/25/23 18:00 18:34 18:46 Temperature 97.4 F L 97.7 F Pulse Rate 76 71 Pulse Rate [ 82 Chief Deputy Coroner ] Respiratory 22 18 Rate Blood Pressure 133/86 143/91 O2 Sat by Pulse 100 100 Oximetry 02/25/23 20:53 Temperature Pulse Rate 80 Pulse Rate [ Chief Deputy Coroner ] Respiratory 19 Rate Blood Pressure 143/82 O2 Sat by Pulse 98 Oximetry Chest Pain MDM - MDM The patient had chest x-ray which I interpreted as negative for acute infiltrate, pneumothorax, congestive heart failure Was pt. sent in by a medical professional or institution (, PA, TOP CLOSER, urgent care, hospital, or half-way...) When possible be specific @ -[No] Did you speak to anyone other than the patient for history (EMS, parent, family, police, friend...)? What history was obtained from this source @ -[No] Did you review nursing and triage notes (agree or disagree)? Why? @ -[I reviewed and agree with nursing and triage notes] Were old charts reviewed (outside hosp., previous admission, EMS record, old EKG, old radiological studies, urgent care reports/EKG's, half-way records)? Report findings @ -[No old charts were reviewed] Differential Diagnosis (chest pain, altered mental status, abdominal pain women, abdominal pain men, vaginal bleeding, weakness, fever, dyspnea, syncope, headache, dizziness, GI bleed, back pain, seizure, CVA, palpatations, mental health, musculoskeletal)? @ -Differential Chest Pain: Stable Angina, Unstable Angina, STEMI, NSTEMI Aortic Dissection, Pneumothorax, Musculoskeletal, Esophageal Spasm GERD, Cholecystitis, Pancreatitis, Zoster, this is not meant to be an all-inclusive list. EKG interpreted by me (3pts min.). @ -[I interpreted As above] X-rays interpreted by me (1pt min.). @ -[I interpreted as above CT interpreted by me (1pt min.). @ -[None done] U/S interpreted by me (1pt. min.). @ -[None done] What testing was considered but not performed or refused? (CT, X-rays, U/S, labs)? Why? @ -[None] What meds were considered but not given or refused? Why? @ -[None] Did you discuss the management of the patient with other professionals (professionals i.e. DrKrishna, PA, TOP CLOSER, lab, RT, psych nurse, health and social care teacher, photogrammetrist, teacher, hydrographical technical officer, watch case polisher)? Give summary @ -[No] Was smoking cessation discussed for >3mins.? @ -[No] Was critical care preformed (if so, how long)? @ -[No] Were there social determinants of health that impacted care today? How? (Homelessness, low income, unemployed, alcoholism, drug addiction, transportation, low edu. Level, literacy, decrease access to med. care, custodial, rehab)? @ -[No] Was there de-escalation of care discussed even if they declined (Discuss DNR or withdrawal of care, Hospice)? DNR status @ -[No] What co-morbidities impacted this encounter? (DM, HTN, Smoking, COPD, CAD, Canc er, CVA, ARF, Chemo, Hep., AIDS, mental health diagnosis, sleep apnea, morbid obesity)? @ -[None] Was patient admitted / discharged? Hospital course, mention meds given and route, prescriptions, significant lab abnormalities, going to OR and other pertinent info. @ -[Patient is 52-year-old woman who presents 7 evaluation for chest pain that is atypical in nature. The workup here is unremarkable. Discussed appropriate further care and follow-up as well as return parameters. Undiagnosed new problem with uncertain prognosis? @ -[No] Drug Therapy requiring intensive monitoring for toxicity (Heparin, Nitro, Insulin, Cardizem)? @ -[No] Were any procedures done? @ -[No] Diagnosis/symptom? @ -[Acute atypical chest pain Acute, or Chronic, or Acute on Chronic? @ -[Acute Uncomplicated (without systemic symptoms) or Complicated (systemic symptoms)? @ -[Uncomplicated Side effects of treatment? @ -[No] Exacerbation, Progression, or Severe Exacerbation? @ -[No] Poses a threat to life or bodily function? How? (Chest pain, [place], [place], pneumonia, PE, COPD, DKA, ARF, appy, cholecystitis, CVA, Diverticulitis, Homicidal, Suicidal, threat to staff... and all critical care pts) @ -[No] Disposition Clinical Impression: Atypical chest pain Disposition: HOME SELF-CARE Condition: Good Instructions (If sedation given, give patient instructions): Chest Pain (ED) Prescriptions: traMADol HCl [Ultram] 50 mg PO Q6H PRN #12 tab PRN Reason: Pain Is patient prescribed a controlled substance at d/c from ED?: No Referrals: Nish Baez [Primary Care Provider] - 1-2 days
[2023-02-25] MEDS ORDERED: ASPIRIN 81 MG PO STA (18:57)
[2023-02-25 19:04] VITALS: TEMP 97.7
--- NOTE | 2023-02-25 19:17 | XR ---
EXAMINATION TYPE: XR chest 2V DATE OF EXAM: 02/25/2023 7:09 PM CLINICAL INDICATION:Female, 52 years old with history of Chest Pain; [facility] COMPARISON: Chest radiographs from 05/08/2022. TECHNIQUE: XR chest 2V Frontal and lateral views of the chest. FINDINGS: Lungs/Pleura: There is no evidence of pleural effusion, focal consolidation, or pneumothorax. Pulmonary vascularity: Unremarkable. Heart/mediastinum: Cardiomediastinal silhouette is unremarkable. Musculoskeletal: No acute osseous pathology. left shoulder fixation anchor. IMPRESSION: No acute cardiopulmonary disease/process.
[2023-02-25 19:21] LABS: Basophils % (A) 0 %; Eosinophils # (A) 0.1 k/uL (0-0.7); Eosinophils % (A) 2 %; HCT 42.4 % (34.0-46.0); HGB 13.7 gm/dL (11.4-16.0); Lymphocytes # (A) 2.1 k/uL (1.0-4.8); Lymphocytes % (A) 30 %; MCH 26.4 pg (25.0-35.0); MCHC 32.3 g/dL (31.0-37.0); MCV 81.8 fL (80.0-100.0); Monocytes # (A) 0.4 k/uL (0-1.0); Monocytes % (A) 6 %; Neutrophils # (A) 4.3 k/uL (1.3-7.7); Neutrophils % (A) 60 %; Platelet Count 288 k/uL (150-450); RBC 5.19 m/uL (3.80-5.40); RDW 13.2 % (11.5-15.5); WBC 7.1 k/uL (3.8-10.6)
[2023-02-25 19:38] LABS: ALT 31 U/L (4-34); AST 34 U/L (14-36); African American GFR (CKD) >90 (>60 ml/min/1.73 sqM); Albumin 5.3 g/dL (3.5-5.0); Alkaline Phosphatase 105 U/L (38-126); Amylase 65 U/L (30-110); Anion Gap 15 mmol/L; Blood Urea Nitrogen 17 mg/dL (7-17); Calcium 10.5 mg/dL (8.4-10.2); Carbon Dioxide 28 mmol/L (22-30); Chloride 100 mmol/L (98-107); Glucose 84 mg/dL (74-99); Lipase 71 U/L (23-300); Magnesium 2.1 mg/dL (1.6-2.3); Non-African American GFR(CKD) >90 (>60 ml/min/1.73 sqM); Potassium 3.7 mmol/L (3.5-5.1); Sodium 143 mmol/L (137-145); Total Bilirubin 0.9 mg/dL (0.2-1.3); Total Protein 8.7 g/dL (6.3-8.2)
[2023-02-25 19:41] LABS: INR 0.9 (<1.2); Partial Thromboplastin Time 25.2 sec (22.0-30.0); Prothrombin Time 9.9 sec (10.0-12.5)
[2023-02-25] MEDS ORDERED: traMADol 50 MG TAB PO STA (20:33)
[2023-02-25 21:11] VITALS: BP 143/82; PULSE 80; RESP 19
== END 2023-02-25 20:59 | disposition home or self-care (01) ==
LOC: EC 17:55
DX: R07.89 Other chest pain (principal); I25.10 Atherosclerotic heart disease of native coronary artery without angina pectoris; I10 Essential (primary) hypertension; F12.90 Cannabis use, unspecified, uncomplicated; Z91.041 Radiographic dye allergy status; Z88.8 Allergy status to other drugs, medicaments and biological substances
CPT/HCPCS: 36415; 71046; 80053; 82150; 83690; 83735; 84484; 85025; 85379; 85610; 85730; 93005; 99285

== ENCOUNTER 2023-03-25 15:38 | Emergency (ER) | payer MEDICARE, OTHER ==
--- NOTE | 2023-03-25 16:11 | ED ---
General Adult HPI - General Stated complaint: Fall-left side injury Time Seen by Provider: 03/25/23 16:10 Source: RN notes reviewed - History of Present Illness Initial comments: 53-year-old female presents the emergency department the chief complaint of fall. Patient reports left elbow pain. She denies hitting her head or loss of consciousness. I performed the following quick note. Patient vital signs reviewed. Patient eloped prior to completion of care. - Related Data Home Medications Medication Instructions Recorded Confirmed carvediloL [Coreg] 12.5 mg PO BID 10/12/19 02/25/23 Amitriptyline HCl [Elavil] 50 mg PO HS 11/24/20 02/25/23 Oxybutynin Xl [Ditropan XL] 5 mg PO DAILY 04/10/21 02/25/23 Furosemide [Lasix] 20 mg PO DAILY 01/31/22 02/25/23 Previous Rx's Medication Instructions Recorded Clopidogrel [Plavix] 75 mg PO DAILY #90 tablet 09/27/21 traMADol HCl [Ultram] 50 mg PO Q6H PRN #12 tab 02/25/23 Allergies Allergy/AdvReac Type Severity Reaction Status Date / Time meperidine HCl [From Demerol] Allergy Rash/Hives/ Verified 03/25/23 16:15 Swelling naproxen sodium [From Aleve] Allergy Rash/Hives/ Verified 03/25/23 16:15 Swelling red dye AdvReac migraines Verified 03/25/23 16:15 Review of Systems ROS Statement: Those systems with pertinent positive or pertinent negative responses have been documented in the HPI. ROS Other: All systems not noted in ROS Statement are negative. Past Medical History Past Medical History: Coronary Artery Disease (CAD), Chest Pain / Angina, Hypertension, Osteoarthritis (OA), Respiratory Disorder, Syncope Additional Past Medical History / Comment(s): hx. of Vocal cord paralysis after lung biopsy, dr. sawant put a voice box on vocal cords, left lung nodules related to SARCOIDOSIS, SOB w/exertion, salivary gland infection. per pt she had covid x2, (last infection 11/2020) History of Any Multi-Drug Resistant Organisms: None Reported Past Surgical History: Adenoidectomy, Cholecystectomy, Heart Catheterization, Hysterectomy, Joint Replacement, Orthopedic Surgery, Tonsillectomy Additional Past Surgical History / Comment(s): Repair of vocal cord paralysis, left rotator cuff repair, bilateral knee replaced, LEFT LUNG NODULE REMOVAL, Loop recorder with removal, right knee replaced May 2020, had right knee m anipulation 06-26-20 @ [facility]. bilateral leg stents placed in september 26/2022, Past Anesthesia/Blood Transfusion Reactions: Postoperative Nausea & Vomiting (PONV) Past Psychological History: No Psychological Hx Reported Smoking Status: Never smoker Past Alcohol Use History: None Reported Past Drug Use History: Marijuana - Past Family History Mother Family Medical History: Diabetes Mellitus Additional Family Medical History / Comment(s): Mother is alive, at 71, recently had cardiac surgery (95% occlusion) with history of diabetes. Father History Unknown: Yes Additional Family Medical History / Comment(s): Patient does not have any contact with her father and does not know any of his medical history. Brother(s) Additional Family Medical History / Comment(s): Patient has 1 brother but does not know his medical history. Patient does not have any sisters. Patient has 2 sons no major medical problems. General Exam - General Exam Comments Initial Comments: Visual Physical Exam Vital signs reviewed General: Well-appearing, nontoxic, no acute distress. Head: Normocephalic, atraumatic Eyes: PERRLA, EOMI ENT: Airway patent Chest: Nonlabored breathing Skin: No visual rash, normal skin tone Neuro: Alert and oriented 3 Musculoskeletal: No gross abnormalities Course Vital Signs 03/25/23 16:11 Temperature 97.7 F Pulse Rate 83 Respiratory 18 Rate Blood Pressure 150/86 O2 Sat by Pulse 98 Oximetry Medical Decision Making - Medical Decision Making I performed the quick note portion of this exam, verbal signature Izzy Marion PA-C Disposition Clinical Impression: Fall Disposition: LEFT AGAINST MEDICAL ADVICE Referrals: Fannie Moss [Primary Care Provider] - 1-2 days Time of Disposition: 16:54
[2023-03-25 16:23] VITALS: BP 150/86; PULSE 83; RESP 18; TEMP 97.7
--- NOTE | 2023-03-25 20:02 | XR ---
EXAMINATION TYPE: XR elbow complete LT DATE OF EXAM: 03/25/2023 COMPARISON: None HISTORY: Fall, pain TECHNIQUE: Three-view left elbow FINDINGS: Radius aligns normally with the humerus. Anterior fat pad is normal. No elevation posterior fat pad is evident. No acute fracture or dislocation is evident. Follow up exams can be performed 7-10 days acute trauma for continued pain IMPRESSION: 1. No acute osseous abnormality left elbow
--- NOTE | 2023-03-25 20:05 | XR ---
EXAMINATION TYPE: XR humerus LT DATE OF EXAM: 03/25/2023 4:33 PM CLINICAL INDICATION:Female, 53 years old with history of fall, elbow pain; [facility] COMPARISON: TECHNIQUE: The left humerus was examined in frontal and lateral projections. FINDINGS: No acute fracture or dislocation. Mild degenerative changes of the acromioclavicular and glenohumeral joints. Slightly widened appearance of the AC joint longitudinally, may represent sequela of previou s injury. There is a surgical anchor in the humeral head. IMPRESSION: No acute osseous pathology.
== END 2023-03-25 21:18 | disposition left against medical advice (07) ==
LOC: EC 15:38
DX: M25.522 Pain in left elbow (principal); I10 Essential (primary) hypertension; I25.10 Atherosclerotic heart disease of native coronary artery without angina pectoris; F12.90 Cannabis use, unspecified, uncomplicated; Z91.041 Radiographic dye allergy status; Z88.8 Allergy status to other drugs, medicaments and biological substances; Z53.29 Procedure and treatment not carried out because of patient's decision for other reasons; W19.XXXA Unspecified fall, initial encounter
CPT/HCPCS: 99283

== ENCOUNTER 2023-05-13 15:05 | Observation (INO) | payer MEDICARE, OTHER ==
--- NOTE | 2023-05-13 15:44 | ED ---
General Adult HPI - General Chief complaint: Chest Pain Stated complaint: Chest Pain Time Seen by Provider: 05/13/23 15:21 Source: patient, RN notes reviewed Mode of arrival: ambulatory Limitations: no limitations - History of Present Illness Initial comments: Patient is a pleasant 53-year-old female present to the emergency department with chest discomfort. Onset of symptoms was this morning, woke her from sleep. Discomfort was somewhat severe. Discomfort is more moderate at this time rated 5 or 6/10. Discomfort feels like tightness. Some radiation to the left arm. Patient has mild nausea and dyspnea. Patient was a little bit sweaty earlier. Patient was taken off Plavix a week ago. Patient states she has had some similar symptoms previously. Last stress test around 2 years ago. Patient is scheduled to have a stress test in the next week or 2. Patient does see Dr. Franco - Related Data Home Medications Medication Instructions Recorded Confirmed carvediloL [Coreg] 12.5 mg PO BID 10/12/19 05/13/23 Oxybutynin Xl [Ditropan XL] 5 mg PO DAILY 04/10/21 05/13/23 Furosemide [Lasix] 20 mg PO DAILY 01/31/22 05/13/23 Albuterol Nebulized [Ventolin 2.5 mg INHALATION RT-Q8H 05/13/23 05/13/23 Nebulized] Aspirin EC [Ecotrin Low Dose] 81 mg PO DAILY 05/13/23 05/13/23 Cyclobenzaprine [Flexeril] 5 mg PO BID 05/13/23 05/13/23 Diclofenac Sodium [Voltaren] 75 mg PO BID 05/13/23 05/13/23 Omeprazole [PriLOSEC] 20 mg PO AC-BID 05/13/23 05/13/23 Ondansetron Odt [Zofran Odt] 4 mg PO Q12HR PRN 05/13/23 05/13/23 Allergies Allergy/AdvReac Type Severity Reaction Status Date / Time meperidine HCl [From Demerol] Allergy Rash/Hives/ Verified 03/25/23 16:15 Swelling naproxen sodium [From Aleve] Allergy Rash/Hives/ Verified 03/25/23 16:15 Swelling red dye AdvReac migraines Verified 03/25/23 16:15 Review of Systems ROS Statement: Those systems with pertinent positive or pertinent negative responses have been documented in the HPI. ROS Other: All systems not noted in ROS Statement are negative. Constitutional: Denies: fever Eyes: Denies: eye pain ENT: Denies: ear pain Respiratory: Reports: as per HPI Cardiovascular: Reports: as per HPI, chest pain Endocrine: Denies: fatigue Gastrointestinal: Reports: nausea. Denies: abdominal pain Genitourinary: Denies: dysuria Past Medical History Past Medical History: Coronary Artery Disease (CAD), Chest Pain / Angina, Hypertension, Osteoarthritis (OA), Respiratory Disorder, Syncope Additional Past Medical History / Comment(s): hx. of Vocal cord paralysis after lung biopsy, dr. sawant put a voice box on vocal cords, left lung nodules related to SARCOIDOSIS, SOB w/exertion, salivary gland infection. per pt she had covid x2, (last infection 11/2020) History of Any Multi-Drug Resistant Organisms: None Reported Past Surgical History: Adenoidectomy, Cholecystectomy, Heart Catheterization, Hysterectomy, Joint Replacement, Orthopedic Surgery, Tonsillectomy Additional Past Surgical History / Comment(s): Repair of vocal cord paralysis, left rotator cuff repair, bilateral knee replaced, LEFT LUNG NODULE REMOVAL, Loop recorder with removal, right knee replaced May 2020, had right knee manipulation 06-26-20 @ [facility]. bilateral leg stents placed in september 26/2022, Past Anesthesia/Blood Transfusion Reactions: Postoperative Nausea & Vomiting (PONV) Past Psychological History: No Psychological Hx Reported Smoking Status: Never smoker Past Alcohol Use History: None Reported Past Drug Use History: Marijuana - Past Family History Mother Family Medical History: Diabetes Mellitus Additional Family Medical History / Comment(s): Mother is alive, at 71, recently had cardiac surgery (95% occlusion) with history of diabetes. Father History Unknown: Yes Additional Family Medical History / Comment(s): Patient does not have any contact with her father and does not know any of his medical history. Brother(s) Additional Family Medical History / Comment(s): Patient has 1 brother but does not know his medical history. Patient does not have any sisters. Patient has 2 sons no major medical problems. General Exam Limitations: no limitations General appearance: alert, in no apparent distress Head exam: Present: normocephalic Eye exam: Present: normal appearance Neck exam: Present: normal inspection Respiratory exam: Present: normal lung sounds bilaterally. Absent: chest wall tenderness Cardiovascular Exam: Present: regular rate, normal rhythm Expanded Peripheral pulses: 2+: Radial (R), Radial (L), Dorsalis Pedis (R), Dorsalis Pedis (L) GI/Abdominal exam: Present: soft. Absent: tenderness Extremities exam: Present: normal inspection. Absent: pedal edema, calf tenderness Neurological exam: Present: alert Psychiatric exam: Present: normal affect, normal mood Skin exam: Present: normal color Course Vital Signs 05/13/23 05/13/23 05/13/23 15:14 15:29 15:30 Temperature 97.3 F L Pulse Rate 92 85 Pulse Rate [ Grounds Crew Supervisor ] Respiratory 16 38 H 10 L Rate Blood Pressure 136/86 O2 Sat by Pulse 99 Oximetry 05/13/23 05/13/23 05/13/23 15:40 15:50 15:52 Temperature Pulse Rate 86 76 Pulse Rate [ 80 Grounds Crew Supervisor ] Respiratory 16 18 Rate Blood Pressure O2 Sat by Pulse 99 Oximetry 05/13/23 05/13/23 16:00 16:10 Temperature 97.6 F Pulse Rate 78 93 Pulse Rate [ Grounds Crew Supervisor ] Respiratory 22 15 Rate Blood Pressure 142/92 138/88 O2 Sat by Pulse 97 95 Oximetry EKG Findings - EKG Results: EKG: interpreted by ERMD (Nonspecific ST-T), sinus rhythm, normal axis, normal QRS Medical Decision Making - Medical Decision Making Was pt. sent in by a medical professional or institution (, PA, [employer], urgent care, hospital, or prison...) When possible be specific @ -No Did you speak to anyone other than the patient for history (EMS, parent, family, police, friend...)? What history was obtained from this source @ -No Did you review nursing and triage notes (agree or disagree)? Why? @ -I reviewed and agree with nursing and triage notes Were old charts reviewed (outside hosp., previous admission, EMS record, old EKG, old radiological studies, urgent care reports/EKG's, prison records)? Report findings @ -Previous x-ray reviewed Differential Diagnosis (chest pain, altered mental status, abdominal pain women, abdominal pain men, vaginal bleeding, weakness, fever, dyspnea, syncope, headache, dizziness, GI bleed, back pain, seizure, CVA, palpatations, mental health, musculoskeletal)? @ -Differential Chest Pain: Stable Angina, Unstable Angina, STEMI, NSTEMI Aortic Dissection, Pneumothorax, Musculoskeletal, Esophageal Spasm GERD, Cholecystitis, Pancreatitis, Zoster, this is not meant to be an all-inclusive list. EKG interpreted by me (3pts min.). @ -As above X-rays interpreted by me (1pt min.). @ -Chest x-ray shows no acute process CT interpreted by me (1pt min.). @ -None done U/S interpreted by me (1pt. min.). @ -None done What testing was considered but not performed or refused? (CT, X-rays, U/S, labs)? Why? @ -None What meds were considered but not given or refused? Why? @ -None Did you discuss the management of the patient with other professionals (professionals i.e. , PA, [employer], lab, RT, psych nurse, social media intern, pump attendant, teacher, real estate officer, caseworker intake)? Give summary @ -Case was discussed with Dr. Moran, who will admit covering [facility] emergency department physician group, covering for hospital call Was smoking cessation discussed for >3mins.? @ -No Was critical care preformed (if so, how long)? @ -No Were there social determinants of health that impacted care today? How? (Homelessness, low income, unemployed, alcoholism, drug addiction, transportation, low edu. Level, literacy, decrease access to med. care, fpc, rehab)? @ -No Was there de-escalation of care discussed even if they declined (Discuss DNR or withdrawal of care, Hospice)? DNR status @ -No What co-morbidities impacted this encounter? (DM, HTN, Smoking, COPD, CAD, Cancer, CVA, ARF, Chemo, Hep., AIDS, mental health diagnosis, sleep apnea, morbid obesity)? @ -None Was patient admitted / discharged? Hospital course, mention meds given and route, prescriptions, significant lab abnormalities, going to OR and other pe rtinent info. @ -Patient reevaluated and updated. Patient will be admitted. Admission orders written. Cardiology will be placed on consult Undiagnosed new problem with uncertain prognosis? @ -No Drug Therapy requiring intensive monitoring for toxicity (Heparin, Nitro, Insulin, Cardizem)? @ -No Were any procedures done? @ -No Diagnosis/symptom? @ -Chest pain Acute, or Chronic, or Acute on Chronic? @ -Acute Uncomplicated (without systemic symptoms) or Complicated (systemic symptoms)? @ -Default Side effects of treatment? @ -No Exacerbation, Progression, or Severe Exacerbation? @ -No Poses a threat to life or bodily function? How? (Chest pain, [place], [place], pneumonia, PE, COPD, DKA, ARF, appy, cholecystitis, CVA, Diverticulitis, Homicidal, Suicidal, threat to staff... and all critical care pts) @ -Potential threat to cardiac function - Lab Data Result diagrams: 05/13/23 15:49 05/13/23 15:49 Lab Results 05/13/23 05/13/23 05/13/23 Range/Units 15:49 15:49 15:49 WBC 7.8 (3.8-10.6) k/uL RBC 5.17 (3.80-5.40) m/uL Hgb 13.9 (11.4-16.0) gm/dL Hct 42.4 (34.0-46.0) % MCV 81.9 (80.0-100.0) fL MCH 27.0 (25.0-35.0) pg MCHC 32.9 (31.0-37.0) g/dL RDW 13.4 (11.5-15.5) % Plt Count 327 (150-450) k/uL MPV 7.1 Neutrophils % 63 % Lymphocytes % 26 % Monocytes % 7 % Eosinophils % 2 % Basophils % 1 % Neutrophils # 4.9 (1.3-7.7) k/uL Lymphocytes # 2.0 (1.0-4.8) k/uL Monocytes # 0.6 (0-1.0) k/uL Eosinophils # 0.1 (0-0.7) k/uL Basophils # 0.0 (0-0.2) k/uL PT 9.7 L (10.0-12.5) sec INR 0.9 (<1.2) APTT 25.2 (22.0-30.0) sec D-Dimer 0.38 (<0.60) mg/L FEU Sodium 141 (137-145) mmol/L Potassium 4.1 (3.5-5.1) mmol/L Chloride 106 (98-107) mmol/L Carbon Dioxide 26 (22-30) mmol/L Anion Gap 9 mmol/L BUN 18 H (7-17) mg/dL Creatinine 0.59 (0.52-1.04) mg/dL Est GFR (CKD-EPI)AfAm >90 (>60 ml/min/1.73 sqM) Est GFR (CKD-EPI)NonAf >90 (>60 ml/min/1.73 sqM) Glucose 102 H (74-99) mg/dL Calcium 9.8 (8.4-10.2) mg/dL Magnesium 1.9 (1.6-2.3) mg/dL Total Bilirubin 0.8 (0.2-1.3) mg/dL AST 47 H (14-36) U/L ALT 69 H (4-34) U/L Alkaline Phosphatase 145 H (38-126) U/L Troponin I (0.000-0.034) ng/mL Total Protein 7.8 (6.3-8.2) g/dL Albumin 4.8 (3.5-5.0) g/dL 05/13/23 Range/Units 15:49 WBC (3.8-10.6) k/uL RBC (3.80-5.40) m/uL Hgb (11.4-16.0) gm/dL Hct (34.0-46.0) % MCV (80.0-100.0) fL MCH (25.0-35.0) pg MCHC (31.0-37.0) g/dL RDW (11.5-15.5) % Plt Count (150-450) k/uL MPV Neutrophils % % Lymphocytes % % Monocytes % % Eosinophils % % Basophils % % Neutrophils # (1.3-7.7) k/uL Lymphocytes # (1.0-4.8) k/uL Monocytes # (0-1.0) k/uL Eosinophils # (0-0.7) k/uL Basophils # (0-0.2) k/uL PT (10.0-12.5) sec INR (<1.2) APTT (22.0-30.0) sec D-Dimer (<0.60) mg/L FEU Sodium (137-145) mmol/L Potassium (3.5-5.1) mmol/L Chloride (98-107) mmol/L Carbon Dioxide (22-30) mmol/L Anion Gap mmol/L BUN (7-17) mg/dL Creatinine (0.52-1.04) mg/dL Est GFR (CKD-EPI)AfAm (>60 ml/min/1.73 sqM) Est GFR (CKD-EPI)NonAf (>60 ml/min/1.73 sqM) Glucose (74-99) mg/dL Calcium (8.4-10.2) mg/dL Magnesium (1.6-2.3) mg/dL Total Bilirubin (0.2-1.3) mg/dL AST (14-36) U/L ALT (4-34) U/L Alkaline Phosphatase (38-126) U/L Troponin I <0.012 (0.000-0.034) ng/mL Total Protein (6.3-8.2) g/dL Albumin (3.5-5.0) g/dL Disposition Clinical Impression: Chest pain Disposition: ADMITTED IP TO THIS HOSP Is patient prescribed a controlled substance at d/c from ED?: No Referrals: Fannie Moss [Primary Care Provider] - 1-2 days Time of Disposition: 16:47
[2023-05-13] MEDS: NITROGLYCERIN SL TABS 0.4 MG TAB SUBLINGUAL STA ×3 (15:58→16:11)
[2023-05-13] MEDS: ASPIRIN 81 MG PO STA (15:58)
[2023-05-13 16:06] LABS: Basophils % (A) 1 %; Eosinophils # (A) 0.1 k/uL (0-0.7); Eosinophils % (A) 2 %; HCT 42.4 % (34.0-46.0); HGB 13.9 gm/dL (11.4-16.0); Lymphocytes % (A) 26 %; MCHC 32.9 g/dL (31.0-37.0); MCV 81.9 fL (80.0-100.0); Mean Platelet Volume 7.1; Monocytes # (A) 0.6 k/uL (0-1.0); Monocytes % (A) 7 %; Neutrophils # (A) 4.9 k/uL (1.3-7.7); Neutrophils % (A) 63 %; Platelet Count 327 k/uL (150-450); RBC 5.17 m/uL (3.80-5.40); RDW 13.4 % (11.5-15.5); WBC 7.8 k/uL (3.8-10.6)
[2023-05-13 16:15] LABS: ALT 69 U/L (4-34); AST 47 U/L (14-36); African American GFR (CKD) >90 (>60 ml/min/1.73 sqM); Albumin 4.8 g/dL (3.5-5.0); Alkaline Phosphatase 145 U/L (38-126); Anion Gap 9 mmol/L; Blood Urea Nitrogen 18 mg/dL (7-17); Calcium 9.8 mg/dL (8.4-10.2); Carbon Dioxide 26 mmol/L (22-30); Chloride 106 mmol/L (98-107); Glucose 102 mg/dL (74-99); Magnesium 1.9 mg/dL (1.6-2.3); Non-African American GFR(CKD) >90 (>60 ml/min/1.73 sqM); Potassium 4.1 mmol/L (3.5-5.1); Sodium 141 mmol/L (137-145); Total Bilirubin 0.8 mg/dL (0.2-1.3); Total Protein 7.8 g/dL (6.3-8.2)
[2023-05-13] MEDS: MORPHINE SULFATE 4 MG/ML SYRINGE IVP STA (16:16)
[2023-05-13 16:18] LABS: INR 0.9 (<1.2); Partial Thromboplastin Time 25.2 sec (22.0-30.0); Prothrombin Time 9.7 sec (10.0-12.5)
[2023-05-13] MEDS ORDERED: NITROGLYCERIN SL TABS 0.4 MG TAB SUBLINGUAL PRN (16:47)
--- NOTE | 2023-05-13 17:06 | XR ---
EXAMINATION TYPE: XR chest 2V DATE OF EXAM: 05/13/2023 4:09 PM CLINICAL INDICATION:Female, 53 years old with history of Chest Pain; [facility] COMPARISON: 02/25/2023 chest x-ray TECHNIQUE: XR chest 2V. Frontal and lateral views of the chest.. FINDINGS: Lines/Tubes/Devices: EKG leads overlie the chest. No indwelling lines are seen. Heart/mediastinum: Heart size is normal. Mediastinum appears normal. Possible mild calcification al malik the aortic arch. Pulmonary vascularity: Not increased, Lungs/Pleura: There is no evidence of pleural effusion, focal consolidation, or pneumothorax. Musculoskeletal: No acute osseous abnormality demonstrated in the limits of the exam. Surgical ancho r in the left humeral head. Other findings: None. IMPRESSION: No acute cardiopulmonary abnormality.
[2023-05-13] MEDS ORDERED: ONDANSETRON ODT 4 MG TAB PO PRN (17:13)
[2023-05-13] MEDS: NITROGLYCERIN OINT 1 INCH/GM PACKET TOPICAL SCH (18:07)
[2023-05-13] MEDS: PANTOPRAZOLE 40 MG TABLET PO SCH (18:07)
--- NOTE | 2023-05-13 18:53 | P.HPIM ---
History of Present Illness H&P Date: 05/13/23 History of Presenting Illness: Patient is a very pleasant 53-year-old female with a past medical history of CAD, hypertension, GERD, vocal cord paralysis status post voicebox, and sarcoidosis. She presented to the emergency department with a chief complaint of chest pain. Patient reports awakening this morning with a severe squeezing sensation to her midsternal chest that radiated up into her left shoulder and down left arm accompanied by diaphoresis, dizziness, and nausea. She reports experiencing chest pain off and on over the past couple years and has been under evaluation by Dr. Humphrey and they are unclear if this pain is secondary to cardiac only issues or if her sarcoidosis is affecting her heart. Patient denies having any changes in vision, hearing, headache, palpitations, increased or changes in shortness of breath, increased or changes in cough, vomiting, abdominal pain, or experiencing any numbness/tingling/weakness in her extremities. Patient does report scant lower extremity edema over the past 1 week and taking Lasix 20 mg daily at home. She underwent full evaluation in the emergency department. Vital signs upon arrival showing blood pressure 136/86, heart rate 92, respiratory rate 16, temp 97.3 F, and SpO2 of 99% on room air. EKG was completed showing normal sinus rhythm at 83 bpm with T wave inversion in leads III. Chest x-ray completed negative for acute cardiopulmonary process. Labs completed and reviewed. CBC unremarkable. Coagulation profile normal findings including D-dimer of 0.38. BMP unremarkable. Blood glucose 102. Magnesium normal findings at 1.9. Liver profile showing transaminitis with AST of 47, ALT of 69, and alkaline phosphatase of 145. Troponin was negative at less than 0.012. Patient admitted under services with consultation to cardiology. Review of systems: Pertinent positives and negatives as discussed in HPI, a complete review of s ystems was performed and all other systems are negative. Physical exam: Vital signs reviewed and stable. General: Nontoxic, no distress and appears stated age. Derm: Skin warm and dry, normal coloration for ethnicity. Head: Atraumatic, normocephalic and symmetric. Eyes: EOMs intact, no lid lag, and anicteric sclera Mouth: no lip lesions, mucus membranes moist Cardiovascular: regular rate and rhythm with normal S1S2, no murmur, positive posterior tibial pulses bilaterally, and cap refill < 2 seconds. Lungs: Respirations even, regular, and unlabored on room air. Lungs CTA bilaterally, no rhonchi, no rales, no wheezing, and no accessory muscle usage. Abdominal: soft, nontender to palpation, no guarding, no appreciable organomegaly Ext: ROM intact. No gross muscle atrophy, no edema, no contractures Neuro: Speech clear, face symmetrical and CN II-XII grossly intact with no noted focal neuro deficits Psych: Alert and oriented to person, place, time, and situation. Appropriate and pleasant affect. Assessment and Plan of Care: Chest pain, rule out acute coronary event History of coronary artery disease Hypertension Sarcoidosis GERD Transaminitis, unclear appears chronic -Cardiology consulted, appreciate recommendations -Telemetry monitoring -Trend troponins -Cardiac diet, NPO at midnight -Aspirin 81 mg daily, atorvastatin 40 mg daily, carvedilol 12.5 mg twice daily, Lasix 20 mg daily, and Protonix 40 mg twice daily. -Lipid profile with a.m. labs. -Echocardiogram Data and imaging reviewed: As stated above in HPI The patient is admitted with an anticipated greater than 2 midnight stay for evaluation of chest pain. CODE STATUS: Full code DVT prophylaxis: Lovenox Anticipated discharge date: Clinical course to determine Anticipated discharge place: Clinical course to determine Patient was seen independently by Nurse Practitioner. This document was prepared using [employer] dictation software. Please allow for errors in lap winding machine operator while rare they do occur. Past Medical History Past Medical History: Coronary Artery Disease (CAD), Chest Pain / Angina, Hypertension, Osteoarthritis (OA), Respiratory Disorder, Syncope Additional Past Medical History / Comment(s): hx. of Vocal cord paralysis after lung biopsy, dr. sawant put a voice box on vocal cords, left lung nodules related to SARCOIDOSIS, SOB w/exertion, salivary gland infection. per pt she had covid x2, (last infection 11/2020) History of Any Multi-Drug Resistant Organisms: None Reported Past Surgical History: Adenoidectomy, Cholecystectomy, Heart Catheterization, Hysterectomy, Joint Replacement, Orthopedic Surgery, Tonsillectomy Additional Past Surgical History / Comment(s): Repair of vocal cord paralysis, left rotator cuff repair, bilateral knee replaced, LEFT LUNG NODULE REMOVAL, Loop recorder with removal, right knee replaced May 2020, had right knee manipulation 06-26-20 @ [facility]. bilateral leg stents placed in september 26/2022, Past Anesthesia/Blood Transfusion Reactions: Postoperative Nausea & Vomiting (PONV) Past Psychological History: No Psychological Hx Reported Smoking Status: Never smoker Past Alcohol Use History: None Reported Past Drug Use History: Marijuana - Past Family History Mother Family Medical History: Diabetes Mellitus Additional Family Medical History / Comment(s): Mother is alive, at 71, recently had cardiac surgery (95% occlusion) with history of diabetes. Father History Unknown: Yes Additional Family Medical History / Comment(s): Patient does not have any contact with her father and does not know any of his medical history. Brother(s) Additional Family Medical History / Comment(s): Patient has 1 brother but does not know his medical history. Patient does not have any sisters. Patient has 2 sons no major medical problems. Medications and Allergies Home Medications Medication Instructions Recorded Confirmed Type carvediloL [Coreg] 12.5 mg PO BID 10/12/19 05/13/23 History Oxybutynin Xl [Ditropan XL] 5 mg PO DAILY 04/10/21 05/13/23 History Furosemide [Lasix] 20 mg PO DAILY 01/31/22 05/13/23 History Albuterol Nebulized [Ventolin 2.5 mg INHALATION RT-Q8H 05/13/23 05/13/23 History Nebulized] Aspirin EC [Ecotrin Low Dose] 81 mg PO DAILY 05/13/23 05/13/23 History Cyclobenzaprine [Flexeril] 5 mg PO BID 05/13/23 05/13/23 History Diclofenac Sodium [Voltaren] 75 mg PO BID 05/13/23 05/13/23 History Omeprazole [PriLOSEC] 20 mg PO AC-BID 05/13/23 05/13/23 History Ondansetron Odt [Zofran Odt] 4 mg PO Q12HR PRN 05/13/23 05/13/23 History Allergies Allergy/AdvReac Type Severity Reaction Status Date / Time meperidine HCl [From Demerol] Allergy Rash/Hives/ Verified 03/25/23 16:15 Swelling naproxen sodium [From Aleve] Allergy Rash/Hives/ Verified 03/25/23 16:15 Swelling red dye AdvReac migraines Verified 03/25/23 16:15 Physical Exam Vitals: Vital Signs Temp Pulse Pulse Resp BP Pulse Ox 05/13/23 16:55 89 19 138/92 97 05/13/23 16:40 91 14 139/92 99 05/13/23 16:30 85 14 138/88 96 05/13/23 16:20 92 15 138/88 96 05/13/23 16:10 97.6 F 93 15 138/88 95 05/13/23 16:00 78 22 142/92 97 05/13/23 15:52 80 05/13/23 15:50 76 18 05/13/23 15:40 86 16 99 05/13/23 15:30 85 10 L 05/13/23 15:29 38 H 05/13/23 15:14 97.3 F L 92 16 136/86 99 Intake and Output 05/13/23 05/13/23 05/13/23 06:59 14:59 22:59 Other: Weight 87.997 kg Results CBC & Chem 7: 05/13/23 15:49 05/13/23 15:49 Labs: Abnormal Lab Results - Last 24 Hours (Table) 05/13/23 05/13/23 Range/Units 15:49 15:49 PT 9.7 L (10.0-12.5) sec BUN 18 H (7-17) mg/dL Glucose 102 H (74-99) mg/dL AST 47 H (14-36) U/L ALT 69 H (4-34) U/L Alkaline Phosphatase 145 H (38-126) U/L
[2023-05-13] MEDS: CYCLOBENZAPRINE 5 MG TAB PO SCH (21:23)
[2023-05-13] MEDS: carvediloL 12.5 MG TAB PO SCH (21:23)
[2023-05-13] MEDS: ALBUTEROL NEBULIZED 2.5 MG/3 ML INHALATION SCH (22:22)
[2023-05-14 02:30] VITALS: RESP 16
[2023-05-14 08:44] LABS: HCT 38.6 % (37.2-46.3); HGB 12.2 g/dL (12.0-15.0); MCH 26.6 pg (27.0-32.0); MCHC 31.6 g/dL (32.0-37.0); MCV 84.3 FL (80.0-97.0); Mean Platelet Volume 9.3 FL (9.5-12.2); NRBC Per 100 WBC 0 X 10*3/uL (0.00-0.01); Platelet Count 341 X 10*3/uL (140-440); RBC 4.58 X 10*6/uL (4.10-5.20); RDW 13.4 % (11.5-14.5); WBC 7.25 X 10*3/uL (4.50-10.00)
[2023-05-14] MEDS: ASPIRIN 81 MG PO SCH (08:47)
[2023-05-14] MEDS: ATORVASTATIN 40 MG TAB PO SCH (08:47)
[2023-05-14] MEDS: OXYBUTYNIN XL 5 MG TAB.ER.24 PO SCH (08:48)
[2023-05-14] MEDS: ENOXAPARIN 40 MG/0.4 ML SYRINGE SQ SCH (08:53)
[2023-05-14 08:58] LABS: ALT 57 U/L (8-44); AST 24 U/L (13-35); Albumin 4.4 g/dL (3.8-4.9); Alkaline Phosphatase 140 U/L (41-126); BUN/Creat Ratio 27.29 Ratio (12.00-20.00); Blood Urea Nitrogen 19.1 mg/dL (9.0-27.0); Calcium 9.6 mg/dL (8.7-10.3); Carbon Dioxide 29.3 mmol/L (21.6-31.8); Chloride 104 mmol/L (96-109); Chol/HDL Ratio 3.94 Ratio; Globulin 2.2 g/dL (1.6-3.3); Glucose 99 mg/dL (70-110); LDL Cholesterol,Calculated 130.4 mg/dL (0.0-131.0); Potassium 3.9 mmol/L (3.5-5.5); Sodium 143 mmol/L (135-145); Total Bilirubin 0.8 mg/dL (0.3-1.2); Total Protein 6.6 g/dL (6.2-8.2); VLDL Calculation 18.14 mg/dL (5.00-40.00)
[2023-05-14] MEDS ORDERED: ASPIRIN 325 MG TAB PO SCH (09:00)
[2023-05-14] MEDS: FUROSEMIDE 20 MG TAB PO SCH (10:42)
--- NOTE | 2023-05-14 10:55 | P.CRDCN ---
History of Present Illness Consult date: 05/14/23 Consult reason: chest pain History of present illness: HISTORY OF PRESENT ILLNESS: This is a 53-year-old female patient of Dr. 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 We have been asked to see the patient in consultation for chest pain. Patient was seen in the office by Dr. Humphrey on 04/22/2023 and was scheduled for stress echocardiogram on 06/17 and echocardiogram on 06/23. Patient gives history that she was sleeping woke up with pain that was very severe in her chest and left forearm. She checked her pulse ox and her heart rate was at 120. She walked around a little bit and had some water and then went back to sleep. She continued to have the chest pain discomfort all day yesterday. She called the office and was instructed to come in the emergenc y center for evaluation. She states when she checked her pulse while she was on the phone with the office it was 110 bpm. Patient denies have any nausea or vomiting or diarrhea or constipation. She states she is able to walk on a treadmill and has not experienced this pain with ambulation. She denies history of smoking no alcohol use no illicit drug use. She uses occasional marijuana but none recently. Patient was given option of having testing done here in the hospital or follow-up outpatient as previously scheduled and she has opted to have the testing done while in the hospital. EKG sinus rhythm no acute ST-T wave changes. WBC 7.2, hemoglobin 12.2, platelet count 341. INR 0.9. D-dimer 0.38. Electrolytes and renal function are within normal limits. ALT 57, alkaline phosphatase 140. Magnesium 2.0. Triglycerides 90, cholesterol 199, LDL 130, HDL of 50. Chest x-ray no acute process. Home cardiac medications: Aspirin 81 mg daily, Coreg 12.5 mg twice daily, Lasix 20 mg daily. Echocardiogram performed in the office on 07/14/2021 revealed EF 55%, mild concentric left ventricular hypertrophy. Mild mitral regurgitation. Trace tricuspid regurgitation. Normal pulmonary artery systolic pressure. Mild pulmonic regurgitation. Cardiac catheterization performed 10/26/2019 revealed normal coronary arteries. REVIEW OF SYSTEMS: At the time of my exam: CONSTITUTIONAL: Denies fever or chills. HEENT: Denies blurred vision, vision changes, or eye pain. Denies hemoptysis CARDIOVASCULAR: Denies chest pain. Denies orthopnea. Denies PND. Denies palpitations RESPIRATORY: Denies shortness of breath. GASTROINTESTINAL: Denies abdominal pain. Denies nausea or vomiting. HEMATOLOGIC: Denies bleeding disorders. GENITOURINARY: Denies any blood in urine. SKIN: Denies pruitis. Denies rash. PHYSICAL EXAM: VITAL SIGNS: Reviewed. GENERAL: Well-developed in no acute distress. HEENT: Head is normocephalic. Pupils are equal, round. Sclerae anicteric. Mucous membranes of the mouth are moist. Neck supple. No JVD. LUNGS: Respirations even and unlabored. Lungs essentially clear to auscultation bilaterally. HEART: Regular rate and rhythm. S1 and S2 heard. Soft systolic murmur at the right and left upper sternal border. ABDOMEN: Soft. Nondistended. Nontender. EXTREMITIES: No clubbing or cyanosis. Peripheral pulses intact. No lower extremity edema NEUROLOGIC: Awake and alert. Oriented x 3. 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 Humphrey in the office in 1 to 2 weeks. Nurse practitioner note has been reviewed by physician. Signing provider agrees with the documented findings, assessment, and plan of care. Past Medical History Past Medical History: Coronary Artery Disease (CAD), Chest Pain / Angina, Hearing Disorder / Deafness, Hypertension, Osteoarthritis (OA), Respiratory Disorder, Syncope Additional Past Medical History / Comment(s): hx. of Vocal cord paralysis after lung biopsy, dr. sawant put a voice box on vocal cords, left lung nodules related to SARCOIDOSIS, SOB w/exertion, salivary gland infection. per pt she had covid x2, (last infection 11/2020) History of Any Multi-Drug Resistant Organisms: None Reported Past Surgical History: Adenoidectomy, Cholecystectomy, Heart Catheterization, Hysterectomy, Joint Replacement, Orthopedic Surgery, Tonsillectomy Additional Past Surgical History / Comment(s): Repair of vocal cord paralysis, left rotator cuff repair, bilateral knee replaced, LEFT LUNG NODULE REMOVAL, Loop recorder with removal, right knee replaced May 2020, had right knee manipulation 06-26-20 @ [facility]. bilateral leg stents placed in september 27/2022, Past Anesthesia/Blood Transfusion Reactions: No Reported Reaction Past Psychological History: No Psychological Hx Reported Smoking Status: Never smoker Past Alcohol Use History: None Reported Additional Past Alcohol Use History / Comment(s): Patient is a lifelong nonsmoker. previous marijuana use She uses alcohol occasionally on the weekends. Past Drug Use History: Marijuana Additional Drug Use History / Comment(s): occasional use - Past Family History Mother Family Medical History: Diabetes Mellitus Additional Family Medical History / Comment(s): Mother is alive, at 71, recently had cardiac surgery (95% occlusion) with history of diabetes. Father History Unknown: Yes Additional Family Medical History / Comment(s): Patient does not have any contact with her father and does not know any of his medical history. Brother(s) Additional Family Medical History / Comment(s): Patient has 1 brother but does not know his medical history. Patient does not have any sisters. Patient has 2 sons no major medical problems. Medications and Allergies Home Medications Medication Instructions Recorded Confirmed Type carvediloL [Coreg] 12.5 mg PO BID 10/12/19 05/13/23 History Oxybutynin Xl [Ditropan XL] 5 mg PO DAILY 04/10/21 05/13/23 History Furosemide [Lasix] 20 mg PO DAILY 01/31/22 05/13/23 History Albuterol Nebulized [Ventolin 2.5 mg INHALATION RT-Q8H 05/13/23 05/13/23 History Nebulized] Aspirin EC [Ecotrin Low Dose] 81 mg PO DAILY 05/13/23 05/13/23 History Cyclobenzaprine [Flexeril] 5 mg PO BID 05/13/23 05/13/23 History Diclofenac Sodium [Voltaren] 75 mg PO BID 05/13/23 05/13/23 History Omeprazole [PriLOSEC] 20 mg PO AC-BID 05/13/23 05/13/23 History Ondansetron Odt [Zofran Odt] 4 mg PO Q12HR PRN 05/13/23 05/13/23 History Allergies Allergy/AdvReac Type Severity Reaction Status Date / Time meperidine HCl [From Demerol] Allergy Rash/Hives/ Verified 03/25/23 16:15 Swelling naproxen sodium [From Aleve] Allergy Rash/Hives/ Verified 03/25/23 16:15 Swelling red dye AdvReac migraines Verified 03/25/23 16:15 Physical Exam Vitals: Vital Signs Temp Pulse Pulse Pulse Resp BP BP 05/14/23 07:00 97.9 F 73 16 119/71 05/14/23 02:17 98.4 F 68 16 05/13/23 23:35 97.4 F L 69 15 05/13/23 23:11 88 15 135/76 05/13/23 22:33 69 18 133/76 05/13/23 21:00 58 L 16 138/88 05/13/23 18:05 98.0 F 86 17 138/88 05/13/23 16:55 89 19 138/92 05/13/23 16:40 91 14 139/92 05/13/23 16:30 85 14 138/88 05/13/23 16:20 92 15 138/88 05/13/23 16:10 97.6 F 93 15 138/88 05/13/23 16:00 78 22 142/92 05/13/23 15:52 80 05/13/23 15:50 76 18 05/13/23 15:40 86 16 05/13/23 15:30 85 10 L 05/13/23 15:29 38 H 05/13/23 15:14 97.3 F L 92 16 136/86 BP Pulse Ox 05/14/23 07:00 98 05/14/23 02:17 124/62 97 05/13/23 23:35 113/73 100 05/13/23 23:11 99 05/13/23 22:33 98 05/13/23 21:00 99 05/13/23 18:05 98 05/13/23 16:55 97 05/13/23 16:40 99 05/13/23 16:30 96 05/13/23 16:20 96 05/13/23 16:10 95 05/13/23 16:00 97 05/13/23 15:52 05/13/23 15:50 05/13/23 15:40 99 05/13/23 15:30 05/13/23 15:29 05/13/23 15:14 99 Intake and Output 05/13/23 05/14/23 05/14/23 22:59 06:59 14:59 Other: Voiding Method Toilet # Voids 1 Weight 87.997 kg 87.997 kg Results 05/14/23 06:28 05/14/23 06:28 Cardiac Enzymes 05/13/23 05/13/23 05/13/23 Range/Units 15:49 15:49 18:13 AST 47 H (14-36) U/L Troponin I <0.012 <0.012 (0.000-0.034) ng/mL 05/13/23 Range/Units 22:13 AST (14-36) U/L Troponin I <0.012 (0.000-0.034) ng/mL Coagulation 05/13/23 Range/Units 15:49 PT 9.7 L (10.0-12.5) sec APTT 25.2 (22.0-30.0) sec CBC 05/13/23 Range/Units 15:49 WBC 7.8 (3.8-10.6) k/uL RBC 5.17 (3.80-5.40) m/uL Hgb 13.9 (11.4-16.0) gm/dL Hct 42.4 (34.0-46.0) % Plt Count 327 (150-450) k/uL Comprehensive Metabolic Panel 05/13/23 Range/Units 15:49 Sodium 141 (137-145) mmol/L Potassium 4.1 (3.5-5.1) mmol/L Chloride 106 (98-107) mmol/L Carbon Dioxide 26 (22-30) mmol/L BUN 18 H (7-17) mg/dL Creatinine 0.59 (0.52-1.04) mg/dL Glucose 102 H (74-99) mg/dL Calcium 9.8 (8.4-10.2) mg/dL AST 47 H (14-36) U/L ALT 69 H (4-34) U/L Alkaline Phosphatase 145 H (38-126) U/L Total Protein 7.8 (6.3-8.2) g/dL Albumin 4.8 (3.5-5.0) g/dL Current Medications Generic Name Dose Route Start Last Admin Trade Name Isaiah PRN Reason Stop Dose Admin Albuterol Sulfate 2.5 mg 05/14/23 00:00 05/13/23 22:22 Albuterol Nebulized 2.5 Mg/3 Ml INHALATION Not Given RT-Q8H [facility] Aspirin 81 mg 05/14/23 09:00 Aspirin 81 Mg PO DAILY [facility] Atorvastatin Calcium 40 mg 05/14/23 09:00 Atorvastatin 40 Mg Tab PO DAILY [facility] Carvedilol 12.5 mg 05/13/23 21:00 05/13/23 21:23 Carvedilol 12.5 Mg Tab PO 12.5 mg BID [facility] Administration Cyclobenzaprine HCl 5 mg 05/13/23 21:00 05/13/23 21:23 Cyclobenzaprine 5 Mg Tab PO 5 mg BID [facility] Administration Enoxaparin Sodium 40 mg 05/14/23 09:00 Enoxaparin 40 Mg/0.4 Ml Syringe SQ DAILY [facility] Furosemide 20 mg 05/14/23 09:00 Furosemide 20 Mg Tab PO DAILY [facility] Nitroglycerin 0.4 mg 05/13/23 16:47 Nitroglycerin Sl Tabs 0.4 Mg Tab SUBLINGUAL Q5M PRN Chest Pain Nitroglycerin 1 inch 05/13/23 18:00 05/14/23 05:53 Nitroglycerin Oint 1 Inch/Gm Packet TOPICAL 1 inch Q6HR [facility] Administration Ondansetron HCl 4 mg 05/13/23 17:13 Ondansetron Odt 4 Mg Tab PO Q12HR PRN Nausea And Vomiting Oxybutynin Chloride 5 mg 05/14/23 09:00 Oxybutynin Xl 5 Mg Tab.Er.24 PO DAILY [facility] Pantoprazole Sodium 40 mg 05/13/23 17:30 05/14/23 05:53 Pantoprazole 40 Mg Tablet PO 40 mg AC-BID [facility] Administration Intake and Output 05/13/23 05/14/23 05/14/23 22:59 06:59 14:59 Other: Voiding Method Toilet # Voids 1 Weight 87.997 kg 87.997 kg 05/13/23 15:49 05/13/23 15:49
--- NOTE | 2023-05-14 11:08 | CA ---
Stress Echo Report Jinny Sanchez Age: 53 Gender: F : 1970 Exam Date: 05/14/2023 09:50 Exam Location: [place] Stress Ht (in): 64 Wt (lb): 194 Ordering Physician: Mellissa Reagan Referring Physician: Tez DOUGLASS Cloth Bleaching Range Tender: Luigi Almonte Technologist Procedure CPT: Indication: Chest Pain ICD-9 Codes: Rhythm: Patient History: Cardiac Medications: SEE CHART Medications in past 24 hours: Contrast: N/A Stress Results Protocol: Clarence Total dose(mL): NA Exercise Duration (min:sec): 6:[address] Depression (mm): Angina Score: Stephens Score: METS: 7.1 Resting HR: 82 Resting BP: 137 / 89 Peak HR: 152 Peak BP: 202 / 74 Max Predicted HR: 165 92 % Max Predicted HR Target HR: 140 Double Product: 14066 BP Response: Reason for Termination: MAX EXERTION/TARGET HR Cardiac Symptoms: DIZZINESS,DIFFICULTY IN BREATHING ECG Analysis Resting ECG: Normal sinus rhythm, Stress ECG: No significant ST-T wave changes diagnostic for ischemia. Arrhythmia: No significant ectopic beats or irregular rhythms Echo Analysis Resting Echo: Normal global LV systolic function. No resting regional wall motion abnormality Peak Echo Analysis: Normal augmentation of global and segmental systolic function. No obvious stress-induced regional wall motion abnormality MEASUREMENTS (Male/Female) Normal Values CONCLUSIONS Poor exercise tolerance for age achieving 7.1 METS, moderate pitting for 6 minutes Difficulty breathing at peak exercise but no chest pain. Likely deconditioning Nonischemic ECG and echocardiographic response to exercise Hypertensive response to exercise. Normal heart rate response Dr Paul Sheth (Electronically Signed) Final Date: 14 May 2023 11:08
--- NOTE | 2023-05-14 11:26 | CA ---
Transthoracic Echo Report Name: Jinny Sanchez Age: 53 Gender: F : 1970 Exam Date: 05/14/2023 08:00 Exam Location: [place] Echo Ht (in): 64 Wt (lb): 194 Ordering Physician: Cristi Ferreira Attending/Referring Phys: Bilingual Call Center Representative Richardson Viveros RDCS Procedure CPT: Indications: Evaluate structure and function Cardiac Hx: Technical Quality: Fair Contrast 1: Total Dose (mL): Contrast 2: Total Dose (mL): MEASUREMENTS (Male / Female) Normal Values 2D ECHO LV Diastolic Diameter PLAX 3.8 cm 4.2 - 5.9 / 3.9 - 5.3 cm LV Systolic Diameter PLAX 2.9 cm IVS Diastolic Thickness 0.9 cm 0.6 - 1.0 / 0.6 - 0.9 cm LVPW Diastolic Thickness 0.7 cm 0.6 - 1.0 / 0.6 - 0.9 cm LV Relative Wall Thickness 0.4 Aortic Root Diameter 4.0 cm LA Systolic Diameter LX 3.4 cm 3.0 - 4.0 / 2.7 - 3.8 cm LA Volume 45.4 cm??? 18 - 58 / 22 - 52 cm??? LA Volume Index 22.4 cm???/m??? 16 - 28 cm???/m??? DOPPLER AV Peak Velocity 87.8 cm/s AV Peak Gradient 3.1 mmHg AV Mean Velocity 67.3 cm/s AV Mean Gradient 2.1 mmHg AV Velocity Time Integral 19.6 cm LVOT Peak Velocity 78.8 cm/s LVOT Peak Gradient 2.5 mmHg LVOT Velocity Time Integral 17.4 cm MV Area PHT 3.2 cm??? Mitral E Point Velocity 68.0 cm/s Mitral A Point Velocity 39.3 cm/s Mitral E to A Ratio 1.7 MV Deceleration Time 240.2 ms PV Peak Velocity 43.6 cm/s PV Peak Gradient 0.8 mmHg FINDINGS Left Ventricle Left ventricular ejection fraction is estimated at 55 %. Normal LV cavity size and systolic function. Normal LV wall thickness Right Ventricle Normal right ventricular size and function. Right Atrium Normal right atrial size. Left Atrium Normal left atrial size. Mitral Valve Trace mitral regurgitation. Aortic Valve Aortic valve not well visualized. Tricuspid Valve Tricuspid valve not well visualized. Pulmonic Valve Mild pulmonic regurgitation. Pericardium Normal pericardium. Aorta Normal size aortic root and proximal ascending aorta. CONCLUSIONS Technically difficult study Overall normal LV size and systolic function EF 55% Normal LV wall thickness. No obvious regional wall motion abnormality No significant valvular dysfunction Previewed by: Dr Paul Sheth (Electronically Signed) Final Date: 14 May 2023 11:26
[2023-05-14 14:11] VITALS: BP 114/80; PULSE 72; TEMP 97.7
--- NOTE | 2023-05-14 17:17 | P.DS ---
Providers Date of admission: 05/13/23 16:48 Expected date of discharge: 05/14/23 Attending physician: Frandy Mark MD Consults: 05/13/23 16:47 Consult Physician Urgent Consulting Provider: Jose Humphrey Consult Reason/Comments: cp Do you want consulting provider notified?: Yes Primary care physician: [facility] Course: Discharge Diagnosis: Chest pain, acute coronary event ruled out. EKG was completed showing normal sinus rhythm at 83 bpm with T wave inversion in leads III. Chest x-ray completed negative for acute cardiopulmonary process. Troponins trended all negative at less than 0.012 x 3 draws. Lipid profile unremarkable. Echocardiogram was completed showing preserved EF of 55% with no significant valvular or structural abnormalities reported. She was evaluated by licensed prosthetist recommending patient undergoing stress echo. Stress echo was completed showing poor exercise tolerance for age reporting a 7.1 METS, difficulty breathing at peak exercise with no reported chest pain believed to be secondary to physical deconditioning and nonischemic ECG and echocardiographic response to exercise with hypertensive response to exercise and normal heart rate response. Patient was cleared from cardiac perspective for discharge. She is medically stable for discharge at this time. Had long discussion with patient regarding need to follow-up with ceramic tile setter for further evaluation/discussion on her sarcoidosis being potential cause of pain. She will also need to follow-up outpatient with PCP in 1 to 2 days and with licensed prosthetist in 1 week. Vital signs at time of discharge as follows blood pressure 114/80, heart rate 72, respiratory rate 16, temp 97.7 F, and SpO2 of 99% on room air. History of coronary artery disease status post stenting Hypertension Sarcoidosis GERD Transaminitis, unclear appears chronic and stable. Present on previous labs. Hospital Course: Patient is a very pleasant 53-year-old female with a past medical history of CAD with stents, hypertension, GERD, vocal cord paralysis status post voicebox sx, and sarcoidosis. She presented to the emergency department with a chief complaint of chest pain. Patient reports awakening this morning with a severe squeezing sensation to her midsternal chest that radiated up into her left shoulder and down left arm accompanied by diaphoresis, dizziness, and nausea. She reports experiencing chest pain off and on over the past couple years and has been under evaluation by Dr. Humphrey and they are unclear if this pain is secondary to cardiac only issues or if her sarcoidosis is affecting her heart. Patient denies having any changes in vision, hearing, headache, palpitations, increased or changes in shortness of breath, increased or changes in cough, vomiting, abdominal pain, or experiencing any numbness/tingling/weakness in her extremities. Patient does report scant lower extremity edema over the past 1 week and taking Lasix 20 mg daily at home. She underwent full evaluation in the emergency department. Vital signs upon arrival showing blood pressure 136/86, heart rate 92, respiratory rate 16, temp 97.3 F, and SpO2 of 99% on room air. EKG was completed showing normal sinus rhythm at 83 bpm with T wave inversion in leads III. Chest x-ray completed negative for acute cardiopulmonary process. Labs completed and reviewed. CBC unremarkable. Coagulation profile normal find ings including D-dimer of 0.38. BMP unremarkable. Blood glucose 102. Magnesium normal findings at 1.9. Liver profile showing transaminitis with AST of 47, ALT of 69, and alkaline phosphatase of 145. Troponin was negative at less than 0.012. Patient admitted under services with consultation to cardiology. Troponins trended overnight all negative at less than 0.012 x 3 draws. Lipid profile unremarkable. Echocardiogram was completed showing preserved EF of 55% with no significant valvular or structural abnormalities reported. She was evaluated by licensed prosthetist recommending patient undergoing stress echo. Stress echo was completed showing poor exercise tolerance for age reporting a 7.1 METS, difficulty breathing at peak exercise with no reported chest pain believed to be secondary to physical deconditioning and nonischemic ECG and echocardiographic response to exercise with hypertensive response to exercise and normal heart rate response. Patient has been cleared from cardiac perspective for discharge. She is medically stable for discharge at this time. Had long discussion with patient regarding need to follow-up with ceramic tile setter for further evaluation/discussion on her sarcoidosis being potential cause of pain. She will also need to follow-up outpatient with PCP in 1 to 2 days and with licensed prosthetist in 1 week. Vital signs at time of discharge as follows blood pressure 114/80, heart rate 72, respiratory rate 16, temp 97.7 F, and SpO2 of 99% on room air. No medication changes made during this admission. Physical exam: Vital signs reviewed and stable. General: Nontoxic, no distress and appears stated age. Derm: Skin warm and dry, normal coloration for ethnicity. Head: Atraumatic, normocephalic and symmetric. Eyes: EOMs intact, no lid lag, and anicteric sclera Mouth: no lip lesions, mucus membranes moist Cardiovascular: regular rate and rhythm with normal S1S2, no murmur, positive posterior tibial pulses bilaterally, and cap refill < 2 seconds. Lungs: Respirations even, regular, and unlabored on room air. Lungs CTA bilaterally, no rhonchi, no rales, no wheezing, and no accessory muscle usage. Abdominal: soft, nontender to palpation, no guarding, no appreciable organomegaly Ext: ROM intact. No gross muscle atrophy, no edema, no contractures Neuro: Speech clear, face symmetrical and CN II-XII grossly intact with no noted focal neuro deficits Psych: Alert and oriented to person, place, time, and situation. Appropriate and pleasant affect. A total of 31 minutes of time were spent preparing this complex discharge summary. Pt was discharged on 05/14/2023 at 5:17 PM. Patient was seen independently by Nurse Practitioner. This document was prepared using [employer] dictation software. Please allow for errors in golf course architect while rare they do occur. Patient Condition at Discharge: Stable Plan - Discharge Summary New Discharge Prescriptions: Continue Cyclobenzaprine [Flexeril] 5 mg PO BID Aspirin EC [Ecotrin Low Dose] 81 mg PO DAILY Albuterol Nebulized [Ventolin Nebulized] 2.5 mg INHALATION RT-Q8H Ondansetron Odt [Zofran ODT] 4 mg PO Q12HR PRN PRN Reason: Nausea And Vomiting Omeprazole [PriLOSEC] 20 mg PO AC-BID Diclofenac Sodium [Voltaren] 75 mg PO BID No Action carvediloL [Coreg] 12.5 mg PO BID Oxybutynin Xl [Ditropan XL] 5 mg PO DAILY Furosemide [Lasix] 20 mg PO DAILY Discharge Medication List carvediloL [Coreg] 12.5 mg PO BID 10/12/19 [History] Oxybutynin Xl [Ditropan XL] 5 mg PO DAILY 04/10/21 [History] Furosemide [Lasix] 20 mg PO DAILY 01/31/22 [History] Albuterol Nebulized [Ventolin Nebulized] 2.5 mg INHALATION RT-Q8H 05/13/23 [History] Aspirin EC [Ecotrin Low Dose] 81 mg PO DAILY 05/13/23 [History] Cyclobenzaprine [Flexeril] 5 mg PO BID 05/13/23 [History] Diclofenac Sodium [Voltaren] 75 mg PO BID 05/13/23 [History] Omeprazole [PriLOSEC] 20 mg PO AC-BID 05/13/23 [History] Ondansetron Odt [Zofran ODT] 4 mg PO Q12HR PRN 05/13/23 [History] Follow up Appointment(s)/Referral(s): Jose Humphrey MD [STAFF PHYSICIAN] - 1 Week Fannie Moss [Primary Care Provider] - 1-2 days Patient Instructions/Handouts: Chest Pain (DC), Sarcoidosis (DC) Activity/Diet/Wound Care/Special Instructions: Activity: As tolerated. Take breaks as needed. Diet: Heart healthy and carb consistent diet. Avoid salts, or foods with hidden salts such as canned or boxed foods and frozen dinners. Extra salt makes your heart work harder and traps the fluid in your body for longer. Special Instructions: Take all of your medications as directed and remember to keep all of your doctor's appointments and follow-up as needed. As discussed at bedside, recommend following up with your ceramic tile setter for further evaluation/discussion on your sarcoidosis being potential cause of pain. Thank you for allowing us to participate in your care, it was truly a pleasure having you for our patient!!! .
== END 2023-05-14 18:25 | disposition home or self-care (01) ==
LOC: EC 15:05 → 6NMEDSUR 16:48
PROVIDERS: ADMIT Student in an Organized Health Care Education/Training Program; ATTEND Student in an Organized Health Care Education/Training Program
DX: R07.89 Other chest pain (principal); I10 Essential (primary) hypertension; D86.0 Sarcoidosis of lung; I25.10 Atherosclerotic heart disease of native coronary artery without angina pectoris; Q96.9 Turner's syndrome, unspecified; K21.9 Gastro-esophageal reflux disease without esophagitis; R74.01 Elevation of levels of liver transaminase levels; Z86.16 Personal history of COVID-19; Z95.5 Presence of coronary angioplasty implant and graft; Z79.82 Long term (current) use of aspirin; Z79.899 Other long term (current) drug therapy; Z88.6 Allergy status to analgesic agent
CPT/HCPCS: 96372; 96374; 99285; 36415; 93005; 93306; 93351; 85379; 80061; 80053 ×2; 83735 ×2; 84484; 85025; 85027; 85610; 85730; 71046; G0378 ×2; J2270; J1650

== ENCOUNTER → 2023-07-02 | Outpatient (CLI) | payer MEDICARE, OTHER ==
--- NOTE | 2023-07-03 13:23 | CT ---
EXAMINATION TYPE: CT angio chest DATE OF EXAM: 07/02/2023 8:17 AM COMPARISON: 11/24/2019 HISTORY: Chest pain CT DLP: 416.2 mGycm Automated exposure control for dose reduction was used. CONTRAST: CTA scan of the thorax is performed with IV Contrast, patient injected with 58 mL of Isovue 370, pulm onary embolism protocol. . FINDINGS: LUNGS: The lungs are grossly clear, there is no concerning parenchymal mass or nodule identified. T here is no pleural effusion or pneumothorax seen. The tracheobronchial tree is patent. Subsegmental consolidation posterior lung bases most typical of scarring or atelectasis. Underlying mild emphysema tous changes. MEDIASTINUM: There is satisfactory enhancement of the pulmonary artery and its branches, there is no CT evidence for pulmonary embolism. There are no greater than 1 cm hilar or mediastinal lymph nodes. Calcified lymph nodes in the subcar inal region noted. There is a trace pericardial effusion is seen. Mild atherosclerotic changes of the aorta which measures maximal dimension 3.5 cm. The heart is mildl y enlarged. There OTHER: Hypertrophic and degenerative changes of the spine. Postcholecystectomy changes noted. Small hiatal hernia. IMPRESSION: 1. Chronic basilar atelectasis or scarring. 2. COPD. 3. Small hiatal hernia.
== END | disposition home or self-care (01) ==
LOC: RADCTMAIN 07:33
PROVIDERS: ATTEND Internal Medicine Critical Care Medicine
DX: J44.9 Chronic obstructive pulmonary disease, unspecified (principal); K44.9 Diaphragmatic hernia without obstruction or gangrene; J98.11 Atelectasis
CPT/HCPCS: 71275; Q9967

== ENCOUNTER 2023-10-05 22:42 | Emergency (ER) | payer MEDICARE, OTHER ==
[2023-10-05 22:49] VITALS: TEMP 97.4
--- NOTE | 2023-10-05 22:50 | ED ---
General Adult HPI - General Source: patient, RN notes reviewed Mode of arrival: ambulatory Limitations: no limitations <Anjana Dick - Last Filed: 10/05/23 22:50> - General Source: patient, RN notes reviewed, old records reviewed <Antony Contreras - Last Filed: 10/06/23 00:34> - General Chief complaint: Upper Respiratory Infection Stated complaint: sore throat, tired, Fever Time Seen by Provider: 10/05/23 22:50 - History of Present Illness Initial comments: Quick note: 53-year-old female presents to the emergency department for evaluation of upper respiratory symptoms. She states that this has worsened over the past 2 to 3 days. She notes that she is currently on steroids. (Anjana Dick) Patient is a 53-year-old female with past medical history remarkable for asthma, sarcoidosis, CAD presents emergency department with 2 weeks of fever, sore throat, cough, congestion. Cough productive of yellow mucus. States she was on antibiotics for possible strep throat but those were completed over a week ago. States she is still having worsening symptoms of coughing. Subjective fevers. Presents for further evaluation. Denies nausea or vomiting. Does endorse mild diarrhea. (Antony Contreras) - Related Data Home Medications Medication Instructions Recorded Confirmed carvediloL [Coreg] 12.5 mg PO BID 10/12/19 05/13/23 Oxybutynin Xl [Ditropan XL] 5 mg PO DAILY 04/10/21 05/13/23 Furosemide [Lasix] 20 mg PO DAILY 01/31/22 05/13/23 Albuterol Nebulized [Ventolin 2.5 mg INHALATION RT-Q8H 05/13/23 05/13/23 Nebulized] Aspirin EC [Ecotrin Low Dose] 81 mg PO DAILY 05/13/23 05/13/23 Cyclobenzaprine [Flexeril] 5 mg PO BID 05/13/23 05/13/23 Diclofenac Sodium [Voltaren] 75 mg PO BID 05/13/23 05/13/23 Omeprazole [PriLOSEC] 20 mg PO AC-BID 05/13/23 05/13/23 Ondansetron Odt [Zofran ODT] 4 mg PO Q12HR PRN 05/13/23 05/13/23 Previous Rx's Medication Instructions Recorded Levofloxacin [Levaquin] 750 mg PO DAILY 5 Days #5 tab 10/06/23 predniSONE [Deltasone] 40 mg PO DAILY 5 Days #10 tab 10/06/23 Allergies Allergy/AdvReac Type Severity Reaction Status Date / Time meperidine HCl [From Demerol] Allergy Rash/Hives/ Verified 10/05/23 22:49 Swelling naproxen sodium [From Aleve] Allergy Rash/Hives/ Verified 10/05/23 22:49 Swelling red dye AdvReac migraines Verified 10/05/23 22:49 Review of Systems ROS Other: All systems not noted in ROS Statement are negative. <Anjana Dick - Last Filed: 10/05/23 22:50> ROS Other: All systems not noted in ROS Statement are negative. <Antony Contreras - Last Filed: 10/06/23 00:34> ROS Statement: Those systems with pertinent positive or pertinent negative responses have been documented in the HPI. Review of Systems: CONST: Denies fever EYES: Denies blurry vision ENT: Endorses nasal congestion C/V: Denies Chest pain RESP: Endorses productive cough GI: Denies abdominal pain : Denies dysuria SKIN: Denies rash. MSK: Denies joint pain. NEURO: Denies headache (Antony Contreras) Past Medical History Past Medical History: Coronary Artery Disease (CAD), Chest Pain / Angina, Hypertension, Osteoarthritis (OA), Respiratory Disorder, Syncope Additional Past Medical History / Comment(s): hx. of Vocal cord paralysis after lung biopsy, dr. sawant put a voice box on vocal cords, left lung nodules related to SARCOIDOSIS, SOB w/exertion, salivary gland infection. per pt she had covid x2, (last infection 11/2020) History of Any Multi-Drug Resistant Organisms: None Reported Past Surgical History: Adenoidectomy, Cholecystectomy, Heart Catheterization, Hysterectomy, Joint Replacement, Orthopedic Surgery, Tonsillectomy Additional Past Surgical History / Comment(s): Repair of vocal cord paralysis, left rotator cuff repair, bilateral knee replaced, LEFT LUNG NODULE REMOVAL, Loop recorder with removal, right knee replaced May 2020, had right knee manipulation 06-26-20 @ [facility]. bilateral leg stents placed in september 26/2022, Past Anesthesia/Blood Transfusion Reactions: Postoperative Nausea & Vomiting (PONV) Past Psychological History: No Psychological Hx Reported Smoking Status: Never smoker Past Alcohol Use History: None Reported Past Drug Use History: Marijuana - Past Family History Mother Family Medical History: Diabetes Mellitus Additional Family Medical History / Comment(s): Mother is alive, at 71, recently had cardiac surgery (95% occlusion) with history of diabetes. Father History Unknown: Yes Additional Family Medical History / Comment(s): Patient does not have any contact with her father and does not know any of his medical history. Brother(s) Additional Family Medical History / Comment(s): Patient has 1 brother but does not know his medical history. Patient does not have any sisters. Patient has 2 sons no major medical problems. <Anjana Dick - Last Filed: 10/05/23 22:50> General Exam Limitations: no limitations <Anjana Dick - Last Filed: 10/05/23 22:50> <Antony Contreras - Last Filed: 10/06/23 00:34> - General Exam Comments Initial Comments: Visual Physical Exam Vital signs reviewed General: Well-appearing, nontoxic, no acute distress. Head: Normocephalic, atraumatic Eyes: PERRLA, EOMI ENT: Airway patent Chest: Nonlabored breathing Skin: No visual rash, normal skin tone Neuro: Alert and oriented 3 Musculoskeletal: No gross abnormalities (Anjana Dick) General: Appears in no acute distress. Afebrile HEAD: Normal with no signs of head trauma. EYES: PERRLA, EOMI, conjunctiva normal, no discharge. ENT: Hearing grossly intact, normal oropharynx. RESPIRATORY: Clear breath sounds bilaterally. No wheezes, rales, or rhonchi. C/V: Regular rate and rhythm. S1 and S2 auscultated, peripheral pulses 2+ and intact throughout ABD: Abd is soft, nontender, nondistended EXT: no obvious deformity SKIN: No rashes or lesions observed on exposed skin. NEURO: Alert and oriented x 4. (Antony Contreras) Course Vital Signs 10/05/23 22:47 Temperature 97.4 F L Pulse Rate 67 Respiratory 18 Rate Blood Pressure 153/84 O2 Sat by Pulse 99 Oximetry Medical Decision Making <Anjana Dick - Last Filed: 10/05/23 22:50> <Ben,Antony - Last Filed: 10/06/23 00:34> - Medical Decision Making Quick note preformed and electronically signed by MONA Mercado-Jane (Anjana Dick) Was pt. sent in by a medical professional or institution (MONA Fernández, FINANCIAL SERVICES SPECIALIST, urgent care, hospital, or [facility]...) When possible be specific @ -No Did you speak to anyone other than the patient for history (EMS, parent, family, police, friend...)? What history was obtained from this source @ -No Did you review nursing and triage notes (agree or disagree)? Why? @ -I reviewed and agree with nursing and triage notes Were old charts reviewed (outside hosp., previous admission, EMS record, old EKG, old radiological studies, urgent care reports/EKG's, [facility] records)? Report findings @ -No old charts were reviewed Differential Diagnosis (chest pain, altered mental status, abdominal pain women, abdominal pain men, vaginal bleeding, weakness, fever, dyspnea, syncope, headache, dizziness, GI bleed, back pain, seizure, CVA, palpatations, mental health, musculoskeletal)? @ -COVID, flu, strep, pneumonia. This list is not all inclusive. EKG interpreted by me (3pts min.). @ -None done X-rays interpreted by me (1pt min.). @ -Chest x-ray concerning for early right-sided mid pneumonia. CT interpreted by me (1pt min.). @ -None done U/S interpreted by me (1pt. min.). @ -None done What testing was considered but not performed or refused? (CT, X-rays, U/S, labs)? Why? @ -None What meds were considered but not given or refused? Why? @ -None Did you discuss the management of the patient with other professionals (professionals i.e. MONA Fernández, FINANCIAL SERVICES SPECIALIST, lab, RT, psych nurse, social work case manager, disability services coordinator, teacher, staff antisubmarine officer, director case management)? Give summary @ -No Was smoking cessation discussed for >3mins.? @ -No Was critical care preformed (if so, how long)? @ -No Were there social determinants of health that impacted care today? How? (Homelessness, low income, unemployed, alcoholism, drug addiction, transportation, low edu. Level, literacy, decrease access to med. care, longterm, rehab)? @ -No Was there de-escalation of care discussed even if they declined (Discuss DNR or withdrawal of care, Hospice)? DNR status @ -No What co-morbidities impacted this encounter? (DM, HTN, Smoking, COPD, CAD, Cancer, CVA, ARF, Chemo, Hep., AIDS, mental health diagnosis, sleep apnea, morbid obesity)? @ -None Was patient admitted / discharged? Hospital course, mention meds given and route, prescriptions, significant lab abnormalities, going to OR and other pertinent info. @ -Patient presents for upper respiratory symptoms. Was seen originally as a quick note. I evaluated the patient when she was placed in room and workup was completed. Vital signs within acceptable limits. Viral swabs are negative. Strep negative. Chest x-ray concerning for right-sided pneumonia. Discussed results with patient. She remains afebrile with stable vitals. I believe it is safer to be discharged home on antibiotics. She will be given prednisone due to her history of asthma. She was in agreement this plan. She has breathing treatments at home as well as inhalers. She will be started on Levaquin. Strict return precautions discussed. She will be given doses of Levaquin and prednisone prior to discharge. I will provide the patient with a prescription for prednisone, Levaquin. I instructed the patient to follow up with their PCP in the next 1-3 days. I explained that the patient should return to the emergency department if they experience any worsening symptoms. Strict return precautions were discussed with the patient. The patient expressed understanding of these instructions. I answered all questions that the patient had. The patient was discharged home in good condition with their prescriptions and follow up information. Undiagnosed new problem with uncertain prognosis? @ -No Drug Therapy requiring intensive monitoring for toxicity (Heparin, Nitro, Insulin, Cardizem)? @ -No Were any procedures done? @ -No Diagnosis/symptom? @ -Pneumonia, URI Acute, or Chronic, or Acute on Chronic? @ -Acute Uncomplicated (without systemic symptoms) or Complicated (systemic symptoms)? @ -Complicated Side effects of treatment? @ -No Exacerbation, Progression, or Severe Exacerbation? @ -No Poses a threat to life or bodily function? How? (Chest pain, [place], NC, pneumonia, PE, COPD, DKA, ARF, appy, cholecystitis, CVA, Diverticulitis, Homicidal, Suicidal, threat to staff... and all critical care pts) @ -Unlikely (Antony Contreras) - Lab Data Lab Results 10/05/23 10/05/23 Range/Units 22:55 22:55 Influenza Type A (PCR) Not Detected (Not Detectd) Influenza Type B (PCR) Not Detected (Not Detectd) RSV (PCR) Not Detected (Not Detectd) SARS-CoV-2 (PCR) Not Detected (Not Detectd) Group A Strep (PCR) NOT DETECTED (Not Detectd) Disposition <Anjana Dick - Last Filed: 10/05/23 22:50> Is patient prescribed a controlled substance at d/c from ED?: No Time of Disposition: 00:27 <Antony Contreras - Last Filed: 10/06/23 00:34> Clinical Impression: Pneumonia, URI (upper respiratory infection) Disposition: HOME SELF-CARE Condition: Good Instructions (If sedation given, give patient instructions): Community Acquired Pneumonia (ED) Prescriptions: predniSONE [Deltasone] 40 mg PO DAILY 5 Days #10 tab Levofloxacin [Levaquin] 750 mg PO DAILY 5 Days #5 tab Referrals: Nish Baez [Primary Care Provider] - 1-2 days Forms: Area PCPs
[2023-10-06] MEDS: LEVOFLOXACIN 750 MG TAB PO STA (00:36)
[2023-10-06] MEDS: predniSONE 20 MG TAB PO STA (00:36)
[2023-10-06 00:44] VITALS: BP 149/90; PULSE 69; RESP 20
--- NOTE | 2023-10-06 01:35 | XR ---
EXAM: XR Chest, 2 Views CLINICAL HISTORY: ITS.REASON XR Reason: cough TECHNIQUE: Frontal and lateral views of the chest. COMPARISON: X-ray chest: 06/19/2023 FINDINGS: Lungs: Bibasilar mild interstitial thickening/infiltrates RT>LT. No consolidation. Pleural space: No pleural effusion. No pneumothorax. Heart: Unremarkable. No cardiomegaly. Mediastinum: Unremarkable. Normal mediastinal contour. Bones: No acute osseous findings. . IMPRESSION: Bibasilar mild interstitial thickening/infiltrates rt>lt. No consolidation. .
== END 2023-10-06 00:38 | disposition home or self-care (01) ==
LOC: EC 22:42
DX: J18.9 Pneumonia, unspecified organism (principal); J06.9 Acute upper respiratory infection, unspecified; Z88.5 Allergy status to narcotic agent; Z88.6 Allergy status to analgesic agent; Z91.041 Radiographic dye allergy status; Z86.16 Personal history of COVID-19
CPT/HCPCS: 71046; 87636; 87651; 99284

== ENCOUNTER 2023-10-07 14:21 | Emergency (ER) | payer MEDICARE, OTHER ==
[2023-10-07 14:28] VITALS: TEMP 97.3
[2023-10-07 15:03] LABS: Appearance,Urine Clear (Clear); Bilirubin,Urine Negative (Negative); Blood,Urine Negative (Negative); Color,Urine Colorless; Glucose,Urine (UA) Negative (Negative); Ketones,Urine Negative (Negative); Leukocyte Esterase,Urine Negative (Negative); Nitrite,Urine Negative (Negative); PH, Urine 5.5 (5.0-8.0); Protein,Urine Negative (Negative); Specific Gravity,Urine 1.018 (1.001-1.035); Urobilinogen,Urine <2.0 mg/dL (<2.0)
[2023-10-07 15:16] LABS: ALT 20 U/L (4-34); AST 22 U/L (14-36); African American GFR (CKD) >90 (>60 ml/min/1.73 sqM); Albumin 4.4 g/dL (3.5-5.0); Alkaline Phosphatase 80 U/L (38-126); Amylase 52 U/L (30-110); Anion Gap 7 mmol/L; Blood Urea Nitrogen 21 mg/dL (7-17); Carbon Dioxide 30 mmol/L (22-30); Chloride 105 mmol/L (98-107); Glucose 106 mg/dL (74-99); Lipase 72 U/L (23-300); Non-African American GFR(CKD) >90 (>60 ml/min/1.73 sqM); Potassium 4.1 mmol/L (3.5-5.1); Sodium 142 mmol/L (137-145); Total Bilirubin 0.7 mg/dL (0.2-1.3)
[2023-10-07 15:21] LABS: HCT 41.1 % (34.0-46.0); HGB 13.2 gm/dL (11.4-16.0); MCH 27.1 pg (25.0-35.0); MCHC 32.1 g/dL (31.0-37.0); MCV 84.4 fL (80.0-100.0); Mean Platelet Volume 7.6; Platelet Count 317 k/uL (150-450); RBC 4.86 m/uL (3.80-5.40); RDW 13.4 % (11.5-15.5); WBC 10.8 k/uL (3.8-10.6)
--- NOTE | 2023-10-07 15:24 | ED ---
Nausea/Vomiting/Diarrhea HPI - General Source: patient, RN notes reviewed Mode of arrival: ambulatory Limitations: no limitations <Sydnie Arce - Last Filed: 10/07/23 15:23> - General Source: patient, RN notes reviewed, old records reviewed Mode of arrival: ambulatory Limitations: no limitations - History of Present Illness MD complaint: nausea, vomiting, abdominal pain -: days(s) Description of Vomiting: watery Description of Diarrhea: water Location: diffuse, periumbilical Radiation: none Severity: moderate Quality: stabbing, aching Consistency: constant Improves with: none <Quinn Dobbs - Last Filed: 10/14/23 03:07> - General Chief complaint: Nausea/Vomiting/Diarrhea Stated complaint: N/V/D Time Seen by Provider: 10/07/23 14:40 - History of Present Illness Initial comments: Quick Note- this is a 53-year-old female presents emergency department chief complaint of nausea, vomiting, diarrhea, throat, headaches. Patient was diagnosed with pneumonia over the weekend and started on Levaquin and steroids. States that her symptoms did not improve. She endorses chills. (Sydnie Arce) This is a 53-year-old female with reevaluation pneumonia nausea vomiting diarrhea headaches pain not feeling well and symptoms are worsening (Quinn Dobbs) - Related Data Home Medications Medication Instructions Recorded Confirmed carvediloL [Coreg] 12.5 mg PO BID 10/12/19 10/09/23 Oxybutynin Xl [Ditropan XL] 5 mg PO DAILY 04/10/21 10/09/23 Furosemide [Lasix] 20 mg PO DAILY 01/31/22 10/09/23 Albuterol Nebulized [Ventolin 2.5 mg INHALATION RT-Q8H PRN 05/13/23 10/09/23 Nebulized] Aspirin EC [Ecotrin Low Dose] 81 mg PO DAILY 05/13/23 10/09/23 Cyclobenzaprine [Flexeril] 5 mg PO BID PRN 05/13/23 10/09/23 Diclofenac Sodium [Voltaren] 75 mg PO BID PRN 05/13/23 10/09/23 Omeprazole [PriLOSEC] 20 mg PO AC-BID 05/13/23 10/09/23 Ondansetron Odt [Zofran ODT] 4 mg PO Q12HR PRN 05/13/23 10/09/23 Budesonide/Formoterol Fumarate 2 puff INHALATION RT-BID PRN 10/07/23 10/09/23 [Symbicort 160-4.5 Mcg Inhaler] Isosorbide Mononitrate ER [Imdur] 30 mg PO DAILY 10/09/23 10/09/23 Previous Rx's Medication Instructions Recorded Levofloxacin [Levaquin] 750 mg PO DAILY 5 Days #5 tab 10/06/23 predniSONE [Deltasone] 40 mg PO DAILY 5 Days #10 tab 10/06/23 Mag Hydrox/Al Hydrox/Simeth 20 ml PO QID 7 Days #560 ml 10/09/23 [Maalox] Allergies Allergy/AdvReac Type Severity Reaction Status Date / Time meperidine HCl [From Demerol] Allergy Rash/Hives/ Verified 10/09/23 07:36 Swelling naproxen sodium [From Aleve] Allergy Rash/Hives/ Verified 10/09/23 07:36 Swelling red dye AdvReac migraines Verified 10/09/23 07:36 Review of Systems ROS Other: All systems not noted in ROS Statement are negative. <Sydnie Arce - Last Filed: 10/07/23 15:23> ROS Other: All systems not noted in ROS Statement are negative. <Quinn Dobbs - Last Filed: 10/14/23 03:07> ROS Statement: Those systems with pertinent positive or pertinent negative responses have been documented in the HPI. Past Medical History Past Medical History: Coronary Artery Disease (CAD), Chest Pain / Angina, Hypertension, Osteoarthritis (OA), Respiratory Disorder, Syncope Additional Past Medical History / Comment(s): hx. of Vocal cord paralysis after lung biopsy, dr. sawant put a voice box on vocal cords, left lung nodules related to SARCOIDOSIS, SOB w/exertion, salivary gland infection. per pt she had covid x2, (last infection 11/2020) History of Any Multi-Drug Resistant Organisms: None Reported Past Surgical History: Adenoidectomy, Cholecystectomy, Heart Catheterization, Hysterectomy, Joint Replacement, Orthopedic Surgery, Tonsillectomy Additional Past Surgical History / Comment(s): Repair of vocal cord paralysis, left rotator cuff repair, bilateral knee replaced, LEFT LUNG NODULE REMOVAL, Loop recorder with removal, right knee replaced May 2020, had right knee manipulation 06-26-20 @ [facility]. bilateral leg stents placed in september 26/2022, Past Anesthesia/Blood Transfusion Reactions: Postoperative Nausea & Vomiting (PONV) Past Psychological History: No Psychological Hx Reported Smoking Status: Never smoker Past Alcohol Use History: None Reported Past Drug Use History: Marijuana - Past Family History Mother Family Medical History: Diabetes Mellitus Additional Family Medical History / Comment(s): Mother is alive, at 71, recently had cardiac surgery (95% occlusion) with history of diabetes. Father History Unknown: Yes Additional Family Medical History / Comment(s): Patient does not have any contact with her father and does not know any of his medical history. Brother(s) Additional Family Medical History / Comment(s): Patient has 1 brother but does not know his medical history. Patient does not have any sisters. Patient has 2 sons no major medical problems. <Sydnie Arce - Last Filed: 10/07/23 15:23> General Exam Limitations: no limitations <Sydnie Arce - Last Filed: 10/07/23 15:23> General appearance: alert, in no apparent distress Head exam: Present: atraumatic, normocephalic, normal inspection Eye exam: Present: normal appearance, PERRL, EOMI. Absent: scleral icterus, conjunctival injection, periorbital swelling ENT exam: Present: normal exam, mucous membranes moist Neck exam: Present: normal inspection. Absent: tenderness, meningismus, lymphadenopathy Respiratory exam: Present: normal lung sounds bilaterally. Absent: respiratory distress, wheezes, rales, rhonchi, stridor Cardiovascular Exam: Present: regular rate, normal rhythm, normal heart sounds. Absent: systolic murmur, diastolic murmur, rubs, gallop, clicks GI/Abdominal exam: Present: soft, normal bowel sounds. Absent: distended, tenderness, guarding, rebound, rigid Extremities exam: Present: normal inspection, full ROM, normal capillary refill. Absent: tenderness, pedal edema, joint swelling, calf tenderness Back exam: Present: normal inspection Neurological exam: Present: alert, oriented X3, CN II-XII intact Psychiatric exam: Present: normal affect, normal mood Skin exam: Present: warm, dry, intact, normal color. Absent: rash <RinkuQuinn Halley - Last Filed: 10/14/23 03:07> - General Exam Comments Initial Comments: Visual Physical Exam Vital signs reviewed General: Well-appearing, nontoxic, no acute distress. Head: Normocephalic, atraumatic Eyes: PERRLA, EOMI ENT: Airway patent Chest: Nonlabored breathing Skin: No visual rash, normal skin tone Neuro: Alert and oriented 3 Musculoskeletal: No gross abnormalities (Stieler,Sydnie) Course <RinkuQuinn Halley - Last Filed: 10/14/23 03:07> Vital Signs 10/07/23 10/07/23 10/07/23 14:26 21:02 21:46 Temperature 97.3 F L Pulse Rate 73 62 66 Respiratory 16 18 18 Rate Blood Pressure 119/77 107/67 139/80 O2 Sat by Pulse 97 97 100 Oximetry - Reevaluation(s) Reevaluation #1: Records reviewed (Quinn Dobbs) Reevaluation #2: Patient symptoms are improving here in the ER (Quinn Dobbs) Reevaluation #3: Patient informed of results and questions answered (Quinn Dobbs) Reevaluation #4: Was pt. sent in by a medical professional or institution (, PA, [facility], urgent care, hospital, or longterm...) When possible be specific @ -no Did you speak to anyone other than the patient for history (EMS, parent, family, police, friend...)? What history was obtained from this source @ -no Did you review nursing and triage notes (agree or disagree)? Why? @ -agree Are old charts reviewed (outside hosp., previous admission, EMS record, old EKG, old radiological studies, urgent care reports/EKG's, longterm records)? Report findings @ -yes Differential Diagnosis (chest pain, altered mental status, abdominal pain women, abdominal pain men, vaginal bleeding, weakness, fever, dyspnea, syncope, headache, dizziness, GI bleed, back pain, seizure, CVA, palpatations, mental health, musculoskeletal)? @ -prior EKG interpreted by me (3pts min.). @ -no X-rays interpreted by me (1pt min.). @ -yes negative for acute disease CT interpreted by me (1pt min.). @ -no U/S interpreted by me (1pt. min.). @ -no What testing was considered but not performed or refused? (CT, X-rays, U/S, labs)? Why? @ -none What meds were considered but not given or refused? Why? @ -none Did you discuss the management of the patient with other professionals (marlene babin i.e. , PA, [facility], lab, RT, psych nurse, 7th grade social studies teacher, tax manager public, teacher, navigation officer, case resource manager)? Give summary @ -no Was smoking cessation discussed for >3mins.? @ -no Was critical care preformed (if so, how long)? @ -no Were there social determinants of health that impacted care today? How? (Homelessness, low income, unemployed, alcoholism, drug addiction, transportation, low edu. Level, literacy, decrease access to med. care, retirement, rehab)? @ -none Was there de-escalation of care discussed even if they declined (Discuss DNR or withdrawal of care, Hospice)? DNR status @ -no What co-morbidities impacted this encounter? (DM, HTN, Smoking, COPD, CAD, Cancer, CVA, ARF, Chemo, Hep., AIDS, mental health diagnosis, sleep apnea, morbid obesity)? @ -none Was patient admitted / discharged? Hospital course, mention meds given and route, prescriptions, significant lab abnormalities, going to OR and other pertinent info. @ - 53 female with reevaluation URI, patient symptoms are improved here in the ER she prefers discharge again Discharged Undiagnosed new problem with uncertain prognosis? @ -no Drug Therapy requiring intensive monitoring for toxicity (Heparin, Nitro, Insulin, Cardizem)? @ -no Were any procedures done? @ -no Diagnosis/symptom? @ -URI Acute, or Chronic, or Acute on Chronic? @ -Acute Uncomplicated (without systemic symptoms) or Complicated (systemic symptoms)? @ -Complicated Side effects of treatment? @ -no Exacerbation, Progression, or Severe Exacerbation? @ -exacerbation Poses a threat to life or bodily function? How? (Chest pain, [place], [place], pneumonia, PE, COPD, DKA, ARF, appy, cholecystitis, CVA, Diverticulitis, Homicidal, Suicidal, threat to staff... and all critical care pts) @ -yes weakness (Quinn Dobbs) Reevaluation #5: Differential Weakness: Hypoglycemia, shock, sepsis, hyponatremia, anemia, infection, [place], ETOH, adverse medicine reaction, overdose, stroke, this is not meant to be an all-inclusive list. (Quinn Dobbs) Medical Decision Making - Lab Data Result diagrams: 10/07/23 14:44 10/07/23 14:44 <Sydnie Arce - Last Filed: 10/07/23 15:23> - Lab Data Result diagrams: 10/07/23 14:44 10/07/23 14:44 - Radiology Data Radiology results: report reviewed ('s x-ray is unchanged from prior), image reviewed <Qiunn Dobbs - Last Filed: 10/14/23 03:07> - Medical Decision Making I completed the quick note portion of this chart signed Sydnie Arce PA-C (Sydnie Arce) 53 female with reevaluation URI, patient symptoms are improved here in the ER she prefers discharge again (Quinn Dobbs) - Lab Data Lab Results 10/07/23 10/07/23 10/07/23 Range/Units 14:44 14:44 14:47 WBC 10.8 H (3.8-10.6) k/uL RBC 4.86 (3.80-5.40) m/uL Hgb 13.2 (11.4-16.0) gm/dL Hct 41.1 (34.0-46.0) % MCV 84.4 (80.0-100.0) fL MCH 27.1 (25.0-35.0) pg MCHC 32.1 (31.0-37.0) g/dL RDW 13.4 (11.5-15.5) % Plt Count 317 (150-450) k/uL MPV 7.6 Neutrophils % [facility] Neutrophils % (Manual) 84 % Lymphocytes % [facility] Lymphocytes % (Manual) 12 % Monocytes % [facility] Monocytes % (Manual) 3 % Eosinophils % [facility] Eosinophils % (Manual) 1 % Basophils % [facility] Neutrophils # [facility] Neutrophils # (Manual) 9.07 H (1.3-7.7) k/uL Lymphocytes # [facility] Lymphocytes # (Manual) 1.30 (1.0-4.8) k/uL Monocytes # [facility] Monocytes # (Manual) 0.32 (0-1.0) k/uL Eosinophils # [facility] Eosinophils # (Manual) 0.11 (0-0.7) k/uL Basophils # [facility] Nucleated RBCs 0 (0-0) /100 WBC Manual Slide Review Performed RBC Morphology Normal Sodium 142 (137-145) mmol/L Potassium 4.1 (3.5-5.1) mmol/L Chloride 105 (98-107) mmol/L Carbon Dioxide 30 (22-30) mmol/L Anion Gap 7 mmol/L BUN 21 H (7-17) mg/dL Creatinine 0.75 (0.52-1.04) mg/dL Est GFR (CKD-EPI)AfAm >90 (>60 ml/min/1.73 sqM) Est GFR (CKD-EPI)NonAf >90 (>60 ml/min/1.73 sqM) Glucose 106 H (74-99) mg/dL Calcium 9.0 (8.4-10.2) mg/dL Total Bilirubin 0.7 (0.2-1.3) mg/dL AST 22 (14-36) U/L ALT 20 (4-34) U/L Alkaline Phosphatase 80 (38-126) U/L Total Protein 7.0 (6.3-8.2) g/dL Albumin 4.4 (3.5-5.0) g/dL Amylase 52 (30-110) U/L Lipase 72 (23-300) U/L Urine Color Colorless Urine Appearance Clear (Clear) Urine pH 5.5 (5.0-8.0) Ur Specific [place] 1.018 (1.001-1.035) Urine Protein Negative (Negative) Urine Glucose (UA) Negative (Negative) Urine Ketones Negative (Negative) Urine Blood Negative (Negative) Urine Nitrite Negative (Negative) Urine Bilirubin Negative (Negative) Urine Urobilinogen <2.0 (<2.0) mg/dL Ur Leukocyte Esterase Negative (Negative) Disposition <Sydnie Arce - Last Filed: 10/07/23 15:23> Is patient prescribed a controlled substance at d/c from ED?: No Time of Disposition: 21:30 <Quinn Dobbs - Last Filed: 10/14/23 03:07> Clinical Impression: URI (upper respiratory infection), History of sarcoidosis, Nausea & vomiting Disposition: HOME SELF-CARE Condition: Good Instructions (If sedation given, give patient instructions): Acute Nausea and Vomiting (ED) Referrals: Nish Baez [Primary Care Provider] - 1-2 days
--- NOTE | 2023-10-07 15:27 | XR ---
EXAMINATION TYPE: XR chest 2V DATE OF EXAM: 10/07/2023 COMPARISON: 10/05/2023 HISTORY: 53-year-old female with pain TECHNIQUE: PA and lateral views FINDINGS: The cardiomediastinal silhouette, aorta, and pulmonary vasculature are within normal limits. Some min imal strandy atelectasis left base. Otherwise, no consolidation or pleural effusion. IMPRESSION: No acute cardiopulmonary process.
[2023-10-07 16:02] LABS: Eosinophils # (M) 0.11 k/uL (0-0.7); Monocytes # (M) 0.32 k/uL (0-1.0); Neutrophils # (M) 9.07 k/uL (1.3-7.7); Neutrophils % (M) 84 %; Nucleated Red Blood Cells 0 /100 WBC (0-0); RBC Morphology Normal; Total Cells Counted 100
[2023-10-07] MEDS: DEXAMETHASONE SOD PHOSPHATE 10 MG/ML 1 ML VIAL IVP STA (20:21)
[2023-10-07] MEDS: ONDANSETRON 4 MG/2 ML VIAL IVP STA (20:22)
[2023-10-07] MEDS: SODIUM CHLORIDE 0.9% 500 ML 500 ML IV STA (20:22)
[2023-10-07] MEDS: SODIUM CHLORIDE 0.9% 1,000 ML IV STA (20:22)
[2023-10-07 21:11] VITALS: RESP 18
[2023-10-07 21:47] VITALS: BP 139/80; PULSE 66
[2023-10-07] MEDS: ACETAMINOPHEN TAB 500 MG TAB PO STA (21:49)
[2023-10-07] MEDS: HYDROmorphone 0.5 MG/0.5 ML SYRINGE IVP STA (21:49)
[2023-10-07] MEDS: ONDANSETRON 4 MG ODT STARTER PACK 2 TAB BTL PO STA (21:49)
[2023-10-07] MEDS: PROCHLORPERAZINE INJ 10 MG/2 ML VIAL IVP STA (21:50)
== END 2023-10-07 21:48 | disposition home or self-care (01) ==
LOC: EC 14:21
DX: J06.9 Acute upper respiratory infection, unspecified (principal); Z90.49 Acquired absence of other specified parts of digestive tract; Z88.5 Allergy status to narcotic agent; Z88.6 Allergy status to analgesic agent; Z91.048 Other nonmedicinal substance allergy status; Z86.16 Personal history of COVID-19
CPT/HCPCS: 36415; 80053; 82150; 83690; 85025; 81003; 71046; 99284; 96374; 96375; 96361; J1100; J2405

== ENCOUNTER 2023-10-08 18:49 | Observation (INO) | payer MEDICARE, OTHER ==
--- NOTE | 2023-10-08 19:31 | ED ---
Recheck HPI - General Chief Complaint: Shortness of Breath Stated Complaint: SOB Time Seen by Provider: 10/08/23 19:07 Source: patient, RN notes reviewed, old records reviewed Mode of arrival: ambulatory Limitations: no limitations - History of Present Illness Initial Comments: This is a 53-year-old female for reevaluation today. This is patient's third ER visit in 3 days for weakness pneumonia and not feeling well again complaining of worsening symptoms today nausea vomiting weakness decreased appetite MD Complaint: abnormal lab -: days(s) Returns Today for: Called Because of Abnormal Lab/Test, persistent/worsening pain related to initial visit Symptoms Since Prior Visit: no new symptoms Context: planned re-check Associated Symptoms: none Treatments Prior to Arrival: other (0) - Related Data Home Medications Medication Instructions Recorded Confirmed carvediloL [Coreg] 12.5 mg PO BID 10/12/19 10/09/23 Oxybutynin Xl [Ditropan XL] 5 mg PO DAILY 04/10/21 10/09/23 Furosemide [Lasix] 20 mg PO DAILY 01/31/22 10/09/23 Albuterol Nebulized [Ventolin 2.5 mg INHALATION RT-Q8H PRN 05/13/23 10/09/23 Nebulized] Aspirin EC [Ecotrin Low Dose] 81 mg PO DAILY 05/13/23 10/09/23 Cyclobenzaprine [Flexeril] 5 mg PO BID PRN 05/13/23 10/09/23 Diclofenac Sodium [Voltaren] 75 mg PO BID PRN 05/13/23 10/09/23 Omeprazole [PriLOSEC] 20 mg PO AC-BID 05/13/23 10/09/23 Ondansetron Odt [Zofran ODT] 4 mg PO Q12HR PRN 05/13/23 10/09/23 Budesonide/Formoterol Fumarate 2 puff INHALATION RT-BID PRN 10/07/23 10/09/23 [Symbicort 160-4.5 Mcg Inhaler] Isosorbide Mononitrate ER [Imdur] 30 mg PO DAILY 10/09/23 10/09/23 Previous Rx's Medication Instructions Recorded Levofloxacin [Levaquin] 750 mg PO DAILY 5 Days #5 tab 10/06/23 predniSONE [Deltasone] 40 mg PO DAILY 5 Days #10 tab 10/06/23 Mag Hydrox/Al Hydrox/Simeth 20 ml PO QID 7 Days #560 ml 10/09/23 [Maalox] Allergies Allergy/AdvReac Type Severity Reaction Status Date / Time meperidine HCl [From Demerol] Allergy Rash/Hives/ Verified 10/09/23 07:36 Swelling naproxen sodium [From Aleve] Allergy Rash/Hives/ Verified 10/09/23 07:36 Swelling red dye AdvReac migraines Verified 10/09/23 07:36 Review of Systems ROS Statement: Those systems with pertinent positive or pertinent negative responses have been documented in the HPI. ROS Other: All systems not noted in ROS Statement are negative. Past Medical History Past Medical History: Coronary Artery Disease (CAD), Chest Pain / Angina, Hypertension, Osteoarthritis (OA), Respiratory Disorder, Syncope Additional Past Medical History / Comment(s): hx. of Vocal cord paralysis after lung biopsy, dr. sawant put a voice box on vocal cords, left lung nodules related to SARCOIDOSIS, SOB w/exertion, salivary gland infection. per pt she had covid x2, (last infection 11/2020) History of Any Multi-Drug Resistant Organisms: None Reported Past Surgical History: Adenoidectomy, Cholecystectomy, Heart Catheterization, Hysterectomy, Joint Replacement, Orthopedic Surgery, Tonsillectomy Additional Past Surgical History / Comment(s): Repair of vocal cord paralysis, left rotator cuff repair, bilateral knee replaced, LEFT LUNG NODULE REMOVAL, Loop recorder with removal, right knee replaced May 2020, had right knee man ipulation 4-21 @ [facility]. bilateral leg stents placed in september 26/2022, Past Anesthesia/Blood Transfusion Reactions: Postoperative Nausea & Vomiting (PONV) Past Psychological History: No Psychological Hx Reported Smoking Status: Never smoker Past Alcohol Use History: None Reported Past Drug Use History: Marijuana - Past Family History Mother Family Medical History: Diabetes Mellitus Additional Family Medical History / Comment(s): Mother is alive, at 71, recently had cardiac surgery (95% occlusion) with history of diabetes. Father History Unknown: Yes Additional Family Medical History / Comment(s): Patient does not have any cont act with her father and does not know any of his medical history. Brother(s) Additional Family Medical History / Comment(s): Patient has 1 brother but does not know his medical history. Patient does not have any sisters. Patient has 2 sons no major medical problems. General Exam Limitations: no limitations General appearance: alert, in no apparent distress, anxious Head exam: Present: atraumatic, normocephalic, normal inspection Eye exam: Present: normal appearance, PERRL, EOMI. Absent: scleral icterus, conjunctival injection, periorbital swelling ENT exam: Present: normal exam, mucous membranes moist Neck exam: Present: normal inspection. Absent: tenderness, meningismus, lymphadenopathy Respiratory exam: Present: normal lung sounds bilaterally. Absent: respiratory distress, wheezes, rales, rhonchi, stridor Cardiovascular Exam: Present: regular rate, normal rhythm, normal heart sounds. Absent: systolic murmur, diastolic murmur, rubs, gallop, clicks GI/Abdominal exam: Present: soft, normal bowel sounds. Absent: distended, tenderness, guarding, rebound, rigid Extremities exam: Present: normal inspection, full ROM, normal capillary refill. Absent: tenderness, pedal edema, joint swelling, calf tenderness Back exam: Present: normal inspection Neurological exam: Present: alert, oriented X3, CN II-XII intact Psychiatric exam: Present: normal affect, normal mood Skin exam: Present: warm, dry, intact, normal color. Absent: rash Course Vital Signs 10/08/23 10/08/23 10/08/23 18:50 22:00 23:34 Temperature 97.5 F L Pulse Rate 76 53 L 50 L Respiratory 20 20 18 Rate Blood Pressure 139/79 125/79 144/81 O2 Sat by Pulse 98 97 97 Oximetry 10/09/23 10/09/23 10/09/23 00:17 01:33 02:27 Temperature Pulse Rate 53 L 60 Respiratory 16 16 Rate Blood Pressure 125/73 106/68 O2 Sat by Pulse 98 96 99 Oximetry 10/09/23 10/09/23 10/09/23 03:12 06:03 07:12 Temperature Pulse Rate 56 L 65 Respiratory 16 16 16 Rate Blood Pressure 114/79 139/81 O2 Sat by Pulse 97 92 L Oximetry 10/09/23 10/09/23 10/09/23 09:00 09:59 12:00 Temperature Pulse Rate 65 73 58 L Respiratory 16 20 16 Rate Blood Pressure 135/68 127/80 130/68 O2 Sat by Pulse 98 98 98 Oximetry 10/09/23 10/09/23 10/09/23 12:47 15:07 16:13 Temperature 98.1 F 97.6 F 97.8 F Pulse Rate 76 56 L 60 Respiratory 18 18 18 Rate Blood Pressure 140/86 142/85 142/98 O2 Sat by Pulse 94 L 97 100 Oximetry - Reevaluation(s) Reevaluation #1: 10/08/23 23:01 Medical records reviewed Reevaluation #2: 10/08/23 23:01 Patient continues to feel weak Reevaluation #3: 10/08/23 23:02 Patient informed of results and questions answered Reevaluation #4: Was pt. sent in by a medical professional or institution (, MONA, INSPECTOR PENETRANT, urgent care, hospital, or jail...) When possible be specific @ -no Did you speak to anyone other than the patient for history (EMS, parent, family, police, friend...)? What history was obtained from this source @ -no Did you review nursing and triage notes (agree or disagree)? Why? @ -agree Are old charts reviewed (outside hosp., previous admission, EMS record, old EKG, old radiological studies, urgent care reports/EKG's, jail records)? Report findings @ -yes Differential Diagnosis (chest pain, altered mental status, abdominal pain women, abdominal pain men, vaginal bleeding, weakness, fever, dyspnea, syncope, headache, dizziness, GI bleed, back pain, seizure, CVA, palpatations, mental h ealth, musculoskeletal)? @ -prior EKG interpreted by me (3pts min.). @ -yes X-rays interpreted by me (1pt min.). @ -yes signs and symptoms of pneumonia CT interpreted by me (1pt min.). @ -no U/S interpreted by me (1pt. min.). @ -no What testing was considered but not performed or refused? (CT, X-rays, U/S, labs)? Why? @ -none What meds were considered but not given or refused? Why? @ -none Did you discuss the management of the patient with other professionals (professionals i.e. MONA Fernández, INSPECTOR PENETRANT, lab, RT, psych nurse, social secretary, intellectual property lawyer, teacher, commercial escrow officer, outsole caser)? Give summary @ -no Was smoking cessation discussed for >3mins.? @ -no Was critical care preformed (if so, how long)? @ -no Were there social determinants of health that impacted care today? How? (Homelessness, low income, unemployed, alcoholism, drug addiction, transportation, low edu. Level, literacy, decrease access to med. care, nursing home, rehab)? @ -none Was there de-escalation of care discussed even if they declined (Discuss DNR or withdrawal of care, Hospice)? DNR status @ -no What co-morbidities impacted this encounter? (DM, HTN, Smoking, COPD, CAD, Cancer, CVA, ARF, Chemo, Hep., AIDS, mental health diagnosis, sleep apnea, morbid obesity)? @ -none Was patient admitted / discharged? Hospital course, mention meds given and route, prescriptions, significant lab abnormalities, going to OR and other pertinent info. @ - 53 female to ER with persistent weakness and pneumonia. Patient will admit for further evaluation, supportive care persistent nausea and vomiting improved here in the ER . Discharge Undiagnosed new problem with uncertain prognosis? @ -no Drug Therapy requiring intensive monitoring for toxicity (Heparin, Nitro, Insulin, Cardizem)? @ -no Were any procedures done? @ -no Diagnosis/symptom? @ -Pneumonia Acute, or Chronic, or Acute on Chronic? @ -Acute Uncomplicated (without systemic symptoms) or Complicated (systemic symptoms)? @ -Complicated Side effects of treatment? @ -no Exacerbation, Progression, or Severe Exacerbation? @ -exacerbation Poses a threat to life or bodily function? How? (Chest pain, USA, OR, pneumonia, PE, COPD, DKA, ARF, appy, cholecystitis, CVA, Diverticulitis, Homicidal, Suicidal, threat to staff... and all critical care pts) @ -no - Consultations Consultation #1: Spoke with [facility] who agrees to admit this patient Medical Decision Making - Medical Decision Making 53 female to ER with persistent weakness and pneumonia. Patient will admit for further evaluation, supportive care persistent nausea and vomiting improved here in the ER - Lab Data Result diagrams: 10/09/23 06:56 10/09/23 06:56 Lab Results 10/08/23 10/08/23 10/08/23 Range/Units 20:10 20:10 20:10 WBC 19.0 H (3.8-10.6) k/uL RBC 4.95 (3.80-5.40) m/uL Hgb 13.4 (11.4-16.0) gm/dL Hct 41.8 (34.0-46.0) % MCV 84.4 (80.0-100.0) fL MCH 27.1 (25.0-35.0) pg MCHC 32.1 (31.0-37.0) g/dL RDW 13.5 (11.5-15.5) % Plt Count 363 (150-450) k/uL MPV 7.4 Neutrophils % 90 % Lymphocytes % 6 % Monocytes % 3 % Eosinophils % 1 % Basophils % 0 % Neutrophils # 17.1 H (1.3-7.7) k/uL Lymphocytes # 1.1 (1.0-4.8) k/uL Monocytes # 0.6 (0-1.0) k/uL Eosinophils # 0.1 (0-0.7) k/uL Basophils # 0.0 (0-0.2) k/uL PT 9.7 L (10.0-12.5) sec INR 0.9 (<1.2) APTT 22.3 (22.0-30.0) sec Sodium 140 (137-145) mmol/L Potassium 4.1 (3.5-5.1) mmol/L Chloride 104 (98-107) mmol/L Carbon Dioxide 26 (22-30) mmol/L Anion Gap 10 mmol/L BUN 18 H (7-17) mg/dL Creatinine 0.62 (0.52-1.04) mg/dL Est GFR (CKD-EPI)AfAm >90 (>60 ml/min/1.73 sqM) Est GFR (CKD-EPI)NonAf >90 (>60 ml/min/1.73 sqM) Glucose 161 H (74-99) mg/dL Lactic Ac Sepsis Rflx Plasma Lactic Acid Zach (0.7-2.0) mmol/L Calcium 9.8 (8.4-10.2) mg/dL Total Bilirubin 0.4 (0.2-1.3) mg/dL AST 19 (14-36) U/L ALT 19 (4-34) U/L Alkaline Phosphatase 84 (38-126) U/L Troponin I (0.000-0.034) ng/mL Total Protein 7.4 (6.3-8.2) g/dL Albumin 4.7 (3.5-5.0) g/dL 10/08/23 10/08/23 10/08/23 Range/Units 20:10 20:10 20:59 WBC (3.8-10.6) k/uL RBC (3.80-5.40) m/uL Hgb (11.4-16.0) gm/dL Hct (34.0-46.0) % MCV (80.0-100.0) fL MCH (25.0-35.0) pg MCHC (31.0-37.0) g/dL RDW (11.5-15.5) % Plt Count (150-450) k/uL MPV Neutrophils % % Lymphocytes % % Monocytes % % Eosinophils % % Basophils % % Neutrophils # (1.3-7.7) k/uL Lymphocytes # (1.0-4.8) k/uL Monocytes # (0-1.0) k/uL Eosinophils # (0-0.7) k/uL Basophils # (0-0.2) k/uL PT (10.0-12.5) sec INR (<1.2) APTT (22.0-30.0) sec Sodium (137-145) mmol/L Potassium (3.5-5.1) mmol/L Chloride (98-107) mmol/L Carbon Dioxide (22-30) mmol/L Anion Gap mmol/L BUN (7-17) mg/dL Creatinine (0.52-1.04) mg/dL Est GFR (CKD-EPI)AfAm (>60 ml/min/1.73 sqM) Est GFR (CKD-EPI)NonAf (>60 ml/min/1.73 sqM) Glucose (74-99) mg/dL Lactic Ac Sepsis Rflx Y Plasma Lactic Acid Zach 2.1 H* (0.7-2.0) mmol/L Calcium (8.4-10.2) mg/dL Total Bilirubin (0.2-1.3) mg/dL AST (14-36) U/L ALT (4-34) U/L Alkaline Phosphatase (38-126) U/L Troponin I <0.012 (0.000-0.034) ng/mL Total Protein (6.3-8.2) g/dL Albumin (3.5-5.0) g/dL - Radiology Data Radiology results: report reviewed (X-rays negative for acute disease), image reviewed Disposition Clinical Impression: Atypical chest pain, URI (upper respiratory infection), Pneumonia, History of sarcoidosis, Nausea & vomiting, Weakness Disposition: ADMITTED IP TO THIS HOSP Condition: Fair Is patient prescribed a controlled substance at d/c from ED?: No Time of Disposition: 22:00
[2023-10-08 20:29] LABS: Basophils % (A) 0 %; Eosinophils # (A) 0.1 k/uL (0-0.7); Eosinophils % (A) 1 %; HCT 41.8 % (34.0-46.0); HGB 13.4 gm/dL (11.4-16.0); Lymphocytes # (A) 1.1 k/uL (1.0-4.8); Lymphocytes % (A) 6 %; MCH 27.1 pg (25.0-35.0); MCHC 32.1 g/dL (31.0-37.0); MCV 84.4 fL (80.0-100.0); Mean Platelet Volume 7.4; Monocytes # (A) 0.6 k/uL (0-1.0); Monocytes % (A) 3 %; Neutrophils # (A) 17.1 k/uL (1.3-7.7); Neutrophils % (A) 90 %; Platelet Count 363 k/uL (150-450); RBC 4.95 m/uL (3.80-5.40); RDW 13.5 % (11.5-15.5)
--- NOTE | 2023-10-08 20:32 | XR ---
EXAMINATION TYPE: XR chest 2V DATE OF EXAM: 10/08/2023 8:18 PM CLINICAL INDICATION:Female, 53 years old with history of difficulty breathing; [facility] COMPARISON: Chest radiograph 10/07/2023 TECHNIQUE: Frontal and lateral chest radiographs. FINDINGS: Lungs/Pleura: There is no evidence of pleural effusion, focal consolidation, or pneumothorax. Pulmonary vascularity: Unremarkable. Heart/mediastinum: Cardiomediastinal silhouette is unremarkable. Musculoskeletal: No acute osseous pathology. Other findings: None IMPRESSION: No acute cardiopulmonary disease/process.
[2023-10-08 20:40] LABS: ALT 19 U/L (4-34); AST 19 U/L (14-36); African American GFR (CKD) >90 (>60 ml/min/1.73 sqM); Albumin 4.7 g/dL (3.5-5.0); Alkaline Phosphatase 84 U/L (38-126); Anion Gap 10 mmol/L; Blood Urea Nitrogen 18 mg/dL (7-17); Calcium 9.8 mg/dL (8.4-10.2); Carbon Dioxide 26 mmol/L (22-30); Chloride 104 mmol/L (98-107); Glucose 161 mg/dL (74-99); Non-African American GFR(CKD) >90 (>60 ml/min/1.73 sqM); Potassium 4.1 mmol/L (3.5-5.1); Sodium 140 mmol/L (137-145); Total Bilirubin 0.4 mg/dL (0.2-1.3); Total Protein 7.4 g/dL (6.3-8.2)
[2023-10-08 20:56] LABS: INR 0.9 (<1.2); Partial Thromboplastin Time 22.3 sec (22.0-30.0); Prothrombin Time 9.7 sec (10.0-12.5)
[2023-10-08] MEDS ORDERED: PNEUMONIA PROTOCOL UTILIZED 1 EACH MISC PO PRN (22:50)
[2023-10-08] MEDS ORDERED: NALOXONE 0.4 MG/ML 1 ML VIAL IV PRN (22:50)
[2023-10-08] MEDS: SODIUM CHLORIDE 0.9% 1,000 ML IV SCH (23:32)
[2023-10-09] MEDS: AZITHROMYCIN 500 MG in SODIUM CHLORIDE 0.9% 250 ML IVPB STA (00:42)
[2023-10-09] MEDS: MORPHINE SULFATE 4 MG/ML SYRINGE IV PRN (06:08)
[2023-10-09] MEDS: ONDANSETRON 4 MG/2 ML VIAL IVP PRN (06:08)
[2023-10-09 07:11] LABS: Basophils % (A) 0 %; Eosinophils % (A) 0 %; HCT 35.5 % (34.0-46.0); HGB 11.8 gm/dL (11.4-16.0); Lymphocytes # (A) 2.6 k/uL (1.0-4.8); Lymphocytes % (A) 19 %; MCHC 33.3 g/dL (31.0-37.0); MCV 84.2 fL (80.0-100.0); Mean Platelet Volume 8.1; Monocytes # (A) 0.9 k/uL (0-1.0); Monocytes % (A) 7 %; Neutrophils # (A) 9.9 k/uL (1.3-7.7); Neutrophils % (A) 73 %; Platelet Count 291 k/uL (150-450); RBC 4.21 m/uL (3.80-5.40); RDW 13.6 % (11.5-15.5); WBC 13.5 k/uL (3.8-10.6)
[2023-10-09 07:35] LABS: ALT 15 U/L (4-34); AST 16 U/L (14-36); African American GFR (CKD) >90 (>60 ml/min/1.73 sqM); Albumin 3.7 g/dL (3.5-5.0); Alkaline Phosphatase 69 U/L (38-126); Anion Gap 3 mmol/L; Blood Urea Nitrogen 18 mg/dL (7-17); Calcium 9.2 mg/dL (8.4-10.2); Carbon Dioxide 31 mmol/L (22-30); Chloride 106 mmol/L (98-107); Glucose 95 mg/dL (74-99); Magnesium 2.1 mg/dL (1.6-2.3); Non-African American GFR(CKD) >90 (>60 ml/min/1.73 sqM); Phosphorus 3.4 mg/dL (2.5-4.5); Potassium 3.9 mmol/L (3.5-5.1); Sodium 140 mmol/L (137-145); Total Bilirubin 0.5 mg/dL (0.2-1.3)
--- NOTE | 2023-10-09 08:24 | XR ---
EXAMINATION TYPE: XR chest 2V DATE OF EXAM: 10/09/2023 COMPARISON: 10/08/2023 HISTORY: 53-year-old female history of pneumonia TECHNIQUE: PA and lateral views FINDINGS: The cardiomediastinal silhouette, aorta, and pulmonary vasculature are within normal limits. Minimal strandy atelectasis at the left base. Otherwise, lungs and pleural spaces are clear. IMPRESSION: No azalea progressive airspace disease at this time.
--- NOTE | 2023-10-09 12:43 | P.HPIM ---
History of Present Illness H&P Date: 10/09/23 History of present illness; 53-year-old female presenting to the emergency department for the third time in the past 3 days on 10/07 for feelings of weakness, overall not feeling well, shortness of breath, overall discomfort and continued symptoms of her previously diagnosed pneumonia. On arrival she had worsening symptoms of nausea vomiting as well as decreased appetite, however since receiving Zofran 4 mg IVP this morning she states she is feeling better, and has an appetite. Patient has medical history significant for recently diagnosed pneumonia as well as history of sarcoidosis. When seen this morning patient states she was feeling better than when she arrived, no current complaints. Initial lab work done in the ER showed WBCs at 19, neutrophils of 17.1, BUN of 18 and glucose of 161. Two chest x-ray done in the ER both which stating there is no acute cardiopulmonary disease/process occurring. Patient admitted to internal medicine service REVIEW OF SYSTEMS: CONSTITUTIONAL: No fever, no malaise, no fatigue. HEENT: No recent visual problems or hearing problems. Denied any sore throat. CARDIOVASCULAR: No chest pain, orthopnea, PND, no palpitations, no syncope. PULMONARY: No shortness of breath, no cough, no hemoptysis. GASTROINTESTINAL: No diarrhea, no nausea, no vomiting, no abdominal pain. NEUROLOGICAL: No headaches, no weakness, no numbness. HEMATOLOGICAL: Denies any bleeding or petechiae. GENITOURINARY: Denies any burning micturition, frequency, or urgency. MUSCULOSKELETAL/RHEUMATOLOGICAL: Denies any joint pain, swelling, or any muscle pain. ENDOCRINE: Denies any polyuria or polydipsia. The rest of the 14-point review of systems is negative. PHYSICAL EXAMINATION: GENERAL: The patient is alert and oriented x3, not in any acute distress. Well developed, well nourished. HEENT: Pupils are round and equally reacting to light. EOMI. No scleral icterus. No conjunctival pallor. Normocephalic, atraumatic. No pharyngeal erythema. No thyromegaly. CARDIOVASCULAR: S1 and S2 present. No murmurs, rubs, or gallops. PULMONARY: Chest is clear to auscultation, no wheezing or crackles. ABDOMEN: Soft, nontender, nondistended, normoactive bowel sounds. No palpable organomegaly. MUSCULOSKELETAL: No joint swelling or deformity. EXTREMITIES: No cyanosis, clubbing, or pedal edema. NEUROLOGICAL: Gross neurological examination did not reveal any focal deficits. SKIN: No rashes. Assessment and plan 1. Pneumonia Treated with azithromycin at home Patient treated in the emergency department with IV ceftriaxone and IV azithromycin WBC dropped from 19 to 13.5 following ministration of both antibiotics Blood culture ordered Legionella antigen ordered Chest x-ray performed in the emergency department should her disease process Patient to complete antibiotic course Prior to coming to the hospital, no additional antibiotics 2. Nausea/vomiting Given Zofran in the emergency department feeling better Patient takes Prilosec twice a day at home Will prescribe Maalox to add on top of the Prilosec Monitor vital signs Monitor CBC Monitor CMP Labs and medication were reviewed. Continue with symptomatic treatment. Resume home medication. Monitor labs and vitals. DVT and GI prophylaxis. Further recommendations as per clinical course of the patient Dictation was produced using [employer] dictation software. please excuse any grammatical, word or spelling errors. Past Medical History Past Medical History: Coronary Artery Disease (CAD), Chest Pain / Angina, Hypertension, Osteoarthritis (OA), Respiratory Disorder, Syncope Additional Past Medical History / Comment(s): hx. of Vocal cord paralysis after lung biopsy, dr. sawant put a voice box on vocal cords, left lung nodules related to SARCOIDOSIS, SOB w/exertion, salivary gland infection. per pt she had covid x2, (last infection 11/2020) History of Any Multi-Drug Resistant Organisms: None Reported Past Surgical History: Adenoidectomy, Cholecystectomy, Heart Catheterization, Hysterectomy, Joint Replacement, Orthopedic Surgery, Tonsillectomy Additional Past Surgical History / Comment(s): Repair of vocal cord paralysis, left rotator cuff repair, bilateral knee replaced, LEFT LUNG NODULE REMOVAL, Loop recorder with removal, right knee replaced May 2020, had right knee manipulation 06-26-20 @ [facility]. bilateral leg stents placed in september 26/2022, Past Anesthesia/Blood Transfusion Reactions: Postoperative Nausea & Vomiting (PONV) Past Psychological History: No Psychological Hx Reported Smoking Status: Never smoker Past Alcohol Use History: None Reported Past Drug Use History: Marijuana - Past Family History Mother Family Medical History: Diabetes Mellitus Additional Family Medical History / Comment(s): Mother is alive, at 71, recently had cardiac surgery (95% occlusion) with history of diabetes. Father History Unknown: Yes Additional Family Medical History / Comment(s): Patient does not have any contact with her father and does not know any of his medical history. Brother(s) Additional Family Medical History / Comment(s): Patient has 1 brother but does not know his medical history. Patient does not have any sisters. Patient has 2 sons no major medical problems. Medications and Allergies Home Medications Medication Instructions Recorded Confirmed Type carvediloL [Coreg] 12.5 mg PO BID 10/12/19 10/09/23 History Oxybutynin Xl [Ditropan XL] 5 mg PO DAILY 04/10/21 10/09/23 History Furosemide [Lasix] 20 mg PO DAILY 01/31/22 10/09/23 History Albuterol Nebulized [Ventolin 2.5 mg INHALATION RT-Q8H PRN 05/13/23 10/09/23 History Nebulized] Aspirin EC [Ecotrin Low Dose] 81 mg PO DAILY 05/13/23 10/09/23 History Cyclobenzaprine [Flexeril] 5 mg PO BID PRN 05/13/23 10/09/23 History Diclofenac Sodium [Voltaren] 75 mg PO BID PRN 05/13/23 10/09/23 History Omeprazole [PriLOSEC] 20 mg PO AC-BID 05/13/23 10/09/23 History Ondansetron Odt [Zofran ODT] 4 mg PO Q12HR PRN 05/13/23 10/09/23 History Levofloxacin [Levaquin] 750 mg PO DAILY 5 Days #5 tab 10/06/23 10/09/23 Rx predniSONE [Deltasone] 40 mg PO DAILY 5 Days #10 tab 10/06/23 10/09/23 Rx Budesonide/Formoterol Fumarate 2 puff INHALATION RT-BID PRN 10/07/23 10/09/23 History [Symbicort 160-4.5 Mcg Inhaler] Isosorbide Mononitrate ER [Imdur] 30 mg PO DAILY 10/09/23 10/09/23 History Allergies Allergy/AdvReac Type Severity Reaction Status Date / Time meperidine HCl [From Demerol] Allergy Rash/Hives/ Verified 10/09/23 07:36 Swelling naproxen sodium [From Aleve] Allergy Rash/Hives/ Verified 10/09/23 07:36 Swelling red dye AdvReac migraines Verified 10/09/23 07:36 Physical Exam Vitals: Vital Signs Temp Pulse Resp BP Pulse Ox 10/09/23 09:59 73 20 127/80 98 10/09/23 09:00 65 16 135/68 98 10/09/23 07:12 65 16 139/81 92 L 10/09/23 06:03 56 L 16 114/79 97 10/09/23 03:12 16 10/09/23 02:27 60 16 106/68 99 10/09/23 01:33 96 10/09/23 00:17 53 L 16 125/73 98 10/08/23 23:34 50 L 18 144/81 97 10/08/23 22:00 53 L 20 125/79 97 10/08/23 18:50 97.5 F L 76 20 139/79 98 Intake and Output 10/08/23 10/09/23 10/09/23 22:59 06:59 14:59 Other: Weight 86.636 kg Results CBC & Chem 7: 10/09/23 06:56 10/09/23 06:56 Labs: Abnormal Lab Results - Last 24 Hours (Table) 10/08/23 10/08/23 10/08/23 Range/Units 20:10 20:10 20:10 WBC 19.0 H (3.8-10.6) k/uL Neutrophils # 17.1 H (1.3-7.7) k/uL PT 9.7 L (10.0-12.5) sec Carbon Dioxide (22-30) mmol/L BUN 18 H (7-17) mg/dL Glucose 161 H (74-99) mg/dL Plasma Lactic Acid Zach (0.7-2.0) mmol/L Total Protein (6.3-8.2) g/dL 10/08/23 10/09/23 10/09/23 Range/Units 20:10 06:56 06:56 WBC 13.5 H (3.8-10.6) k/uL Neutrophils # 9.9 H (1.3-7.7) k/uL PT (10.0-12.5) sec Carbon Dioxide 31 H (22-30) mmol/L BUN 18 H (7-17) mg/dL Glucose (74-99) mg/dL Plasma Lactic Acid Zach 2.1 H* (0.7-2.0) mmol/L Total Protein 6.0 L (6.3-8.2) g/dL
[2023-10-09] MEDS: MAG HYDROX/AL HYDROX/SIMETH 30 ML CUP PO SCH (12:45)
[2023-10-09 12:48] VITALS: RESP 18
--- NOTE | 2023-10-09 15:03 | P.DS ---
Providers Date of admission: 10/08/23 22:58 Attending physician: Aminah Lerma Primary care physician: Nish Stringer [facility] Course: Discharge diagnoses; 1. Pneumonia Treated with azithromycin at home Patient treated in the emergency department with IV ceftriaxone and IV azithromycin WBC dropped from 19 to 13.5 following ministration of both antibiotics Blood culture ordered Legionella antigen ordered Chest x-ray performed in the emergency department should her disease process Patient to complete antibiotic course Prior to coming to the hospital, no additional antibiotics 2. Nausea/vomiting Given Zofran in the emergency department feeling better Patient takes Prilosec twice a day at home Will prescribe Maalox to add on top of the Prilosec Hospital course; 53-year-old female presenting to the emergency department for the third time in the past 3 days on 10/07 for feelings of weakness, overall not feeling well, shortness of breath, overall discomfort and continued symptoms of her previously diagnosed pneumonia. On arrival she had worsening symptoms of nausea vomiting as well as decreased appetite, however since receiving Zofran 4 mg IVP this morning she states she is feeling better, and has an appetite. Patient has medical history significant for recently diagnosed pneumonia as well as history of sarcoidosis. When seen this morning patient states she was feeling better than when she arrived, no current complaints. Initial lab work done in the ER showed WBCs at 19, neutrophils of 17.1, BUN of 18 and glucose of 161. Two chest x-ray done in the ER both which stating there is no acute cardiopulmonary disease/process occurring. She was seen in the afternoon, continuing to feel well with no complaints of shortness of breath or nausea/vomiting. Patient was instructed to complete her course of antibiotics given when diagnosed with pneumonia, if she has not already, okay he was given additional prescription for Maalox to help with her continued nausea and vomiting. Patient is feeling well and has no other complaints. PHYSICAL EXAMINATION: GENERAL: The patient is alert and oriented x3, not in any acute distress. Well developed, well nourished. HEENT: Pupils are round and equally reacting to light. EOMI. No scleral icterus. No conjunctival pallor. Normocephalic, atraumatic. No pharyngeal erythema. No thyromegaly. CARDIOVASCULAR: S1 and S2 present. No murmurs, rubs, or gallops. PULMONARY: Chest is clear to auscultation, no wheezing or crackles. ABDOMEN: Soft, nontender, nondistended, normoactive bowel sounds. No palpable organomegaly. MUSCULOSKELETAL: No joint swelling or deformity. EXTREMITIES: No cyanosis, clubbing, or pedal edema. NEUROLOGICAL: Gross neurological examination did not reveal any focal deficits. SKIN: No rashes. Dictation was produced using [employer] dictation software. please excuse any grammatical, word or spelling errors. Patient Condition at Discharge: Fair Plan - Discharge Summary New Discharge Prescriptions: New Mag Hydrox/Al Hydrox/Simeth [Maalox] 20 ml PO QID 7 Days #560 ml Continue carvediloL [Coreg] 12.5 mg PO BID Oxybutynin Xl [Ditropan XL] 5 mg PO DAILY Furosemide [Lasix] 20 mg PO DAILY Cyclobenzaprine [Flexeril] 5 mg PO BID PRN PRN Reason: Muscle Spasm Aspirin EC [Ecotrin Low Dose] 81 mg PO DAILY Albuterol Nebulized [Ventolin Nebulized] 2.5 mg INHALATION RT-Q8H PRN PRN Reason: Shortness Of Breath Ondansetron Odt [Zofran ODT] 4 mg PO Q12HR PRN PRN Reason: Nausea And Vomiting Levofloxacin [Levaquin] 750 mg PO DAILY 5 Days #5 tab Isosorbide Mononitrate ER [Imdur] 30 mg PO DAILY Omeprazole [PriLOSEC] 20 mg PO AC-BID Diclofenac Sodium [Voltaren] 75 mg PO BID PRN PRN Reason: Pain predniSONE [Deltasone] 40 mg PO DAILY 5 Days #10 tab Budesonide/Formoterol Fumarate [Symbicort 160-4.5 Mcg Inhaler] 2 puff INHALATION RT-BID PRN PRN Reason: Shortness Of Breath Discharge Medication List carvediloL [Coreg] 12.5 mg PO BID 10/12/19 [History] Oxybutynin Xl [Ditropan XL] 5 mg PO DAILY 04/10/21 [History] Furosemide [Lasix] 20 mg PO DAILY 01/31/22 [History] Albuterol Nebulized [Ventolin Nebulized] 2.5 mg INHALATION RT-Q8H PRN 05/13/23 [History] Aspirin EC [Ecotrin Low Dose] 81 mg PO DAILY 05/13/23 [History] Cyclobenzaprine [Flexeril] 5 mg PO BID PRN 05/13/23 [History] Diclofenac Sodium [Voltaren] 75 mg PO BID PRN 05/13/23 [History] Omeprazole [PriLOSEC] 20 mg PO AC-BID 05/13/23 [History] Ondansetron Odt [Zofran ODT] 4 mg PO Q12HR PRN 05/13/23 [History] Levofloxacin [Levaquin] 750 mg PO DAILY 5 Days #5 tab 10/06/23 [Rx] predniSONE [Deltasone] 40 mg PO DAILY 5 Days #10 tab 10/06/23 [Rx] Budesonide/Formoterol Fumarate [Symbicort 160-4.5 Mcg Inhaler] 2 puff INHALATION RT-BID PRN 10/07/23 [History] Isosorbide Mononitrate ER [Imdur] 30 mg PO DAILY 10/09/23 [History] Mag Hydrox/Al Hydrox/Simeth [Maalox] 20 ml PO QID 7 Days #560 ml 10/09/23 [Rx] Follow up Appointment(s)/Referral(s): Nish Baez [Primary Care Provider] - 1-2 days Discharge Disposition: HOME SELF-CARE
[2023-10-09 16:15] VITALS: BP 142/98; PULSE 60; TEMP 97.8
[2023-10-09] MEDS ORDERED: AZITHROMYCIN 500 MG TAB PO SCH (21:00)
== END 2023-10-09 16:19 | disposition home or self-care (01) ==
LOC: EC 18:49 → 6NMEDSUR 22:58
PROVIDERS: ADMIT Hospitalist; ATTEND Hospitalist
DX: J18.9 Pneumonia, unspecified organism (principal); R11.2 Nausea with vomiting, unspecified; R07.89 Other chest pain; J06.9 Acute upper respiratory infection, unspecified; R53.1 Weakness; D86.9 Sarcoidosis, unspecified; I10 Essential (primary) hypertension; I25.10 Atherosclerotic heart disease of native coronary artery without angina pectoris; Z86.16 Personal history of COVID-19; Z95.820 Peripheral vascular angioplasty status with implants and grafts; Z79.899 Other long term (current) drug therapy; Z79.82 Long term (current) use of aspirin; Z79.51 Long term (current) use of inhaled steroids; Z88.5 Allergy status to narcotic agent; Z88.6 Allergy status to analgesic agent
CPT/HCPCS: 96361; 96365; 96366; 96367; 96375; 99285; 36415; 93005; 80053 ×2; 87449; 83605 ×2; 83735; 84100; 84484; 85025 ×2; 85610; 85730; 87040; 71046 ×2; G0378 ×2; J2270; J2405; J0456; J0696

== ENCOUNTER → 2023-11-21 | Outpatient (CLI) | payer MEDICARE, OTHER ==
--- NOTE | 2023-11-21 16:25 | US ---
EXAMINATION TYPE: US venous doppler duplex LE RT DATE OF EXAM: 11/21/2023 4:08 PM COMPARISON: NONE CLINICAL INDICATION: Female, 53 years old with history of I82.401 ACUTE EMBOLISM AND THOMBOS UNSP RODRIGO P VEINS; Right calf pain SIDE PERFORMED: Right TECHNIQUE: The lower extremity deep venous system is examined utilizing real time linear array sonog madeleine with graded compression, doppler sonography and color-flow sonography. VESSELS IMAGED: Common Femoral Vein Deep Femoral Vein Greater Saphenous Vein * Femoral Vein Popliteal Vein Small Saphenous Vein * Proximal Calf Veins (* superficial vessels) The deep venous system of the right lower extremity from the common femoral vein to the proximal calf veins is patent and compressible with augmentable flow with normal waveforms. IMPRESSION: No evidence of right lower extremity DVT from the common femoral vein to the proximal calf veins
== END | disposition home or self-care (01) ==
LOC: RADUSWWP 15:50
PROVIDERS: ATTEND Internal Medicine Interventional Cardiology
DX: I82.401 Acute embolism and thrombosis of unspecified deep veins of right lower extremity (principal)

== ENCOUNTER 2024-05-14 14:35 | Emergency (ER) | payer MEDICARE, OTHER ==
--- NOTE | 2024-05-14 15:33 | ED ---
General Adult HPI - General Chief complaint: Headache Stated complaint: Headache Source: patient Mode of arrival: ambulatory Limitations: no limitations - History of Present Illness Initial comments: This patient is a 54-year-old woman who states she does have history of previous migraine headaches, who presents to evaluation for headache that she states has been flaring up over the past hours today. She has not noted associated fever or chills, neck stiffness or pain, neurologic symptoms or other symptoms associated. Patient states that she was here on Friday for some right calf cramping and notes that this has also continued. On Friday she had duplex Doppler study that was negative. Patient does not have history of previous DVT though she does have history of May Thurner syndrome. She states that she does have stents present and is to follow with her specialist in the coming next weeks. Patient denies any chest symptoms, no chest pain, palpitations, dyspnea, hemoptysis or other symptoms. -: hour(s) Location: head, right, lower extremity Quality: dull Consistency: constant Improves with: none Worsens with: none Associated Symptoms: denies other symptoms Treatments Prior to Arrival: none - Related Data Home Medications Medication Instructions Recorded Confirmed carvediloL [Coreg] 12.5 mg PO BID 10/12/19 10/09/23 Oxybutynin Xl [Ditropan XL] 5 mg PO DAILY 04/10/21 10/09/23 Furosemide [Lasix] 20 mg PO DAILY 01/31/22 10/09/23 Albuterol Nebulized [Ventolin 2.5 mg INHALATION RT-Q8H PRN 05/13/23 10/09/23 Nebulized] Aspirin EC [Ecotrin Low Dose] 81 mg PO DAILY 05/13/23 10/09/23 Cyclobenzaprine [Flexeril] 5 mg PO BID PRN 05/13/23 10/09/23 Diclofenac Sodium [Voltaren] 75 mg PO BID PRN 05/13/23 10/09/23 Omeprazole [PriLOSEC] 20 mg PO AC-BID 05/13/23 10/09/23 Ondansetron Odt [Zofran ODT] 4 mg PO Q12HR PRN 05/13/23 10/09/23 Budesonide/Formoterol Fumarate 2 puff INHALATION RT-BID PRN 10/07/23 10/09/23 [Symbicort 160-4.5 Mcg Inhaler] Isosorbide Mononitrate ER [Imdur] 30 mg PO DAILY 10/09/23 10/09/23 Previous Rx's Medication Instructions Recorded Levofloxacin [Levaquin] 750 mg PO DAILY 5 Days #5 tab 10/06/23 predniSONE [Deltasone] 40 mg PO DAILY 5 Days #10 tab 10/06/23 Mag Hydrox/Al Hydrox/Simeth 20 ml PO QID 7 Days #560 ml 10/09/23 [Maalox] Allergies Allergy/AdvReac Type Severity Reaction Status Date / Time meperidine HCl [From Demerol] Allergy Rash/Hives/ Verified 05/14/24 14:53 Swelling naproxen sodium [From Aleve] Allergy Rash/Hives/ Verified 05/14/24 14:53 Swelling red dye AdvReac migraines Verified 05/14/24 14:53 Review of Systems ROS Statement: Those systems with pertinent positive or pertinent negative responses have been documented in the HPI. ROS Other: All systems not noted in ROS Statement are negative. Constitutional: Denies: fever, chills, weakness Eyes: Denies: eye pain, vision change ENT: Denies: ear pain, hearing loss Respiratory: Denies: cough, dyspnea, wheezes Cardiovascular: Denies: chest pain, palpitations, edema, syncope Gastrointestinal: Denies: abdominal pain, nausea, vomiting Genitourinary: Denies: dysuria, hematuria Musculoskeletal: Denies: back pain Skin: Denies: rash Neurological: Reports: headache. Denies: weakness, numbness, confusion Hematological/Lymphatic: Denies: easy bleeding Past Medical History Past Medical History: Coronary Artery Disease (CAD), Chest Pain / Angina, Hypertension, Osteoarthritis (OA), Respiratory Disorder, Syncope Additional Past Medical History / Comment(s): hx. of Vocal cord paralysis after lung biopsy, dr. sawant put a voice box on vocal cords, left lung nodules related to SARCOIDOSIS, SOB w/exertion, salivary gland infection. per pt she had covid x2, (last infection 11/2020) History of Any Multi-Drug Resistant Organisms: None Reported Past Surgical History: Adenoidectomy, Cholecystectomy, Heart Catheterization, Hysterectomy, Joint Replacement, Orthopedic Surgery, Tonsillectomy Additional Past Surgical History / Comment(s): Repair of vocal cord paralysis, left rotator cuff repair, bilateral knee replaced, LEFT LUNG NODULE REMOVAL, Loop recorder with removal, right knee replaced May 2020, had right knee manipulation 06-26-20 @ [facility]. bilateral leg stents placed in september 26/2022, Past Anesthesia/Blood Transfusion Reactions: Postoperative Nausea & Vomiting (PONV) Past Psychological History: No Psychological Hx Reported Smoking Status: Never smoker Past Alcohol Use History: None Reported Past Drug Use History: Marijuana - Past Family History Mother Family Medical History: Diabetes Mellitus Additional Family Medical History / Comment(s): Mother is alive, at 71, recently had cardiac surgery (95% occlusion) with history of diabetes. Father History Unknown: Yes Additional Family Medical History / Comment(s): Patient does not have any contact with her father and does not know any of his medical history. Brother(s) Additional Family Medical History / Comment(s): Patient has 1 brother but does not know his medical history. Patient does not have any sisters. Patient has 2 sons no major medical problems. General Exam Limitations: no limitations General appearance: alert, in no apparent distress Head exam: Present: atraumatic, normocephalic Eye exam: Present: normal appearance, PERRL, EOMI. Absent: scleral icterus, conjunctival injection ENT exam: Present: normal oropharynx Neck exam: Present: normal inspection, full ROM. Absent: tenderness, meningismus Respiratory exam: Present: normal lung sounds bilaterally. Absent: respiratory distress, wheezes, rales, rhonchi, stridor, accessory muscle use Cardiovascular Exam: Present: regular rate, normal rhythm, normal heart sounds. Absent: systolic murmur, diastolic murmur, rubs, gallop GI/Abdominal exam: Present: soft. Absent: distended, tenderness, guarding, rebound, rigid, mass Extremities exam: Present: normal inspection, normal capillary refill, calf tenderness (Mild right tenderness. No palpable cord or Homans' sign.). Absent: pedal edema Back exam: Present: normal inspection. Absent: CVA tenderness (R), CVA tenderness (L) Neurological exam: Present: alert, oriented X3, CN II-XII intact. Absent: motor sensory deficit Skin exam: Present: warm, dry, intact, normal color. Absent: rash Course Vital Signs 05/14/24 05/14/24 05/14/24 14:50 16:49 18:43 Temperature 97.6 F 98.0 F Pulse Rate 67 65 68 Respiratory 17 18 18 Rate Blood Pressure 117/75 114/76 118/74 O2 Sat by Pulse 98 97 98 Oximetry Medical Decision Making - Medical Decision Making Was pt. sent in by a medical professional or institution (, [facility]A, ARCHITECTURE INSTRUCTOR, urgent care, hospital, or half-way...) When possible be specific @ -[No] Did you speak to anyone other than the patient for history (EMS, parent, family, police, friend...)? What history was obtained from this source @ -[No] Did you review nursing and triage notes (agree or disagree)? Why? @ -[I reviewed and agree with nursing and triage notes] Were old charts reviewed (outside hosp., previous admission, EMS record, old EKG, old radiological studies, urgent care reports/EKG's, half-way records)? Report findings @ -[No old charts were reviewed] Differential Diagnosis (chest pain, altered mental status, abdominal pain women, abdominal pain men, vaginal bleeding, weakness, fever, dyspnea, syncope, headache, dizziness, GI bleed, back pain, seizure, CVA, palpatations, mental health, musculoskeletal)? @ -[n differential Headache: Migraine, tension, cluster, carbon monoxide, central venous thrombosis, pension karma temporal arteritis, acute closure glaucoma, intercranial hemorrhage, mastoiditis, sinusitis, head injury, this is not meant to be an all-inclusive list. EKG interpreted by me (3pts min.). @ -[As above] X-rays interpreted by me (1pt min.). @ -[None done] CT interpreted by me (1pt min.). @ -[None done] U/S interpreted by me (1pt. min.). @ -[None done] What testing was considered but not performed or refused? (CT, X-rays, U/S, labs)? Why? @ -[None] What meds were considered but not given or refused? Why? @ -[None] Did you discuss the management of the patient with other professionals (pr ofessionals i.e. , MONA, ARCHITECTURE INSTRUCTOR, lab, RT, psych nurse, geriatric social worker, gear nicker, teacher, community reinvestment act officer, community case manager)? Give summary @ -[No] Was smoking cessation discussed for >3mins.? @ -[No] Was critical care preformed (if so, how long)? @ -[No] Were there social determinants of health that impacted care today? How? (Homelessness, low income, unemployed, alcoholism, drug addiction, transportation, low edu. Level, literacy, decrease access to med. care, fci, rehab)? @ -[No] Was there de-escalation of care discussed even if they declined (Discuss DNR or withdrawal of care, Hospice)? DNR status @ -[No] What co-morbidities impacted this encounter? (DM, HTN, Smoking, COPD, CAD, Cancer, CVA, ARF, Chemo, Hep., AIDS, mental health diagnosis, sleep apnea, morbid obesity)? @ -[None] Was patient admitted / discharged? Hospital course, mention meds given and route, prescriptions, significant lab abnormalities, going to OR and other pertinent info. @ -[hospital course] Undiagnosed new problem with uncertain prognosis? @ -[No] Drug Therapy requiring intensive monitoring for toxicity (Heparin, Nitro, Insulin, Cardizem)? @ -[No] Were any procedures done? @ -[No] Diagnosis/symptom? @ -[Acute headache Acute, or Chronic, or Acute on Chronic? @ -[Acute Uncomplicated (without systemic symptoms) or Complicated (systemic symptoms)? @ -[Uncomplicated Side effects of treatment? @ -[No] Exacerbation, Progression, or Severe Exacerbation? @ -[No] Poses a threat to life or bodily function? How? (Chest pain, USA, NC, pneumonia, PE, COPD, DKA, ARF, appy, cholecystitis, CVA, Diverticulitis, Homicidal, Suicidal, threat to staff... and all critical care pts) @ -[No] All treatments are based on ideal body weight as in ED triage - Lab Data Result diagrams: 05/14/24 15:53 05/14/24 15:53 Lab Results 05/14/24 05/14/24 05/14/24 Range/Units 15:53 15:53 15:53 WBC 8.2 (3.8-10.6) k/uL RBC 4.91 (3.80-5.40) m/uL Hgb 13.2 (11.4-16.0) gm/dL Hct 39.7 (34.0-46.0) % MCV 80.8 (80.0-100.0) fL MCH 26.9 (25.0-35.0) pg MCHC 33.2 (31.0-37.0) g/dL RDW 12.8 (11.5-15.5) % Plt Count 309 (150-450) k/uL MPV 6.9 Neutrophils % 65 % Lymphocytes % 24 % Monocytes % 7 % Eosinophils % 2 % Basophils % 0 % Neutrophils # 5.3 (1.3-7.7) k/uL Lymphocytes # 2.0 (1.0-4.8) k/uL Monocytes # 0.6 (0-1.0) k/uL Eosinophils # 0.2 (0-0.7) k/uL Basophils # 0.0 (0-0.2) k/uL D-Dimer 0.33 (<0.60) mg/L FEU Sodium (137-145) mmol/L Potassium (3.5-5.1) mmol/L Chloride (98-107) mmol/L Carbon Dioxide (22-30) mmol/L Anion Gap mmol/L BUN (7-17) mg/dL Creatinine (0.52-1.04) mg/dL Est GFR (CKD-EPI)AfAm (>60 ml/min/1.73 sqM) Est GFR (CKD-EPI)NonAf (>60 ml/min/1.73 sqM) Glucose (74-99) mg/dL Calcium (8.4-10.2) mg/dL Magnesium (1.6-2.3) mg/dL Total Bilirubin (0.2-1.3) mg/dL AST (14-36) U/L ALT (4-34) U/L Alkaline Phosphatase (38-126) U/L Total Protein (6.3-8.2) g/dL Albumin (3.5-5.0) g/dL Urine Color Colorless Urine Appearance Clear (Clear) Urine pH 6.5 (5.0-8.0) Ur Specific [place] 1.008 (1.001-1.035) Urine Protein Negative (Negative) Urine Glucose (UA) Negative (Negative) Urine Ketones Negative (Negative) Urine Blood Negative (Negative) Urine Nitrite Negative (Negative) Urine Bilirubin Negative (Negative) Urine Urobilinogen <2.0 (<2.0) mg/dL Ur Leukocyte Esterase Negative (Negative) 05/14/24 Range/Units 15:53 WBC (3.8-10.6) k/uL RBC (3.80-5.40) m/uL Hgb (11.4-16.0) gm/dL Hct (34.0-46.0) % MCV (80.0-100.0) fL MCH (25.0-35.0) pg MCHC (31.0-37.0) g/dL RDW (11.5-15.5) % Plt Count (150-450) k/uL MPV Neutrophils % % Lymphocytes % % Monocytes % % Eosinophils % % Basophils % % Neutrophils # (1.3-7.7) k/uL Lymphocytes # (1.0-4.8) k/uL Monocytes # (0-1.0) k/uL Eosinophils # (0-0.7) k/uL Basophils # (0-0.2) k/uL D-Dimer (<0.60) mg/L FEU Sodium 138 (137-145) mmol/L Potassium 4.3 (3.5-5.1) mmol/L Chloride 99 (98-107) mmol/L Carbon Dioxide 30 (22-30) mmol/L Anion Gap 9 mmol/L BUN 19 H (7-17) mg/dL Creatinine 0.65 (0.52-1.04) mg/dL Est GFR (CKD-EPI)AfAm >90 (>60 ml/min/1.73 sqM) Est GFR (CKD-EPI)NonAf >90 (>60 ml/min/1.73 sqM) Glucose 91 (74-99) mg/dL Calcium 9.7 (8.4-10.2) mg/dL Magnesium 2.1 (1.6-2.3) mg/dL Total Bilirubin 0.9 (0.2-1.3) mg/dL AST 27 (14-36) U/L ALT 34 (4-34) U/L Alkaline Phosphatase 105 (38-126) U/L Total Protein 7.2 (6.3-8.2) g/dL Albumin 4.5 (3.5-5.0) g/dL Urine Color Urine Appearance (Clear) Urine pH (5.0-8.0) Ur Specific [place] (1.001-1.035) Urine Protein (Negative) Urine Glucose (UA) (Negative) Urine Ketones (Negative) Urine Blood (Negative) Urine Nitrite (Negative) Urine Bilirubin (Negative) Urine Urobilinogen (<2.0) mg/dL Ur Leukocyte Esterase (Negative) Disposition Clinical Impression: Headache Disposition: HOME SELF-CARE Condition: Good Instructions (If sedation given, give patient instructions): Acute Headache (ED) Is patient prescribed a controlled substance at d/c from ED?: No Referrals: Nish Baez [Primary Care Provider] - 1-2 days
[2024-05-14 16:06] LABS: Appearance,Urine Clear (Clear); Basophils % (A) 0 %; Bilirubin,Urine Negative (Negative); Blood,Urine Negative (Negative); Color,Urine Colorless; Eosinophils # (A) 0.2 k/uL (0-0.7); Eosinophils % (A) 2 %; Glucose,Urine (UA) Negative (Negative); HCT 39.7 % (34.0-46.0); HGB 13.2 gm/dL (11.4-16.0); Ketones,Urine Negative (Negative); Leukocyte Esterase,Urine Negative (Negative); Lymphocytes % (A) 24 %; MCH 26.9 pg (25.0-35.0); MCHC 33.2 g/dL (31.0-37.0); MCV 80.8 fL (80.0-100.0); Mean Platelet Volume 6.9; Monocytes # (A) 0.6 k/uL (0-1.0); Monocytes % (A) 7 %; Neutrophils # (A) 5.3 k/uL (1.3-7.7); Neutrophils % (A) 65 %; Nitrite,Urine Negative (Negative); PH, Urine 6.5 (5.0-8.0); Platelet Count 309 k/uL (150-450); Protein,Urine Negative (Negative); RBC 4.91 m/uL (3.80-5.40); RDW 12.8 % (11.5-15.5); Specific Gravity,Urine 1.008 (1.001-1.035); Urobilinogen,Urine <2.0 mg/dL (<2.0); WBC 8.2 k/uL (3.8-10.6)
[2024-05-14] MEDS: BUTALB/APAP/CAFF 50-325-40MG TAB PO STA ×2 (16:20→18:19)
[2024-05-14] MEDS: ONDANSETRON 4 MG/2 ML VIAL IVP STA (16:21)
[2024-05-14 16:30] LABS: ALT 34 U/L (4-34); AST 27 U/L (14-36); African American GFR (CKD) >90 (>60 ml/min/1.73 sqM); Albumin 4.5 g/dL (3.5-5.0); Alkaline Phosphatase 105 U/L (38-126); Anion Gap 9 mmol/L; Blood Urea Nitrogen 19 mg/dL (7-17); Calcium 9.7 mg/dL (8.4-10.2); Carbon Dioxide 30 mmol/L (22-30); Chloride 99 mmol/L (98-107); Glucose 91 mg/dL (74-99); Magnesium 2.1 mg/dL (1.6-2.3); Non-African American GFR(CKD) >90 (>60 ml/min/1.73 sqM); Potassium 4.3 mmol/L (3.5-5.1); Sodium 138 mmol/L (137-145); Total Bilirubin 0.9 mg/dL (0.2-1.3); Total Protein 7.2 g/dL (6.3-8.2)
[2024-05-14 16:50] VITALS: RESP 18
[2024-05-14 18:47] VITALS: BP 118/74; PULSE 68; TEMP 98
== END 2024-05-14 18:45 | disposition home or self-care (01) ==
LOC: EC 14:35
DX: R51.9 Headache, unspecified (principal); Z88.6 Allergy status to analgesic agent; Z88.5 Allergy status to narcotic agent; Z88.8 Allergy status to other drugs, medicaments and biological substances
CPT/HCPCS: 36415; 85379; 80053; 83735; 85025; 81003; 99284; 96374; J2405

== ENCOUNTER 2024-06-20 15:57 | Emergency (ER) | payer MEDICARE, OTHER ==
--- NOTE | 2024-06-20 16:28 | ED ---
Chest Pain HPI - General Chief Complaint: Chest Pain Stated Complaint: chest pain Time Seen by Provider: 06/20/24 16:13 Source: patient, RN notes reviewed, old records reviewed Mode of arrival: ambulatory Limitations: no limitations - History of Present Illness Initial Comments: This is a 54-year-old female she has multiple complaints today cough congestion runny nose, chest congestion and chest pain today. Patient has history of vascular disease lower extremity edema no current edema patient states he was feeling well today and then developed some chest pain left-sided chest pain with congestion. No fevers no known sick contacts no other significant complaints no history of heart disease MD Complaint: chest pain, other (Chest congestion) -: hour(s) Onset: during rest Pain Location: substernal Pain Radiation: none Severity: mild Severity scale (1-10): 3 Quality: tightness Consistency: intermittent Improves With: nothing Worsens With: nothing Anginal Symptoms: dyspnea Other Symptoms: cough Treatments Prior to Arrival: none - Related Data Home Medications Medication Instructions Recorded Confirmed carvediloL [Coreg] 12.5 mg PO BID 10/12/19 10/09/23 Oxybutynin Xl [Ditropan XL] 5 mg PO DAILY 04/10/21 10/09/23 Furosemide [Lasix] 20 mg PO DAILY 01/31/22 10/09/23 Albuterol Nebulized [Ventolin 2.5 mg INHALATION RT-Q8H PRN 05/13/23 10/09/23 Nebulized] Aspirin EC [Ecotrin Low Dose] 81 mg PO DAILY 05/13/23 10/09/23 Cyclobenzaprine [Flexeril] 5 mg PO BID PRN 05/13/23 10/09/23 Diclofenac Sodium [Voltaren] 75 mg PO BID PRN 05/13/23 10/09/23 Omeprazole [PriLOSEC] 20 mg PO AC-BID 05/13/23 10/09/23 Ondansetron Odt [Zofran ODT] 4 mg PO Q12HR PRN 05/13/23 10/09/23 Budesonide/Formoterol Fumarate 2 puff INHALATION RT-BID PRN 10/07/23 10/09/23 [Symbicort 160-4.5 Mcg Inhaler] Isosorbide Mononitrate ER [Imdur] 30 mg PO DAILY 10/09/23 10/09/23 Previous Rx's Medication Instructions Recorded Levofloxacin [Levaquin] 750 mg PO DAILY 5 Days #5 tab 10/06/23 predniSONE [Deltasone] 40 mg PO DAILY 5 Days #10 tab 10/06/23 Mag Hydrox/Al Hydrox/Simeth 20 ml PO QID 7 Days #560 ml 10/09/23 [Maalox] Allergies Allergy/AdvReac Type Severity Reaction Status Date / Time meperidine HCl [From Demerol] Allergy Rash/Hives/ Verified 06/20/24 16:03 Swelling naproxen sodium [From Aleve] Allergy Rash/Hives/ Verified 06/20/24 16:03 Swelling red dye AdvReac migraines Verified 06/20/24 16:03 Review of Systems ROS Statement: Those systems with pertinent positive or pertinent negative responses have been documented in the HPI. ROS Other: All systems not noted in ROS Statement are negative. EKG Findings - EKG Comments: EKG Findings:: EKG is sinus 64 RI 150 QRS 85 QTc 405 - EKG Results: EKG: interpreted by ISA Past Medical History Past Medical History: Coronary Artery Disease (CAD), Chest Pain / Angina, Hypertension, Osteoarthritis (OA), Respiratory Disorder, Syncope Additional Past Medical History / Comment(s): hx. of Vocal cord paralysis after lung biopsy, dr. sawant put a voice box on vocal cords, left lung nodules related to SARCOIDOSIS, SOB w/exertion, salivary gland infection. per pt she had covid x2, (last infection 11/2020) History of Any Multi-Drug Resistant Organisms: None Reported Past Surgical History: Adenoidectomy, Cholecystectomy, Heart Catheterization, Hysterectomy, Joint Replacement, Orthopedic Surgery, Tonsillectomy Additional Past Surgical History / Comment(s): Repair of vocal cord paralysis, left rotator cuff repair, bilateral knee replaced, LEFT LUNG NODULE REMOVAL, Loop recorder with removal, right knee replaced May 2020, had right knee manipulation 06-26-20 @ [facility]. bilateral leg stents placed in september 26/2022, Past Anesthesia/Blood Transfusion Reactions: Postoperative Nausea & Vomiting (PONV) Past Psychological History: No Psychological Hx Reported Smoking Status: Never smoker Past Alcohol Use History: None Reported Past Drug Use History: Marijuana - Past Family History Mother Family Medical History: Diabetes Mellitus Additional Family Medical History / Comment(s): Mother is alive, at 71, recently had cardiac surgery (95% occlusion) with history of diabetes. Father History Unknown: Yes Additional Family Medical History / Comment(s): Patient does not have any contact with her father and does not know any of his medical history. Brother(s) Additional Family Medical History / Comment(s): Patient has 1 brother but does not know his medical history. Patient does not have any sisters. Patient has 2 sons no major medical problems. General Exam Limitations: no limitations General appearance: alert, in no apparent distress Head exam: Present: atraumatic, normocephalic, normal inspection Eye exam: Present: normal appearance, PERRL, EOMI. Absent: scleral icterus, conjunctival injection, periorbital swelling ENT exam: Present: normal exam, mucous membranes moist Neck exam: Present: normal inspection. Absent: tenderness, meningismus, lymphadenopathy Respiratory exam: Present: normal lung sounds bilaterally. Absent: respiratory distress, wheezes, rales, rhonchi, stridor Cardiovascular Exam: Present: regular rate, normal rhythm, normal heart sounds. Absent: systolic murmur, diastolic murmur, rubs, gallop, clicks GI/Abdominal exam: Present: soft, normal bowel sounds. Absent: distended, tenderness, guarding, rebound, rigid Extremities exam: Present: normal inspection, full ROM, normal capillary refill. Absent: tenderness, pedal edema, joint swelling, calf tenderness Back exam: Present: normal inspection Neurological exam: Present: alert, oriented X3, CN II-XII intact Psychiatric exam: Present: normal affect, normal mood Skin exam: Present: warm, dry, intact, normal color. Absent: rash Course Vital Signs 06/20/24 16:00 Temperature 98.0 F Pulse Rate 69 Respiratory 17 Rate Blood Pressure 126/77 O2 Sat by Pulse 99 Oximetry - Reevaluation(s) Reevaluation #1: 06/20/24 17:20 Medical records reviewed Reevaluation #2: 06/20/24 18:44 Patient has no chest pain currently feels well for discharge Eating and drinking here in the ER Reevaluation #3: 06/20/24 18:44 Patient informed of results questions answered Reevaluation #4: Was pt. sent in by a medical professional or institution (, PA, MARKETING STRATEGY MANAGER, urgent care, hospital, or group home...) When possible be specific @ -no Did you speak to anyone other than the patient for history (EMS, parent, family, police, friend...)? What history was obtained from this source @ -no Did you review nursing and triage notes (agree or disagree)? Why? @ -agree Are old charts reviewed (outside hosp., previous admission, EMS record, old EKG, old radiological studies, urgent care reports/EKG's, group home records)? Report findings @ -yes Differential Diagnosis (chest pain, altered mental status, abdominal pain women, abdominal pain men, vaginal bleeding, weakness, fever, dyspnea, syncope, headache, dizziness, GI bleed, back pain, seizure, CVA, palpatations, mental health, musculoskeletal)? @ -prior EKG interpreted by me (3pts min.). @ -yes X-rays interpreted by me (1pt min.). @ -yes negative for acute disease CT interpreted by me (1pt min.). @ -no U/S interpreted by me (1pt. min.). @ -no What testing was considered but not performed or refused? (CT, X-rays, U/S, labs)? Why? @ -none What meds were considered but not given or refused? Why? @ -none Did you discuss the management of the patient with other professionals (professionals i.e. , PA, MARKETING STRATEGY MANAGER, lab, RT, psych nurse, high school social studies tutor, overcoil stepper, teacher, combatant diver officer, caser up)? Give summary @ -no Was smoking cessation discussed for >3mins.? @ -no Was critical care preformed (if so, how long)? @ -no Were there social determinants of health that impacted care today? How? (Homelessness, low income, unemployed, alcoholism, drug addiction, transportation, low edu. Level, literacy, decrease access to med. care, [facility], rehab)? @ -none Was there de-escalation of care discussed even if they declined (Discuss DNR or withdrawal of care, Hospice)? DNR status @ -no What co-morbidities impacted this encounter? (DM, HTN, Smoking, COPD, CAD, Cancer, CVA, ARF, Chemo, Hep., AIDS, mental health diagnosis, sleep apnea, morbid obesity)? @ -none Was patient admitted / discharged? Hospital course, mention meds given and route, prescriptions, significant lab abnormalities, going to OR and other pertinent info. @ - Undiagnosed new problem with uncertain prognosis? @ -no Drug Therapy requiring intensive monitoring for toxicity (Heparin, Nitro, Insulin, Cardizem)? @ -no Were any procedures done? @ -no Diagnosis/symptom? @ - Acute, or Chronic, or Acute on Chronic? @ -Acute Uncomplicated (without systemic symptoms) or Complicated (systemic symptoms)? @ -Complicated Side effects of treatment? @ -no Exacerbation, Progression, or Severe Exacerbation? @ -exacerbation Poses a threat to life or bodily function? How? (Chest pain, [place], [place], pneumonia, PE, COPD, DKA, ARF, appy, cholecystitis, CVA, Diverticulitis, Homicidal, Suicidal, threat to staff... and all critical care pts) @ -yes Reevaluation #5: Differential Chest Pain: Stable Angina, Unstable Angina, STEMI, NSTEMI Aortic Dissection, Pneumothorax, Musculoskeletal, Esophageal Spasm GERD, Cholecystitis, Pancreatitis, Zoster, this is not meant to be an all-inclusive list. Chest Pain MDM - MDM 54 female to ER for evaluation of chest pain today chest pain cough congestion no signs of viral illness. EKG is normal troponin negative chest x-ray negative patient can be discharged home Disposition Clinical Impression: Chest wall syndrome, Chest pain, Atypical chest pain Disposition: HOME SELF-CARE Condition: Fair Instructions (If sedation given, give patient instructions): Chest Pain (ED), Costochondritis (ED) Is patient prescribed a controlled substance at d/c from ED?: No Referrals: Nish Baez [Primary Care Provider] - 1-2 days Time of Disposition: 18:30
[2024-06-20 16:37] LABS: Basophils % (A) 0 %; Eosinophils # (A) 0.2 k/uL (0-0.7); Eosinophils % (A) 2 %; HCT 37.6 % (34.0-46.0); HGB 12.7 gm/dL (11.4-16.0); Lymphocytes # (A) 2.1 k/uL (1.0-4.8); Lymphocytes % (A) 27 %; MCH 26.8 pg (25.0-35.0); MCHC 33.7 g/dL (31.0-37.0); MCV 79.4 fL (80.0-100.0); Monocytes # (A) 0.6 k/uL (0-1.0); Monocytes % (A) 7 %; Neutrophils # (A) 4.8 k/uL (1.3-7.7); Neutrophils % (A) 61 %; Platelet Count 305 k/uL (150-450); RBC 4.73 m/uL (3.80-5.40); RDW 13.1 % (11.5-15.5); WBC 7.8 k/uL (3.8-10.6)
[2024-06-20 16:46] LABS: ALT 65 U/L (4-34); AST 42 U/L (14-36); African American GFR (CKD) >90 (>60 ml/min/1.73 sqM); Albumin 4.5 g/dL (3.5-5.0); Alkaline Phosphatase 136 U/L (38-126); Anion Gap 8 mmol/L; Blood Urea Nitrogen 18 mg/dL (7-17); Calcium 9.4 mg/dL (8.4-10.2); Carbon Dioxide 29 mmol/L (22-30); Chloride 101 mmol/L (98-107); Glucose 105 mg/dL (74-99); Lipase 126 U/L (23-300); Magnesium 1.9 mg/dL (1.6-2.3); Non-African American GFR(CKD) >90 (>60 ml/min/1.73 sqM); Sodium 138 mmol/L (137-145); Total Protein 7.3 g/dL (6.3-8.2)
[2024-06-20 16:48] LABS: INR 0.9 (<1.2); Partial Thromboplastin Time 25.2 sec (22.0-30.0); Prothrombin Time 9.8 sec (10.0-12.5)
--- NOTE | 2024-06-20 16:49 | XR ---
EXAMINATION TYPE: XR chest 2V DATE OF EXAM: 06/20/2024 4:40 PM COMPARISON: Chest radiographs from 10/09/2023 TECHNIQUE: XR chest 2V Frontal and lateral views of the chest. CLINICAL INDICATION:Female, 54 years old with history of Chest Pain; FINDINGS: Lungs/Pleura: There is no evidence of pleural effusion, focal consolidation, or pneumothorax. Pulmonary vascularity: Unremarkable. Heart/mediastinum: Cardiomediastinal silhouette is unremarkable. Atherosclerotic calcifications are seen in the aorta. Musculoskeletal: No acute osseous pathology. IMPRESSION: No acute cardiopulmonary disease/process. [facility], , 06/20/2024 4:46 PM
[2024-06-20 16:54] LABS: NT-Pro-B-Type Natriuretic Pept 84 pg/mL
[2024-06-20 18:11] LABS: Influenza A Not Detected (Not Detectd); Influenza B Not Detected (Not Detectd); RSV Not Detected (Not Detectd)
[2024-06-20 18:57] VITALS: BP 138/83; PULSE 73; RESP 18; TEMP 98.3
== END 2024-06-20 18:56 | disposition home or self-care (01) ==
LOC: EC 15:57
DX: R07.89 Other chest pain (principal); Z86.16 Personal history of COVID-19; Z88.5 Allergy status to narcotic agent; Z88.6 Allergy status to analgesic agent; Z91.048 Other nonmedicinal substance allergy status
CPT/HCPCS: 36415; 71046; 80053; 83690; 83735; 83880; 84484; 85025; 85610; 85730; 87636; 93005; 99285

== ENCOUNTER 2024-06-22 15:33 | Observation (INO) | payer MEDICARE, OTHER ==
[2024-06-22 16:22] LABS: Basophils % (A) 1 %; Eosinophils # (A) 0.1 k/uL (0-0.7); Eosinophils % (A) 2 %; HCT 39.6 % (34.0-46.0); HGB 12.5 gm/dL (11.4-16.0); Lymphocytes # (A) 1.7 k/uL (1.0-4.8); Lymphocytes % (A) 27 %; MCH 25.9 pg (25.0-35.0); MCHC 31.7 g/dL (31.0-37.0); MCV 81.8 fL (80.0-100.0); Mean Platelet Volume 7.3; Monocytes # (A) 0.4 k/uL (0-1.0); Monocytes % (A) 7 %; Neutrophils # (A) 3.7 k/uL (1.3-7.7); Neutrophils % (A) 60 %; Platelet Count 344 k/uL (150-450); RBC 4.84 m/uL (3.80-5.40); RDW 13.4 % (11.5-15.5); WBC 6.2 k/uL (3.8-10.6)
[2024-06-22 16:33] LABS: ALT 80 U/L (4-34); AST 58 U/L (14-36); African American GFR (CKD) >90 (>60 ml/min/1.73 sqM); Albumin 4.6 g/dL (3.5-5.0); Alkaline Phosphatase 125 U/L (38-126); Anion Gap 7 mmol/L; Blood Urea Nitrogen 15 mg/dL (7-17); Calcium 9.5 mg/dL (8.4-10.2); Carbon Dioxide 29 mmol/L (22-30); Chloride 102 mmol/L (98-107); Glucose 92 mg/dL (74-99); Magnesium 1.9 mg/dL (1.6-2.3); Non-African American GFR(CKD) >90 (>60 ml/min/1.73 sqM); Potassium 4.1 mmol/L (3.5-5.1); Sodium 138 mmol/L (137-145); Total Bilirubin 0.9 mg/dL (0.2-1.3); Total Protein 7.2 g/dL (6.3-8.2)
[2024-06-22 16:34] LABS: INR 0.9 (<1.2); Partial Thromboplastin Time 24.3 sec (22.0-30.0); Prothrombin Time 10.3 sec (10.0-12.5)
[2024-06-22] MEDS: ASPIRIN 81 MG PO STA (16:50)
[2024-06-22] MEDS: NITROGLYCERIN SL TABS 0.4 MG TAB SUBLINGUAL STA (16:51)
--- NOTE | 2024-06-22 16:56 | ED ---
General Adult HPI - General Chief complaint: Chest Pain Stated complaint: Chest Pain Time Seen by Provider: 06/22/24 16:25 Source: patient, RN notes reviewed Mode of arrival: ambulatory Limitations: no limitations - History of Present Illness Initial comments: Patient is a 54-year-old female presenting to the emergency department with concerns with chest discomfort. Onset of symptoms was a few days ago. Discomfort feels like tightness rated 7/10 left chest. Patient does have some mild associated dyspnea. Patient does have history of sarcoidosis. Patient does have mild cough which just started the past 1 or 2 days. Cough does make discomfort worse. No back pain. No fever. - Related Data Home Medications Medication Instructions Recorded Confirmed carvediloL [Coreg] 12.5 mg PO BID 10/12/19 06/22/24 Furosemide [Lasix] 20 mg PO DAILY 01/31/22 06/22/24 Aspirin EC [Ecotrin Low Dose] 81 mg PO DAILY 05/13/23 06/22/24 Ondansetron Odt [Zofran ODT] 4 mg PO Q12HR PRN 05/13/23 06/22/24 Budesonide/Formoterol Fumarate 2 puff INHALATION RT-BID 10/07/23 06/22/24 [Symbicort 160-4.5 Mcg Inhaler] Isosorbide Mononitrate ER [Imdur] 30 mg PO DAILY 10/09/23 06/22/24 Lactulose 10 gm PO DAILY PRN 06/22/24 06/22/24 methocarbamoL [Robaxin] 500 - 1,000 mg PO QID PRN 06/22/24 06/22/24 Allergies Allergy/AdvReac Type Severity Reaction Status Date / Time meperidine HCl [From Demerol] Allergy Rash/Hives/ Verified 06/22/24 18:22 Swelling naproxen sodium [From Aleve] Allergy Rash/Hives/ Verified 06/22/24 18:22 Swelling red dye AdvReac migraines/h Verified 06/22/24 18:22 [place]ina Review of Systems ROS Statement: Those systems with pertinent positive or pertinent negative responses have been documented in the HPI. ROS Other: All systems not noted in ROS Statement are negative. Constitutional: Denies: fever Eyes: Denies: eye pain ENT: Denies: ear pain Respiratory: Reports: as per HPI. Denies: cough Cardiovascular: Reports: as per HPI, chest pain Endocrine: Denies: fatigue Gastrointestinal: Denies: abdominal pain Musculoskeletal: Denies: back pain Past Medical History Past Medical History: Coronary Artery Disease (CAD), Chest Pain / Angina, Hypertension, Osteoarthritis (OA), Respiratory Disorder, Syncope Additional Past Medical History / Comment(s): hx. of Vocal cord paralysis after lung biopsy, dr. sawant put a voice box on vocal cords, left lung nodules related to SARCOIDOSIS, SOB w/exertion, salivary gland infection. per pt she had covid x2, (last infection 11/2020) History of Any Multi-Drug Resistant Organisms: None Reported Past Surgical History: Adenoidectomy, Cholecystectomy, Heart Catheterization, Hysterectomy, Joint Replacement, Orthopedic Surgery, Tonsillectomy Additional Past Surgical History / Comment(s): Repair of vocal cord paralysis, left rotator cuff repair, bilateral knee replaced, LEFT LUNG NODULE REMOVAL, Loop recorder with removal, right knee replaced May 2020, had right knee manipulation 06-26-20 @ [facility]. bilateral leg stents placed in september 26/2022, Past Anesthesia/Blood Transfusion Reactions: Postoperative Nausea & Vomiting (PONV) Past Psychological History: No Psychological Hx Reported Smoking Status: Never smoker Past Alcohol Use History: None Reported Past Drug Use History: Marijuana - Past Family History Mother Family Medical History: Diabetes Mellitus Additional Family Medical History / Comment(s): Mother is alive, at 71, recently had cardiac surgery (95% occlusion) with history of diabetes. Father History Unknown: Yes Additional Family Medical History / Comment(s): Patient does not have any contact with her father and does not know any of his medical history. Brother(s) Additional Family Medical History / Comment(s): Patient has 1 brother but does not know his medical history. Patient does not have any sisters. Patient has 2 sons no major medical problems. General Exam Limitations: no limitations General appearance: alert, in no apparent distress Head exam: Present: normocephalic Eye exam: Present: normal appearance Neck exam: Present: normal inspection Respiratory exam: Present: normal lung sounds bilaterally Cardiovascular Exam: Present: regular rate, normal rhythm, normal heart sounds Expanded Peripheral pulses: 2+: Radial (R), Radial (L), Dorsalis Pedis (R), Dorsalis Pedis (L) GI/Abdominal exam: Present: soft. Absent: tenderness Extremities exam: Present: normal inspection. Absent: pedal edema, calf tenderness Neurological exam: Present: alert Psychiatric exam: Present: normal affect, normal mood Skin exam: Present: normal color Course Vital Signs 06/22/24 06/22/24 06/22/24 15:47 16:34 17:53 Temperature 98.4 F Pulse Rate 71 63 62 Respiratory 20 18 19 Rate Blood Pressure 128/85 143/85 130/75 O2 Sat by Pulse 99 100 97 Oximetry EKG Findings - EKG Results: EKG: interpreted by ERMD (Nonspecific T waves. Multiple previous EKGs reviewed.), sinus rhythm, normal axis, normal QRS Medical Decision Making - Medical Decision Making Was pt. sent in by a medical professional or institution (MONA Fernández, CHARTER PILOT, urgent care, hospital, or senior care...) When possible be specific @ -No Did you speak to anyone other than the patient for history (EMS, parent, family, police, friend...)? What history was obtained from this source @ -No Did you review nursing and triage notes (agree or disagree)? Why? @ -I reviewed and agree with nursing and triage notes Were old charts reviewed (outside hosp., previous admission, EMS record, old EKG, old radiological studies, urgent care reports/EKG's, senior care records)? Report findings @ -Previous admission reviewed Differential Diagnosis (chest pain, altered mental status, abdominal pain women, abdominal pain men, vaginal bleeding, weakness, fever, dyspnea, syncope, headache, dizziness, GI bleed, back pain, seizure, CVA, palpatations, mental health, musculoskeletal)? @ -Differential Chest Pain: Stable Angina, Unstable Angina, STEMI, NSTEMI Aortic Dissection, Pneumothorax, Musculoskeletal, Esophageal Spasm GERD, Cholecystitis, Pancreatitis, Zoster, this is not meant to be an all-inclusive list. EKG interpreted by me (3pts min.). @ -As above X-rays interpreted by me (1pt min.). @ -Chest x-ray shows no acute process CT interpreted by me (1pt min.). @ -None done U/S interpreted by me (1pt. min.). @ -None done What testing was considered but not performed or refused? (CT, X-rays, U/S, labs)? Why? @ -None What meds were considered but not given or refused? Why? @ -None Did you discuss the management of the patient with other professionals (p babarfessionals i.e. , PA, CHARTER PILOT, lab, RT, psych nurse, social insurance specialist, mobile qa tester, teacher, chief lifestyle officer, watch case polisher)? Give summary @ -Case was discussed with practitioner Cristi who will admit covering hospital call Was smoking cessation discussed for >3mins.? @ -No Was critical care preformed (if so, how long)? @ -No Were there social determinants of health that impacted care today? How? (Homeles sness, low income, unemployed, alcoholism, drug addiction, transportation, low edu. Level, literacy, decrease access to med. care, [facility], rehab)? @ -No Was there de-escalation of care discussed even if they declined (Discuss DNR or withdrawal of care, Hospice)? DNR status @ -No What co-morbidities impacted this encounter? (DM, HTN, Smoking, COPD, CAD, Cancer, CVA, ARF, Chemo, Hep., AIDS, mental health diagnosis, sleep apnea, morbid obesity)? @ -History of sarcoidosis Was patient admitted / discharged? Hospital course, mention meds given and route, prescriptions, significant lab abnormalities, going to OR and other pertinent info. @ -Patient presents with chest discomfort, initial evaluation unremarkable. Patient had recent visit. Patient will be admitted. Patient updated. Luther orders written. Undiagnosed new problem with uncertain prognosis? @ -No Drug Therapy requiring intensive monitoring for toxicity (Heparin, Nitro, Insulin, Cardizem)? @ -No Were any procedures done? @ -No Diagnosis/symptom? @ -Chest pain Acute, or Chronic, or Acute on Chronic? @ -Acute Uncomplicated (without systemic symptoms) or Complicated (systemic symptoms)? @ -Default Side effects of treatment? @ -No Exacerbation, Progression, or Severe Exacerbation? @ -No Poses a threat to life or bodily function? How? (Chest pain, [place], [place], pneumonia, PE, COPD, DKA, ARF, appy, cholecystitis, CVA, Diverticulitis, Homicidal, Suicidal, threat to staff... and all critical care pts) @ -No - Lab Data Result diagrams: 06/22/24 15:53 06/22/24 15:53 Lab Results 06/22/24 06/22/24 06/22/24 Range/Units 15:53 15:53 15:53 WBC 6.2 (3.8-10.6) k/uL RBC 4.84 (3.80-5.40) m/uL Hgb 12.5 (11.4-16.0) gm/dL Hct 39.6 (34.0-46.0) % MCV 81.8 (80.0-100.0) fL MCH 25.9 (25.0-35.0) pg MCHC 31.7 (31.0-37.0) g/dL RDW 13.4 (11.5-15.5) % Plt Count 344 (150-450) k/uL MPV 7.3 Neutrophils % 60 % Lymphocytes % 27 % Monocytes % 7 % Eosinophils % 2 % Basophils % 1 % Neutrophils # 3.7 (1.3-7.7) k/uL Lymphocytes # 1.7 (1.0-4.8) k/uL Monocytes # 0.4 (0-1.0) k/uL Eosinophils # 0.1 (0-0.7) k/uL Basophils # 0.0 (0-0.2) k/uL PT 10.3 (10.0-12.5) sec INR 0.9 (<1.2) APTT 24.3 (22.0-30.0) sec D-Dimer (<0.60) mg/L FEU Sodium 138 (137-145) mmol/L Potassium 4.1 (3.5-5.1) mmol/L Chloride 102 (98-107) mmol/L Carbon Dioxide 29 (22-30) mmol/L Anion Gap 7 mmol/L BUN 15 (7-17) mg/dL Creatinine 0.56 (0.52-1.04) mg/dL Est GFR (CKD-EPI)AfAm >90 (>60 ml/min/1.73 sqM) Est GFR (CKD-EPI)NonAf >90 (>60 ml/min/1.73 sqM) Glucose 92 (74-99) mg/dL Calcium 9.5 (8.4-10.2) mg/dL Magnesium 1.9 (1.6-2.3) mg/dL Total Bilirubin 0.9 (0.2-1.3) mg/dL AST 58 H (14-36) U/L ALT 80 H (4-34) U/L Alkaline Phosphatase 125 (38-126) U/L Troponin I (0.000-0.034) ng/mL Total Protein 7.2 (6.3-8.2) g/dL Albumin 4.6 (3.5-5.0) g/dL Influenza Type A (PCR) (Not Detectd) Influenza Type B (PCR) (Not Detectd) RSV (PCR) (Not Detectd) SARS-CoV-2 (PCR) (Not Detectd) 06/22/24 06/22/24 06/22/24 Range/Units 15:53 15:53 16:44 WBC (3.8-10.6) k/uL RBC (3.80-5.40) m/uL Hgb (11.4-16.0) gm/dL Hct (34.0-46.0) % MCV (80.0-100.0) fL MCH (25.0-35.0) pg MCHC (31.0-37.0) g/dL RDW (11.5-15.5) % Plt Count (150-450) k/uL MPV Neutrophils % % Lymphocytes % % Monocytes % % Eosinophils % % Basophils % % Neutrophils # (1.3-7.7) k/uL Lymphocytes # (1.0-4.8) k/uL Monocytes # (0-1.0) k/uL Eosinophils # (0-0.7) k/uL Basophils # (0-0.2) k/uL PT (10.0-12.5) sec INR (<1.2) APTT (22.0-30.0) sec D-Dimer 0.43 (<0.60) mg/L FEU Sodium (137-145) mmol/L Potassium (3.5-5.1) mmol/L Chloride (98-107) mmol/L Carbon Dioxide (22-30) mmol/L Anion Gap mmol/L BUN (7-17) mg/dL Creatinine (0.52-1.04) mg/dL Est GFR (CKD-EPI)AfAm (>60 ml/min/1.73 sqM) Est GFR (CKD-EPI)NonAf (>60 ml/min/1.73 sqM) Glucose (74-99) mg/dL Calcium (8.4-10.2) mg/dL Magnesium (1.6-2.3) mg/dL Total Bilirubin (0.2-1.3) mg/dL AST (14-36) U/L ALT (4-34) U/L Alkaline Phosphatase (38-126) U/L Troponin I <0.012 (0.000-0.034) ng/mL Total Protein (6.3-8.2) g/dL Albumin (3.5-5.0) g/dL Influenza Type A (PCR) Not Detected (Not Detectd) Influenza Type B (PCR) Not Detected (Not Detectd) RSV (PCR) Not Detected (Not Detectd) SARS-CoV-2 (PCR) Not Detected (Not Detectd) Disposition Clinical Impression: Chest pain Disposition: ADMITTED IP TO THIS HOSP Is patient prescribed a controlled substance at d/c from ED?: No Referrals: None,Stated [Primary Care Provider] - 1-2 days Time of Disposition: 19:19
--- NOTE | 2024-06-22 17:36 | XR ---
EXAMINATION TYPE: XR chest 2V DATE OF EXAM: 06/22/2024 5:04 PM COMPARISON: Chest radiographs from 06/20/2024. CLINICAL INDICATION: Female, 54 years old with history of Chest Pain; TECHNIQUE: XR chest 2V Frontal and lateral views of the chest. FINDINGS: Lungs/Pleura: There is no evidence of pleural effusion, focal consolidation, or pneumothorax. Pulmonary vascularity: Unremarkable. Heart/mediastinum: Cardiomediastinal silhouette is unremarkable. Musculoskeletal: No acute osseous pathology. IMPRESSION: No acute cardiopulmonary disease/process. [facility], , 06/22/2024 5:33 PM
[2024-06-22 17:47] LABS: Influenza A Not Detected (Not Detectd); Influenza B Not Detected (Not Detectd); RSV Not Detected (Not Detectd)
[2024-06-22] MEDS ORDERED: NITROGLYCERIN SL TABS 0.4 MG TAB SUBLINGUAL PRN (19:19)
[2024-06-22] MEDS ORDERED: ONDANSETRON ODT 4 MG TAB PO PRN (19:21)
[2024-06-22] MEDS: SYMBICORT 160-4.5 MCG INHALER INHALATION SCH (20:38)
[2024-06-22] MEDS: carvediloL 12.5 MG TAB PO SCH (21:03)
[2024-06-22] MEDS: NITROGLYCERIN OINT 1 INCH/GM PACKET TOPICAL SCH (23:59)
--- NOTE | 2024-06-22 23:59 | P.HPIM ---
History of Present Illness H&P Date: 06/22/24 Patient is a 54-year-old female with CAD, hypertension, sarcoidosis, vocal cord paralysis s/p voicebox presenting with chest pain. Patient states that she noticed chest pain 3 days ago. She describes it as a 7/10 constant, pressure-like, nonradiating pain located on her left side of her chest. She admits to some shortness of breath. However denies any nausea, vomiting or diaphoresis. Patient states she had a mild cough that started 1 to 2 days ago. Cough is nonproductive but makes her chest discomfort worse. During interview patient states that her chest pain has mostly relieved but is s till there. Has been previously admitted for for similar symptoms of chest discomfort. Patient denies any fever, chills, heart palpitations, abdominal pain, nausea, vomiting, diarrhea, urinary symptoms. EKG independent interpreted displaying sinus rhythm, rate 60 bpm, QTc 406 MS CXR independent interpreted displaying no acute cardiopulmonary process Cepheid 4 Plex unremarkable for influenza A/B, RSV, COVID T 98.4 F, SC 71, RR 20, BP 120/85, O2 saturation 99% room air Review of systems: Pertinent positives and negatives as discussed in HPI, a complete review of systems was performed and all other systems are negative. Physical examination: Vital signs reviewed General: non toxic, no distress, appears at stated age, normal weight Derm: no unusual rashes/lesions, warm Head: atraumatic, normocephalic, symmetric Eyes: EOMI, anicteric sclera, pupils equal round reactive to light ENT: Nose and ears atraumatic Mouth: no lip lesion, mucus membranes moist Cardiovascular: S1S2 reg, no murmur, positive dorsalis pedis pulse bilateral, no edema Lungs: CTA bilateral, no rhonchi, no rales, no accessory muscle use Abdominal: soft, non-tender to palpation, no guarding Ext: muscle strength 5 out of 5 in all 4 extremities grossly, no gross muscle atrophy Neuro: CN II-XI grossly intact, no gross focal neuro deficits Psych: Alert, oriented to person, place, and time Assessment/Plan: Patient is a 54-year-old female with CAD, hypertension, sarcoidosis, vocal cord paralysis s/p voicebox presenting with chest pain. ED documentation reviewed. Discussed with the patient. The patient is admitted with an anticipated less than 2 midnight stay for evaluation of acute chest pain. #. Acute chest pain #. Hypertension #. CAD #. Sarcoidosis Rule out ACS Troponin < 0.012, continue to trend D-dimer 0.43 Cepheid 4 Plex unremarkable EKG independent interpreted displaying sinus rhythm, rate 60 bpm, QTc 406 MS CXR independent interpreted displaying no acute cardiopulmonary process Echocardiogram ordered Aspirin 81 mg QD, atorvastatin 40 mg QD Lasix 20 mg PO QD Imdur 30 mg PO QD Nitrostat prn Lipid panel, TSH, A1c ordered Heart healthy diet Cardiac telemetry Cardiology consulted #. Transaminitis Appears chronic in nature, continue to monitor CMP DVT prophylaxis: Lovenox 40 SQ CODE STATUS: Full code Anticipated discharge place: Pending clinical course Gonzalo Winters MD PGY-1 IM Dictation was produced using [employer] dictation software. please excuse any grammatical, word or spelling errors. I have seen and evaluated the patient today. I Discussed the case with the resident and agree with the resident's findings I edited the assessment and plan as necessary as documented in the resident's note. Past Medical History Past Medical History: Coronary Artery Disease (CAD), Chest Pain / Angina, Hypertension, Osteoarthritis (OA), Respiratory Disorder, Syncope Additional Past Medical History / Comment(s): hx. of Vocal cord paralysis after lung biopsy, dr. sawant put a voice box on vocal cords, left lung nodules related to SARCOIDOSIS, SOB w/exertion, salivary gland infection. per pt she had covid x2, (last infection 11/2020) History of Any Multi-Drug Resistant Organisms: None Reported Past Surgical History: Adenoidectomy, Cholecystectomy, Heart Catheterization, Hysterectomy, Joint Replacement, Orthopedic Surgery, Tonsillectomy Additional Past Surgical History / Comment(s): Repair of vocal cord paralysis, left rotator cuff repair, bilateral knee replaced, LEFT LUNG NODULE REMOVAL, Loop recorder with removal, right knee replaced May 2020, had right knee manipulation 06-26-20 @ [facility]. bilateral leg stents placed in september 26/2022, Past Anesthesia/Blood Transfusion Reactions: Postoperative Nausea & Vomiting (PONV) Past Psychological History: No Psychological Hx Reported Smoking Status: Never smoker Past Alcohol Use History: None Reported Additional Past Alcohol Use History / Comment(s): Patient is a lifelong nons moker. previous marijuana use She uses alcohol occasionally on the weekends. Past Drug Use History: Marijuana Additional Drug Use History / Comment(s): occasional use - Past Family History Mother Family Medical History: Diabetes Mellitus Additional Family Medical History / Comment(s): Mother is alive, at 71, recently had cardiac surgery (95% occlusion) with history of diabetes. Father History Unknown: Yes Additional Family Medical History / Comment(s): Patient does not have any contact with her father and does not know any of his medical history. Brother(s) Additional Family Medical History / Comment(s): Patient has 1 brother but does not know his medical history. Patient does not have any sisters. Patient has 2 sons no major medical problems. Medications and Allergies Home Medications Medication Instructions Recorded Confirmed Type carvediloL [Coreg] 12.5 mg PO BID 10/12/19 06/22/24 History Furosemide [Lasix] 20 mg PO DAILY 01/31/22 06/22/24 History Aspirin EC [Ecotrin Low Dose] 81 mg PO DAILY 05/13/23 06/22/24 History Ondansetron Odt [Zofran ODT] 4 mg PO Q12HR PRN 05/13/23 06/22/24 History Budesonide/Formoterol Fumarate 2 puff INHALATION RT-BID 10/07/23 06/22/24 History [Symbicort 160-4.5 Mcg Inhaler] Isosorbide Mononitrate ER [Imdur] 30 mg PO DAILY 10/09/23 06/22/24 History Lactulose 10 gm PO DAILY PRN 06/22/24 06/22/24 History methocarbamoL [Robaxin] 500 - 1,000 mg PO QID PRN 06/22/24 06/22/24 History Allergies Allergy/AdvReac Type Severity Reaction Status Date / Time meperidine HCl [From Demerol] Allergy Rash/Hives/ Verified 06/22/24 18:22 Swelling naproxen sodium [From Aleve] Allergy Rash/Hives/ Verified 06/22/24 18:22 Swelling red dye AdvReac migraines/h Verified 06/22/24 18:22 catarina Physical Exam Vitals: Vital Signs Temp Pulse Resp BP Pulse Ox 06/22/24 21:06 60 19 119/75 96 06/22/24 19:20 62 18 126/83 98 06/22/24 17:53 62 19 130/75 97 06/22/24 16:34 63 18 143/85 100 06/22/24 15:47 98.4 F 71 20 128/85 99 Intake and Output 06/22/24 06/22/24 06/22/24 06:59 14:59 22:59 Other: Weight 90.718 kg Results CBC & Chem 7: 06/22/24 15:53 06/22/24 15:53 Labs: Abnormal Lab Results - Last 24 Hours (Table) 06/22/24 Range/Units 15:53 AST 58 H (14-36) U/L ALT 80 H (4-34) U/L Thrombosis Risk Factor Assmnt - Choose All That Apply Any of the Below Risk Factors Present?: Yes Each Factor Represents 1 point: Age 41-60 years Other Risk Factors: No Thrombosis Risk Factor Assessment Total Risk Factor Score: 1 Thrombosis Risk Factor Assessment Level: Low Risk
[2024-06-23 06:41] LABS: ALT 64 U/L (4-34); AST 39 U/L (14-36); African American GFR (CKD) >90 (>60 ml/min/1.73 sqM); Albumin 4.1 g/dL (3.5-5.0); Albumin/Globulin Ratio 1.6; Alkaline Phosphatase 117 U/L (38-126); Anion Gap 6 mmol/L; Blood Urea Nitrogen 17 mg/dL (7-17); Calcium 9.4 mg/dL (8.4-10.2); Carbon Dioxide 31 mmol/L (22-30); Chloride 102 mmol/L (98-107); Globulin 2.6 g/dL; Glucose 96 mg/dL (74-99); Non-African American GFR(CKD) >90 (>60 ml/min/1.73 sqM); Potassium 3.9 mmol/L (3.5-5.1); Sodium 139 mmol/L (137-145); Total Protein 6.7 g/dL (6.3-8.2)
[2024-06-23] MEDS ORDERED: ASPIRIN 325 MG TAB PO SCH (09:00)
[2024-06-23] MEDS ORDERED: NON FORMULARY DRUG (Aspirin Ec 81 MG Tablet) PO SCH (09:00)
[2024-06-23] MEDS: FUROSEMIDE 20 MG TAB PO SCH (09:26)
[2024-06-23] MEDS: ISOSORBIDE MONONITRATE ER 30 MG TAB.ER.24H PO SCH (09:26)
[2024-06-23] MEDS: ASPIRIN 81 MG PO SCH (09:26)
[2024-06-23] MEDS: ENOXAPARIN 40 MG/0.4 ML SYRINGE SQ SCH (09:26)
--- NOTE | 2024-06-23 10:30 | CA ---
Transthoracic Echo Report Name: Jinny Sanchez Age: 54 Gender: F : 1970 Exam Date: 06/23/2024 08:51 Exam Location: [facility] Ht (in): 64 Wt (lb): 200 Ordering Physician: Gonzalo Winters MD Attending/Referring Phys: Environmental Health And Safety Intern Lianne Spencer RDCS Procedure CPT: Indications: CP, sarcoidosis Cardiac Hx: Technical Quality: Fair Contrast 1: Total Dose (mL): Contrast 2: Total Dose (mL): MEASUREMENTS (Male / Female) Normal Values 2D ECHO LV Diastolic Diameter PLAX 5.0 cm 4.2 - 5.9 / 3.9 - 5.3 cm LV Systolic Diameter PLAX 3.2 cm IVS Diastolic Thickness 1.0 cm 0.6 - 1.0 / 0.6 - 0.9 cm LVPW Diastolic Thickness 0.9 cm 0.6 - 1.0 / 0.6 - 0.9 cm LV Relative Wall Thickness 0.4 RV Internal Dim ED PLAX 2.4 cm LA Systolic Diameter LX 3.9 cm 3.0 - 4.0 / 2.7 - 3.8 cm LA Volume 75.6 cm??? 18 - 58 / 22 - 52 cm??? LA Volume Index 36.6 cm???/m??? 16 - 28 cm???/m??? M-MODE Aortic Root Diameter MM 3.1 cm LA Systolic Diameter MM 3.5 cm LA Ao Ratio MM 1.2 AV Cusp Separation MM 2.2 cm DOPPLER MV Area PHT 2.4 cm??? Mitral E Point Velocity 78.8 cm/s Mitral A Point Velocity 90.7 cm/s Mitral E to A Ratio 0.9 MV Deceleration Time 310.5 ms TR Peak Velocity 231.0 cm/s TR Peak Gradient 21.4 mmHg FINDINGS Left Ventricle Left ventricular ejection fraction is estimated at 50-55 %. Left ventricular cavity size normal. Left ventricular wall thickness normal. No obvious regional wall motion abnormalities. Right Ventricle Normal right ventricular size and function. Right ventricular systolic pressure within normal limits. Right Atrium Mild right atrial dilatation. Left Atrium Moderately increased left atrial volume. Mildly increased left atrial area. Mitral Valve Structurally normal mitral valve. Mild mitral regurgitation. No mitral stenosis. Aortic Valve Trileaflet aortic valve. No aortic stenosis. No aortic regurgitation. Tricuspid Valve Structurally normal tricuspid valve. No tricuspid stenosis. Trace to mild tricuspid regurgitation. Pulmonic Valve Pulmonic valve not well visualized. Trace pulmonic regurgitation. No pulmonic stenosis. Pericardium No pericardial or pleural effusion. Aorta Normal size aortic root and proximal ascending aorta. CONCLUSIONS Indication: Chest discomfort, history of sarcoidosis Normal LV size and function Normal RV size and function Biatrial enlargement Previewed by: Dr. Ravi Charles MD (Electronically Signed) Final Date: 23 June 2024 10:29
[2024-06-23 10:56] LABS: Chol/HDL Ratio 3.74 Ratio; VLDL Calculation 16.76 mg/dL (5.00-40.00)
[2024-06-23 10:57] LABS: LDL Cholesterol,Calculated 128.2 mg/dL (0.0-131.0)
--- NOTE | 2024-06-23 11:04 | P.DS ---
Providers Date of admission: 06/22/24 19:21 Expected date of discharge: 06/23/24 Attending physician: Frandy Mark Consults: 06/22/24 19:20 Consult Physician Urgent Consulting Provider: Jose Humphrey Consult Reason/Comments: cp Do you want consulting provider notified?: Yes Primary care physician: Stated None Hospital Course: Discharge Diagnosis: Chest pain, acute coronary event ruled out Hypertension Hyperlipidemia Pulmonary sarcoidosis May Thurner syndrome status post stenting of the bilateral iliac veins. Vocal cord paralysis status post voicebox placement. Transaminitis, unclear etiology possibly secondary to sarcoidosis. Chronically elevated and appears stable. With AST of 39 and ALT of 64 on discharge. Hospital Course: Patient is a very pleasant 54-year-old female with a past medical history of hypertension, hyperlipidemia, pulmonary sarcoidosis, May-Thurner syndrome status post stenting of bilateral iliac veins, and vocal cord paralysis status post voicebox placement. She presented to the hospital on 06/22/2024 with a chief complaint of chest pain. Upon arrival to our facility, patient underwent evaluation in the emergency department. Vital signs upon arrival show blood pressure 128/85, heart rate 71, respiratory rate 20, temp 98.4 F, and SpO2 of 99% on room air. EKG completed showing sinus bradycardia 56 bpm with no significant T wave or ST abnormality showing no signs of acute ischemia upon personal review and interpretation. Chest x-ray completed negative for acute cardiopulmonary process. Labs completed and reviewed. CBC unremarkable. Coagulation profile normal findings. D-dimer negative at 0.43. BMP unremarkab le. Blood glucose 92. Liver profile showing elevated AST of 58 and ALT of 80 otherwise normal findings. Troponin was negative at less than 0.012. Influenza A, influenza B, RSV, COVID PCR's were negative. Patient was admitted under services with consultation to cardiology. Troponins trended overnight all negative at less than 0.012 x 3 draws. Patient currently free from any chest pain or discomfort. She was evaluated by cardiology recommending starting patient on atorvastatin 40 mg daily. Echocardiogram was completed showing a preserved EF of 50 to 55% and no significant valvular or structural abnormalities reported. Patient cleared from cardiac perspective for discharge recommending outpatient follow-up in their office in 1 week. Patient medically optimized for discharge at this time, patient to follow-up with PCP and provided with a list of local PCPs per her request and with cardiology in 2 weeks. Physical exam: Patient seen and examined at bedside. Vital signs reviewed and stable. General: Nontoxic, no distress and appears stated age. Derm: Skin warm and dry, normal coloration for ethnicity. Head: Atraumatic, normocephalic and symmetric. Eyes: EOM's intact, no lid lag, and anicteric sclera Mouth: no lip lesions, mucus membranes moist Cardiovascular: regular rate and rhythm with normal S1S2, no murmur, positive posterior tibial pulses bilaterally, and cap refill < 2 seconds. Lungs: Respirations even, regular, and unlabored on room air. Lungs CTA bilaterally, no rhonchi, no rales, no wheezing, and no accessory muscle usage. Abdominal: soft, nontender to palpation, no guarding, no appreciable organomegaly Ext: ROM intact. No gross muscle atrophy, no edema, no contractures Neuro: Speech clear, face symmetrical and CN II-XII grossly intact with no noted focal neuro deficits Psych: Alert and oriented to person, place, time, and situation. Appropriate and pleasant affect. A total of 33 minutes of time were spent preparing this complex discharge summary. Pt was discharged on 06/23/24 at 11:04 AM. Patient was seen independently by Nurse Practitioner. This document was prepared using [employer] dictation software. Please allow for errors in drafter landscape while rare they do occur. Cristi Ferreira NP rendered care for this patient independently, reviewed the findings and plan as documented in the note above. I did not physically speak with or examine the patient on this date. Patient Condition at Discharge: Stable Plan - Discharge Summary Discharge Rx Participant: Yes New Discharge Prescriptions: New Atorvastatin [Lipitor] 40 mg PO HS 90 Days #90 tablet Continue carvediloL [Coreg] 12.5 mg PO BID Furosemide [Lasix] 20 mg PO DAILY Aspirin EC [Ecotrin Low Dose] 81 mg PO DAILY Ondansetron Odt [Zofran ODT] 4 mg PO Q12HR PRN PRN Reason: Nausea And Vomiting Isosorbide Mononitrate ER [Imdur] 30 mg PO DAILY Budesonide/Formoterol Fumarate [Symbicort 160-4.5 Mcg Inhaler] 2 puff INHALATION RT-BID methocarbamoL [Robaxin] 500 - 1,000 mg PO QID PRN PRN Reason: Muscle Spasm Lactulose 10 gm PO DAILY PRN PRN Reason: Diarrhea Discharge Medication List carvediloL [Coreg] 12.5 mg PO BID 10/12/19 [History] Furosemide [Lasix] 20 mg PO DAILY 01/31/22 [History] Aspirin EC [Ecotrin Low Dose] 81 mg PO DAILY 05/13/23 [History] Ondansetron Odt [Zofran ODT] 4 mg PO Q12HR PRN 05/13/23 [History] Budesonide/Formoterol Fumarate [Symbicort 160-4.5 Mcg Inhaler] 2 puff INHALATION RT-BID 10/07/23 [History] Isosorbide Mononitrate ER [Imdur] 30 mg PO DAILY 10/09/23 [History] Lactulose 10 gm PO DAILY PRN 06/22/24 [History] methocarbamoL [Robaxin] 500 - 1,000 mg PO QID PRN 06/22/24 [History] Atorvastatin [Lipitor] 40 mg PO HS 90 Days #90 tablet 06/23/24 [Rx] Follow up Appointment(s)/Referral(s): Ravi Charles MD [STAFF PHYSICIAN] - 2 Weeks Quinn Srinivasan MD [STAFF PHYSICIAN] - 1 Week (Lists of local PCPs you requested and highly recommended.) Norm Alfaro MD [REFERRING] - 1 Week (Lists of local PCPs you requested and highly recommended.) Aroldo Ludwig MD [STAFF PHYSICIAN] - 1 Week (Lists of local PCPs you requested and highly recommended.) Zahra Barahona MD [STAFF PHYSICIAN] - 1 Week (Lists of local PCPs you requested and highly recommended.) [facility] [NON-STAFF] - 1 Week (Lists of local PCPs you requested and highly recommended.) Andrés Helms DO [Doctor of Osteopathic Medicine] - 1 Week (Lists of local PCPs you requested and highly recommended.) Patient Instructions/Handouts: Chest Pain (DC) Activity/Diet/Wound Care/Special Instructions: Activity: As tolerated. Take breaks as needed. Diet: Heart healthy and carb consistent diet. Special Instructions: Take all of your medications as directed and remember to keep all of your doctor's appointments and follow-up as needed. Thank you for allowing us to participate in your care, it was truly a pleasure having you for our patient!!! Discharge Disposition: HOME SELF-CARE
[2024-06-23 12:10] VITALS: BP 114/70; PULSE 72; RESP 17; TEMP 97.6
--- NOTE | 2024-06-23 14:26 | P.CRDCN ---
History of Present Illness Consult date: 06/23/24 Consult reason: chest pain History of present illness: This is a 54-year-old female patient of Dr. Humphrey with past medical history of hypertension, pulmonary sarcoidosis, May-Thurner syndrome status post stenting of the bilateral iliac veins, history of alcohol use and marijuana use. We have been asked to evaluate the patient for chest pain. Patient states that she has been experiencing chest pain and shortness of breath for the past 2 days. Prior to that she was experiencing cold symptoms which she thought was related to her pulmonary sarcoidosis. The chest pain is located in the left anterior upper chest. It is there and does not go away. She thought that it seemed much worse yesterday. Blood pressure 114/70, heart rate 59, pulse ox 97% on room air. -EKG: Sinus rhythm with no acute ST-T wave changes. -Chest x-ray: No acute process. -Laboratory studies: CBC, D-dimer, electrolytes renal function all within normal limits. AST 39 and ALT 64. Troponin negative x 3. Triglycerides 83, cholesterol 198, LDL 128. Cepheid viral panel not detected. -Home cardiac medications: Aspirin 81 mg daily, Coreg 12.5 mg twice daily, Lasix 20 mg daily, Imdur 30 mg daily. -Echocardiogram obtained this admission revealed normal LV size and function, normal RV size and function, biatrial enlargement. -Cardiac catheterization performed 10/2019 revealed normal coronary arteries. Review Of Systems: At the time of my exam: CONSTITUTIONAL: Denies fever or chills. HEENT: Denies blurred vision, vision changes, or eye pain. Denies hemoptysis CARDIOVASCULAR: Denies chest pain. Denies orthopnea. Denies PND. Denies palpitations RESPIRATORY: Denies shortness of breath. GASTROINTESTINAL: Denies abdominal pain. Denies nausea or vomiting. HEMATOLOGIC: Denies bleeding disorders. GENITOURINARY: Denies any blood in urine. SKIN: Denies puritis. Denies rash. Physical examination: Gen: This is a 54-year-old female in no acute distress. VS: reviewed HEENT: Head is atraumatic, normocephalic. Pupils equal, round. Sclerae is anicteric. NECK: Supple. No JVD. LUNGS: Clear to auscultation. No wheezes or rhonchi. No intercostal retractions. HEART: Regular rate and rhythm. Systolic murmur. ABDOMEN: Soft No tenderness. EXTREMITIES: No pedal edema. No calf tenderness. NEUROLOGICAL: Patient is awake, alert and oriented x3. Assessment: Atypical chest pain, acute coronary syndrome ruled out Hypertension Pulmonary sarcoidosis May Thurner syndrome no further cardiac workup at this time Patient is cleared for discharge and may follow-up in the office with Dr. Humphrey in 1 to 2 weeks. History of alcohol use and marijuana use Plan: Resume patient's home cardiac medications Recommend that a atorvastatin 20 mg daily be added to her medication regime. Patient is cleared for discharge from cardiology and may follow-up in the office with Dr. Humphrey in 1 to 2 weeks. Thank you kindly for this consultation. Nurse practitioner note has been reviewed, I agree with documented findings and plan of care. Patient was seen and examined. Past Medical History Past Medical History: Coronary Artery Disease (CAD), Chest Pain / Angina, Hypertension, Osteoarthritis (OA), Respiratory Disorder, Syncope Additional Past Medical History / Comment(s): hx. of Vocal cord paralysis after lung biopsy, dr. sawant put a voice box on vocal cords, left lung nodules related to SARCOIDOSIS, SOB w/exertion, salivary gland infection. per pt she had covid x2, (last infection 11/2020) History of Any Multi-Drug Resistant Organisms: None Reported Past Surgical History: Adenoidectomy, Cholecystectomy, Heart Catheterization, Hysterectomy, Joint Replacement, Orthopedic Surgery, Tonsillectomy Additional Past Surgical History / Comment(s): Repair of vocal cord paralysis, left rotator cuff repair, bilateral knee replaced, LEFT LUNG NODULE REMOVAL, Loop recorder with removal, right knee replaced May 2020, had right knee manipulation 06-26-20 @ [facility]. bilateral leg stents placed in september 26/2022, Past Anesthesia/Blood Transfusion Reactions: Postoperative Nausea & Vomiting (PONV) Past Psychological History: No Psychological Hx Reported Smoking Status: Never smoker Past Alcohol Use History: None Reported Additional Past Alcohol Use History / Comment(s): Patient is a lifelong nonsmoker. previous marijuana use She uses alcohol occasionally on the weekends. Past Drug Use History: Marijuana Additional Drug Use History / Comment(s): occasional use - Past Family History Mother Family Medical History: Diabetes Mellitus Additional Family Medical History / Comment(s): Mother is alive, at 71, recently had cardiac surgery (95% occlusion) with history of diabetes. Father History Unknown: Yes Additional Family Medical History / Comment(s): Patient does not have any contact with her father and does not know any of his medical history. Brother(s) Additional Family Medical History / Comment(s): Patient has 1 brother but does not know his medical history. Patient does not have any sisters. Patient has 2 sons no major medical problems. Medications and Allergies Home Medications Medication Instructions Recorded Confirmed Type carvediloL [Coreg] 12.5 mg PO BID 10/12/19 06/22/24 History Furosemide [Lasix] 20 mg PO DAILY 01/31/22 06/22/24 History Aspirin EC [Ecotrin Low Dose] 81 mg PO DAILY 05/13/23 06/22/24 History Ondansetron Odt [Zofran ODT] 4 mg PO Q12HR PRN 05/13/23 06/22/24 History Budesonide/Formoterol Fumarate 2 puff INHALATION RT-BID 10/07/23 06/22/24 History [Symbicort 160-4.5 Mcg Inhaler] Isosorbide Mononitrate ER [Imdur] 30 mg PO DAILY 10/09/23 06/22/24 History Lactulose 10 gm PO DAILY PRN 06/22/24 06/22/24 History methocarbamoL [Robaxin] 500 - 1,000 mg PO QID PRN 06/22/24 06/22/24 History Atorvastatin [Lipitor] 40 mg PO HS 90 Days #90 tablet 06/23/24 Rx Allergies Allergy/AdvReac Type Severity Reaction Status Date / Time meperidine HCl [From Demerol] Allergy Rash/Hives/ Verified 06/22/24 18:22 Swelling naproxen sodium [From Aleve] Allergy Rash/Hives/ Verified 06/22/24 18:22 Swelling red dye AdvReac migraines/h Verified 06/22/24 18:22 catarina Physical Exam Vitals: Vital Signs Temp Pulse Pulse Resp BP BP Pulse Ox 06/23/24 12:08 97.6 F 72 17 114/70 98 06/23/24 09:32 15 06/23/24 08:01 97.8 F 59 L 15 132/79 97 06/23/24 02:00 97.8 F 68 14 107/78 98 06/23/24 01:35 58 L 18 91/39 98 06/23/24 00:00 66 18 109/69 98 06/22/24 22:17 62 19 121/83 97 06/22/24 21:06 60 19 119/75 96 06/22/24 19:20 62 18 126/83 98 06/22/24 17:53 62 19 130/75 97 06/22/24 16:34 63 18 143/85 100 06/22/24 15:47 98.4 F 71 20 128/85 99 Intake and Output 06/22/24 06/23/24 06/23/24 22:59 06:59 14:59 Other: Weight 90.718 kg Results 06/22/24 15:53 06/23/24 06:16 Cardiac Enzymes 06/22/24 06/22/24 06/22/24 Range/Units 15:53 15:53 20:28 AST 58 H (14-36) U/L Troponin I <0.012 <0.012 (0.000-0.034) ng/mL 06/22/24 06/23/24 Range/Units 23:34 06:16 AST 39 H (14-36) U/L Troponin I <0.012 (0.000-0.034) ng/mL Coagulation 06/22/24 Range/Units 15:53 PT 10.3 (10.0-12.5) sec APTT 24.3 (22.0-30.0) sec Lipids 06/23/24 Range/Units 06:16 Triglycerides 83.80 (0.00-149.00) mg/dL Cholesterol 198.00 (0.00-200.00) mg/dL HDL Cholesterol 53.00 (40.00-60.00) mg/dL Cholesterol/HDL Ratio 3.74 Ratio CBC 06/22/24 Range/Units 15:53 WBC 6.2 (3.8-10.6) k/uL RBC 4.84 (3.80-5.40) m/uL Hgb 12.5 (11.4-16.0) gm/dL Hct 39.6 (34.0-46.0) % Plt Count 344 (150-450) k/uL Comprehensive Metabolic Panel 06/22/24 06/23/24 Range/Units 15:53 06:16 Sodium 138 139 (137-145) mmol/L Potassium 4.1 3.9 (3.5-5.1) mmol/L Chloride 102 102 (98-107) mmol/L Carbon Dioxide 29 31 H (22-30) mmol/L BUN 15 17 (7-17) mg/dL Creatinine 0.56 0.58 (0.52-1.04) mg/dL Glucose 92 96 (74-99) mg/dL Calcium 9.5 9.4 (8.4-10.2) mg/dL AST 58 H 39 H (14-36) U/L ALT 80 H 64 H (4-34) U/L Alkaline Phosphatase 125 117 (38-126) U/L Total Protein 7.2 6.7 (6.3-8.2) g/dL Albumin 4.6 4.1 (3.5-5.0) g/dL Intake and Output 06/22/24 06/23/24 06/23/24 22:59 06:59 14:59 Other: Weight 90.718 kg 06/22/24 15:53 06/23/24 06:16
[2024-06-23] MEDS ORDERED: ATORVASTATIN 40 MG TAB PO SCH (21:00)
== END 2024-06-23 12:08 | disposition home or self-care (01) ==
LOC: EC 15:33 → 6NMEDSUR 19:21
PROVIDERS: ADMIT Student in an Organized Health Care Education/Training Program; ATTEND Student in an Organized Health Care Education/Training Program
DX: R07.89 Other chest pain (principal); I10 Essential (primary) hypertension; E78.5 Hyperlipidemia, unspecified; D86.0 Sarcoidosis of lung; I87.1 Compression of vein; I25.10 Atherosclerotic heart disease of native coronary artery without angina pectoris; J38.00 Paralysis of vocal cords and larynx, unspecified; R74.01 Elevation of levels of liver transaminase levels; Z11.52 Encounter for screening for COVID-19; Z11.59 Encounter for screening for other viral diseases; Z79.82 Long term (current) use of aspirin; Z79.51 Long term (current) use of inhaled steroids; Z79.899 Other long term (current) drug therapy; Z88.6 Allergy status to analgesic agent; Z88.5 Allergy status to narcotic agent; Z91.048 Other nonmedicinal substance allergy status; Z96.3 Presence of artificial larynx; Z95.828 Presence of other vascular implants and grafts
CPT/HCPCS: 96372; 99285; 36415; 94640 ×2; 93005; 85379; 80061; 80053 ×2; 84443; 83735; 84484; 85025; 85610; 85730; 83036; 87636; 71046; G0378 ×2; C8929; J1650; Q9957; 93306

== ENCOUNTER → 2024-07-22 | Outpatient (CLI) | payer MEDICARE, OTHER ==
--- NOTE | 2024-07-22 15:20 | XR ---
EXAMINATION TYPE: XR lumbar spine 2 or 3V DATE OF EXAM: 07/22/2024 3:12 PM COMPARISON: None. CLINICAL INDICATION: Female, 54 years old with history of LOWER BACK PAIN M54.50, TECHNIQUE: 3 views of the lumbar spine submitted FINDINGS: There are 5 lumbar type vertebral bodies identified. The lumbar spine shows satisfactory alignment without evidence of acute fracture or dislocation. Vertebral body heights are within normal limits. Mild degenerative disc space narrowing. The overlying soft tissue appears unremarkable. IMPRESSION: No acute fracture or dislocation is seen in the lumbar spine.ICD 10 NO FRACTURE, INITIAL EVALUATION [facility], , 07/22/2024 3:18 PM
--- NOTE | 2024-07-22 15:21 | XR ---
EXAMINATION TYPE: XR sacrum coccyx DATE OF EXAM: 07/22/2024 3:12 PM COMPARISON: None. CLINICAL INDICATION: Female, 54 years old with history of low back pain, pain TECHNIQUE: XR sacrum coccyx views were obtained FINDINGS: Sacral alae appear symmetric. No evidence for fracture or bony lesion. Sacroiliac joints are within normal limits. Visualized coccygeal segments are free of fracture or lesion. IMPRESSION: No displaced fracture visible. [facility], , 07/22/2024 3:18 PM
--- NOTE | 2024-07-22 15:22 | XR ---
EXAMINATION TYPE: XR wrist complete RT DATE OF EXAM: 07/22/2024 3:12 PM COMPARISON: None. CLINICAL INDICATION: Female, 54 years old with history of PAIN IN RIGHT WRIST, pain TECHNIQUE: Frontal, lateral and oblique images of the right wrist are obtained. FINDINGS: There is fracture noted to involve the distal radius laterally with intra-articular extensi on. Displacement noted of 1.6 mm. There is sclerosis along the fracture margin indicating nonacute fr acture and likely late subacute. The joint spaces in the right wrist appear within normal limits. Th e overlying soft tissue appears unremarkable. IMPRESSION: Distal radial fracture as discussed. [facility], , 07/22/2024 3:20 PM
== END | disposition home or self-care (01) ==
LOC: RADXRMAIN 14:27
PROVIDERS: ATTEND Family Medicine
DX: S52.501A Unspecified fracture of the lower end of right radius, initial encounter for closed fracture (principal); M54.50 Low back pain, unspecified
CPT/HCPCS: 72100; 72220